=== PATIENT | female | born 1955 | race Caucasian/White ===

== ENCOUNTER 2022-08-20 02:42 | Emergency (ER) | payer MEDICARE, OTHER, SELFPAY ==
[2022-08-20] VITALS (7 sets, daily range): BP systolic 130–141; BP diastolic 48–110; PULSE 92–112; RESP 13–24; TEMP 37.1; O2SAT 95; BMI 34.0
--- NOTE | 2022-08-20 02:57 | ED.GENADUL1 ---
HPI - General Adult General Chief complaint: Headache Stated complaint: NAUSEA Time Seen by Provider: 08/20/22 02:48 Source: patient Mode of arrival: Wheelchair Limitations: no limitations History of Present Illness HPI narrative: presents complaining of a headache. Started around 4pm yesterday. has gradually worsened. Feels like an ax in her head and pain behind her eye. Denies fever but states she had chills. No neck stiffness but mild neck pain. Denies paresthesia or weakness or her extremities. No visual complaint. Feels nauseated. no chest pain. Did have epigastric abdominal pain yesterday AM but this resolved . States the pain lasted a couple of hours. no recurrence Related Data Home Medications Medication Instructions Recorded Confirmed atorvastatin 40 mg tablet 40 mg PO DAILY 08/20/22 08/20/22 hydrochlorothiazide 25 mg tablet 25 mg PO DAILY 08/20/22 08/20/22 levetiracetam 500 mg tablet 500 mg PO Q12H 08/20/22 08/20/22 omeprazole 40 mg capsule,delayed 40 mg PO DAILY 08/20/22 08/20/22 release Allergies Allergy/AdvReac Type Severity Reaction Status Date / Time morphine Allergy Unknown Verified 08/20/22 02:57 Penicillins Allergy Unknown Verified 08/20/22 02:57 Review of Systems ROS Status of ROS 10 or more systems reviewed and unremarkable except as noted in history and below PFSH PFS Social History Smoking status: Never smoker Exam Constitutional Vital Signs - 24 hr 08/20/22 02:46 08/20/22 03:06 08/20/22 03:10 Temperature 98.8 F Pulse Rate 100 H 98 H Pulse Rate [Monitor] 112 H Respiratory Rate 24 18 Blood Pressure Blood Pressure [Left Arm] 136/110 H Pulse Oximetry 95 08/20/22 03:20 08/20/22 03:23 08/20/22 04:03 Temperature Pulse Rate 94 H 92 H Pulse Rate [Monitor] Respiratory Rate 16 13 Blood Pressure 141/87 H Blood Pressure [Left Arm] Pulse Oximetry 08/20/22 06:06 Temperature Pulse Rate Pulse Rate [Monitor] Respiratory Rate Blood Pressure 130/48 H Blood Pressure [Left Arm] Pulse Oximetry Common normals: no apparent distress, oriented x3, healthy appearing, alert and well nourished [facility] Common normals: normocephalic Eye Common normals: PERRL, EOMs intact bilaterally and conjunctivae normal Respiratory Common normals: normal respiratory effort, no retractions, no use of accessory muscles and clear to auscultation bilaterally Cardio Common normals: no JVD, regular rate, regular rhythm, S1 normal heart sound and S2 normal heart sound GI Common normals: Normal to inspection, nondistended, normoactive bowel sounds present, soft to palpation and non-tender Extremity Common normals: normal to inspection and full ROM Neuro Common normals: oriented x3, moves all extremities, no focal motor deficits, no sensory deficits noted and gait normal Psych Appearance: grossly normal Course Vital Signs Vital signs: Vital Signs Temperature 98.8 F 08/20/22 02:46 Pulse Rate 112 H 08/20/22 02:46 Respiratory Rate 24 08/20/22 02:46 Blood Pressure 136/110 H 08/20/22 02:46 Pulse Oximetry 95 08/20/22 02:46 Temperature 98.8 F 08/20/22 02:46 Pulse Rate 92 H 08/20/22 03:23 Respiratory Rate 13 08/20/22 03:23 Blood Pressure 130/48 H 08/20/22 06:06 Pulse Oximetry 95 08/20/22 02:46 Medical Decision Making MDM Narrative Medical decision making narrative: patient presented complaining of a headache top of her head and behind her right eye associated with nausea. pain started yesterday around 4pm and gradually worsened. Also mentioned that she had abdominal pain that started 9AM yesterday and resolved after a couple of hours. Headache associated with nausea. CT brain without acute changes. EKG with low voltage. LAD. Headache improved significantly after cocktail in the department and she is feeling better. Her Troponin return elevated at 53. repeat Troponin returned normal at 48. Spoke to Hospitalist Dr Vasquez and he requested I consult with Cardiology. Discussed with Seismic Prospect[employer] Supervisor Dr Anton. He felt since the patient never had any chest pain and no recurrence of abdominal pain since yesterday that she could be discharged home to follow up with Cardiology later today in Clinic. Patient and her informed of the above and provided information on how to contact Cardiology clinic Lab Data Labs: Lab Results 08/20/22 08/20/22 Range/Units 03:00 05:55 WBC 10.6 (4.0-11.0) 10^3/uL RBC 4.99 (4.20-5.40) 10^6/uL Hgb 14.7 (12.0-16.0) g/dL Hct 44.4 (36.0-48.0) % MCV 89.0 (81.0-99.0) fL MCH 29.5 (26.7-34.0) pg MCHC 33.1 (29.9-35.2) g/dL RDW 13.4 (11.0-15.0) % Plt Count 361 (150-450) 10^3/uL MPV 9.0 L (9.5-13.5) fL Neut % (Auto) 79.3 H (43.0-75.0) % Lymph % (Auto) 12.2 L (20.5-60.0) % [place] % (Auto) 5.9 (1.7-12.0) % Eos % (Auto) 0.1 L (0.9-7.0) % Baso % (Auto) 0.4 (0.2-2.0) % Neut # (Auto) 8.4 H (1.4-6.5) 10^3/uL Lymph # (Auto) 1.3 (1.2-3.8) 10^3/uL [place] # (Auto) 0.6 (0.3-0.8) 10^3/uL Eos # (Auto) 0.0 (0.0-0.7) 10^3/uL Baso # (Auto) 0.0 (0.0-0.1) 10^3/uL Abs Immat Gran (auto) 0.22 H (0.00-0.03) 10^3/uL Imm/Tot Granulo (auto) 2.1 H (0.0-0.5) % Sodium 134 L (136-145) mmol/L Potassium 3.2 L (3.5-5.1) mmol/L Chloride 96 L (98-107) mmol/L Carbon Dioxide 29.3 (21.0-32.0) mmol/L Anion Gap 11.9 BUN 12.0 (7.0-18.0) mg/dL Creatinine 1.01 (0.55-1.02) mg/dL Est GFR ( Amer) >60 (>=60) Est GFR (Non-Af Amer) 55 L (>=60) BUN/Creatinine Ratio 11.9 Glucose 130 H (74-106) mg/dL Calcium 9.0 (8.5-10.1) mg/dL Troponin I High Sens 53.5 H* 48.8 (4.0-51.3) pg/mL Discharge Plan Discharge Chief Complaint: Headache Clinical Impression: Headache, Elevated troponin Patient Disposition: Home, Self-Care Prescriptions / Home Meds: No Action atorvastatin 40 mg tablet 40 mg PO DAILY levetiracetam 500 mg tablet 500 mg PO Q12H omeprazole 40 mg capsule,delayed release(DR/EC) 40 mg PO DAILY hydrochlorothiazide 25 mg tablet 25 mg PO DAILY Instructions: Acute Headache (ED) Additional Instructions: follow up in cardiology clinic here at [place] later today Stand Alone Forms: Portal Instructions Referrals: ROBBIN ORTIZ [Primary Care Provider] - 1 week
--- NOTE | 2022-08-20 03:00 | CT_ITS ---
The [address] [address] Patient Name: LACI VALADEZ MRN: [id number] date: 1955 Sex: F Assigned Patient Location: ER Current Patient Location: ER Accession/Order Number: [id number] Exam Date: 08/20/2022 03:30 Report Date: 08/20/2022 04:32 At the request of: ANTONY RAE Procedure: CT head/brain wo con EXAM: CT head/brain wo con CLINICAL INDICATION: headache COMPARISON: None TECHNIQUE: Axial CT images of the brain were obtained without contrast. Dose reduction techniques were achieved by using automated exposure control and/or adjustment of mA and/or kV according to patient size and/or use of iterative reconstruction technique. FINDINGS: Brain parenchyma: No mass effect or midline shift is seen. [place]-white differentiation is maintained. No findings suspicious for intracranial hemorrhage. No findings suggesting acute stroke. Periventricular hypoattenuation / patchy white matter hypodensities are statistically most often related to small vessel ischemic disease. Mild chronic infarct noted along the medial right occipital lobe with mild ex vacuo dilatation of the right occipital horn. Small chronic lacunar infarct noted along the right thalamus. Ventricles and extra-axial spaces: Ventricles are concordant with sulci. No findings suggesting hydrocephalus. Visualized paranasal sinuses: No findings suggesting acute sinusitis. Mastoid air cells: Clear. Included portions of the orbits:Included portions of the orbits with no evidence of fracture or other acute pathology. Bones: No fracture is seen. Impression: 1. No acute intracranial process visualized. 2. 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 Small chronic lacunar infarct along the right thalamus. Electronically authenticated by: CARITO WOOTEN Date: 08/20/2022 04:32
--- NOTE | 2022-08-20 03:00 | ECG_ITS ---
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
--- NOTE | 2022-08-20 03:02 | XR_ITS ---
The [address] [address] Patient Name: LACI VALADEZ MRN: [id number] date: 1955 Sex: F Assigned Patient Location: ER Current Patient Location: ED.MAIN Accession/Order Number: [id number] Exam Date: 08/20/2022 03:30 Report Date: 08/20/2022 05:34 At the request of: ANTONY ARE Procedure: XR chest 1V EXAM: XR chest 1V HISTORY: nausea. Headache for one day. COMPARISON: 02/22/2013, 05/07/2011, shoulder x-ray of 07/27/2014. TECHNIQUE: Chest X-ray, 1 view. FINDINGS: The patient is mildly rotated with best images obtained per technologist given difficulty in positioning. Support devices: None. Lungs/pleura: No consolidation, effusion, or pneumothorax. Low lung volumes. Heart and mediastinum: Given similar positioning on 07/27/2014, contours and not substantially changed. Bones: No acute abnormality identified. Overlying support devices are noted. IMPRESSION: No active disease. Low lung volumes. Electronically authenticated by: CAITLYN PONCE Date: 08/20/2022 05:34
[2022-08-20] MEDS: METHYLPREDNISOLONE SOD SUCC PF 125 MG/2 ML VIAL IVP (03:15)
[2022-08-20] MEDS: METOCLOPRAMIDE HCL 10 MG/2 ML VIAL IVP (03:15)
[2022-08-20] MEDS: 0.9 % SODIUM CHLORIDE 500 ML 250 ML IV (03:20)
[2022-08-20 03:46] LABS: Anion Gap 11.9; BUN Creatinine Ratio 11.9; Carbon Dioxide 29.3 mmol/L (21.0-32.0); Chloride 96 mmol/L (98-107); Estimated GFR (African America >60 (>=60); Estimated GFR (Non-African Ame 55 (>=60); Glucose 130 mg/dL (74-106); Potassium 3.2 mmol/L (3.5-5.1); Sodium 134 mmol/L (136-145)
[2022-08-20 03:56] LABS: Basophils Percent Auto 0.4 % (0.2-2.0); Eosinophils Percent Auto 0.1 % (0.9-7.0); Hematocrit 44.4 % (36.0-48.0); Hemoglobin 14.7 g/dL (12.0-16.0); Immature Granulocytes Abs Auto 0.22 10^3/uL (0.00-0.03); Immature Granulocytes Pct Auto 2.1 % (0.0-0.5); Lymphocytes Absolute Auto 1.3 10^3/uL (1.2-3.8); Lymphocytes Percent Auto 12.2 % (20.5-60.0); Mean Corpuscular HGB Conc 33.1 g/dL (29.9-35.2); Mean Corpuscular Hemoglobin 29.5 pg (26.7-34.0); Monocytes Absolute Auto 0.6 10^3/uL (0.3-0.8); Monocytes Percent Auto 5.9 % (1.7-12.0); Neutrophils Absolute Auto 8.4 10^3/uL (1.4-6.5); Neutrophils Percent Auto 79.3 % (43.0-75.0); Platelet Count 361 10^3/uL (150-450); Red Blood Count 4.99 10^6/uL (4.20-5.40); Red Cell Distribution Width 13.4 % (11.0-15.0); White Blood Count 10.6 10^3/uL (4.0-11.0)
[2022-08-20 04:00] LABS: Troponin I High Sensitivity 53.5 pg/mL (4.0-51.3)
[2022-08-20 06:17] LABS: Troponin I High Sensitivity 48.8 pg/mL (4.0-51.3)
== END 2022-08-20 06:58 | disposition home or self-care (01) ==
PROVIDERS: Emergency Provider Internal Medicine; PCP Internal Medicine
DX: R51.9 Headache, unspecified (principal); R77.8 Other specified abnormalities of plasma proteins; Z79.899 Other long term (current) drug therapy
CPT/HCPCS: 36415; 70450; 71045; 80048; 84484; 85025; 93005; 99283; J2930

== ENCOUNTER 2022-08-21 17:09 | Emergency (ER) | payer MEDICARE, OTHER, SELFPAY ==
[2022-08-21 17:15] VITALS: BP 137/52; PULSE 62; RESP 18; TEMP 36.9; O2SAT 97; BMI 29.5
[2022-08-21 17:19] VITALS: PULSE 53; RESP 7; O2SAT 98
--- NOTE | 2022-08-21 17:19 | ECG_ITS ---
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
[2022-08-21 17:20] VITALS: BP 145/56; PULSE 54; RESP 17; O2SAT 97
--- NOTE | 2022-08-21 17:20 | ED_ITS ---
HPI - General Adult General Chief complaint: Headache Stated complaint: HEADACHE Time Seen by Provider: 08/21/22 17:11 Source: patient Mode of arrival: walk-in Limitations: no limitations History of Present Illness HPI narrative: patient is a 67-year-old female who returns to the emergency department for return of headache. She was seen in this emergency department yesterday, very early in the morning for headache. She had a CT scan that was unremarkable and she was treated for the headache with medication with resolution of the headache. She was found to have a minimally elevated troponin, repeat troponin was within normal limits and the patient was discharged home after the Emergency Room physician discussed the case with the health unit clerk on-call. She was to follow-up yesterday in the health unit clerk office but the states that the patient did not follow-up because the cardiology office refused to schedule them. She had a return of the headache this morning. She denies visual changes, peripheral paresthesias, vomiting, fevers, upper respiratory symptoms. She has had no chest pain, shortness of breath, peripheral edema. She does not have a history of migraines. She was not prescribed any medications for headaches for home. She states it feels as though there is someone hitting her with an ax in the top of the head. Related Data Home Medications Medication Instructions Recorded Confirmed atorvastatin 40 mg tablet 40 mg PO DAILY 08/20/22 08/20/22 hydrochlorothiazide 25 mg tablet 25 mg PO DAILY 08/20/22 08/20/22 levetiracetam 500 mg tablet 500 mg PO Q12H 08/20/22 08/20/22 omeprazole 40 mg capsule,delayed 40 mg PO DAILY 08/20/22 08/20/22 release aspirin 325 mg tablet,delayed 325 mg PO DAILY 08/21/22 08/21/22 release Previous Rx's Medication Instructions Recorded diphenhydramine HCl 25 mg capsule 25 mg PO Q6H PRN headache #12 caps 08/21/22 (Benadryl) metoclopramide HCl 10 mg tablet 10 mg PO Q6H PRN nausea and 08/21/22 (Reglan) vomiting #12 tabs Allergies Allergy/AdvReac Type Severity Reaction Status Date / Time morphine Allergy Unknown Verified 08/20/22 02:57 Penicillins Allergy Unknown Verified 08/20/22 02:57 Review of Systems ROS Constitutional Denies: fever or chills Ears, nose, mouth, and throat Denies: throat pain or neck pain Cardiovascular Denies: chest pain Respiratory Denies: shortness of breath or cough Gastrointestinal Denies: nausea or vomiting Musculoskeletal Denies: back pain or neck pain Integumentary/Breast Denies: rash Neurological Reports: headache [facility] Social History Smoking status: Never smoker Exam Narrative Exam Narrative: Gen.: Awake, alert, in no distress, sitting comfortably on exam cart Head: Normocephalic, atraumatic ENT: Moist mucous membranes, no photophobia, C-spine nontender with no nuchal rigidity or meningismus Respiratory: No respiratory distress, lungs clear bilaterally Cardio: Regular rate and rhythm Gastrointestinal: Abdomen is soft, nondistended and nontender to palpation Extremities: Moves extremities equally, no pedal edema Psych: Normal mood and affect Neuro: No focal neuro deficit Skin: Warm, dry, intact Constitutional Vital Signs - 24 hr 08/21/22 17:15 08/21/22 17:19 08/21/22 17:20 Temperature 98.5 F Pulse Rate 53 L 54 L Pulse Rate [Monitor] 62 Respiratory Rate 18 7 L 17 Blood Pressure 145/56 H Blood Pressure [Left Arm] 137/52 H Pulse Oximetry 97 98 97 Oxygen Delivery Method Room Air Course Vital Signs Vital signs: Vital Signs Temperature 98.5 F 08/21/22 17:15 Pulse Rate 62 08/21/22 17:15 Respiratory Rate 18 08/21/22 17:15 Blood Pressure 137/52 H 08/21/22 17:15 Pulse Oximetry 97 08/21/22 17:15 Oxygen Delivery Method Room Air 08/21/22 17:15 Temperature 98.5 F 08/21/22 17:15 Pulse Rate 54 L 08/21/22 17:20 Respiratory Rate 17 08/21/22 17:20 Blood Pressure 145/56 H 08/21/22 17:20 Pulse Oximetry 97 08/21/22 17:20 Oxygen Delivery Method Room Air 08/21/22 17:15 Medical Decision Making MDM Narrative Medical decision making narrative: patient was treated for headache with IV fluids, Decadron, Reglan, Benadryl with almost complete resolution of the headache. She is resting comfortably on reevaluation. She was noted to have a potassium of 2.9. She has a normal troponin today with no complaints of chest pain or shortness of breath. She was strongly encouraged to follow-up with cardiology as needed and her PCP for further evaluation of a headache. Her requests a referral for the cardiology office as they were not able to be scheduled yesterday. We will fax her documentation to [facility] cardiology office and the patient can be scheduled as an outpatient. Return to the Emergency Room if symptoms change or worsen. Medical Records Medical records reviewed: Yes I reviewed the patient's medical records Lab Data Lab results reviewed: Yes I reviewed the patient's lab results Labs: Lab Results 08/21/22 Range/Units 17:26 WBC 9.7 (4.0-11.0) 10^3/uL RBC 4.79 (4.20-5.40) 10^6/uL Hgb 14.0 (12.0-16.0) g/dL Hct 41.2 (36.0-48.0) % MCV 86.0 (81.0-99.0) fL MCH 29.2 (26.7-34.0) pg MCHC 34.0 (29.9-35.2) g/dL RDW 13.2 (11.0-15.0) % Plt Count 325 (150-450) 10^3/uL MPV 8.5 L (9.5-13.5) fL Neut % (Auto) 72.6 (43.0-75.0) % Lymph % (Auto) 20.4 L (20.5-60.0) % [place] % (Auto) 6.4 (1.7-12.0) % Eos % (Auto) 0.1 L (0.9-7.0) % Baso % (Auto) 0.2 (0.2-2.0) % Neut # (Auto) 7.0 H (1.4-6.5) 10^3/uL Lymph # (Auto) 2.0 (1.2-3.8) 10^3/uL [place] # (Auto) 0.6 (0.3-0.8) 10^3/uL Eos # (Auto) 0.0 (0.0-0.7) 10^3/uL Baso # (Auto) 0.0 (0.0-0.1) 10^3/uL Abs Immat Gran (auto) 0.03 (0.00-0.03) 10^3/uL Imm/Tot Granulo (auto) 0.3 (0.0-0.5) % ESR 34 H (<=30) mm/hr Sodium 135 L (136-145) mmol/L Potassium 2.9 L* (3.5-5.1) mmol/L Chloride 98 (98-107) mmol/L Carbon Dioxide 30.8 (21.0-32.0) mmol/L Anion Gap 9.1 BUN 16.0 (7.0-18.0) mg/dL Creatinine 0.94 (0.55-1.02) mg/dL Est GFR ( Amer) >60 (>=60) Est GFR (Non-Af Amer) 59 L (>=60) BUN/Creatinine Ratio 17.0 Glucose 96 (74-106) mg/dL Calcium 8.8 (8.5-10.1) mg/dL Total Bilirubin 1.0 (0.2-1.0) mg/dL AST 25 (15-37) U/L ALT 30 (14-59) U/L Alkaline Phosphatase 85 (46-116) U/L Troponin I High Sens 21.8 (4.0-51.3) pg/mL C-Reactive Protein <0.2 (<=1.0) mg/dL Total Protein 7.1 (6.4-8.2) g/dL Albumin 3.6 (3.4-5.0) g/dL Globulin 3.5 g/dL Albumin/Globulin Ratio 1.0 ECG Data Attestation: I personally reviewed and interpreted this ECG as follows: (normal sinus rhythm at a rate of fifty-eight, T-wave inversion in leads three and lead aVF that is more prominent from previous. No acute ST elevation or ectopy. EKG reviewed by attending physician) Prior ECG tracings: available for review Discharge Plan Discharge Chief Complaint: Headache Clinical Impression: Headache, Acute hypokalemia Patient Disposition: Home, Self-Care Time of Disposition Decision: 18:25 Condition: Good Prescriptions / Home Meds: New metoclopramide HCl [Reglan] 10 mg tablet 10 mg PO Q6H PRN (Reason: nausea and vomiting) Qty: 12 0RF Rx Instructions: Can be taken PRN for headache with benadryl diphenhydramine HCl [Benadryl] 25 mg capsule 25 mg PO Q6H PRN (Reason: headache) Qty: 12 0RF Rx Instructions: to be taken with reglan PRN for headache No Action aspirin 325 mg tablet,delayed release (DR/EC) 325 mg PO DAILY atorvastatin 40 mg tablet 40 mg PO DAILY levetiracetam 500 mg tablet 500 mg PO Q12H omeprazole 40 mg capsule,delayed release(DR/EC) 40 mg PO DAILY hydrochlorothiazide 25 mg tablet 25 mg PO DAILY Instructions: Acute Headache (ED) Stand Alone Forms: Portal Instructions Referrals: ROBBIN ORTIZ [Primary Care Provider] - 1 week
[2022-08-21 17:32] LABS: Basophils Percent Auto 0.2 % (0.2-2.0); Eosinophils Percent Auto 0.1 % (0.9-7.0); Hematocrit 41.2 % (36.0-48.0); Immature Granulocytes Abs Auto 0.03 10^3/uL (0.00-0.03); Immature Granulocytes Pct Auto 0.3 % (0.0-0.5); Lymphocytes Percent Auto 20.4 % (20.5-60.0); Mean Corpuscular Hemoglobin 29.2 pg (26.7-34.0); Mean Platelet Volume 8.5 fL (9.5-13.5); Monocytes Absolute Auto 0.6 10^3/uL (0.3-0.8); Monocytes Percent Auto 6.4 % (1.7-12.0); Neutrophils Percent Auto 72.6 % (43.0-75.0); Platelet Count 325 10^3/uL (150-450); Red Blood Count 4.79 10^6/uL (4.20-5.40); Red Cell Distribution Width 13.2 % (11.0-15.0); White Blood Count 9.7 10^3/uL (4.0-11.0)
[2022-08-21 17:39] LABS: Erythrocyte Sedimentation Rate 34 mm/hr (<=30)
[2022-08-21 17:51] LABS: Alanine Aminotransferase 30 U/L (14-59); Albumin Level 3.6 g/dL (3.4-5.0); Alkaline Phosphatase 85 U/L (46-116); Anion Gap 9.1; Aspartate Amino Transferase 25 U/L (15-37); Calcium 8.8 mg/dL (8.5-10.1); Carbon Dioxide 30.8 mmol/L (21.0-32.0); Chloride 98 mmol/L (98-107); Estimated GFR (African America >60 (>=60); Estimated GFR (Non-African Ame 59 (>=60); Globulin 3.5 g/dL; Glucose 96 mg/dL (74-106); Sodium 135 mmol/L (136-145); Total Protein 7.1 g/dL (6.4-8.2); Troponin I High Sensitivity 21.8 pg/mL (4.0-51.3)
[2022-08-21 17:52] LABS: C Reactive Protein <0.2 mg/dL (<=1.0)
[2022-08-21 17:53] LABS: Potassium 2.9 mmol/L (3.5-5.1)
[2022-08-21] MEDS: 0.9 % SODIUM CHLORIDE 1,000 ML 999 ML IV (17:56)
[2022-08-21] MEDS: DEXAMETHASONE SODIUM PHOSPHATE 10 MG/ML VIAL IV (17:57)
[2022-08-21] MEDS: DIPHENHYDRAMINE HCL 50 MG/ML (1ML) VIAL 25 MG IV (17:58)
[2022-08-21] MEDS: METOCLOPRAMIDE HCL 10 MG/2 ML VIAL INJ (17:58)
[2022-08-21] MEDS: POTASSIUM CHLORIDE 10 MEQ ER TABLET 40 MEQ PO (19:31)
== END 2022-08-21 19:32 | disposition home or self-care (01) ==
PROVIDERS: Physician Assistant; Emergency Provider Emergency Medicine Emergency Medical Services; PCP Internal Medicine
DX: R51.9 Headache, unspecified (principal); E87.6 Hypokalemia; Z79.82 Long term (current) use of aspirin; Z79.899 Other long term (current) drug therapy
CPT/HCPCS: 36415; 80053; 84484; 85025; 85652; 86140; 93005; 96374; 96375; 99284; J1100

== ENCOUNTER 2022-09-03 06:54 | Outpatient (OUT) | payer MEDICARE, OTHER, SELFPAY ==
--- NOTE | 2022-09-03 15:10 | CA_ITS ---
Patient: LACI VALADEZ Exam Date: 09/03/2022 : 1955 Gender:F Ordering : NELSY POWELL Admission #: [id number] Family : ROBBIN ORTIZ Order #: [id number] CLICK HERE TO VIEW EXAM ECHOCARDIOGRAM REPORT PROCEDURE: CA ECHO DOPPLER COMPLETE INDICATIONS: Chest pain COMPARISON: None. DESCRIPTION: COMPLETE ECHOCARDIOGRAM Real-time transthoracic echocardiography with 2D, M-mode, spectral and color flow Doppler performed. QUALITY: Technically difficult due to patients condition. LEFT VENTRICLE: Normal chamber size. Normal left ventricular wall thickness. Normal systolic function. LV EF: Normal left ventricular ejection fraction, (>55%). DIASTOLIC: Normal diastolic function. ATRIAL SEPTUM: LEFT ATRIUM: Normal chamber size. RIGHT ATRIUM: Normal chamber size. RIGHT VENTRICLE: Normal chamber size. Normal right ventricular systolic function. TRICUSPID VALVE: Normal mobility and thickness. No stenosis with no regurgitation. MITRAL VALVE: Normal mobility and thickness. No evidence of mitral valve stenosis. Mild mitral annular calcification. No mitral regurgitation. AORTIC VALVE: Normal trileaflet appearance. Normal leaflet mobility. No evidence of aortic valve stenosis. Multifocal calcifications. No aortic regurgitation. AORTIC ROOT: Normal diameter and appearance. PULMONIC VALVE: Normal thickness and mobility. No stenosis. Trivial regurgitation. PERICARDIUM: No evidence of pericardial effusion. IVC: Not well visualized. PLEURA: CONCLUSION: 1. Normal ventricular function. 2. No significant valvular dysfunction. 3. No pericardial effusion. Adult Echocardiography Procedure Report Left Ventricle LVEDD (3.7 - 5.6 cm): 4.00 cm LVESD (2.2 - 4.0 cm): 2.37 cm LVIVS thickness (0.6 - 1.2 cm): 0.96 cm LVPW thickness (0.5 - 1.0 cm): 0.79 cm e': 0.09 m/s E - e': 9.14 LVOT Max Gradient: 2.40 mm[Hg] LVOT Area (cm2): 0.78 m/s Peak Velocity (LVOT): 0.78 m/s LVOT Diameter 1.98 cm Left Atrium LA Volume Index (2D A2C): 22.30 ml/m2 Left Atrium Systolic Dimension: 2.59 cm Mitral Valve MV E to A Ratio: 0.76 Mitral Valve A-Wave Peak Velocity: 1.10 m/s Mitral Valve E-Wave Peak Velocity: 0.84 m/s Right Ventricle Aorta AO Root Diam: 2.99 cm Ascending Ao Diam: 2.86 cm Aortic Valve AoV Area (Peak Jose Antonio): 1.85 cm2, 1.85 cm2 Peak Velocity(Antegrade Flow): 1.28 m/s Peak Gradient(Antegrade Flow): 6.58 mm[Hg] Tricuspid Valve Pulmonic Valve Peak Velocity: 0.96 m/s Peak Gradient: 3.75 mm[Hg], 3.68 mm[Hg] Right Atrium Right Atrium Systolic Pressure: 29.11 ml, 29.11 ml Dictated by: Mayur Price M.D. on 09/06/2022 at 18:16 Approved by: Mayur Price M.D. on 09/06/2022 at 18:19
== END 2022-09-03 06:55 | disposition home or self-care (01) ==
LOC: CARD 06:55
PROVIDERS: PCP Internal Medicine; Visit Provider Internal Medicine Cardiovascular Disease
DX: R07.9 Chest pain, unspecified (principal)
CPT/HCPCS: 93306

== ENCOUNTER 2023-01-28 15:02 | Outpatient (OUT) | payer MEDICARE, OTHER, SELFPAY ==
[2023-01-28 15:18] LABS: Basophils Percent Auto 0.6 % (0.2-2.0); Eosinophils Absolute Auto 0.2 10^3/uL (0.0-0.7); Eosinophils Percent Auto 2.7 % (0.9-7.0); Hematocrit 43.9 % (36.0-48.0); Hemoglobin 14.5 g/dL (12.0-16.0); Immature Granulocytes Abs Auto 0.03 10^3/uL (0.00-0.03); Immature Granulocytes Pct Auto 0.4 % (0.0-0.5); Lymphocytes Absolute Auto 1.7 10^3/uL (1.2-3.8); Lymphocytes Percent Auto 25.1 % (20.5-60.0); Mean Corpuscular Hemoglobin 29.5 pg (26.7-34.0); Mean Corpuscular Volume 89.4 fL (81.0-99.0); Mean Platelet Volume 8.5 fL (9.5-13.5); Monocytes Absolute Auto 0.5 10^3/uL (0.3-0.8); Neutrophils Absolute Auto 4.3 10^3/uL (1.4-6.5); Neutrophils Percent Auto 64.2 % (43.0-75.0); Platelet Count 347 10^3/uL (150-450); Red Blood Count 4.91 10^6/uL (4.20-5.40); White Blood Count 6.8 10^3/uL (4.0-11.0)
[2023-01-28 16:07] LABS: Alanine Aminotransferase 18 U/L (14-59); Albumin Level 3.6 g/dL (3.4-5.0); Alkaline Phosphatase 95 U/L (46-116); Anion Gap 9.1; Aspartate Amino Transferase 20 U/L (15-37); BUN Creatinine Ratio 15.1; Bilirubin Total 0.9 mg/dL (0.2-1.0); Calcium 9.4 mg/dL (8.5-10.1); Carbon Dioxide 32.4 mmol/L (21.0-32.0); Chloride 98 mmol/L (98-107); Chol HDL Ratio 2.8; Cholesterol 180 mg/dL (<=200); Estimated GFR (African America >60 (>=60); Estimated GFR (Non-African Ame >60 (>=60); Globulin 3.7 g/dL; Glucose 100 mg/dL (74-106); HDL Cholesterol 65 mg/dL (40-60); Potassium 3.5 mmol/L (3.5-5.1); Sodium 136 mmol/L (136-145); Total Protein 7.3 g/dL (6.4-8.2); Triglycerides 109 mg/dL (<=150); VLDL CHOLESTEROL 21.8 mg/dL
== END 2023-01-28 15:03 | disposition home or self-care (01) ==
LOC: LAB 15:03
PROVIDERS: PCP Internal Medicine; Visit Provider Nurse Practitioner Acute Care
DX: I25.10 Atherosclerotic heart disease of native coronary artery without angina pectoris (principal)
CPT/HCPCS: 36415; 80053; 80061; 85025

== ENCOUNTER 2023-05-07 18:15 | Observation (INO) | payer MEDICARE, OTHER, SELFPAY ==
[2023-05-07] VITALS (42 sets, daily range): BP systolic 79–165; BP diastolic 48–86; PULSE 61–103; RESP 12–23; TEMP 36.5–36.7; O2SAT 92–98; BMI 33.2; BMI 34.5
--- NOTE | 2023-05-07 | PCN_ITS ---
CARDIAC STRESS TEST Requesting Physician: Carlotta Salazar Procedure Date: 05/07/2023 PERFORMING PROVIDER: Martha Knight M.D. INDICATION: Chest pain. STRESS TEST PROTOCOL: Lexiscan myocardial perfusion imaging. Resting heart rate: 64 beats per minute. Max heart rate: 116 beats per minute. Resting blood pressure: 126/74 Maximum blood pressure: 134/68 CONCLUSION: 1. Baseline EKG is abnormal due to low voltage QRS, poor R-wave progression indicative of possible anterior infarct, age indeterminate. 2. EKG portion of stress test was non-diagnostic due to significant artifact throughout the procedure. 3. Please refer to the separately interpreted nuclear myocardial perfusion imaging. 4. Clinical correlation recommended. [facility]
--- NOTE | 2023-05-07 18:34 | XR_ITS ---
The [address] [address] Patient Name: LACI VALADEZ MRN: [id number] date: 1955 Sex: F Assigned Patient Location: ED.MAIN Current Patient Location: ED.MAIN Accession/Order Number: [id number] Exam Date: 05/07/2023 18:40 Report Date: 05/07/2023 19:17 At the request of: NEHEMIAS CALDERON Procedure: XR chest 1V EXAMINATION: XR chest 1V 05/07/2023 4:16 PM PDT HISTORY: Chest pain TECHNIQUE: Single frontal view of the chest acquired. COMPARISONS: Chest x-ray 08/20/2022. FINDINGS: Lines/tubes/other: None. Heart and mediastinum: Stable. Bones: No acute osseous abnormality. Lungs: Mild patchy opacification of the left lateral base. No pulmonary edema. Pleura: There is no significant pleural effusion or pneumothorax. Other: None. XR/XR chest 1V IMPRESSION: Mild left basilar opacification. Differential includes atelectasis, aspiration, and pneumonia. Electronically authenticated by: KALEB FREED Date: 05/07/2023 19:17
--- NOTE | 2023-05-07 18:34 | ECG_ITS ---
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
--- NOTE | 2023-05-07 18:35 | ED.CHESTPAI1 ---
HPI - Chest Pain General Chief Complaint: Chest Pain Stated Complaint: Chest Pain Time Seen by Provider: 05/07/23 18:27 Source: patient Mode of arrival: walk-in Limitations: no limitations History of Present Illness HPI narrative: 67-year-old female presents for 1 hour of chest pain. On the left side of her chest and started while she was sitting down. It is waxed and waned but has not gone away. She had chest pain about a year ago but was not admitted to the hospital and she had a stress test more than 8 years ago. She is scheduled to see a multi site leasing consultant soon. No fever cough or injury or unusual activity. It is moderate and waxes and wanes. Related Data Home Medications ?Medication ?Instructions ?Recorded ?Confirmed atorvastatin 40 mg tablet 40 mg PO DAILY 08/20/22 05/07/23 hydrochlorothiazide 25 mg tablet 25 mg PO DAILY 08/20/22 05/07/23 levetiracetam 500 mg tablet 500 mg PO Q12H 08/20/22 05/07/23 omeprazole 40 mg capsule,delayed 40 mg PO DAILY 08/20/22 05/07/23 release aspirin 325 mg tablet,delayed 325 mg PO DAILY 08/21/22 05/07/23 release albuterol sulfate 90 mcg/actuation inhalation 05/07/23 aerosol inhaler Previous Rx's ?Medication ?Instructions ?Recorded diphenhydramine HCl 25 mg capsule 25 mg PO Q6H PRN headache #12 caps 08/21/22 (Benadryl) metoclopramide HCl 10 mg tablet 10 mg PO Q6H PRN nausea and 08/21/22 (Reglan) vomiting #12 tabs Allergies Allergy/AdvReac Type Severity Reaction Status Date / Time morphine Allergy Unknown Verified 08/20/22 02:57 Penicillins Allergy Unknown Verified 08/20/22 02:57 Review of Systems ROS Narrative A ten point review of systems is negative except as noted above. PFSH PFSH Social History Smoking status: Never smoker Exam Narrative Exam Narrative: Nurses note and vital signs reviewed and patient is not hypoxic. General: The patient appears well and in no apparent distress. Patient is resting comfortably on cart. Skin: Warm, dry, no pallor noted. There is no rash noted. Head: Normocephalic, atraumatic Eye: Normal conjunctiva, no drainage Ears, Nose, Mouth, and Throat: oral mucosa is moist. Nares patent. Cardiovascular: Regular Rate and Rhythm Respiratory: Patient is in no distress, no accessory muscle use, lungs are clear to auscultation, no wheezing, rales or rhonchi Back: non-tender GI: Soft and nontender Musculoskeletal: The patient has no evidence of calf tenderness, no pitting edema, symmetrical pulses noted bilaterally Neurological: A&O, normal speech Psychiatric: Cooperative Constitutional Vital Signs, click to edit/add: Last Vital Signs Temp 98.1 F 05/07/23 18:23 Pulse 77 05/07/23 18:23 Resp 15 05/07/23 18:23 BP 126/84 05/07/23 18:23 Pulse Ox 95 05/07/23 18:30 O2 Del Method Room Air 05/07/23 18:30 Course Vital Signs Vital signs: Vital Signs Temperature 98.1 F 05/07/23 18:23 Pulse Rate 77 05/07/23 18:23 Respiratory Rate 15 05/07/23 18:23 Blood Pressure 126/84 05/07/23 18:23 Pulse Oximetry 96 05/07/23 18:23 Oxygen Delivery Method Room Air 05/07/23 18:23 Temperature 98.1 F 05/07/23 18:23 Pulse Rate 77 05/07/23 18:23 Respiratory Rate 15 05/07/23 18:23 Blood Pressure 126/84 05/07/23 18:23 Pulse Oximetry 95 05/07/23 18:30 Oxygen Delivery Method Room Air 05/07/23 18:30 MDM - Chest Pain MDM Narrative Medical decision making narrative: Tests are ordered and the patient is signed out to Dr. Hawk. Differential Diagnosis Differential diagnosis: Likely pneumothorax, unstable angina pectoris, atypical chest pain, st elevation myocardial infarction, costochondritis and chest pain ECG Data Attestation: I personally reviewed and interpreted this ECG as follows: (EKG on my interpretation shows normal sinus rhythm without acute change and rate of 70.) Heart Score History: Highly Suspicious ECG: Normal Age: >65 years Risk Factors: 1 or 2 Risk Factors Troponin: <Normal Limit (Troponin pending at the time of this dictation) Total Heart Score Recommendations & Risks:: 5 Discharge Plan Discharge Patient Disposition: Still a Patient
[2023-05-07 18:41] LABS: Basophils Absolute Auto 0.1 10^3/uL (0.0-0.1); Basophils Percent Auto 0.8 % (0.2-2.0); Eosinophils Absolute Auto 0.3 10^3/uL (0.0-0.7); Eosinophils Percent Auto 3.4 % (0.9-7.0); Hematocrit 43.8 % (36.0-48.0); Hemoglobin 14.2 g/dL (12.0-16.0); Immature Granulocytes Abs Auto 0.02 10^3/uL (0.00-0.03); Immature Granulocytes Pct Auto 0.3 % (0.0-0.5); Lymphocytes Absolute Auto 2.4 10^3/uL (1.2-3.8); Lymphocytes Percent Auto 30.8 % (20.5-60.0); Mean Corpuscular HGB Conc 32.4 g/dL (29.9-35.2); Mean Corpuscular Hemoglobin 29.5 pg (26.7-34.0); Mean Corpuscular Volume 90.9 fL (81.0-99.0); Mean Platelet Volume 9.1 fL (9.5-13.5); Monocytes Absolute Auto 0.7 10^3/uL (0.3-0.8); Monocytes Percent Auto 8.9 % (1.7-12.0); Neutrophils Absolute Auto 4.3 10^3/uL (1.4-6.5); Neutrophils Percent Auto 55.8 % (43.0-75.0); Platelet Count 356 10^3/uL (150-450); Red Blood Count 4.82 10^6/uL (4.20-5.40); White Blood Count 7.7 10^3/uL (4.0-11.0)
--- OUTSIDE RECORDS SUMMARY | 2023-05-07 18:41 | XMS_ITS | CCD ---
Author Organization [facility] Care Team Providers Care Erosion Control Specialist Name Role Phone Robbin Ortiz Cynthia Primary Care Provider [phone] ANGEL ROBBIN Marie Referring Unavailable ANGEL, ROBBIN Marie Primary Care Unavailable JULITO, RAFAEL Aceves Referring Unavailable ANGEL, ROBBIN Marie Primary Care Unavailable RAFAEL VILA Referring Unavailable ANGEL, ROBBIN Marie Primary Care Unavailable HILL, ROBBIN Marie Referring Unavailable ANGEL, ROBBIN Marie Primary Care Unavailable HILL, ROBBIN Marie Referring Unavailable ANGEL, ROBBIN Marie Primary Care Unavailable LEILA, OBY Referring Unavailable ANGEL, ROBBIN Marie Primary Care Unavailable LEILA, BOY Referring Unavailable ANGEL, ROBBIN Marie Primary Care Unavailable REQUEST, NONE LISTED Attending Unavaila ble REQUEST, NONE LISTED Consulting Unavaila ble REQUEST, NONE LISTED Admitting Unavaila ble ANGEL, DR SIEGEL Primary Care Unavailable BRE LOYD JR Attending Unavailable BRE LOYD JR Admitting Unavailable ANGEL, DR SIEGEL Primary Care Unavailable BRE LOYD JR Attending Unavailable BRE LOYD JR Admitting Unavailable REQUEST, NONE LISTED Attending Unavaila ble REQUEST, NONE LISTED Consulting Unavaila ble REQUEST, NONE LISTED Admitting Unavaila TRE Chatman Consulting Unavailable TRE AUGUSTIN Admitting Unavailable TRE AUGUSTIN Attending Unavailable MD Robbin Ortiz Primary Care Provider [phone] DO Gurpreet Omalley Emergency Provider [phone] NELSY POWELL Attending Unavailable SUSIE LANGE Attending Unavailable Gurpreet Omalley Attending Unavailable Gurpreet Omalley Admitting Unavailable Robbin Ortiz Primary Care Unavailable ROBBIN ORTIZ Referring Unavailable CJ MOSES Attending Unava ilable Allergies Allergy Classification Reported Allergen(s) Allergy Type Date of Onset Reaction(s) Facility (6 sources) Lisinopril Drug Allergy 6 Other (See Comments) [place] (8 sources) Morphine; Translations: [MORPHINE] Drug Allergy 2 Other (See Comments) [place] (8 sources) Penicillins; Translations: [PENICILLINS] Propensity to adverse reactions to drug 2 Nausea And Vomiting [place] (1 source) Morphine Drug Allergy 6 [facility] (1 source) Penicillins Drug allergy (disorder) 5 [facility] (1 source) Morphine Drug Allergy 3 [facility] (1 source) Penicillins Drug allergy (disorder) 3 [facility] Medications Current Medications Medication Drug Class(es) Dates Sig (Normalized) Sig (Original) 200 actuat albuterol 0.09 mg/actuat metered dose inhaler (6 sources) beta2-Adrenergic Agonist Start: 01-18-20 15 take 2 puff(s) by inhalation every six hours as needed albuterol (PROVENTIL HFA;VENTOLIN HFA) 108 (90 BASE) MCG/ACT inhaler Inhale 2 puffs into the lungs every 6 hours as needed 3 Inhaler 2 01/17/2015 Active aspirin 325 mg delayed release oral tablet (6 sources) Platelet Aggregation Inhibitor, Nonsteroidal Anti-inflammatory Drug Start: 04-14-19 16 take 1 tablet by mouth once daily aspirin (ECOTRIN) 325 MG EC tablet Take 1 tablet by mouth daily 90 tablet 1 04/14/2015 Active atorvastatin 40 mg oral tablet (6 sources) HMG-CoA Reductase Inhibitor Start: 04-14-19 16 take 1 tablet by mouth once daily atorvastatin (LIPITOR) 40 MG tablet Take 1 tablet by mouth nightly 90 tablet 1 04/14/2015 Active betamethasone 0.5 mg/ml / clotrimazole 10 mg/ml topical cream (6 sources) Azole Antifungal, Corticosteroid Start: 10-09-19 14 clotrimazole-betametha sone (LOTRISONE) cream Apply topically 2 times daily. 45 g 2 10/08/2013 Active Calcium Carbonate Antacid (TUMS PO) (6 sources) Calcium Carbonat e Antacid (TUMS PO) Take by mouth as needed 0 Active cholecalciferol 2000 unt oral capsule (6 sources) Vitamin D take 1 capsule by mouth once daily Cholecalciferol (VITAMIN D3) 2000 UNITS CAPS Take 1 capsule by mouth daily 0 Active clindamycin 150 mg oral capsule (1 source) Lincosamide Antibacterial take 4 tablets by mouth every hour clindamycin (CLEOCIN) 150 MG capsule Indications: 4 tabs one hour prior to dentist Take 150 mg by mouth 4 times daily Indications: 4 tabs one hour prior to dentist 0 Active docusate sodium 50 mg / sennosides, chcf 8.6 mg oral tablet (1 source) take 8.6-50 mg by mouth once senna-docusate (PERICOLACE) 8.6-50 MG per tablet Take 1 tablet by mouth daily 0 Active fexofenadine hydrochloride 180 mg oral tablet (6 sources) Histamine-1 Receptor Antagonist Start: 07-30-19 13 take 1 tablet by mouth once daily fexofenadine (TIEN) 180 MG tablet Indications: Allergic asthma Take 1 tablet by mouth daily. 90 tablet 3 07/29/2012 Active hydroCHLOROthiazide 25 mg oral tablet (6 sources) Thiazide Diuretic Start: 01-25-20 16 hydrochlorothiazide (HYDRODIURIL) 25 MG tablet 1 tablet daily 0 01/25/2016 Active levETIRAcetam 500 mg oral tablet (1 source) Start: 04-26-19 16 take 1 tablet by mouth twice daily levETIRAcetam (KEPPRA) 500 MG tablet Take 1 tablet by mouth 2 times daily 180 tablet 3 04/26/2015 Active omeprazole 20 mg oral tablet (6 sources) Proton Pump Inhibitor Omeprazole Magnesium (PRILOSEC OTC PO) Take 20 mg by mouth 0 Active Problems Active Problems Problem Classification Problem Date Documented Date Episodic/Chronic Acute cerebrovascular disease (6 sources) Cerebrovascular accident; Translations: [Stroke] 12-10-2011 Chronic Acute myocardial infarction (6 sources) Acute ST segment elevation myocardial infarction; Translations: [Myocardial infarction] 03-22-2015 Chronic Allergic reactions (6 sources) Urticaria; Translations: [Hives] 12-10-2011 Episodic Asthma (6 sources) Asthma; Translations: [Asthma] 07-29-2012 Chronic Congestive heart failure; nonhypertensive (2 sources) Chronic systolic (congestive) heart failure; Translations: [Chronic systolic (congestive) heart failure] Onset: 12-10-2022 Chronic Coronary atherosclerosis and other heart disease (2 sources) Atherosclerotic heart disease of zuni coronary artery without angina pectoris; Translations: [Atherosclerotic heart disease of zuni coronary artery without angina pectoris] Onset: 12-10-2022 Chronic Epilepsy; convulsions (6 sources) Seizure; Translations: [Convulsions] 03-23-2015 Episodic Essential hypertension (8 sources) Hypertensive disorder; Translations: [Essential (primary) hypertension] Onset: 12-10-2022 07-29-2012 Chronic Immunizations and screening for infectious disease (4 sources) Encounter for immunization; Translations: [ENCOUNTER FOR IMMUNIZATION] Onset: 12-20-2020 Episodic Nonspecific chest pain (2 sources) Other chest pain; Translations: [Other chest pain] Onset: 12-10-2022 Episodic Osteoarthritis (6 sources) Osteoarthritis; Translations: [Osteoarthritis] 12-10-2011 Chronic Other bone disease and musculoskeletal deformities (1 source) Osteopenia; Translations: [Osteopenia, unspecified location] Episodic Peripheral and visceral atherosclerosis (6 sources) Stenosis of left subclavian artery; Translations: [Stenosis of left subclavian artery] Onset: 05-10-2015 05-10-2015 Pneumonia (except that caused by tuberculosis or sexually transmitted disease) (6 sources) Pneumonia; Translations: [Pneumonia] 12-10-2011 Episodic Residual codes; unclassified (6 sources) Chronic back pain ; Translations: [Chronic back pain] 12-10-2011 Episodic Unclassified (1 source) Patient encounter status; Translations: [Breast cancer screening by mammogram] Past or Other Problems Problem Classification Problem Date Documented Da te Episodic/Chronic Malaise and fatigue (1 source) Asthenia; Translations: [Weakness] Onset: 08-20-2022 Episodic Results Test Name Value Interpretation Reference Range Facil ity Office Visiton 12-10-2022 Follow-up visit [id number] Bethany Cardoza 1955 F Date Provider Department Center 12/10/2022 [id number] KHOURY Family History Problem Relation Age of Onset Heart failure Mother Heart attack Father Family Status - Relation Status Age at Mother Father Level of Service:36021 MT OFFICE/OUTPATIENT ESTABLISHED MOD MDM 30-39 MIN Normal [facility] Office Visiton 08-24-2022 Follow-up visit [id number] Bethany Cardoza 1955 F Date Provider Department Center 08/24/2022 Nimisha8-NELSY POWELL CARD [facility] Family History Problem Relation Age of Onset Heart failure Mother Heart attack Father Family Status - Relation Status Age at Mother Father Level of Service:56101 MT OFFICE/OUTPATIENT NEW MODERATE MDM 45-59 MINUTES Normal [facility] XR Ribs Righton 01-09-2022 XR Ribs Right HISTORY: Rib pain since a fall. TECHNIQUE: Frontal view of the chest and frontal and oblique views of the ribs obtained COMPARISON: None available FINDINGS: Suboptimal inspiration. Atherosclerotic calcification of the thoracic aorta. The cardiomediastinal silhouette is within normal limits. Linear opacities of the left lung base. No pneumothorax or pleural effusion. No acute displaced rib fracture identified by radiography. IMPRESSION: No acute displaced rib fracture identified by radiography. Linear opacities of the left lung base likely represent atelectasis unless the patient has signs/symptoms of pneumonia. Report reported and signed by Robbin Irvin on 01/10/2022 0935 Normal [facility] PRISCA DIGITAL SCREEN W OR WO C AD BILATERALon 09-24-2019 [facility] DIGITAL SCREEN W OR WO CAD BILATERAL BILATERAL DIGITAL MAMMOGRAPHY, SCREENING COMPARISON: 02/16/2014 and 01/04/2014. HISTORY: Previous benign breast biopsies. TECHNIQUE: CC and MLO views were obtained bilaterally. CAD utilized. FINDINGS: The breasts are predominantly fat. Minimal fibroglandular tissue is symmetrically distributed. There is no evidence for suspicious dominant mass or suspicious-appearing clusters of calcification. Occasional benign-appearing calcifications are seen. Biopsy clips are noted incidentally bilaterally. IMPRESSION: 1. No mammographic evidence for malignancy. 2. Continued yearly screening is recommended. BI-RADS 2, benign. Benign, no evidence of malignancy. Normal interval followup is recommended in 12 months. OVERALL ASSESSMENT - BENIGN. A letter of notification will be sent to the patient regarding the results. Interpreted by: Bre Kunz MD Signed by: Bre Kunz MD 09/24/19 Final result Normal [facility] 1. No mammographic evidence for malignancy. 2. Continued yearly screening is recommended. BI-RADS 2, benign. Benign, no evidence of malignancy. Normal interval followup is recommended in 12 months. OVERALL ASSESSMENT - BENIGN. A letter of notification will be sent to the patient regarding the results. [facility], [place] BILATERAL DIGITAL MAMMOGRAPHY, SCREENING COMPARISON: 02/16/2014 and 01/04/2014. HISTORY: Previous benign breast biopsies. TECHNIQUE: CC and MLO views were obtained bilaterally. CAD utilized. FINDINGS: The breasts are predominantly fat. Minimal fibroglandular tissue is symmetrically distributed. There is no evidence for suspicious dominant mass or suspicious-appearing clusters of calcification. Occasional benign-appearing calcifications are seen. Biopsy clips are noted incidentally bilaterally. [place], [place] Andres, [facility] Incoming Radiant Results From [employer] - 09/24/2019 12:10 PM EDT BILATERAL DIGITAL MAMMOGRAPHY, SCREENING COMPARISON: 02/16/2014 and 01/04/2014. HISTORY: Previous benign breast biopsies. TECHNIQUE: CC and MLO views were obtained bilaterally. CAD utilized. FINDINGS: The breasts are predominantly fat. Minimal fibroglandular tissue is symmetrically distributed. There is no evidence for suspicious dominant mass or suspicious-appearing clusters of calcification. Occasional benign-appearing calcifications are seen. Biopsy clips are noted incidentally bilaterally. IMPRESSION: 1. No mammographic evidence for malignancy. 2. Continued yearly screening is recommended. BI-RADS 2, benign. Benign, no evidence of malignancy. Normal interval followup is recommended in 12 months. OVERALL ASSESSMENT - BENIGN. A letter of notification will be sent to the patient regarding the results. [facility] [place] DEXA BONE DENSITY 2 SITESon 09-23-2019 DEXA BONE DENSITY 2 SITES DEXA BONE DENSITY STUDY - 09/22/2019: COMPARISON: DEXA study 01/17/2015. ADDITIONAL HISTORY: 64-year-old postmenopausal white female with a personal history of osteopenia. FINDINGS: There is a mild scoliosis of the thoracolumbar spine with multilevel endplate spurring and degenerative sclerosis that falsely elevates the lumbar spine density measurements. The total lumbar spine density measurement equals 1.072 g/sq cm, corresponding to a T score of -0.9. Previously the lumbar spine density measurement equaled 1.075 g/sq cm. This indicates a -0.3% change since 2014. The mean total hip density measurement equals 0.808 g/sq cm, corresponding to a T score of -1.6. Previously the mean total hip density measurement equals 0.812 g/sq cm, corresponding to a T score of -1.5. This indicates a nonsignificant -0.5% change since 2014. The mean femoral neck density measurement equals 0.800 g/sq cm, corresponding to a T score of -1.7. Previously the mean femoral neck density measurement equaled 0.774 g/sq cm, corresponding to T score of -1.9. Comparison of femoral neck density measurements is not felt to be accurate from year to year. IMPRESSION: Osteopenia. Minimal change compared to the 2014 study. The 10-year fracture risk for a major osteoporotic fracture is 14.7% and the 10-year risk for a hip fracture is 1.8%. In order to compare results through the years, it is necessary that the patient be scanned on the same instrument each time, or on instruments that have been cross-correlated. If this is not done, difference may be due to differences in the machines rather than to changes in the patient's bone density. Interpreted by: Keith Ospina MD Signed by: Keith Ospina MD 09/23/19 Final result Normal [facility] Osteopenia. Minimal change compared to the 2014 study. The 10-year fracture risk for a major osteoporotic fracture is 14.7% and the 10-year risk for a hip fracture is 1.8%. In order to compare results through the years, it is necessary that the patient be scanned on the same instrument each time, or on instruments that have been cross-correlated. If this is not done, difference may be due to differences in the machines rather than to changes in the patient's bone density. [place], [place] DEXA BONE DENSITY STUDY - 09/22/2019: COMPARISON: DEXA study 01/17/2015. ADDITIONAL HISTORY: 64-year-old postmenopausal white female with a personal history of osteopenia. FINDINGS: There is a mild scoliosis of the thoracolumbar spine with multilevel endplate spurring and degenerative sclerosis that falsely elevates the lumbar spine density measurements. The total lumbar spine density measurement equals 1.072 g/sq cm, corresponding to a T score of -0.9. Previously the lumbar spine density measurement equaled 1.075 g/sq cm. This indicates a -0.3% change since 2014. The mean total hip density measurement equals 0.808 g/sq cm, corresponding to a T score of -1.6. Previously the mean total hip density measurement equals 0.812 g/sq cm, corresponding to a T score of -1.5. This indicates a nonsignificant -0.5% change since 2014. The mean femoral neck density measurement equals 0.800 g/sq cm, corresponding to a T score of -1.7. Previously the mean femoral neck density measurement equaled 0.774 g/sq cm, corresponding to T score of -1.9. Comparison of femoral neck density measurements is not felt to be accurate from year to year. [facility] [place], [place] [facility], [facility] Incoming Radiant Results From [employer] - 09/23/2019 10:29 AM EDT DEXA BONE DENSITY STUDY - 09/22/2019: COMPARISON: DEXA study 01/17/2015. ADDITIONAL HISTORY: 64-year-old postmenopausal white female with a personal history of osteopenia. FINDINGS: There is a mild scoliosis of the thoracolumbar spine with multilevel endplate spurring and degenerative sclerosis that falsely elevates the lumbar spine density measurements. The total lumbar spine density measurement equals 1.072 g/sq cm, corresponding to a T score of -0.9. Previously the lumbar spine density measurement equaled 1.075 g/sq cm. This indicates a -0.3% change since 2014. The mean total hip density measurement equals 0.808 g/sq cm, corresponding to a T score of -1.6. Previously the mean total hip density measurement equals 0.812 g/sq cm, corresponding to a T score of -1.5. This indicates a nonsignificant -0.5% change since 2014. The mean femoral neck density measurement equals 0.800 g/sq cm, corresponding to a T score of -1.7. Previously the mean femoral neck density measurement equaled 0.774 g/sq cm, corresponding to T score of -1.9. Comparison of femoral neck density measurements is not felt to be accurate from year to year. IMPRESSION: Osteopenia. Minimal change compared to the 2014 study. The 10-year fracture risk for a major osteoporotic fracture is 14.7% and the 10-year risk for a hip fracture is 1.8%. In order to compare results through the years, it is necessary that the patient be scanned on the same instrument each time, or on instruments that have been cross-correlated. If this is not done, difference may be due to differences in the machines rather than to changes in the patient's bone density. [facility] [place], [place] Lipid Profileon 09-22-2019 Cholesterol [Mass/Vol] 148 mg/dL Normal <200 [facility] Comment on above: Result Comment: Cholesterol Guidelines: <200 Desirable 200-240 Borderline >240 Undesirable Performed By: #### C BC, CP, LIPR, TSH, UA, UMICAO #### [facility] [address] [place] [address] Paint Formulator: Avinash Aldrich MD #### INDIGO, AHCV #### [facility] [address] [place], [place] [id number] Paint Formulator: Ciro Lux MD Cholesterol in HDL [Mass/Vol] 61 mg/dL Normal >40 [facility] Comment on above: Result Comment: HDL Guidelines: <40 Undesirable 40-59 Borderline >59 Desirable Performed By: #### C BC, CP, LIPR, TSH, UA, UMICAO #### [facility] [address] [place] [address] Paint Formulator: Avinash Aldrich MD #### INDIGO, AHCV #### [address] [id number] Paint Formulator: Ciro Lux MD Cholesterol in LDL [Mass/Vol] 71 mg/dL Normal 0-130 [facility] Comment on above: Result Comment: LDL Guidelines: <100 Desirable 100-129 Near to/above Desirable 130-159 Borderline >159 Undesirable Direct (measured) LDL and calculated LDL are not interchangeable tests. Performed By: #### C BC, CP, LIPR, TSH, UA, UMICAO #### [facility] [address] [place], [place] [id number] Paint Formulator: Avinash Aldrich MD #### INDIGO, AHCV #### [facility] [address] [place], [place] [id number] Paint Formulator: Ciro Lux MD Cholesterol.total/C holesterol in HDL [Mass ratio] 2.4 {ratio} Normal <5 [facility] Comment on above: Performed By: #### C BC, CP, LIPR, TSH, UA, UMICAO #### [facility] [address] [place], [place] [phone] Paint Formulator: Avinash Aldrich MD #### INDIGO, SOHEILACV #### [place] [place], [place] [id number] Paint Formulator: Ciro Lux MD Triglyceride [Mass/Vol] 78 mg/dL Normal <150 [facility] Comment on above: Result Comment: Triglyceride Guidelines: <150 Desirable 150-199 Borderline 200-499 High >499 Very high Based on AHA Guidelines for fasting triglyceride, November 2011. Performed By: #### C BC, CP, LIPR, TSH, UA, UMICAO #### [facility] [address] [place] [address] Paint Formulator: Avinash Aldrich MD #### INDIGO, SOHEILACV #### [address] [id number] Paint Formulator: Ciro Lux MD PTH, Intacton 09-22-2019 PTH, Intact 44.68 pg/mL Normal 15.0-65.0 [facility] Comment on above: Result Comment: SAMP LES FROM PATIENTS ROUTINELY RECEIVING HIGH DOSE BIOTIN THERAPY MAY SHOW FALSELY DEPRESSED RESULTS. ADDITIONAL INFORMATION MAY BE REQUIRED FOR DIAGNOSIS. Performed By: #### C BC, CP, LIPR, TSH, UA, UMICAO #### [facility] [address] [place], [place] [phone] Paint Formulator: Avinash Aldrich MD #### SOHEILA SOODCV #### [facility] [address] [place], [place] [id number] Paint Formulator: Ciro Lux MD CBC Auto Differentialon Basophils (Bld) [#/Vol] 0.00 10*3/uL [place], [place] Basophils/100 WBC (Bld) 0 % 0 - 2 % [place] Differential Type YES [place] Eosinophils (Bld) [#/Vol] 0.20 10*3/uL [place] Eosinophils/100 WBC (Bld) 3 % 0 - 5 % [place] Erythrocyte distribution width (RBC) [Ratio] 13.4 % 12.1 - 15.2 % [place] Hematocrit (Bld) [Volume fraction] 44.6 % 36 - 46 % [place] Hemoglobin (Bld) [Mass/Vol] 15.1 g/dL 12 - 16 g/dL [place] Lymphocytes (Bld) [#/Vol] 2.10 10*3/uL [place] Lymphocytes/100 WBC (Bld) 27 % 15 - 40 % [place] MCH (RBC) [Entitic mass] 29.7 pg 26 - 34 pg [place] MCHC (RBC) [Mass/Vol] 33.8 g/dL 31 - 37 g/dL [place] MCV (RBC) [Entitic vol] 88.0 fL 80 - 100 fL [place] Monocytes (Bld) [#/Vol] 0.50 10*3/uL [place] Monocytes/100 WBC (Bld) 6 % 4 - 8 % [place] Platelet mean volume (Bld) [Entitic vol] NOT REPORTED 6 - 12 fL [place] Platelets (Bld) [#/Vol] NOT REPORTED [place] Platelets (Bld) [#/Vol] 404 10*3/uL [place] RBC (Bld) [#/Vol] 5.07 10*6/uL 4 - 5.2 m/uL [place] RBC morphology finding Nom (Bld) NOT REPORTED [place] Segmented neutrophils/100 WBC (Bld) 64 % 47 - 75 % [place] Segs Absolute 5.00 [place] WBC (Bld) [#/Vol] NOT REPORTED per 100 WBC [place], [place] WBC (Bld) [#/Vol] 7.9 10*3/uL [place] WBC Morphology NOT REPORTED [place], [place] CBC with Diffon 09-21-2019 Abs. Basophil 0.00 k/uL Normal 0.0-0.2 [facility] Comment on above: Performed By: #### C BC, CP, LIPR, TSH, UA, UMICAO #### [facility] [address] [place], [place] [phone] Paint Formulator: Avinash Aldrich MD #### URKEITHAB, AHCV #### [address] [phone] Paint Formulator: Ciro Lux MD Abs.Neutrophil (Seg) 5.00 k/uL Normal 2.5-7.0 [facility] Comment on above: Performed By: #### C BC, CP, LIPR, TSH, UA, UMICAO #### [facility] [address] [place] [address] Paint Formulator: Avinash Aldrich MD #### INDIGO, AHCV #### [address] [phone] Paint Formulator: Ciro Lux MD Auto Diff Performed YES Normal [facility] Comment on above: Performed By: #### C BC, CP, LIPR, TSH, UA, UMICAO #### [facility] [address] [place] [address] Paint Formulator: Avinash Aldrich MD #### INDIGO, AHCV #### [address] [phone] Paint Formulator: Ciro Lux MD Basophils/100 WBC (Bld) 0 % Normal 0-2 [facility] Comment on above: Performed By: #### C BC, CP, LIPR, TSH, UA, UMICAO #### [facility] [address] [place] [address] Paint Formulator: Avinash Aldrich MD #### INDIGO, AHCV #### [address] [id number] Paint Formulator: Ciro Lux MD Eosinophils (Bld) [#/Vol] 0.20 10*3/uL Normal 0.0-0.4 [facility] Comment on above: Performed By: #### C BC, CP, LIPR, TSH, UA, UMICAO #### [facility] [address] [place] [address] Paint Formulator: Avinash Aldrich MD #### INDIGO, AHCV #### [place] [id number] Paint Formulator: Ciro Lux MD Eosinophils/100 WBC (Bld) 3 % Normal 0-5 [facility] Comment on above: Performed By: #### C BC, CP, LIPR, TSH, UA, UMICAO #### [facility] [address] [place] [address] Paint Formulator: Avinash Aldrich MD #### INDIGO, AHCV #### [address] [id number] Paint Formulator: Ciro Lux MD Erythrocyte distribution width (RBC) [Ratio] 13.4 % Normal 12.1-15.2 [facility] Comment on above: Performed By: #### C BC, CP, LIPR, TSH, UA, UMICAO #### [facility] [address] [place] [address] Paint Formulator: Avinash Aldrich MD #### INDIGO, AHCV #### [address] [id number] Paint Formulator: Ciro Lux MD Hematocrit (Bld) [Volume fraction] 44.6 % Normal 36-46 [facility] Comment on above: Performed By: #### C BC, CP, LIPR, TSH, UA, UMICAO #### [facility] [address] [place] [address] Paint Formulator: Avinash Aldrich MD #### URNMAB, AHCV #### [address] [id number] Paint Formulator: Ciro Lux MD Hemoglobin (Bld) [Mass/Vol] 15.1 g/dL Normal 12.0-16.0 [facility] Comment on above: Performed By: #### C BC, CP, LIPR, TSH, UA, UMICAO #### [facility] [address] [place] [address] Paint Formulator: Avinash Aldrich MD #### TANYAAB, AHCV #### [address] [id number] Paint Formulator: Ciro Lux MD Lymphocytes (Bld) [#/Vol] 2.10 10*3/uL Normal 1.0-4.8 [facility] Comment on above: Performed By: #### C BC, CP, LIPR, TSH, UA, UMICAO #### [facility] [address] [place] [address] Paint Formulator: Avinash Aldrich MD #### ESTEPHANIANM, AHCV #### [address] [id number] Paint Formulator: Ciro Lux MD Lymphocytes/100 WBC (Bld) 27 % Normal 15-40 [facility] Comment on above: Performed By: #### C BC, CP, LIPR, TSH, UA, UMICAO #### [facility] [address] [place] [address] Paint Formulator: Avinash Aldrich MD #### URNMAB, AHCV #### [address] [id number] Paint Formulator: Ciro Lux MD MCH (RBC) [Entitic mass] 29.7 pg Normal 26-34 [facility] Comment on above: Performed By: #### C BC, CP, LIPR, TSH, UA, UMICAO #### [facility] [address] [place], [place] [id number] Paint Formulator: Avinash Aldrich MD #### ESTEPHANIANM, AHCV #### [address] [id number] Paint Formulator: Ciro Lux MD MCHC (RBC) [Mass/Vol] 33.8 g/dL Normal 31-37 [facility] Comment on above: Performed By: #### C BC, CP, LIPR, TSH, UA, UMICAO #### [facility] [address] [place] [id number] Paint Formulator: Avinash Aldrich MD #### INDIGO, AHCV #### [place] [address] Paint Formulator: Ciro Lux MD MCV (RBC) [Entitic vol] 88.0 fL Normal 80-100 [facility] Comment on above: Performed By: #### C BC, CP, LIPR, TSH, UA, UMICAO #### [facility] [address] [place] [id number] Paint Formulator: Avinash Aldrich MD #### INDIGO, AHCV #### [place] [address] Paint Formulator: Ciro Lux MD Monocytes (Bld) [#/Vol] 0.50 10*3/uL Normal 0.0-1.0 [facility] Comment on above: Performed By: #### C BC, CP, LIPR, TSH, UA, UMICAO #### [facility] [address] [place] [address] Paint Formulator: Avinash Aldrich MD #### URNMAB, AHCV #### [facility] [address] [place] [address] Paint Formulator: Ciro Lux MD Monocytes/100 WBC (Bld) 6 % Normal 4-8 [facility] Comment on above: Performed By: #### C BC, CP, LIPR, TSH, UA, UMICAO #### [facility] [address] [place], [place] [phone] Paint Formulator: Avinash Aldrich MD #### URNMAB, AHCV #### [address] [address] Paint Formulator: Ciro Lux MD Neutrophil (Seg) 64 % Normal 47-75 [facility] Comment on above: Performed By: #### C BC, CP, LIPR, TSH, UA, UMICAO #### [facility] [address] [place], [place] [phone] Paint Formulator: Avinash Aldrich MD #### INDIGO, AHCV #### [address] [phone] Paint Formulator: Ciro Lux MD Platelets (Bld) [#/Vol] 404 10*3/uL Normal 140-450 [facility] Comment on above: Performed By: #### C BC, CP, LIPR, TSH, UA, UMICAO #### [facility] [address] [place], [place] [phone] Paint Formulator: Avinash Aldrich MD #### URNMAB, AHCV #### [address] [id number] Paint Formulator: Ciro uLx MD RBC (Bld) [#/Vol] 5.07 10*6/uL Normal 4.0-5.2 [facility] Comment on above: Performed By: #### C BC, CP, LIPR, TSH, UA, UMICAO #### [facility] [address] [place] [address] Paint Formulator: Avinash Aldrich MD #### URNMAB, AHCV #### [address] [id number] Paint Formulator: Ciro Lux MD WBC (Bld) [#/Vol] 7.9 10*3/uL Normal 3.5-11.0 [facility] Comment on above: Performed By: #### C BC, CP, LIPR, TSH, UA, UMICAO #### [facility] [address] [place], [place] [phone] Paint Formulator: Avinash Aldrich MD #### URNMAB, AHCV #### [address] [id number] Paint Formulator: Ciro Lux MD Abs.Imm.Granulocyte NOT REPORTED Normal 0.00-0.30 [facility] Comment on above: Performed By: #### C BC, CP, LIPR, TSH, UA, UMICAO #### [facility] [address] [place] [address] Paint Formulator: Avinash Aldrich MD #### INDIGO, AHCV #### [address] [address] Paint Formulator: Ciro Lux MD Immature granulocytes (Bld) [#/Vol] NOT REPORTED Normal 0 [facility] Comment on above: Performed By: #### C BC, CP, LIPR, TSH, UA, UMICAO #### [facility] [address] [place] [address] Paint Formulator: Avinash Aldrich MD #### URNMAB, AHCV #### [address] [phone] Paint Formulator: Ciro Lux MD NRBC Automated NOT REPORTED Normal [facility] Comment on above: Performed By: #### C BC, CP, LIPR, TSH, UA, UMICAO #### [facility] [address] [place], [place] [phone] Paint Formulator: Avinash Aldrich MD #### URNMAB, AHCV #### [address] [address] Paint Formulator: Ciro Lux MD Platelet mean volume (Bld) [Entitic vol] NOT REPORTED Normal 6.0-12.0 [facility] Comment on above: Performed By: #### C BC, CP, LIPR, TSH, UA, UMICAO #### [facility] [address] [place], [place] [phone] Paint Formulator: Avinash Aldrich MD #### URNMAB, AHCV #### [address] [address] Paint Formulator: Ciro Lux MD Platelets (Bld) [#/Vol] NOT REPORTED Normal [facility] Comment on above: Performed By: #### C BC, CP, LIPR, TSH, UA, UMICAO #### [facility] [address] [place], [place] [phone] Paint Formulator: Avinash Aldrich MD #### ESTEPHANIANM, AHCV #### [address] [address] Paint Formulator: Ciro Lux MD RBC morphology finding Nom (Bld) NOT REPORTED Normal [facility] Comment on above: Performed By: #### C BC, CP, LIPR, TSH, UA, UMICAO #### [facility] [address] [place], [place] [phone] Paint Formulator: Avinash Aldrich MD #### URNMAB, AHCV #### [address] [address] Paint Formulator: Ciro Lux MD WBC Morphology NOT REPORTED Normal [facility] Comment on above: Performed By: #### C BC, CP, LIPR, TSH, UA, UMICAO #### [facility] [address] [place] [address] Paint Formulator: Avinash Aldrich MD #### INDIGO, SOHEILACV #### [address] [place] [address] Paint Formulator: Ciro Lux MD Comp Metabolic Profon 2019 (cont.) Normal [facility] Comment on above: Result Comment: Aver age GFR for 60-69 years old: 85 mL/min/1.73sq m Chronic Kidney Disease: <60 mL/min/1.73sq m Kidney failure: <15 mL/min/1.73sq m eGFR calculated using average adult body mass. Additional eGFR calculator available at: http://www.[employer]/multiple_crcl_2012.htm Performed By: #### C BC, CP, LIPR, TSH, UA, UMICAO #### [facility] [address] [place] [address] Paint Formulator: Avinash Aldrich MD #### SOHEILA SOODCV #### [address] [place] [address] Paint Formulator: Ciro Lux MD Albumin [Mass/Vol] 4.3 g/dL Normal 3.5-5.2 [facility] Comment on above: Performed By: #### C BC, CP, LIPR, TSH, UA, UMICAO #### [facility] [address] [place] [address] Paint Formulator: Avinash Aldrich MD #### INDIGO, SOHEILACV #### [address] [place] [address] Paint Formulator: Ciro Lux MD Alkaline Phos 106 U/L High 35-104 [facility] Comment on above: Performed By: #### C BC, CP, LIPR, TSH, UA, UMICAO #### [facility] [address] [place], [place] [phone] Paint Formulator: Avinash Aldrich MD #### URNMAB, AHCV #### [address] [phone] Paint Formulator: Ciro Lux MD ALT [Catalytic activity/Vol] 19 U/L Normal 5-33 [facility] Comment on above: Performed By: #### C BC, CP, LIPR, TSH, UA, UMICAO #### [facility] [address] [place], [place] [phone] Paint Formulator: Avinash Aldrich MD #### INDIGO, AHCV #### [address] [phone] Paint Formulator: Ciro Lux MD Anion gap [Moles/Vol] 11 mmol/L Normal 9-17 [facility] Comment on above: Performed By: #### C BC, CP, LIPR, TSH, UA, UMICAO #### [facility] [address] [place], [place] 5345390 Paint Formulator: Avinash Aldrich MD #### INDIGO, AHCV #### [address] [id number] Paint Formulator: Ciro Lux MD AST [Catalytic activity/Vol] 18 U/L Normal <32 [facility] Comment on above: Performed By: #### C BC, CP, LIPR, TSH, UA, UMICAO #### [facility] [address] [place], [place] [phone] Paint Formulator: Avinash Aldrich MD #### TANYAAB, AHCV #### [address] [phone] Paint Formulator: Ciro Lux MD Bilirubin Ql (U) 0.60 mg/dL Normal 0.30-1.20 [facility] Comment on above: Performed By: #### C BC, CP, LIPR, TSH, UA, UMICAO #### [facility] [address] [place], [place] [phone] Paint Formulator: Avinash Aldrich MD #### INDIGO, AHCV #### [address] [id number] Paint Formulator: Ciro Lux MD BUN/CRE Ratio 17 Normal 9-20 [facility] Comment on above: Performed By: #### C BC, CP, LIPR, TSH, UA, UMICAO #### [facility] [address] [place], [place] 1316090 Paint Formulator: Avinash Aldrich MD #### INDIGO, AHCV #### [address] [phone] Paint Formulator: Ciro Lux MD Calcium [Mass/Vol] 10.3 mg/dL Normal 8.6-10.4 [facility] Comment on above: Performed By: #### C BC, CP, LIPR, TSH, UA, UMICAO #### [facility] [address] [place], [place] [phone] Paint Formulator: Avinash Aldrich MD #### INDIGO, AHCV #### [address] [phone] Paint Formulator: Ciro Lux MD Chloride [Moles/Vol] 95 mmol/L Low 98-107 [facility] Comment on above: Performed By: #### C BC, CP, LIPR, TSH, UA, UMICAO #### [facility] [address] [place], [place] [phone] Paint Formulator: Avinash Aldrich MD #### INDIGO, AHCV #### [address] [phone] Paint Formulator: Ciro Lux MD CO2 [Moles/Vol] 31 mmol/L Normal 20-31 [facility] Comment on above: Performed By: #### C BC, CP, LIPR, TSH, UA, UMICAO #### [facility] [address] [place] [address] Paint Formulator: Avinash Aldrich MD #### URNMAB, AHCV #### [address] [address] Paint Formulator: Ciro Lux MD Creatinine [Mass/Vol] 0.72 mg/dL Normal 0.50-0.90 [facility] Comment on above: Performed By: #### C BC, CP, LIPR, TSH, UA, UMICAO #### [facility] [address] [place], [place] [phone] Paint Formulator: Avinash Aldrich MD #### INDIGO, AHCV #### [address] [address] Paint Formulator: Ciro Lux MD GFR, Amer >60 Normal >60 [facility] Comment on above: Performed By: #### C BC, CP, LIPR, TSH, UA, UMICAO #### [facility] [address] [place], [place] [phone] Paint Formulator: Avinash Aldrich MD #### TANYAAB, AHCV #### [address] [address] Paint Formulator: Ciro Lux MD GFR,non Amer >60 Normal >60 [facility] Comment on above: Performed By: #### C BC, CP, LIPR, TSH, UA, UMICAO #### [facility] [address] [place], [place] [phone] Paint Formulator: Avinash Aldrich MD #### URNMAB, AHCV #### [address] [phone] Paint Formulator: Ciro Lux MD Glucose [Mass/Vol] 103 mg/dL High 70-99 [facility] Comment on above: Performed By: #### C BC, CP, LIPR, TSH, UA, UMICAO #### [facility] [address] [place], [place] [phone] Paint Formulator: Avinash Aldrich MD #### INDIGO, AHCV #### [address] [phone] Paint Formulator: Ciro Lux MD Potassium [Moles/Vol] 4.0 mmol/L Normal 3.7-5.3 [facility] Comment on above: Performed By: #### C BC, CP, LIPR, TSH, UA, UMICAO #### [facility] [address] [place], [place] [phone] Paint Formulator: Avinash Aldrich MD #### INDIGO, AHCV #### [address] [phone] Paint Formulator: Ciro Lux MD Protein [Mass/Vol] 8.4 g/dL High 6.4-8.3 [facility] Comment on above: Performed By: #### C BC, CP, LIPR, TSH, UA, UMICAO #### [facility] [address] [place], [place] [phone] Paint Formulator: Avinash Aldrich MD #### INDIGO, AHCV #### [address] [id number] Paint Formulator: Ciro Lux MD Sodium [Moles/Vol] 137 mmol/L Normal 135-144 [facility] Comment on above: Performed By: #### C BC, CP, LIPR, TSH, UA, UMICAO #### [facility] [address] [place], [place] [phone] Paint Formulator: Avinash Aldrich MD #### URNMAB, AHCV #### [facility] [address] [place], [place] [phone] Paint Formulator: Ciro Lux MD Urea nitrogen [Mass/Vol] 12 mg/dL Normal 8-23 [facility] Comment on above: Performed By: #### C BC, CP, LIPR, TSH, UA, UMICAO #### [facility] [address] [place], [place] [phone] Paint Formulator: Avinash Aldrich MD #### URNMAB, AHCV #### [address] [place], [place] [phone] Paint Formulator: Ciro Lux MD Albumin/Globulin [Mass ratio] NOT REPORTED Normal 1.0-2.5 [facility] Comment on above: Performed By: #### C BC, CP, LIPR, TSH, UA, UMICAO #### [facility] [address] [place], [place] [phone] Paint Formulator: Avinash Aldrich MD #### INDIGO, AHCV #### [address] [phone] Paint Formulator: Ciro Lux MD Staging: NOT REPORTED Normal [facility] Comment on above: Performed By: #### C BC, CP, LIPR, TSH, UA, UMICAO #### [facility] [address] [place], [place] [phone] Paint Formulator: Avinash Aldrich MD #### URNMAB, AHCV #### [facility] [address] [place], [place] [phone] Paint Formulator: Ciro Lux MD Comprehensive Metabolic Pane luzma 09-21-2019 Albumin [Mass/Vol] 4.3 g/dL 3.5 - 5.2 g/dL [place], [place] Albumin/Globulin [Mass ratio] NOT REPORTED [place] ALP [Catalytic activity/Vol] 106 U/L High 35 - 104 U/L [place] ALT [Catalytic activity/Vol] 19 U/L 5 - 33 U/L [place] Anion gap [Moles/Vol] 11 mmol/L 9 - 17 mmol/L [place] AST [Catalytic activity/Vol] 18 U/L <32 [place] Bilirubin Ql (U) 0.60 mg/dL 0.3 - 1.2 mg/dL [place] Bun/Cre Ratio 17 [place] Calcium [Mass/Vol] 10.3 mg/dL 8.6 - 10.4 mg/dL [place] Chloride [Moles/Vol] 95 mmol/L Low 98 - 107 mmol/L [place] CO2 [Moles/Vol] 31 mmol/L 20 - 31 mmol/L [place] Creatinine [Mass/Vol] 0.72 mg/dL 0.5 - 0.9 mg/dL [place] GFR >60 >60 mL/min [place] GFR Non- >60 >60 mL/min [place] GFR/1.73 sq M predicted among non-blacks MDRD (S/P/Bld) [Vol rate/Area] NOT REPORTED [place] GFR/1.73 sq M predicted among non-blacks MDRD (S/P/Bld) [Vol rate/Area] [place] Comment on above: Average GFR for 60-6 9 years old: 85 mL/min/1.73sq m Chronic Kidney Disease: <60 mL/min/1.73sq m Kidney failure: <15 mL/min/1.73sq m eGFR calculated using average adult body mass. Additional eGFR calculator available at: http://www.[employer]/multiple_crcl_2012.htm Glucose [Mass/Vol] 103 mg/dL High 70 - 99 mg/dL [place] Interpretation and review of laboratory results Abnormal [place] Potassium [Moles/Vol] 4.0 mmol/L 3.7 - 5.3 mmol/L [place] Protein [Mass/Vol] 8.4 g/dL High 6.4 - 8.3 g/dL [place] Sodium [Moles/Vol] 137 mmol/L 135 - 144 mmol/L [place] Urea nitrogen [Mass/Vol] 12 mg/dL 8 - 23 mg/dL [place] Lipid Panelon 09-21-2019 Cholesterol [Mass/Vol] 148 mg/dL <200 [place] Comment on above: Cholesterol Guidelines: <200 Desirable 200-240 Borderline >240 Undesirable Cholesterol in HDL [Mass/Vol] 61 mg/dL >40 [place] Comment on above: HDL Guidelines: <40 Undesirable 40-59 Borderline >59 Desirable Cholesterol in LDL [Mass/Vol] 71 mg/dL 0 - 130 mg/dL [place] Comment on above: LDL Guidelines: <100 Desirable 100-129 Near to/above Desirable 130-159 Borderline >159 Undesirable Direct (measured) LDL and calculated LDL are not interchangeable tests. Cholesterol in VLDL [Mass/Vol] NOT REPORTED 1 - 30 mg/dL [place] Cholesterol.total/C holesterol in HDL [Mass ratio] 2.4 {ratio} <5 [place] Triglyceride [Mass/Vol] 78 mg/dL <150 [place] Comment on above: Triglyceride Guidelines: <150 Desirable 150-199 Borderline 200-499 High >499 Very high Based on AHA Guidelines for fasting triglyceride, November 2011. Lipid Profileon 09-21-2019 Cholesterol in VLDL [Mass/Vol] NOT REPORTED Normal 1-30 [facility] Comment on above: Performed By: #### C BC, CP, LIPR, TSH, UA, UMICAO #### [facility] [address] [place] [address] Paint Formulator: Avinash Aldrich MD #### URNMAB, AHCV #### [facility] [employer] [address] [place] [address] Paint Formulator: Ciro Lux MD Otheron 09-21-2019 Immature granulocytes (Bld) [#/Vol] NOT REPORTED [place] PTH, Intacton 09-21-2019 Pth Intact 44.68 pg/mL 15 - 65 pg/mL [place], [place] Comment on above: SAMPLES FROM PATIENT S ROUTINELY RECEIVING HIGH DOSE BIOTIN THERAPY MAY SHOW FALSELY DEPRESSED RESULTS. ADDITIONAL INFORMATION MAY BE REQUIRED FOR DIAGNOSIS. Basic Metabolic Panelon 10 Anion gap [Moles/Vol] 10 mmol/L 9 - 17 mmol/L [place] Bun/Cre Ratio 25 [place] Calcium [Mass/Vol] 9.9 mg/dL 8.6 - 10.4 mg/dL [place] Chloride [Moles/Vol] 99 mmol/L 98 - 107 mmol/L [place] CO2 [Moles/Vol] 30 mmol/L 20 - 31 mmol/L [place] Creatinine [Mass/Vol] 0.79 mg/dL 0.5 - 0.9 mg/dL [place] GFR >60 >60 mL/min [place] GFR Non- >60 >60 mL/min [place] GFR/1.73 sq M predicted among non-blacks MDRD (S/P/Bld) [Vol rate/Area] NOT REPORTED [place] GFR/1.73 sq M predicted among non-blacks MDRD (S/P/Bld) [Vol rate/Area] [place] Comment on above: Average GFR for 60-6 9 years old: 85 mL/min/1.73sq m Chronic Kidney Disease: <60 mL/min/1.73sq m Kidney failure: <15 mL/min/1.73sq m eGFR calculated using average adult body mass. Additional eGFR calculator available at: http://www.[employer]/multiple_crcl_2012.htm Glucose [Mass/Vol] 105 mg/dL High 70 - 99 mg/dL [place] Interpretation and review of laboratory results Abnormal [place] Potassium [Moles/Vol] 3.3 mmol/L Low 3.7 - 5.3 mmol/L [place] Sodium [Moles/Vol] 139 mmol/L 135 - 144 mmol/L [facility] [place] Urea nitrogen [Mass/Vol] 20 mg/dL 8 - 23 mg/dL [place] Basic Metabolic Profon 11-27 (cont.) Normal [facility] Comment on above: Result Comment: Aver age GFR for 60-69 years old: 85 mL/min/1.73sq m Chronic Kidney Disease: <60 mL/min/1.73sq m Kidney failure: <15 mL/min/1.73sq m eGFR calculated using average adult body mass. Additional eGFR calculator available at: http://www.[employer]/multiple_crcl_2012.htm Performed By: #### B MP #### [facility] [address] [place] [address] Paint Formulator: Avinash Aldrich MD Anion gap [Moles/Vol] 10 mmol/L Normal 9-17 [facility] Comment on above: Performed By: #### B MP #### [facility] [address] [place] [address] Paint Formulator: Avinash Aldrich MD BUN/CRE Ratio 25 High 9-20 [facility] Comment on above: Performed By: #### B MP #### [facility] [address] [place] [address] Paint Formulator: Avinash Aldrich MD Calcium [Mass/Vol] 9.9 mg/dL Normal 8.6-10.4 [facility] Comment on above: Performed By: #### B MP #### [facility] [address] [place] [address] Paint Formulator: Avinash Aldrich MD Chloride [Moles/Vol] 99 mmol/L Normal 98-107 [facility] Comment on above: Performed By: #### B MP #### [facility] [address] [place] [address] Paint Formulator: Avinash Aldrich MD CO2 [Moles/Vol] 30 mmol/L Normal 20-31 [facility] Comment on above: Performed By: #### B MP #### [facility] [address] [place], [place] 1038190 Paint Formulator: Avinash Aldrich MD Creatinine [Mass/Vol] 0.79 mg/dL Normal 0.50-0.90 [facility] Comment on above: Performed By: #### B MP #### [facility] [address] [place] [address] Paint Formulator: Avinash Aldrich MD GFR, Amer >60 Normal >60 [facility] Comment on above: Performed By: #### B MP #### [facility] [address] [place] [address] Paint Formulator: Avinash Aldrich MD GFR,non Amer >60 Normal >60 [facility] Comment on above: Performed By: #### B MP #### [facility] [address] [place] [address] Paint Formulator: Avinash Aldrich MD Glucose [Mass/Vol] 105 mg/dL High 70-99 [facility] Comment on above: Performed By: #### B MP #### [facility] [address] [place], [place] [phone] Paint Formulator: Avinash Aldrich MD Potassium [Moles/Vol] 3.3 mmol/L Low 3.7-5.3 [facility] Comment on above: Performed By: #### B MP #### [facility] [address] [place], [place] [phone] Paint Formulator: Avinash Aldrich MD Sodium [Moles/Vol] 139 mmol/L Normal 135-144 [facility] Comment on above: Performed By: #### B MP #### [facility] [address] [place], [place] [phone] Paint Formulator: Avinash Aldrich MD Urea nitrogen [Mass/Vol] 20 mg/dL Normal 8-23 [facility] Comment on above: Performed By: #### B MP #### [facility] [address] [place] [address] Paint Formulator: Avinash Aldrich MD Staging: NOT REPORTED Normal [facility] Comment on above: Performed By: #### B MP #### [facility] [address] [place] [address] Paint Formulator: Avinash Aldrich MD XR FOOT LEFT (MIN 3 VIEWS)on 11-18-2018 XR FOOT LEFT (MIN 3 VIEWS) EXAM: XR FOOT LEFT (MIN 3 VIEWS) HISTORY: Fell 2 days ago, continued pain later foot and mid upper sole of foot. COMPARISON: None. TECHNIQUE: AP, oblique, and lateral views of the left foot. FINDINGS: There is osteopenia, without acute osseous, articular or soft tissue abnormality. Pes planus is noted. There is a fairly large plantar calcaneal spur. No erosive arthropathy or focal bony lesion is seen. IMPRESSION: No acute left foot findings following recent fall 2 days ago. Chronic changes are described above. Interpreted by: Shyam Edmond MD Signed by: Shyam Edmond MD 11/18/18 Final result Normal [facility] Hep C Abon 10-29-2018 Hep C Ab NONREACTIVE Normal NR [facility] Comment on above: Result Comment: The hepatitis C procedure used in our laboratory is a Chemiluminescent test specific for three recombinant HCV antigens. A negative anti-HCV result indicates that the antibodies to hepatitis C virus are not present at this time. Individuals with reactive anti-HCV should be considered infected and infectious until proven otherwise. Confirmation of all equivocal or reactive results is recommended by ordering HCV RNA by PCR. Performed By: #### C BC, CP, LIPR, TSH, UA, UMICAO #### [facility] [address] [place] [address] Paint Formulator: Avinash Aldrich MD #### URNMAB, AHCV #### [address] [address] Paint Formulator: Ciro Lux MD Microalb.,Random Uron 2018 Creatinine [Mass/Vol] 105.7 mg/dL Normal 28.0-217.0 [facility] Comment on above: Performed By: #### C BC, CP, LIPR, TSH, UA, UMICAO #### [facility] [address] [place], [place] [phone] Paint Formulator: Avinash Aldrich MD #### URNMAB, AHCV #### [address] [id number] Paint Formulator: Ciro Lux MD Microalb/Creat Ratio CANNOT BE CALCULATED Normal <25 [facility] Comment on above: Performed By: #### C BC, CP, LIPR, TSH, UA, UMICAO #### [facility] [address] [place], [place] [phone] Paint Formulator: Avinash Aldrich MD #### INDIGO, AHCV #### [address] [phone] Paint Formulator: Ciro Lux MD Microalbumin conc. <12 Normal <21 [facility] Comment on above: Performed By: #### C BC, CP, LIPR, TSH, UA, UMICAO #### [facility] [address] [place], [place] [phone] Paint Formulator: Avinash Aldrich MD #### INDIGO, AHCV #### [address] [id number] Paint Formulator: Ciro Lux MD CBCon 10-28-2018 Erythrocyte distribution width (RBC) [Ratio] 13.6 % Normal 12.1-15.2 [facility] Comment on above: Performed By: #### C BC, CP, LIPR, TSH, UA, UMICAO #### [facility] [address] [place], [place] [phone] Paint Formulator: Avinash Aldrich MD #### INDIGO, AHCV #### [address] [id number] Paint Formulator: Ciro Lux MD Hematocrit (Bld) [Volume fraction] 44.6 % Normal 36-46 [facility] Comment on above: Performed By: #### C BC, CP, LIPR, TSH, UA, UMICAO #### [facility] [address] [place], [place] [phone] Paint Formulator: Avinash Aldrich MD #### INDIGO, AHCV #### [address] [id number] Paint Formulator: Ciro Lux MD Hemoglobin (Bld) [Mass/Vol] 14.9 g/dL Normal 12.0-16.0 [facility] Comment on above: Performed By: #### C BC, CP, LIPR, TSH, UA, UMICAO #### [facility] [address] [place], [place] [phone] Paint Formulator: Avinash Aldrich MD #### INDIGO, AHCV #### [address] [phone] Paint Formulator: Ciro Lux MD MCH (RBC) [Entitic mass] 29.7 pg Normal 26-34 [facility] Comment on above: Performed By: #### C BC, CP, LIPR, TSH, UA, UMICAO #### [facility] [address] [place], [place] [phone] Paint Formulator: Avinash Aldrich MD #### INDIGO, AHCV #### [address] [phone] Paint Formulator: Ciro Lux MD MCHC (RBC) [Mass/Vol] 33.5 g/dL Normal 31-37 [facility] Comment on above: Performed By: #### C BC, CP, LIPR, TSH, UA, UMICAO #### [facility] [address] [place] [address] Paint Formulator: Avinash Aldrich MD #### URNMAB, AHCV #### [address] [place], [place] [phone] Paint Formulator: Ciro Lux MD MCV (RBC) [Entitic vol] 88.6 fL Normal 80-100 [facility] Comment on above: Performed By: #### C BC, CP, LIPR, TSH, UA, UMICAO #### [facility] [address] [place] [address] Paint Formulator: Avinash Aldrich MD #### URNMAB, AHCV #### [address] [phone] Paint Formulator: Ciro Lux MD Platelets (Bld) [#/Vol] 339 10*3/uL Normal 140-450 [facility] Comment on above: Performed By: #### C BC, CP, LIPR, TSH, UA, UMICAO #### [facility] [address] [place] [address] Paint Formulator: Avinash Aldrich MD #### URKIERA, AHCV #### [address] [id number] Paint Formulator: Ciro Lux MD RBC (Bld) [#/Vol] 5.03 10*6/uL Normal 4.0-5.2 [facility] Comment on above: Performed By: #### C BC, CP, LIPR, TSH, UA, UMICAO #### [facility] [address] [place] [address] Paint Formulator: Avinash Aldrich MD #### URNMAB, AHCV #### [address] [phone] Paint Formulator: Ciro Lux MD WBC (Bld) [#/Vol] 7.7 10*3/uL Normal 3.5-11.0 [facility] Comment on above: Performed By: #### C BC, CP, LIPR, TSH, UA, UMICAO #### [facility] [address] [place] [address] Paint Formulator: Avinash Aldrich MD #### URNMAB, AHCV #### [address] [place], [place] [phone] Paint Formulator: Ciro uLx MD NRBC Automated NOT REPORTED Normal [facility] Comment on above: Performed By: #### C BC, CP, LIPR, TSH, UA, UMICAO #### [facility] [address] [place] [address] Paint Formulator: Avinash Aldrich MD #### TANYAAB, AHCV #### [address] [id number] Paint Formulator: Ciro Lux MD Platelet mean volume (Bld) [Entitic vol] NOT REPORTED Normal 6.0-12.0 [facility] Comment on above: Performed By: #### C BC, CP, LIPR, TSH, UA, UMICAO #### [facility] [address] [place] [address] Paint Formulator: Avinash Aldrich MD #### URNMAB, AHCV #### [address] [id number] Paint Formulator: Ciro Lux MD Erythrocyte distribution width (RBC) [Ratio] 13.6 % 12.1 - 15.2 % [place] Hematocrit (Bld) [Volume fraction] 44.6 % 36 - 46 % [place] Hemoglobin (Bld) [Mass/Vol] 14.9 g/dL 12 - 16 g/dL [place] MCH (RBC) [Entitic mass] 29.7 pg 26 - 34 pg [place] MCHC (RBC) [Mass/Vol] 33.5 g/dL 31 - 37 g/dL [place] MCV (RBC) [Entitic vol] 88.6 fL 80 - 100 fL [place] Platelet mean volume (Bld) [Entitic vol] NOT REPORTED 6 - 12 fL [place] Platelets (Bld) [#/Vol] 339 10*3/uL [place] RBC (Bld) [#/Vol] 5.03 10*6/uL 4 - 5.2 m/uL [place] WBC (Bld) [#/Vol] 7.7 10*3/uL [place] WBC (Bld) [#/Vol] NOT REPORTED per 100 WBC [place], [place] Comp Metabolic Profon 2018 (cont.) Normal [facility] Comment on above: Result Comment: Aver age GFR for 60-69 years old: 85 mL/min/1.73sq m Chronic Kidney Disease: <60 mL/min/1.73sq m Kidney failure: <15 mL/min/1.73sq m eGFR calculated using average adult body mass. Additional eGFR calculator available at: http://www.CardKill.2threads/multiple_crcl_2012.htm Performed By: #### C BC, CP, LIPR, TSH, UA, UMICAO #### [facility] [address] [place] [address] Paint Formulator: Avinash Aldrich MD #### INDIGO, AHCV #### [facility] [employer] [address] [place] [id number] Paint Formulator: Ciro Lux MD Albumin [Mass/Vol] 4.2 g/dL Normal 3.5-5.2 [facility] Comment on above: Performed By: #### C BC, CP, LIPR, TSH, UA, UMICAO #### [facility] [address] [place] [address] Paint Formulator: Avinash Aldrich MD #### URNMAB, AHCV #### [address] [place], [place] [phone] Paint Formulator: Ciro Lux MD Alkaline Phos 102 U/L Normal 35-104 [facility] Comment on above: Performed By: #### C BC, CP, LIPR, TSH, UA, UMICAO #### [facility] [address] [place] [address] Paint Formulator: vAinash Aldrich MD #### ESTEPHANIANM, AHCV #### [address] [phone] Paint Formulator: Ciro Lux MD ALT [Catalytic activity/Vol] 16 U/L Normal 5-33 [facility] Comment on above: Performed By: #### C BC, CP, LIPR, TSH, UA, UMICAO #### [facility] [address] [place], [place] [phone] Paint Formulator: Avinash Aldrich MD #### INDIGO, AHCV #### [address] [id number] Paint Formulator: Ciro Lux MD Anion gap [Moles/Vol] 13 mmol/L Normal 9-17 [facility] Comment on above: Performed By: #### C BC, CP, LIPR, TSH, UA, UMICAO #### [facility] [address] [place], [place] [phone] Paint Formulator: Avinash Aldrihc MD #### INDIGO, AHCV #### [address] [phone] Paint Formulator: Ciro Lux MD AST [Catalytic activity/Vol] 15 U/L Normal <32 [facility] Comment on above: Performed By: #### C BC, CP, LIPR, TSH, UA, UMICAO #### [facility] [address] [place], [place] [phone] Paint Formulator: Avinash Aldrich MD #### INDIGO, AHCV #### [address] [phone] Paint Formulator: Ciro Lux MD Bilirubin Ql (U) 0.64 mg/dL Normal 0.30-1.20 [facility] Comment on above: Performed By: #### C BC, CP, LIPR, TSH, UA, UMICAO #### [facility] [address] [place], [place] [phone] Paint Formulator: Avinash Aldrich MD #### INDIGO, AHCV #### [address] [phone] Paint Formulator: Ciro Lux MD BUN/CRE Ratio 21 High 9-20 [facility] Comment on above: Performed By: #### C BC, CP, LIPR, TSH, UA, UMICAO #### [facility] [address] [place], [place] [phone] Paint Formulator: Avinash Aldrich MD #### INDIGO, AHCV #### [address] [id number] Paint Formulator: Ciro Lux MD Calcium [Mass/Vol] 10.6 mg/dL High 8.6-10.4 [facility] Comment on above: Performed By: #### C BC, CP, LIPR, TSH, UA, UMICAO #### [facility] [address] [place] [address] Paint Formulator: Avinash Aldrich MD #### INDIGO, AHCV #### [address] [phone] Paint Formulator: Ciro Lux MD Chloride [Moles/Vol] 96 mmol/L Low 98-107 [facility] Comment on above: Performed By: #### C BC, CP, LIPR, TSH, UA, UMICAO #### [facility] [address] [place] [address] Paint Formulator: Avinash Aldrich MD #### URNMAB, AHCV #### [address] [phone] Paint Formulator: Ciro Lux MD CO2 [Moles/Vol] 31 mmol/L Normal 20-31 [facility] Comment on above: Performed By: #### C BC, CP, LIPR, TSH, UA, UMICAO #### [facility] [address] [place] [address] Paint Formulator: Avinash Aldrich MD #### URNMAB, AHCV #### [address] [phone] Paint Formulator: Ciro Lux MD Creatinine [Mass/Vol] 0.72 mg/dL Normal 0.50-0.90 [facility] Comment on above: Performed By: #### C BC, CP, LIPR, TSH, UA, UMICAO #### [facility] [address] [place] [phone] Paint Formulator: Avinash Aldrich MD #### URNMAB, AHCV #### [address] [phone] Paint Formulator: Ciro Lux MD GFR, Amer >60 Normal >60 [facility] Comment on above: Performed By: #### C BC, CP, LIPR, TSH, UA, UMICAO #### [facility] [address] [place] [phone] Paint Formulator: Avinash Aldrich MD #### URNMAB, AHCV #### [address] [phone] Paint Formulator: Ciro Lux MD GFR,non Amer >60 Normal >60 [facility] Comment on above: Performed By: #### C BC, CP, LIPR, TSH, UA, UMICAO #### [facility] [address] [place] [address] Paint Formulator: Avinash Aldrich MD #### URNMAB, AHCV #### [address] [id number] Paint Formulator: Ciro Lux MD Glucose [Mass/Vol] 90 mg/dL Normal 70-99 [facility] Comment on above: Performed By: #### C BC, CP, LIPR, TSH, UA, UMICAO #### [facility] [address] [place], [place] [phone] Paint Formulator: Avinash Aldrich MD #### URNMAB, AHCV #### [address] [id number] Paint Formulator: Ciro Lux MD Potassium [Moles/Vol] 3.6 mmol/L Low 3.7-5.3 [facility] Comment on above: Performed By: #### C BC, CP, LIPR, TSH, UA, UMICAO #### [facility] [address] [place], [place] [phone] Paint Formulator: Avinash Aldrich MD #### URKEITHAB, AHCV #### [address] [phone] Paint Formulator: Ciro Lux MD Protein [Mass/Vol] 8.2 g/dL Normal 6.4-8.3 [facility] Comment on above: Performed By: #### C BC, CP, LIPR, TSH, UA, UMICAO #### [facility] [address] [place] [address] Paint Formulator: Avinash Aldrich MD #### URNMAB, AHCV #### [address] [phone] Paint Formulator: Ciro Lux MD Sodium [Moles/Vol] 140 mmol/L Normal 135-144 [facility] Comment on above: Performed By: #### C BC, CP, LIPR, TSH, UA, UMICAO #### [facility] [address] [place], [place] [phone] Paint Formulator: Avinash Aldrich MD #### URNMAB, AHCV #### [facility] [address] [place] [address] [phone] Paint Formulator: Ciro Lux MD Urea nitrogen [Mass/Vol] 15 mg/dL Normal 8-23 [facility] Comment on above: Performed By: #### C BC, CP, LIPR, TSH, UA, UMICAO #### [facility] [address] [place], [place] [phone] Paint Formulator: Avinash Aldrich MD #### URNMAB, AHCV #### [address] [phone] Paint Formulator: Ciro Lux MD Albumin/Globulin [Mass ratio] NOT REPORTED Normal 1.0-2.5 [facility] Comment on above: Performed By: #### C BC, CP, LIPR, TSH, UA, UMICAO #### [facility] [address] [place], [place] [phone] Paint Formulator: Avinash Aldrich MD #### URNMAB, AHCV #### [address] [phone] Paint Formulator: Ciro Lux MD Staging: NOT REPORTED Normal [facility] Comment on above: Performed By: #### C BC, CP, LIPR, TSH, UA, UMICAO #### [facility] [address] [place], [place] [phone] Paint Formulator: Avinash Aldrich MD #### URNMAB, AHCV #### [address] [id number] Paint Formulator: Ciro Lux MD Comprehensive Metabolic Pane [facility] 10-28-2018 Albumin [Mass/Vol] 4.2 g/dL 3.5 - 5.2 g/dL [place] Albumin/Globulin [Mass ratio] NOT REPORTED [place] ALP [Catalytic activity/Vol] 102 U/L 35 - 104 U/L [place] ALT [Catalytic activity/Vol] 16 U/L 5 - 33 U/L [place] Anion gap [Moles/Vol] 13 mmol/L 9 - 17 mmol/L [place] AST [Catalytic activity/Vol] 15 U/L <32 [place] Bilirubin Ql (U) 0.64 mg/dL 0.3 - 1.2 mg/dL [place] Bun/Cre Ratio 21 High [place] Calcium [Mass/Vol] 10.6 mg/dL High 8.6 - 10.4 mg/dL [place] Chloride [Moles/Vol] 96 mmol/L Low 98 - 107 mmol/L [place] CO2 [Moles/Vol] 31 mmol/L 20 - 31 mmol/L [place] Creatinine [Mass/Vol] 0.72 mg/dL 0.5 - 0.9 mg/dL [place] GFR >60 >60 mL/min [place] GFR Non- >60 >60 mL/min [place] GFR/1.73 sq M predicted among non-blacks MDRD (S/P/Bld) [Vol rate/Area] NOT REPORTED [place] GFR/1.73 sq M predicted among non-blacks MDRD (S/P/Bld) [Vol rate/Area] [place] Comment on above: Average GFR for 60-6 9 years old: 85 mL/min/1.73sq m Chronic Kidney Disease: <60 mL/min/1.73sq m Kidney failure: <15 mL/min/1.73sq m eGFR calculated using average adult body mass. Additional eGFR calculator available at: http://www.CardKill.2threads/multiple_crcl_2012.htm Glucose [Mass/Vol] 90 mg/dL 70 - 99 mg/dL [place] Interpretation and review of laboratory results Abnormal [place] Potassium [Moles/Vol] 3.6 mmol/L Low 3.7 - 5.3 mmol/L [place] Protein [Mass/Vol] 8.2 g/dL 6.4 - 8.3 g/dL [place] Sodium [Moles/Vol] 140 mmol/L 135 - 144 mmol/L [place] Urea nitrogen [Mass/Vol] 15 mg/dL 8 - 23 mg/dL [place] Hepatitis C Antibodyon 10-28 Hepatitis C Ab NONREACTIVE NONREACTIVE [place] Comment on above: The hepatitis C procedure used in our laboratory is a Chemiluminescent test specific for three recombinant HCV antigens. A negative anti-HCV result indicates that the antibodies to hepatitis C virus are not present at this time. Individuals with reactive anti-HCV should be considered infected and infectious until proven otherwise. Confirmation of all equivocal or reactive results is recommended by ordering HCV RNA by PCR. Lipid Panelon 10-28-2018 Cholesterol [Mass/Vol] 172 mg/dL <200 [place] Comment on above: Cholesterol Guidelines: <200 Desirable 200-240 Borderline >240 Undesirable Cholesterol in HDL [Mass/Vol] 78 mg/dL >40 [place] Comment on above: HDL Guidelines: <40 Undesirable 40-59 Borderline >59 Desirable Cholesterol in LDL [Mass/Vol] 77 mg/dL 0 - 130 mg/dL [place] Comment on above: LDL Guidelines: <100 Desirable 100-129 Near to/above Desirable 130-159 Borderline >159 Undesirable Direct (measured) LDL and calculated LDL are not interchangeable tests. Cholesterol in VLDL [Mass/Vol] NOT REPORTED 1 - 30 mg/dL [place] Cholesterol.total/C holesterol in HDL [Mass ratio] 2.2 {ratio} <5 [place] Triglyceride [Mass/Vol] 84 mg/dL <150 [place] Comment on above: Triglyceride Guidelines: <150 Desirable 150-199 Borderline 200-499 High >499 Very high Based on AHA Guidelines for fasting triglyceride, November 2011. Lipid Profileon 10-28-2018 Cholesterol [Mass/Vol] 172 mg/dL Normal <200 [facility] Comment on above: Result Comment: Cholesterol Guidelines: <200 Desirable 200-240 Borderline >240 Undesirable Performed By: #### C BC, CP, LIPR, TSH, UA, UMICAO #### [facility] [address] [place] [phone] Paint Formulator: Avinash Aldrich MD #### URNM, AHCV #### [address] [phone] Paint Formulator: Ciro Lux MD Cholesterol in HDL [Mass/Vol] 78 mg/dL Normal >40 [facility] Comment on above: Result Comment: HDL Guidelines: <40 Undesirable 40-59 Borderline >59 Desirable Performed By: #### C BC, CP, LIPR, TSH, UA, UMICAO #### [facility] [address] [place] [phone] Paint Formulator: Avinash Aldrich MD #### INDIGO, AHCV #### [address] [phone] Paint Formulator: Ciro Lux MD Cholesterol in LDL [Mass/Vol] 77 mg/dL Normal 0-130 [facility] Comment on above: Result Comment: LDL Guidelines: <100 Desirable 100-129 Near to/above Desirable 130-159 Borderline >159 Undesirable Direct (measured) LDL and calculated LDL are not interchangeable tests. Performed By: #### C BC, CP, LIPR, TSH, UA, UMICAO #### [facility] [address] [place] [phone] Paint Formulator: Avinash Aldrich MD #### URNM, AHCV #### [address] [phone] Paint Formulator: Ciro Lux MD Cholesterol.total/C holesterol in HDL [Mass ratio] 2.2 {ratio} Normal <5 [facility] Comment on above: Performed By: #### C BC, CP, LIPR, TSH, UA, UMICAO #### [facility] [address] [place] [address] Paint Formulator: Avinash Aldrich MD #### INDIGO, AHCV #### [address] [place] [address] Paint Formulator: Ciro Lux MD Triglyceride [Mass/Vol] 84 mg/dL Normal <150 [facility] Comment on above: Result Comment: Triglyceride Guidelines: <150 Desirable 150-199 Borderline 200-499 High >499 Very high Based on AHA Guidelines for fasting triglyceride, November 2011. Performed By: #### C BC, CP, LIPR, TSH, UA, UMICAO #### [facility] [address] [place] [address] Paint Formulator: Avinash Aldrich MD #### INDIGO, AHCV #### [address] [place] [address] Paint Formulator: Ciro Lux MD Cholesterol in VLDL [Mass/Vol] NOT REPORTED Normal 03-19 [facility] Comment on above: Performed By: #### C BC, CP, LIPR, TSH, UA, UMICAO #### [facility] [address] [place] [address] Paint Formulator: Avinash Aldrich MD #### INDIGO, AHCV #### [address] [place], [place] [phone] Paint Formulator: Ciro Lux MD Microalbumin, Uron 9 Albumin/Creatinine DL <= 20 mg/L (24H U) [Mass ratio] <12 <21 mg/L [place] Albumin/Creatinine DL <= 20 mg/L (U) [Ratio] CANNOT BE CALCULATED <25 mcg/mg creat [place], [place] Creatinine [Mass/Vol] 105.7 mg/dL 28 - 217 mg/dL [place] Microscopic Urinalysison Amorphous, UA NOT REPORTED None [place] Bacteria, UA RARE Abnormal None [place] Casts UA NOT REPORTED /LPF [place] Crystals UA NOT REPORTED None /HPF [place] Epithelial Cells UA 2 TO 5 /HPF [place] Interpretation and review of laboratory results Abnormal [place] Mucus, UA NOT REPORTED None [place] Other Observations UA NOT REPORTED NOT REQ. [place] RBC (U) [#/Vol] NOT REPORTED [place] Renal Epithelial, Urine NOT REPORTED 0 /HPF [place] Trichomonas, UA NOT REPORTED None [place] WBC, UA 0 TO 2 0 /HPF [place] Yeast, UA NOT REPORTED None [place] - [place] TSH without Reflexon 019 TSH Qn 4.72 m[IU]/L [place] Thyroid Stim. Horm.on 2018 TSH Qn 4.72 m[IU]/L Normal 0.30-5.00 [facility] Comment on above: Performed By: #### C BC, CP, LIPR, TSH, UA, UMICAO #### [facility] [address] [place] [address] Paint Formulator: Avinash Aldrich MD #### URNMAB, AHCV #### [facility] [address] [place] [address] Paint Formulator: Ciro Lux MD Urinalysison 10-28-2018 Bilirubin Urine Negative NEGATIVE [place] Color, UA YELLOW YELLOW [place] Glucose, Ur Negative NEGATIVE [place] Interpretation and review of laboratory results Abnormal [place] Ketones Ql (U) Negative NEGATIVE [place] Leukocyte esterase Test strip Ql (U) 1+ Abnormal NEGATIVE [place] Nitrite, Urine Negative NEGATIVE [place] pH, UA 7.0 [place] Protein (U) [Mass/Vol] Negative NEGATIVE [place] Specific [place], UA 1.010 [facility], [place] Turbidity UA CLEAR CLEAR [facility], [place] Urinalysis Comments [facility], [place] Urine Hgb Negative NEGATIVE [facility], [place] Urobilinogen, Urine Normal Normal [place] Urinalysis, Routineon 2018 Acetoacetic Acid,Ur Negative Normal NEG [facility] Comment on above: Performed By: #### C BC, CP, LIPR, TSH, UA, UMICAO #### [facility] [address] [place] [address] Paint Formulator: Avinash Aldrich MD #### URNMAB, AHCV #### [address] [id number] Paint Formulator: Ciro Lux MD Bilirubin, SemiQt,Ur Negative Normal NEG [facility] Comment on above: Performed By: #### C BC, CP, LIPR, TSH, UA, UMICAO #### [facility] [address] [place] [address] Paint Formulator: Avinash Aldrich MD #### URNMAB, AHCV #### [address] [id number] Paint Formulator: Ciro Lux MD Color (U) YELLOW Normal YEL [facility] Comment on above: Performed By: #### C BC, CP, LIPR, TSH, UA, UMICAO #### [facility] [address] [place] [address] Paint Formulator: Avinash Aldrich MD #### URNMAB, AHCV #### [address] [phone] Paint Formulator: Ciro Lux MD Comment Normal [facility] Comment on above: Performed By: #### C BC, CP, LIPR, TSH, UA, UMICAO #### [facility] [address] [place] [address] Paint Formulator: Avinash Aldrich MD #### URNMAB, AHCV #### [address] [phone] Paint Formulator: Ciro Lux MD Glucose Ql (U) Negative Normal NEG [facility] Comment on above: Performed By: #### C BC, CP, LIPR, TSH, UA, UMICAO #### [facility] [address] [place] [address] Paint Formulator: Avinash Aldrich MD #### URNMAB, AHCV #### [address] [id number] Paint Formulator: Ciro Lux MD Hemoglobin, Ur Negative Normal NEG [facility] Comment on above: Performed By: #### C BC, CP, LIPR, TSH, UA, UMICAO #### [facility] [address] [place] [address] Paint Formulator: Avinash Aldrich MD #### URNMAB, AHCV #### [address] [id number] Paint Formulator: Ciro Lux MD Leukocyte esterase Test strip Ql (U) 1+ Abnormal NEG [facility] Comment on above: Performed By: #### C BC, CP, LIPR, TSH, UA, UMICAO #### [facility] [address] [place] [address] Paint Formulator: Avinash Aldrich MD #### URNMAB, AHCV #### [address] [phone] Paint Formulator: Ciro Lux MD Nitrite,Ur Negative Normal NEG [facility] Comment on above: Performed By: #### C BC, CP, LIPR, TSH, UA, UMICAO #### [facility] [address] [place] [address] Paint Formulator: Avinash Aldrich MD #### INDIGO, AHCV #### [address] [id number] Paint Formulator: Ciro Lux MD pH (U) 7.0 [pH] Normal 5.0-8.0 [facility] Comment on above: Performed By: #### C BC, CP, LIPR, TSH, UA, UMICAO #### [facility] [address] [place] [address] Paint Formulator: Avinash Aldrich MD #### INDIGO, AHCV #### [address] [id number] Paint Formulator: Ciro Lux MD Protein Ql (U) Negative Normal NEG [facility] Comment on above: Performed By: #### C BC, CP, LIPR, TSH, UA, UMICAO #### [facility] [address] [place] [address] Paint Formulator: Avinash Aldrich MD #### INDIGO, AHCV #### [address] [id number] Paint Formulator: Ciro Lux MD Specific gravity (U) [Rel density] 1.010 Normal 1.005-1.030 [facility] Comment on above: Performed By: #### C BC, CP, LIPR, TSH, UA, UMICAO #### [facility] [address] [place] [address] Paint Formulator: Avinash Aldrich MD #### INDIGO, AHCV #### [address] [id number] Paint Formulator: Ciro Lux MD Turbidity CLEAR Normal CLEAR [facility] Comment on above: Performed By: #### C BC, CP, LIPR, TSH, UA, UMICAO #### [facility] [address] [place] [address] Paint Formulator: Avinash Aldrich MD #### URNMAB, AHCV #### [address] [phone] Paint Formulator: Ciro Lux MD Urobilinogen,Ur Normal Normal NORM [facility] Comment on above: Performed By: #### C BC, CP, LIPR, TSH, UA, UMICAO #### [facility] [address] [place] [address] Paint Formulator: Avinash Aldrich MD #### URNMAB, AHCV #### [address] [phone] Paint Formulator: Ciro Lux MD Urinalysis,Microon 9 ----- Normal [facility] Comment on above: Performed By: #### C BC, CP, LIPR, TSH, UA, UMICAO #### [facility] [address] [place] [address] Paint Formulator: Avinash Aldrich MD #### URNMAB, AHCV #### [address] [id number] Paint Formulator: Ciro Lux MD Bacteria LM.HPF (Urine sed) [#/Area] RARE Abnormal NONE [facility] Comment on above: Performed By: #### C BC, CP, LIPR, TSH, UA, UMICAO #### [facility] [address] [place] [address] Paint Formulator: Avinash Aldrich MD #### URNMAB, AHCV #### [address] [id number] Paint Formulator: Ciro Lux MD Epithelial cells LM.HPF (Urine sed) [#/Area] 2 TO 5 Normal [facility] Comment on above: Performed By: #### C BC, CP, LIPR, TSH, UA, UMICAO #### [facility] [address] [place], [place] [id number] Paint Formulator: Avinash Aldrich MD #### URNMAB, AHCV #### [address] [id number] Paint Formulator: Ciro Lux MD WBC (U) [#/Vol] 0 TO 2 Normal 0 [facility] Comment on above: Performed By: #### C BC, CP, LIPR, TSH, UA, UMICAO #### [facility] [address] [place] [address] Paint Formulator: Avinash Aldrich MD #### URNMAB, AHCV #### [address] [id number] Paint Formulator: Ciro Lux MD Amorphous sediment LM Ql (Urine sed) NOT REPORTED Normal [facility] Comment on above: Performed By: #### C BC, CP, LIPR, TSH, UA, UMICAO #### [facility] [address] [place] [address] Paint Formulator: Avinash Aldrich MD #### URNMAB, AHCV #### [address] [phone] Paint Formulator: Ciro Lux MD Casts LM.LPF (Urine sed) [#/Area] NOT REPORTED Normal [facility] Comment on above: Performed By: #### C BC, CP, LIPR, TSH, UA, UMICAO #### [facility] [address] [place] [address] Paint Formulator: Avinash Aldrich MD #### URNMAB, AHCV #### [address] [phone] Paint Formulator: Ciro Lux MD Crystals LM Nom (Urine sed) NOT REPORTED Normal [facility] Comment on above: Performed By: #### C BC, CP, LIPR, TSH, UA, UMICAO #### [facility] [address] [place], [place] [phone] Paint Formulator: Avinash Aldrich MD #### URNMAB, AHCV #### [facility] [address] [place] [address] Paint Formulator: Ciro Lux MD Epithelial, Renal NOT REPORTED Normal 0 [facility] Comment on above: Performed By: #### C BC, CP, LIPR, TSH, UA, UMICAO #### [facility] [address] [place], [place] [phone] Paint Formulator: Avinash Aldrich MD #### URNMAB, AHCV #### [address] [address] Paint Formulator: Ciro Lux MD Mucus Strands NOT REPORTED Normal NONE [facility] Comment on above: Performed By: #### C BC, CP, LIPR, TSH, UA, UMICAO #### [facility] [address] [place], [place] [phone] Paint Formulator: Avinash Aldrich MD #### URNMAB, AHCV #### [address] [id number] Paint Formulator: Ciro Lux MD Other Observations NOT REPORTED Normal NREQ [facility] Comment on above: Performed By: #### C BC, CP, LIPR, TSH, UA, UMICAO #### [facility] [address] [place], [place] [phone] Paint Formulator: Avinash Aldrich MD #### URNMAB, AHCV #### [address] [id number] Paint Formulator: Ciro Lux MD RBC (U) [#/Vol] NOT REPORTED Normal 0-2 [facility] Comment on above: Performed By: #### C BC, CP, LIPR, TSH, UA, UMICAO #### [facility] [address] [place], [place] [phone] Paint Formulator: Avinash Aldrich MD #### URNMAB, AHCV #### [facility] [address] [place], [place] [phone] Paint Formulator: Ciro Lux MD Trichomonas NOT REPORTED Normal NONE [facility] Comment on above: Performed By: #### C BC, CP, LIPR, TSH, UA, UMICAO #### [facility] [address] [place], [place] [phone] Paint Formulator: Avinash Aldrich MD #### URNMAB, AHCV #### [address] [phone] Paint Formulator: Ciro Lux MD Yeast LM Ql (Urine sed) NOT REPORTED Normal NONE [facility] Comment on above: Performed By: #### C BC, CP, LIPR, TSH, UA, UMICAO #### [facility] [address] [place] [address] Paint Formulator: Avinash Aldrich MD #### URNMAB, AHCV #### [address] [phone] Paint Formulator: Ciro Lux MD Vital Signs Date Time Vital Sign Value Performing Clinician Faci lity 08-20-2022 15:40-0400 Body height 152.4 cm MD Robbin Ortiz Work Phone: [facility] 08-20-2022 15:40-0400 Body weight 77.11 kg MD Robbin Ortiz Work Phone: [facility] 08-20-2022 15:39-0400 Body temperature 98.1 [degF] MD Robbin Ortiz Work Phone: [facility] 08-20-2022 15:39-0400 Diastolic blood pressure 54 mm[Hg] MD Robbin Ortiz Work Phone: [facility] 08-20-2022 15:39-0400 Heart rate 62 /min MD Robbin Ortiz Work Phone: [facility] 08-20-2022 15:39-0400 Respiratory rate 18 /min MD Robbin Ortiz Work Phone: [facility] 08-20-2022 15:39-0400 SaO2% (BldA) [Mass fraction] 98 % MD Robbin Ortiz Work Phone: [facility] 08-20-2022 15:39-0400 Systolic blood pressure 116 mm[Hg] MD Robbin Ortiz Work Phone: [facility] Encounters Encounter Date Encounter Type Care Provider Facility Start: 03-07-2023 End: 03-07-2023 ambulatory ROBBIN ORTIZ Not Available Start: 12-10-2022 ambulatory [facility] Start: 08-24-2022 End: 08-24-2022 ambulatory [facility] Start: 08-20-2022 End: 08-20-2022 Emergency department patient visit Gurpreet Omalley Facility:[facility] Start: 08-20-2022 End: 08-20-2022 Emergency department patient visit MD Robbin Ortiz Work Phone: [facility] Work Phone: Start: 12-20-2020 End: 12-21-2020 ambulatory TRE AUGUSTIN Facility:[facility] Start: 10-19-[address] ROBBIN ORTIZ Facility :[facility] Start: 10-15-[address] ROBBIN ORTIZ Facility :[facility] Start: 05-10-2020 End: 05-11-2020 ambulatory NONE LISTED REQUEST Facility:[facility] Start: 04-18-2020 End: 04-19-2020 ambulatory NONE LISTED REQUEST Facility:[facility] Start: 09-22-2019 End: 09-25-2019 Patient encounter procedure [facility] Start: 09-22-2019 End: 09-24-2019 Subsequent hospital visit by physician Treesita [facility] Dexa Scan Comment on above: Osteopenia, unspecif ied location Breast cancer screen ing by mammogram Start: 09-21-2019 End: 09-22-2019 Patient encounter procedure ROBBIN ORTIZ [facility] Start: 09-21-2019 End: 09-21-2019 Subsequent hospital visit by physician Robbin [facility] Start: 11-27-2018 End: 11-28-2018 Patient encounter procedure ROBBIN Cynthia [facility] Start: 11-27-2018 End: 11-27-2018 Subsequent hospital visit by physician Robbin [facility] Start: 11-17-2018 End: 11-20-2018 Patient encounter procedure RAFAEL R [facility] Start: 11-17-2018 End: 11-20-2018 Patient encounter procedure RAFAEL R [facility] Start: 11-17-2018 End: 11-19-2018 Subsequent hospital visit by physician Robbin Ortiz [facility] Start: 10-28-2018 End: 10-29-2018 Patient encounter procedure ROBBIN Cynthia [facility] Start: 10-28-2018 End: 10-28-2018 Subsequent hospital visit by physician Robbin [facility] Procedures Date Procedure Procedure Detail Performing Clinician Start: 09-22-2019 Dxa bone density megha dy 1/> sites axial libia ORTIZ Start: 09-22-2019 Screening mammograph y bi 2-view breast inc cad ROBBIN [employer] Start: 09-22-2019 Dxa bone density megha dy 1/> sites axial mundofarzana Boy Torres Work Phone: Start: 09-22-2019 Screening mammograph y bi 2-view breast inc cad Boy Leila Work Phone: Start: 09-21-2019 Assay of parathormone Ketan ORTIZ Start: 09-21-2019 Blood count complete auto&auto difrntl wbc ROBBIN ORTIZ Start: 09-21-2019 Comprehensive metabo lic panel ROBBIN ORTIZ Start: 09-21-2019 Lipid panel ROBBIN Marie Start: 09-21-2019 Assay of parathormone Ketan Ortiz Work Phone: Start: 09-21-2019 Blood count complete auto&auto difrntl wbc Robbin Cynthia [place] Work Phone: Start: 09-21-2019 Comprehensive metabo lic panel Robbin Ortiz Work Phone: Start: 09-21-2019 Lipid panel Robbin L H ill Work Phone: Start: 11-27-2018 Basic metabolic pane l calcium total ROBBIN ORTIZ Start: 11-27-2018 Basic metabolic pane l calcium total Robbin Ortiz Work Phone: Start: 11-17-2018 Radex foot complete minimum 3 views ROBBIN ORTIZ Start: 10-28-2018 Assay of thyroid stimulating hormone tsh ROBBIN ORTIZ Start: 10-28-2018 Blood count complete automated ROBBIN ORTIZ Start: 10-28-2018 Comprehensive metabo lic panel ROBBIN ORTIZ Start: 10-28-2018 Hepatitis c antibody RO CHRISTIANO ORTIZ Start: 10-28-2018 Lipid panel ROBBIN Marie Start: 10-28-2018 Urinalysis microscopic only ROBBIN ORTIZ Start: 10-28-2018 Urine albumin quantitative ROBBIN ORTIZ Start: 10-28-2018 Urnls dip stick/tabl et rgnt auto w/o microscopy ROBBNI ORTIZ Start: 10-28-2018 Assay of thyroid stimulating hormone tsh Robbin Ortiz Work Phone: Start: 10-28-2018 Blood count complete automated Robbin Ortiz Work Phone: Start: 10-28-2018 Comprehensive metabo lic panel Robbin Ortiz Work Phone: Start: 10-28-2018 Hepatitis c antibody Ana Ortiz Work Phone: Start: 10-28-2018 Lipid panel Robbin Marie H ill Work Phone: Start: 10-28-2018 Urinalysis microscopic only Robbin Ortiz Work Phone: Start: 10-28-2018 Urine albumin quantitative Robbin Ortiz Work Phone: Start: 10-28-2018 Urnls dip stick/tabl et rgnt auto w/o microscopy Robbin Ortiz Work Phone: Plan of Treatment Date Care Activity Detail Author Start: 08-20-2022 Plain chest X-ray XR chest 1V [facility] Start: 08-20-2022 [facility] Start: 08-04-2022 Screening for malignant neoplasm of breast Breast cancer screen [place], [place] Start: 09-20-2020 Creatinine measurement Creatinine monitoring [place], [place] Start: 09-20-2020 Lipid panel Lipid [place] Start: 09-20-2020 Potassium monitoring Pot[place] Start: 03-23-2020 Lipid screen Lipid [place] Start: 11-28-2019 Creatinine measurement Creatinine monitoring [facility], [place] Start: 11-28-2019 Creatinine monitoring Creatinine monitoring [place], [place] Start: 11-28-2019 Potassium monitoring Potassium [place] Start: 10-29-2019 Creatinine monitoring Creatinine monitoring [place] Start: 10-29-2019 Lipid panel Lipid [place] Start: 10-29-2019 Lipid screen Lip[place] Start: 10-29-2019 Potassium monitoring Pot[place] Start: 10-20-2019 Influenza vaccination Flu vaccine (#1) [place] Start: 09-22-2019 End: 09-22-2019 Appointment 09/22/2019 Appointment Radiology [facility] Start: 09-21-2019 Annual Wellness Visit (AWV) Annual Wellness Visit (AWV) [place] Start: 05-19-2019 Pneumococcal 65+ years Vaccine (1 of 1 - PPSV23) Pneumococcal 65+ years Vaccine (1 of 1 - PPSV23) [place] Start: 01-06-2019 End: 01-06-2019 Office Visit 01/06/2019 Office Visit Cardiology Michael Gomez MD [address] [place] [address] [phone] [facility] 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 Start: 10-19-2018 Influenza vaccination Flu vaccine (#1) [place] Start: 04-27-2018 Colon cancer screen colonoscopy Colon cancer screen colonoscopy [place] Start: 04-27-2018 Screening for malignant neoplasm of colon Colon cancer screen colon[place] Start: 04-26-2018 Breast cancer screen Breast cancer [place] Start: 04-26-2018 Screening for malignant neoplasm of breast Breast cancer [place] Start: 12-16-2016 Cervical cancer screen Cervical cancer [place] Start: 12-16-2016 Screening for malignant neoplasm of cervix Cervical cancer [place] Start: 03-23-2016 Creatinine monitoring Creatinine monitoring [place], [place] Start: 03-23-2016 Potassium monitoring Pot[place] Start: 03-14-2015 Shingles Vaccine (2 of 3) Shingles Vaccine (2 of 3) [place] Start: 1973 DTaP/Tdap/Td vaccine (1 - Tdap) DTaP/Tdap/Td vaccine (1 - Tdap) [place] Start: 1969 HIV screen HIV screen [place] Start: 1969 HIV screening HIV screen [place] Start: 1954 Hepatitis C screen Hepatitis C screen [place], [place] Patient referral [facility] Work Phone: Immunizations Immunization Date Immunization Notes Care Provider Fa bill 11-19-2015 influenza, injectabl e, madin erica canine kidney, preservative free [place], [place] 01-17-2015 zoster vaccine, live [place], [place] 12-19-2014 zoster vaccine, live [place] 08-07-2002 pneumococcal polysac charide vaccine, 23 valent [place], [place] Payers Date Payer Category Payer Self-pay 2019 Medicare MEDICARE MEDICAR E PART A AND B [id number] 2019-Present [phone] [address] [address] [place] [address] [id number] 2019 Unknown MEDICAL M[employer]UAL M EDICAL MUTUAL CHRIS - EXCHANGE [id number] 2019-Present [phone] [address] [place] [address] [id number] 2014 Unknown [employer]ICAL [employer] M [employer] M[employer]UAL [address] xxxxxxxxxxxx 2014-Present [phone] [address] [place] [address] xxxxxxxxxxxx [id number] 1959 Medicare [id number] 1959 Self-pay [id number] 1959 Unknown [id number] 1954 Unknown [id number] 1954 Unknown [id number] 1954 Unknown [id number] 1954 Unknown [id number] 1954 Unknown [id number] [id number] 1954 Unknown [id number] [id number] 1954 Unknown [id number] [id number] 1954 Unknown [id number] [id number] 1954 Unknown [id number] [id number] 1954 Unknown [id number] [id number] 9 Unknown [id number] Unknown [id number] [id number] Unknown [id number] Unknown [place] BC/PJ [id number] Unknown [id number] Social History Date Type Detail Facility Start: 04-24-2016 End: 08-20-2022 Tobacco smoking status NHIS Never smoker [facility] Start: 04-24-2016 End: 11-17-2018 Alcohol intake Yes [employer] Start: 04-26-2015 Alcohol Comment occasionally [employer] [facility] [place] Sex Assigned At Not on file [facility] Start: 11-17-2018 Tobacco use and exposure Never used [employer] Start: 11-17-2018 Alcohol intake Current drinke r of alcohol (finding) [employer] Start: 1955 Sex Assigned At Female F [facility] Progress note 12-10-2022 Note Date & Type Note Facility 12-10-2022 Note Patient here for 3 m o follow up atypical chest pain, CHF, and hx of Takotsubo cardiomyopathy. She had echo back in August 2022. Says chest pain has resolved. Denies SOB, lightheadedness, and palpitations. Review of Systems Cardiovascular: Positive for leg swelling (LLE). Musculoskeletal: Positive for arthritis, back pain, joint pain, muscle weakness and myalgias. Neurological: Positive for headaches and seizures (history of). All other systems reviewed and are negative. [facility] Progress note 12-10-2022 Note Date & Type Note Facility 12-10-2022 Note Cardiology Clinic No te Subjective Bethany Cardoza is a 67 y.o. year old female patient with past medical history of hypertension, hyperlipidemia, HFimpEF, and Takasubo Cardiomyopathy seen in follow-up. Patient Active Problem List Diagnosis Abnormal laboratory test result Age related osteoporosis Allergic rhinitis Asthma Chronic back pain Closed fracture of proximal end of left humerus with routine healing Disorder of breast Gastroesophageal reflux disease History of stroke without residual deficits History of CVA (cerebrovascular accident) Menopause Hypertension Hyperlipidemia Hypercholesterolemia Hypercalcemia Hives Osteoarthritis Neuropathic heredofamilial amyloidosis (CMS/HCC) Morbid obesity (CMS/HCC) Moderate major depression (CMS/HCC) Pneumonia Post menopausal syndrome Seasonal allergies Convulsions (CMS/HCC) Seizure disorder (CMS/HCC) ST elevation myocardial infarction (STEMI) (CMS/HCC) Stenosis of left subclavian artery (CMS/HCC) Stroke (CMS/HCC) Takotsubo syndrome Osteopenia of multiple sites Family History Problem Relation Name Age of Onset Heart failure Mother Heart attack Father Social History Tobacco Use Smoking status: Never Smokeless tobacco: Never Substance Use Topics Alcohol use: Yes Comment: occasional HPI 08/24/2022 Patient was referred to Cardiology clinic for evaluation of an episode of chest pain she had several months ago. Patient does not recall much in regards to her chest pain, but states that it was across her chest. She reports that it occurred at rest. She has not had any recurrence of symptoms.She denies any associated symptoms. Since that time, patient denies any chest pain or shortness of breath. She has chronic lower extremity swelling, but denies any worsening. No orthopnea or paroxysmal nocturnal dyspnea Per chart review, patient was admitted to the hospital in 2016 with concerns for STEMI. She was noted to have mild nonobstructive disease in her left main, LAD, LCx, and RCA. Her ejection fraction was severely reduced at 20% with apical ballooning, consistent with stress cardiomyopathy. She was equipped with a LifeVest, and since that time, her EF has reportedly recovered. Update Has been doing well since last office visit No recurrence of chest pain Dealing with arthritis pain in her hands Has chronic LLE edema which is stable Denies palpitations or dyspneic symptoms Review of Systems Cardiovascular: Positive for leg swelling. Negative for chest pain, dyspnea on exertion, irregular heartbeat, near-syncope, orthopnea, palpitations, paroxysmal nocturnal dyspnea and syncope. Objective Visit Vitals BP 107/67 (BP Location: Left wrist, Patient Position: Sitting) Pulse 71 Ht 1.524 m (5') Wt 78.9 kg (174 lb) SpO2 98% BMI 33.98 kg/m??? Smoking Status Never BSA 1.83 m??? Physical Exam General: Awake, alert, NAD Pulm: Breath sounds clear to ascultation bilaterally with no wheeze, crackles or rhonchi Cards: Regular rate and rhythm, S1, S2. No S3 or S4 gallop. Murmur: none Extr: Lower extremity edema: Left non-pitting mild. Skin: warm, dry, well perfused Neuro: A&Ox3, No gross deficits Allergies Allergies Allergen Reactions Morphine Other Patient states that she becomes paranoid Other Reaction(s): confusion Penicillins Nausea And Vomiting and Other Other Reaction(s): Nausea/Vomiting Medications Current Outpatient Medications: aspirin (Ecotrin) 325 mg EC tablet, Take 1 tablet by mouth in the morning., Disp: , Rfl: atorvastatin (Lipitor) 40 mg tablet, Take 1 tablet by mouth at bedtime., Disp: , Rfl: cholecalciferol, vitamin D3, 50 mcg (2,000 unit) capsule, Take 1 capsule by mouth in the morning., Disp: , Rfl: hydroCHLOROthiazide (HYDRODiuril) 25 mg tablet, 1 tablet in the morning., Disp: , Rfl: levETIRAcetam (Keppra) 500 mg tablet, Take 1 tablet by mouth in the morning and at bedtime., Disp: , Rfl: metoclopramide (Reglan) 10 mg tablet, , Disp: , Rfl: omeprazole (PriLOSEC) [address] capsule, Take 40 mg by mouth in the morning., Disp: , Rfl: Recent Labs No results found for: NA, K, CL, CO2, BUN, CREATININE, GLUCOSE, CALCIUM No results found for: WBC, HGB, HCT, MCV, PLT No results found for: CHOL, TRIG, HDL, LDLDIRECT Imaging and other tests Echo: 09/03/2022 Normal left ventricular ejection fraction greater than 55% Normal diastolic function No significant valvular dysfunction No pericardial effusion Assessment Diagnoses and all orders for this visit: Heart failure with improved ejection fraction (HFimpEF) ([facility]) Coronary artery disease involving zuni coronary artery of zuni heart without angina pectoris - CBC; Future - Comprehensive metabolic panel; Future - Lipid panel; Future - Lexiscan Stress Myocardial Perfusion Imaging; Future Essential hypertension Other chest pain - Lexiscan Stress Myocardial Perfusion Imaging; Futu (more content not included)... [facility] Progress note 08-24-2022 Note Date & Type Note Facility 08-24-2022 Note New patient here to establish care for recent ED visit for chest pain. She used to see cardiology 10+ years ago. said she wore a LifeVest at one time, he thinks back in [phone]. Chest pain started about 1 week ago. It woke her up in the middle of the night. Denies SOB and BHAVESH. Has hx of TIA. Review of Systems Cardiovascular: Positive for chest pain. Musculoskeletal: Positive for arthritis, back pain, joint pain, muscle weakness and myalgias. Neurological: Positive for headaches and seizures (history of). All other systems reviewed and are negative. [facility] Progress note 08-24-2022 Note Date & Type Note Facility 08-24-2022 Note Cardiology Clinic No te Chief Complaint: chest pain HPI: Bethany Cardoza is a 67 y.o. female with a past medical history including hypertension, hyperlipidemia, HFrecEF, and Takasubo Cardiomyopathy. Patient was referred to Cardiology clinic for evaluation of an episode of chest pain she had several months ago. Patient does not recall much in regards to her chest pain, but states that it was across her chest. She reports that it occurred at rest. She has not had any recurrence of symptoms.She denies any associated symptoms. Since that time, patient denies any chest pain or shortness of breath. She has chronic lower extremity swelling, but denies any worsening. No orthopnea or paroxysmal nocturnal dyspnea Per chart review, patient was admitted to the hospital in 2016 with concerns for STEMI. She was noted to have mild nonobstructive disease in her left main, LAD, LCx, and RCA. Her ejection fraction was severely reduced at 20% with apical ballooning, consistent with stress cardiomyopathy. She was equipped with a LifeVest, and since that time, her EF has reportedly recovered. Cardiology ROS: GENERAL: Denies fever, chills, night sweats, weight loss. HEENT: Denies changes in vision, photophobia, changes in hearing, epistaxis, oral bleeding. CARDIOVASCULAR: As per HPI RESPIRATORY: Denies SOB, coughing, wheezing GI: Denies abdominal pain, nausea/vomiting, heartburn, melena/hematochezia. RENAL: Denies dysuria, hematuria, flank pain. MSK: Denies muscle weakness/pain, arthralgias/joint pain. NEUROLOGIC: Denies LOC, weakness, numbness, headaches. SKIN: Denies abnormal rashes or bleeding. PSYCH: Denies significant anxiety, depression, sleep disturbances. Past Medical History She has a past medical history of Heart murmur, Hyperlipidemia, Hypertension, Seizure (CMS/HCC), Stroke (CMS/HCC), and Takotsubo cardiomyopathy. Surgical History She has a past surgical history that includes Total knee arthroplasty and Cardiac catheterization. Social History She reports that she has never smoked. She has never used smokeless tobacco. She reports current alcohol use. No history on file for drug use. Family History Family History Problem Relation Name Age of Onset Heart failure Mother Heart attack Father Medications Current Outpatient Medications on File Prior to Visit Medication Sig Dispense Refill aspirin (Ecotrin) 325 mg EC tablet Take 1 tablet by mouth in the morning. atorvastatin (Lipitor) 40 mg tablet Take 1 tablet by mouth at bedtime. cholecalciferol, vitamin D3, 50 mcg (2,000 unit) capsule Take 1 capsule by mouth in the morning. hydroCHLOROthiazide (HYDRODiuril) 25 mg tablet 1 tablet in the morning. levETIRAcetam (Keppra) 500 mg tablet Take 1 tablet by mouth in the morning and at bedtime. metoclopramide (Reglan) 10 mg tablet omeprazole (PriLOSEC) [address] capsule Take 40 mg by mouth in the morning. No current facility-administered medications on file prior to visit. Allergies Morphine and Penicillins Physical Exam VITAL SIGNS: BP 124/73 (BP Location: Right arm, Patient Position: Sitting) Pulse 78 Ht 1.53 m (5' 0.25 ) Wt 79.4 kg (175 lb) SpO2 97% BMI 33.89 kg/m??? Constitutional: Chornically ill appearing, No acute distress, Non-toxic appearance. HENT: Normocephalic, Atraumatic, Bilateral external ears have normal appearance, Nose appears normal, nares are patent. Eyes: PERRLA, EOMI, Conjunctiva normal, No discharge. Neck: Normal range of motion, No tenderness, Supple, No stridor. No cervical lymphadenopathy noted. Cardiovascular: Normal heart rate, Normal rhythm, No murmurs, No rubs, No gallops. Thorax & Lungs: Normal breath sounds, No respiratory distress, No wheezing, No chest tenderness to palpation. Abdomen: Bowel sounds normal, Soft, Nontender, No masses, No pulsatile masses. Skin: Warm, Dry, No erythema, No rash. Back: No tenderness, No CVA tenderness. Extremities: Bilateral lower extremity edema, No tenderness, No cyanosis, No clubbing. Musculoskeletal: Grossly normal strength in extremities Neurologic: Alert & oriented x 3, no gross focal neurological deficits Psychiatric: Affect normal, Judgment normal, Mood normal. Impression: -Atypical chest pain -Heart failure with recovered EF -History of Takotsubo cardiomyopathy -Mild, nonobstructive coronary artery disease -Hypertension: Well-controlled Plan: -Given risk factors and known mild CAD in 2016, prudent to rule out ischemia. Would recommend proceeding with Lexiscan myocardial perfusion imaging -Additionally, given history of heart failure, will obtain echocardiogram to assess LVEF, regional wall motion, and valvular function -Continue aspirin, high intensity statin for nonobstructive CAD -Continue current antihypertensive regimen -Continue statin for hyperlipidemia -Patient is not optimized from a GDMT standpoint. However, she is hesitant to make any medication changes pe (more content not included)... [facility] Evaluation note Note Date & Type Note Facility Evaluation note No assessment information availa [facility] Work Phone: Advance Directives No Advanced Directives Records FoundDocuments on File Type Date Recorded Patient Requirements Analyst Expl anation Advance Directives and Living Will Power of Commissioner Of Officials Latest Code Status on File Code Status Date Activated Date Inactivated Comments Full Code 03/20/2015 10:18 PM 03/23/2015 7:41 PM Documents on File Type Date Recorded Patient Requirements Analyst Expl anation Advance Directives and Living Will Power of Commissioner Of Officials Latest Code Status on File Code Status Date Activated Date Inactivated Comments Full Code 03/20/2015 10:18 PM 03/23/2015 7:41 PM Advance Directive Response Recorded Date/ Time Advance Directives No August 20 5:27pm Summary Purpose Family History No Family History Records FoundNo Family History Records FoundNo Family History Records FoundNo Family History Records FoundNo Family History Records FoundNo Family History Records Found Reason for Referral Status Reason Specialty Diagnoses / Procedures Referre d By Contact Referred To Contact Open Radiology Diagnoses Osteopenia, unspecified location Procedures DEXA BONE DENSITY 2 SITES Boy Torres APRN - GENERAL SURGEON [address] [place] [address] Status Reason Specialty Diagnoses / Procedures Referred By Contact Referred To Contact Pending Review Radiology Diagnoses Breast cancer screening by mammogram Procedures PRISCA DIGITAL SCREEN W OR WO CAD BILATERAL LeilaSandraSAVANNA rizvi - GENERAL SURGEON [address] [place] [id number] Assessments Diagnosis Osteopenia, unspecified location Diagnosis Breast cancer screening by mammogram Chief Complaint and Reason for Visit Chief Complaint weakness Additional Source Comments INFORMATION SOURCE (unrecogn ized section and content) DATE CREATED AUTHOR 09/24/2019 [facility] DATE CREATED AUTHOR AUTHOR'S ORGANIZ ATION 01/02/2021 [facility] DATE CREATED AUTHOR AUTHOR'S ORGANIZ ATION 01/10/2022 [facility] DATE CREATED AUTHOR AUTHOR'S ORGANIZ ATION 12/16/2022 [facility] DATE CREATED AUTHOR AUTHOR'S ORGANIZ ATION 12/19/2022 [facility] DATE CREATED AUTHOR AUTHOR'S ORGANIZ ATION 03/08/2023 [facility] dical Specialists EPIC Reason for Visit (unrecogniz ed section and content) Status Reason Specialty Diagnoses / Procedures Referre d By Contact Referred To Contact Open Radiology Diagnoses Osteopenia, unspecified location Procedures DEXA BONE DENSITY 2 SITES Boy Torres APRN - GENERAL SURGEON [address] [place] [id number] Status Reason Specialty Diagnoses / Procedures Referre d By Contact Referred To Contact Closed Radiology Diagnoses Age-related osteoporosis without current pathological fracture Encounter for screening for osteoporosis Asymptomatic menopausal state Procedures HC DEXA AXIAL SKELETON Robbin Ortiz [address] [place] [address] [facility] [address] [address] Care Teams (unrecognized sec tion and content) Team Status: Active Member Role Status Dates Robbin Ortiz MD Primary Care Provider Active Team Status: Inactive Member Role Status Dates Robbin Ortiz MD Primary Care Provider Active Gurpreet Omalley DO Emergency Provider Active Goals (unrecognized section and content) Goals may be documented in a n alternate section FOR RECORDS PERTAINING TO PATIENTS WHO ARE OR HAVE BEEN ENROLLED IN A CHEMICAL DEPENDENCY/SUBSTANCEABUSE PROGRAM, SOME INFORMATION MAY BE OMITTED. This clinical summary was aggregated from multiple sources. Caution should be exercised in using it in the provision of clinical care. This summary normalizes information from multiple sources, and as a consequence, information in this document may materially change the coding, format and clinical context of patient data. In addition, data may be omitted in some cases. CLINICAL DECISIONS SHOULD BE BASED ON THE PRIMARY CLINICAL RECORDS. [facility]. provides no warranty or guarantee of the accuracy or completeness of information in this document.
[2023-05-07] MEDS: ASPIRIN 81 MG TAB.CHEW 324 MG PO (18:46)
[2023-05-07] MEDS: NITROGLYCERIN 0.4 MG BOTTLE 0.400000000000000022 MG SL (18:47)
[2023-05-07] MEDS: 0.9 % SODIUM CHLORIDE 500 ML IV (18:55)
[2023-05-07 18:59] LABS: Anion Gap 10.8; BUN Creatinine Ratio 16.7; Calcium 9.1 mg/dL (8.5-10.1); Carbon Dioxide 30.5 mmol/L (21.0-32.0); Chloride 96 mmol/L (98-107); Estimated GFR (African America >60 (>=60); Estimated GFR (Non-African Ame >60 (>=60); Glucose 89 mg/dL (74-106); Potassium 3.3 mmol/L (3.5-5.1); Sodium 134 mmol/L (136-145); Troponin I High Sensitivity 4.4 pg/mL (4.0-51.3)
[2023-05-07 21:00] LABS: Troponin I High Sensitivity <4.0 pg/mL (4.0-51.3)
--- OUTSIDE RECORDS SUMMARY | 2023-05-07 22:48 | XMS_ITS | CCD ---
Author Organization [facility] Care Team Providers Care Marketing And Promotions Manager Name Role Phone Robbin Ortiz Cynthia Primary Care Provider [phone] ANGEL ROBBIN Marie Referring Unavailable ANGEL, ROBBIN Marie Primary Care Unavailable JULITO, RAFAEL Aceves Referring Unavailable ANGEL, ROBBIN Marie Primary Care Unavailable RAFAEL VILA Referring Unavailable ANGEL, ROBBNI Marie Primary Care Unavailable HILL, ROBBIN Marie [...] Unavailable MD Robbin Ortiz Primary Care Provider DO Gurpreet Omalley Emergency Provider [phone] NELSY POWELL Attending Unavailable SUSIE LANGE Attending Unavailable Gurpreet Omalley Attending Unavailable Gurpreet Omalley Admitting Unavailable Robbin Ortiz Primary Care Unavailable ROBBIN ORTZI Referring Unavailable CJ MOSES Attending Unava ilable Allergies Allergy Classification Reported Allergen(s) Allergy Type Date of Onset Reaction(s) Facility (6 sources) Lisinopril Drug Allergy 6 Other (See Comments) [place] (8 sources) Morphine; Translations: [MORPHINE] Drug Allergy 2 Other (See Comments) [place] (8 sources) Penicillins; Translations: [PENICILLINS] Propensity to adverse reactions to drug 2 Nausea And Vomiting [place] (1 source) Morphine Drug Allergy 6 [facility] Repository (1 source) Penicillins Drug allergy (disorder) 5 [facility] Repository (1 source) Morphine Drug Allergy 3 [facility] Repository (1 source) Penicillins Drug allergy (disorder) 3 [facility] Repository Medications Current Medications Medication [...] Active docusate sodium 50 mg / sennosides, fdc 8.6 mg oral tablet (1 source) take [...] disease (2 sources) Atherosclerotic heart disease of [place] coronary artery without angina pectoris; Translations: [Atherosclerotic heart disease of [place] coronary artery without angina pectoris] Onset: 12-10-2022 [...] Facil ity Office Visiton 12-10-2022 Follow-up visit [id number] Bethany Cardoza 1955 F Date Provider Department Center 12/10/2022 [id number] KHOURY Family History Problem Relation Age of Onset Heart failure Mother Heart attack Father Family Status - Relation Status Age at Mother Father Level of Service:43424 [place] OFFICE/OUTPATIENT ESTABLISHED MOD MDM 30-39 MIN Normal [facility] Office Visiton 08-24-2022 Follow-up visit [id number] Bethany Cardoza 1955 F Date Provider Department Center 08/24/2022 Nimisha8-NELSY POWELL CARD [facility] Family History Problem Relation Age of Onset Heart failure Mother Heart attack Father Family Status - Relation Status Age at Mother Father Level of Service:04839 [place] OFFICE/OUTPATIENT NEW MODERATE MDM 45-59 MINUTES Normal [facility] XR Ribs Righton 01-09-2022 XR Ribs [...] by Robbin Irvin on 01/10/2022 0935 Normal [facility] PRISCA DIGITAL SCREEN W OR WO C AD BILATERALon 09-24-2019 [facility] DIGITAL SCREEN W OR WO CAD BILATERAL [...] Bre Kunz MD 09/24/19 Final result Normal [facility] 1. No mammographic evidence for malignancy. 2. Continued yearly screening is recommended. BI-RADS 2, benign. Benign, no evidence of malignancy. Normal interval followup is recommended in 12 months. OVERALL ASSESSMENT - BENIGN. A letter of notification will be sent to the patient regarding the results. [facility], [place] BILATERAL DIGITAL MAMMOGRAPHY, SCREENING COMPARISON: 02/16/2014 and 01/04/2014. HISTORY: Previous benign breast biopsies. TECHNIQUE: CC and MLO views were obtained bilaterally. CAD utilized. FINDINGS: The breasts are predominantly fat. Minimal fibroglandular tissue is symmetrically distributed. There is no evidence for suspicious dominant mass or suspicious-appearing clusters of calcification. Occasional benign-appearing calcifications are seen. Biopsy clips are noted incidentally bilaterally. [place], [place] Andres, [facility] Incoming Radiant Results From [facility] - 09/24/2019 12:10 PM EDT BILATERAL DIGITAL [...] sent to the patient regarding the results. [facility] [place] DEXA BONE DENSITY 2 SITESon 09-23-2019 DEXA [...] Keith Ospina MD 09/23/19 Final result Normal [facility] Osteopenia. Minimal change compared to [...] to changes in the patient's bone density. [place] DEXA BONE DENSITY STUDY - 09/22/2019: [...] to be accurate from year to year. [facility]- [place], [place], [facility] Incoming Radiant Results From [employer] - 09/23/2019 10:29 AM EDT DEXA BONE [...] to changes in the patient's bone density. [facility]- [place] Lipid Profileon 09-22-2019 Cholesterol [Mass/Vol] 148 mg/dL Normal <200 [facility] Comment on above: Result Comment: Cholesterol Guidelines: <200 Desirable 200-240 Borderline >240 Undesirable Performed By: #### C BC, CP, LIPR, TSH, UA, UMICAO #### [facility] [address] [place] [address] Shovel Engineer: Avinash Aldrich MD #### INDIGO, AHCV #### [facility] [address] [place], [place] [id number] Shovel Engineer: Ciro Lux MD Cholesterol in HDL [Mass/Vol] 61 mg/dL Normal >40 [facility] Comment on above: Result Comment: HDL Guidelines: <40 Undesirable 40-59 Borderline >59 Desirable Performed By: #### C BC, CP, LIPR, TSH, UA, UMICAO #### [facility] [address] [place] [address] Shovel Engineer: Avinash Aldrich MD #### INDIGO, AHCV #### [address] [id number] Shovel Engineer: Ciro Lux MD Cholesterol in LDL [Mass/Vol] 71 mg/dL Normal 0-130 [facility] Comment on above: Result Comment: LDL Guidelines: <100 Desirable 100-129 Near to/above Desirable 130-159 Borderline >159 Undesirable Direct (measured) LDL and calculated LDL are not interchangeable tests. Performed By: #### C BC, CP, LIPR, TSH, UA, UMICAO #### [facility] [address] [place], [place] [id number] Shovel Engineer: Avinash Aldrich MD #### INDIGO, AHCV #### [facility] [address] [place], [place] [phone] Shovel Engineer: Ciro Lux MD Cholesterol.total/C holesterol in HDL [Mass ratio] 2.4 {ratio} Normal <5 [facility] Comment on above: Performed By: #### C BC, CP, LIPR, TSH, UA, UMICAO #### [facility] [address] [place], [place] [id number] Shovel Engineer: Avinash Aldrich MD #### INDIGO, SOHEILACV #### [address] [place], [place] [id number] Shovel Engineer: Ciro Lux MD Triglyceride [Mass/Vol] 78 mg/dL Normal <150 [facility] Comment on above: Result Comment: Triglyceride Guidelines: <150 Desirable 150-199 Borderline 200-499 High >499 Very high Based on AHA Guidelines for fasting triglyceride, November 2011. Performed By: #### C BC, CP, LIPR, TSH, UA, UMICAO #### [facility] [address] [place] [address] Shovel Engineer: Avinash Aldrich MD #### INDIGO, SOHEILACV #### [address] [id number] Shovel Engineer: Ciro Lux MD PTH, Intacton 09-22-2019 PTH, Intact 44.68 pg/mL Normal 15.0-65.0 [facility] Comment on above: Result Comment: SAMP LES FROM PATIENTS ROUTINELY RECEIVING HIGH DOSE BIOTIN THERAPY MAY SHOW FALSELY DEPRESSED RESULTS. ADDITIONAL INFORMATION MAY BE REQUIRED FOR DIAGNOSIS. Performed By: #### C BC, CP, LIPR, TSH, UA, UMICAO #### [facility] [address] [place], [place] [id number] Shovel Engineer: Avinash Aldrich MD #### SOHEILA SOODCV #### [facility] [address] [place], [place] [id number] Shovel Engineer: Ciro Lux MD CBC Auto Differentialon Basophils (Bld) [#/Vol] 0.00 10*3/uL [place] Basophils/100 WBC (Bld) 0 % 0 - 2 % [place] Differential Type YES [place] Eosinophils (Bld) [#/Vol] 0.20 10*3/uL [place] Eosinophils/100 WBC (Bld) 3 % 0 - 5 % [place] Erythrocyte distribution width (RBC) [Ratio] 13.4 % 12.1 - 15.2 % [place] Hematocrit (Bld) [Volume fraction] 44.6 % 36 - 46 % [place] Hemoglobin (Bld) [Mass/Vol] 15.1 g/dL 12 - 16 g/dL [place] Lymphocytes (Bld) [#/Vol] 2.10 10*3/uL [place] Lymphocytes/100 WBC (Bld) 27 % 15 - 40 % [place] MCH (RBC) [Entitic mass] 29.7 pg 26 - 34 pg [place] MCHC (RBC) [Mass/Vol] 33.8 g/dL 31 - 37 g/dL [place] MCV (RBC) [Entitic vol] 88.0 fL 80 - 100 fL [place] Monocytes (Bld) [#/Vol] 0.50 10*3/uL [place] Monocytes/100 WBC (Bld) 6 % 4 - 8 % [place] Platelet mean volume (Bld) [Entitic vol] NOT REPORTED 6 - 12 fL [place] Platelets (Bld) [#/Vol] NOT REPORTED [place] Platelets (Bld) [#/Vol] 404 10*3/uL [place] RBC (Bld) [#/Vol] 5.07 10*6/uL 4 - 5.2 m/uL [place] RBC morphology finding Nom (Bld) NOT REPORTED [place] Segmented neutrophils/100 WBC (Bld) 64 % 47 - 75 % [place] Segs Absolute 5.00 [place] WBC (Bld) [#/Vol] NOT REPORTED per 100 WBC [place] WBC (Bld) [#/Vol] 7.9 10*3/uL [place] WBC Morphology NOT REPORTED [place], [place] CBC with Diffon 09-21-2019 Abs. Basophil 0.00 k/uL Normal 0.0-0.2 [facility] Comment on above: Performed By: #### C BC, CP, LIPR, TSH, UA, UMICAO #### [facility] [address] [place], [place] [id number] Shovel Engineer: Avinash Aldrich MD #### URKEITHAB, AHCV #### [address] [id number] Shovel Engineer: Ciro Lux MD Abs.Neutrophil (Seg) 5.00 k/uL Normal 2.5-7.0 [facility] Comment on above: Performed By: #### C BC, CP, LIPR, TSH, UA, UMICAO #### [facility] [address] [place] [address] Shovel Engineer: Avinash Aldrich MD #### INDIGO, AHCV #### [address] [id number] Shovel Engineer: Ciro Lux MD Auto Diff Performed YES Normal [facility] Comment on above: Performed By: #### C BC, CP, LIPR, TSH, UA, UMICAO #### [facility] [address] [place] [address] Shovel Engineer: Avinash Aldrich MD #### INDIGO, AHCV #### [address] [id number] Shovel Engineer: Ciro Lux MD Basophils/100 WBC (Bld) 0 % Normal 0-2 [facility] Comment on above: Performed By: #### C BC, CP, LIPR, TSH, UA, UMICAO #### [facility] [address] [place] [address] Shovel Engineer: Avinash Aldrich MD #### INDIGO, AHCV #### [address] [address] Shovel Engineer: Ciro Lux MD Eosinophils (Bld) [#/Vol] 0.20 10*3/uL Normal 0.0-0.4 [facility] Comment on above: Performed By: #### C BC, CP, LIPR, TSH, UA, UMICAO #### [facility] [address] [place] [address] Shovel Engineer: Avinash Aldrich MD #### INDIGO, AHCV #### [place] [id number] Shovel Engineer: Ciro Lux MD Eosinophils/100 WBC (Bld) 3 % Normal 0-5 [facility] Comment on above: Performed By: #### C BC, CP, LIPR, TSH, UA, UMICAO #### [facility] [address] [place] [address] Shovel Engineer: Avinash Aldrich MD #### INDIGO, AHCV #### [address] [address] Shovel Engineer: Ciro Lux MD Erythrocyte distribution width (RBC) [Ratio] 13.4 % Normal 12.1-15.2 [facility] Comment on above: Performed By: #### C BC, CP, LIPR, TSH, UA, UMICAO #### [facility] [address] [place] [address] Shovel Engineer: Avinash Aldrich MD #### INDIGO, AHCV #### [address] [address] Shovel Engineer: Ciro Lux MD Hematocrit (Bld) [Volume fraction] 44.6 % Normal 36-46 [facility] Comment on above: Performed By: #### C BC, CP, LIPR, TSH, UA, UMICAO #### [facility] [address] [place] [address] Shovel Engineer: Avinash Aldrich MD #### URNMAB, AHCV #### [address] [id number] Shovel Engineer: Ciro Lux MD Hemoglobin (Bld) [Mass/Vol] 15.1 g/dL Normal 12.0-16.0 [facility] Comment on above: Performed By: #### C BC, CP, LIPR, TSH, UA, UMICAO #### [facility] [address] [place] [address] Shovel Engineer: Avinash Aldrich MD #### TANYAAB, AHCV #### [address] [id number] Shovel Engineer: Ciro Lux MD Lymphocytes (Bld) [#/Vol] 2.10 10*3/uL Normal 1.0-4.8 [facility] Comment on above: Performed By: #### C BC, CP, LIPR, TSH, UA, UMICAO #### [facility] [address] [place] [address] Shovel Engineer: Avinash Aldrich MD #### ESTEPHANIANM, AHCV #### [address] [id number] Shovel Engineer: Ciro Lux MD Lymphocytes/100 WBC (Bld) 27 % Normal 15-40 [facility] Comment on above: Performed By: #### C BC, CP, LIPR, TSH, UA, UMICAO #### [facility] [address] [place] [address] Shovel Engineer: Avinash Aldrich MD #### URNMAB, AHCV #### [address] [id number] Shovel Engineer: Ciro Lux MD MCH (RBC) [Entitic mass] 29.7 pg Normal 26-34 [facility] Comment on above: Performed By: #### C BC, CP, LIPR, TSH, UA, UMICAO #### [facility] [address] [place], [place] 1774390 Shovel Engineer: Avinash Aldrich MD #### ESTEPHANIANM, AHCV #### [address] [id number] Shovel Engineer: Ciro Lux MD MCHC (RBC) [Mass/Vol] 33.8 g/dL Normal 31-37 [facility] Comment on above: Performed By: #### C BC, CP, LIPR, TSH, UA, UMICAO #### [facility] [address] [place] [id number] Shovel Engineer: Avinash Aldrich MD #### INDIGO, AHCV #### [place] [address] Shovel Engineer: Ciro Lux MD MCV (RBC) [Entitic vol] 88.0 fL Normal 80-100 [facility] Comment on above: Performed By: #### C BC, CP, LIPR, TSH, UA, UMICAO #### [facility] [address] [place] [id number] Shovel Engineer: Avinash Aldrich MD #### INDIGO, AHCV #### [place] [address] Shovel Engineer: Ciro Lux MD Monocytes (Bld) [#/Vol] 0.50 10*3/uL Normal 0.0-1.0 [facility] Comment on above: Performed By: #### C BC, CP, LIPR, TSH, UA, UMICAO #### [facility] [address] [place] [address] Shovel Engineer: Avinash Aldrich MD #### URNMAB, AHCV #### [facility] [address] [place] [address] Shovel Engineer: Ciro Lux MD Monocytes/100 WBC (Bld) 6 % Normal 4-8 [facility] Comment on above: Performed By: #### C BC, CP, LIPR, TSH, UA, UMICAO #### [facility] [address] [place], [place] [phone] Shovel Engineer: Avinash Aldrich MD #### URNMAB, AHCV #### [address] [address] Shovel Engineer: Ciro Lux MD Neutrophil (Seg) 64 % Normal 47-75 [facility] Comment on above: Performed By: #### C BC, CP, LIPR, TSH, UA, UMICAO #### [facility] [address] [place], [place] [phone] Shovel Engineer: Avinash Aldrich MD #### INDIGO, AHCV #### [address] [id number] Shovel Engineer: Ciro Lux MD Platelets (Bld) [#/Vol] 404 10*3/uL Normal 140-450 [facility] Comment on above: Performed By: #### C BC, CP, LIPR, TSH, UA, UMICAO #### [facility] [address] [place], [place] [id number] Shovel Engineer: Avinash Aldrich MD #### URNMAB, AHCV #### [address] [id number] Shovel Engineer: Ciro Lux MD RBC (Bld) [#/Vol] 5.07 10*6/uL Normal 4.0-5.2 [facility] Comment on above: Performed By: #### C BC, CP, LIPR, TSH, UA, UMICAO #### [facility] [address] [place] [address] Shovel Engineer: Avinash Aldrich MD #### URNMAB, AHCV #### [address] [id number] Shovel Engineer: Ciro Lux MD WBC (Bld) [#/Vol] 7.9 10*3/uL Normal 3.5-11.0 [facility] Comment on above: Performed By: #### C BC, CP, LIPR, TSH, UA, UMICAO #### [facility] [address] [place], [place] [phone] Shovel Engineer: Avinash Aldrich MD #### URNMAB, AHCV #### [address] [phone] Shovel Engineer: Ciro Lux MD Abs.Imm.Granulocyte NOT REPORTED Normal 0.00-0.30 [facility] Comment on above: Performed By: #### C BC, CP, LIPR, TSH, UA, UMICAO #### [facility] [address] [place] [address] Shovel Engineer: Avinash Aldrich MD #### INDIGO, AHCV #### [address] [address] Shovel Engineer: Ciro Lux MD Immature granulocytes (Bld) [#/Vol] NOT REPORTED Normal 0 [facility] Comment on above: Performed By: #### C BC, CP, LIPR, TSH, UA, UMICAO #### [facility] [address] [place] [address] Shovel Engineer: Avinash Aldrich MD #### URNMAB, AHCV #### [address] [id number] Shovel Engineer: Ciro Lux MD NRBC Automated NOT REPORTED Normal [facility] Comment on above: Performed By: #### C BC, CP, LIPR, TSH, UA, UMICAO #### [facility] [address] [place], [place] [id number] Shovel Engineer: Avinash Aldrich MD #### URNMAB, AHCV #### [address] [address] Shovel Engineer: Ciro Lux MD Platelet mean volume (Bld) [Entitic vol] NOT REPORTED Normal 6.0-12.0 [facility] Comment on above: Performed By: #### C BC, CP, LIPR, TSH, UA, UMICAO #### [facility] [address] [place], [place] [id number] Shovel Engineer: Avinash Aldrich MD #### URNMAB, AHCV #### [address] [address] Shovel Engineer: Ciro Lux MD Platelets (Bld) [#/Vol] NOT REPORTED Normal [facility] Comment on above: Performed By: #### C BC, CP, LIPR, TSH, UA, UMICAO #### [facility] [address] [place], [place] [phone] Shovel Engineer: Avinash Aldrich MD #### ESTEPHANIANM, AHCV #### [address] [address] Shovel Engineer: Ciro Lux MD RBC morphology finding Nom (Bld) NOT REPORTED Normal [facility] Comment on above: Performed By: #### C BC, CP, LIPR, TSH, UA, UMICAO #### [facility] [address] [place], [place] [phone] Shovel Engineer: Avinash Aldrich MD #### URNMAB, AHCV #### [address] [address] Shovel Engineer: Ciro Lux MD WBC Morphology NOT REPORTED Normal [facility] Comment on above: Performed By: #### C BC, CP, LIPR, TSH, UA, UMICAO #### [facility] [address] [place] [address] Shovel Engineer: Avinash Aldrich MD #### INDIGO, SOHEILACV #### [address] [place] [address] Shovel Engineer: Cior Lux MD Comp Metabolic Profon 2019 (cont.) Normal [facility] Comment on above: Result Comment: Aver age GFR for 60-69 years old: 85 mL/min/1.73sq m Chronic Kidney Disease: <60 mL/min/1.73sq m Kidney failure: <15 mL/min/1.73sq m eGFR calculated using average adult body mass. Additional eGFR calculator available at: http://www.[employer]/multiple_crcl_2012.htm Performed By: #### C BC, CP, LIPR, TSH, UA, UMICAO #### [facility] [address] [place] [address] Shovel Engineer: Avinash Aldrich MD #### SOHEILA SOODCV #### [address] [place] [address] Shovel Engineer: Ciro Lux MD Albumin [Mass/Vol] 4.3 g/dL Normal 3.5-5.2 [facility] Comment on above: Performed By: #### C BC, CP, LIPR, TSH, UA, UMICAO #### [facility] [address] [place] [address] Shovel Engineer: Avinash Aldrich MD #### INDIGO, SOHEILACV #### [address] [place] [address] Shovel Engineer: Ciro Lux MD Alkaline Phos 106 U/L High 35-104 [facility] Comment on above: Performed By: #### C BC, CP, LIPR, TSH, UA, UMICAO #### [facility] [address] [place], [place] [phone] Shovel Engineer: Avinash Aldrich MD #### URNMAB, AHCV #### [address] [id number] Shovel Engineer: Ciro Lux MD ALT [Catalytic activity/Vol] 19 U/L Normal 5-33 [facility] Comment on above: Performed By: #### C BC, CP, LIPR, TSH, UA, UMICAO #### [facility] [address] [place], [place] [phone] Shovel Engineer: Avinash Aldrich MD #### INDIGO, AHCV #### [address] [id number] Shovel Engineer: Ciro Lux MD Anion gap [Moles/Vol] 11 mmol/L Normal 9-17 [facility] Comment on above: Performed By: #### C BC, CP, LIPR, TSH, UA, UMICAO #### [facility] [address] [place], [place] [id number] Shovel Engineer: Avinash Aldrich MD #### INDIGO, AHCV #### [address] [id number] Shovel Engineer: Ciro Lux MD AST [Catalytic activity/Vol] 18 U/L Normal <32 [facility] Comment on above: Performed By: #### C BC, CP, LIPR, TSH, UA, UMICAO #### [facility] [address] [place], [place] 91234[address] Shovel Engineer: Avinash Aldrich MD #### TANYAAB, AHCV #### [address] [id number] Shovel Engineer: Ciro Lux MD Bilirubin Ql (U) 0.60 mg/dL Normal 0.30-1.20 [facility] Comment on above: Performed By: #### C BC, CP, LIPR, TSH, UA, UMICAO #### [facility] [address] [place], [place] 9843490 Shovel Engineer: Avinash Aldrich MD #### INDIGO, AHCV #### [address] [id number] Shovel Engineer: Ciro Lxu MD BUN/CRE Ratio 17 Normal 9-20 [facility] Comment on above: Performed By: #### C BC, CP, LIPR, TSH, UA, UMICAO #### [facility] [address] [place], [place] 7878590 Shovel Engineer: Avinash Aldrich MD #### INDIGO, AHCV #### [address] [id number] Shovel Engineer: Ciro Lux MD Calcium [Mass/Vol] 10.3 mg/dL Normal 8.6-10.4 [facility] Comment on above: Performed By: #### C BC, CP, LIPR, TSH, UA, UMICAO #### [facility] [address] [place], [place] 1321190 Shovel Engineer: Avinash Aldrich MD #### INDIGO, AHCV #### [address] [id number] Shovel Engineer: Ciro Lux MD Chloride [Moles/Vol] 95 mmol/L Low 98-107 [facility] Comment on above: Performed By: #### C BC, CP, LIPR, TSH, UA, UMICAO #### [facility] [address] [place], [place] [id number] Shovel Engineer: Avinash Aldrich MD #### INDIGO, AHCV #### [address] [id number] Shovel Engineer: Ciro Lux MD CO2 [Moles/Vol] 31 mmol/L Normal 20-31 [facility] Comment on above: Performed By: #### C BC, CP, LIPR, TSH, UA, UMICAO #### [facility] [address] [place] [address] Shovel Engineer: Avinash Aldrich MD #### URNMAB, AHCV #### [address] [address] Shovel Engineer: Ciro Lux MD Creatinine [Mass/Vol] 0.72 mg/dL Normal 0.50-0.90 [facility] Comment on above: Performed By: #### C BC, CP, LIPR, TSH, UA, UMICAO #### [facility] [address] [place], [place] [id number] Shovel Engineer: Avinash Aldrich MD #### INDIGO, AHCV #### [address] [address] Shovel Engineer: Ciro Lux MD GFR, Amer >60 Normal >60 [facility] Comment on above: Performed By: #### C BC, CP, LIPR, TSH, UA, UMICAO #### [facility] [address] [place], [place] [phone] Shovel Engineer: Avinash Aldrich MD #### TANYAAB, AHCV #### [address] [address] Shovel Engineer: Ciro Lux MD GFR,non Amer >60 Normal >60 [facility] Comment on above: Performed By: #### C BC, CP, LIPR, TSH, UA, UMICAO #### [facility] [address] [place], [place] 9543590 Shovel Engineer: Avinash Aldrich MD #### URNMAB, AHCV #### [address] [id number] Shovel Engineer: Ciro Lux MD Glucose [Mass/Vol] 103 mg/dL High 70-99 [facility] Comment on above: Performed By: #### C BC, CP, LIPR, TSH, UA, UMICAO #### [facility] [address] [place], [place] [phone] Shovel Engineer: Avinash Aldrich MD #### INDIGO, AHCV #### [address] [id number] Shovel Engineer: Ciro Lux MD Potassium [Moles/Vol] 4.0 mmol/L Normal 3.7-5.3 [facility] Comment on above: Performed By: #### C BC, CP, LIPR, TSH, UA, UMICAO #### [facility] [address] [place], [place] 1910290 Shovel Engineer: Avinash Aldrich MD #### INDIGO, AHCV #### [address] [id number] Shovel Engineer: Ciro Lux MD Protein [Mass/Vol] 8.4 g/dL High 6.4-8.3 [facility] Comment on above: Performed By: #### C BC, CP, LIPR, TSH, UA, UMICAO #### [facility] [address] [place], [place] 2490390 Shovel Engineer: Avinash Aldrich MD #### INDIGO, AHCV #### [address] [id number] Shovel Engineer: Ciro Lux MD Sodium [Moles/Vol] 137 mmol/L Normal 135-144 [facility] Comment on above: Performed By: #### C BC, CP, LIPR, TSH, UA, UMICAO #### [facility] [address] [place], [place] [id number] Shovel Engineer: Avinash Aldrich MD #### URNMAB, AHCV #### [facility] [address] [place], [place] [id number] Shovel Engineer: Ciro Lux MD Urea nitrogen [Mass/Vol] 12 mg/dL Normal 8-23 [facility] Comment on above: Performed By: #### C BC, CP, LIPR, TSH, UA, UMICAO #### [facility] [address] [place], [place] [id number] Shovel Engineer: Avinash Aldrich MD #### URNMAB, AHCV #### [address] [place], [place] [id number] Shovel Engineer: Ciro Lux MD Albumin/Globulin [Mass ratio] NOT REPORTED Normal 1.0-2.5 [facility] Comment on above: Performed By: #### C BC, CP, LIPR, TSH, UA, UMICAO #### [facility] [address] [place], [place] [phone] Shovel Engineer: Avinash Aldrich MD #### INDIGO, AHCV #### [address] [id number] Shovel Engineer: Ciro Lux MD Staging: NOT REPORTED Normal [facility] Comment on above: Performed By: #### C BC, CP, LIPR, TSH, UA, UMICAO #### [facility] [address] [place], [place] [id number] Shovel Engineer: Avinash Aldrich MD #### URNMAB, AHCV #### [facility] [address] [place], [place] [phone] Shovel Engineer: Ciro Lux MD Comprehensive Metabolic Pane luzma 09-21-2019 Albumin [Mass/Vol] 4.3 g/dL 3.5 - 5.2 g/dL [place], [place] Albumin/Globulin [Mass ratio] NOT REPORTED [place] ALP [Catalytic activity/Vol] 106 U/L High 35 - 104 U/L [place] ALT [Catalytic activity/Vol] 19 U/L 5 - 33 U/L [place] Anion gap [Moles/Vol] 11 mmol/L 9 - 17 mmol/L [place] AST [Catalytic activity/Vol] 18 U/L <32 [place] Bilirubin Ql (U) 0.60 mg/dL 0.3 - 1.2 mg/dL [place] Bun/Cre Ratio 17 [place] Calcium [Mass/Vol] 10.3 mg/dL 8.6 - 10.4 mg/dL [place] Chloride [Moles/Vol] 95 mmol/L Low 98 - 107 mmol/L [place] CO2 [Moles/Vol] 31 mmol/L 20 - 31 mmol/L [place] Creatinine [Mass/Vol] 0.72 mg/dL 0.5 - 0.9 mg/dL [place] GFR >60 >60 mL/min [place] GFR Non- >60 >60 mL/min [place] GFR/1.73 sq M predicted among non-blacks MDRD (S/P/Bld) [Vol rate/Area] NOT REPORTED [place] GFR/1.73 sq M predicted among non-blacks MDRD (S/P/Bld) [Vol rate/Area] [place] Comment on above: Average GFR for 60-6 9 years old: 85 mL/min/1.73sq m Chronic Kidney Disease: <60 mL/min/1.73sq m Kidney failure: <15 mL/min/1.73sq m eGFR calculated using average adult body mass. Additional eGFR calculator available at: http://www.ShopSuey.Vubiquity/multiple_crcl_2012.htm Glucose [Mass/Vol] 103 mg/dL High 70 - 99 mg/dL [place] Interpretation and review of laboratory results Abnormal [place] Potassium [Moles/Vol] 4.0 mmol/L 3.7 - 5.3 mmol/L [place] Protein [Mass/Vol] 8.4 g/dL High 6.4 - 8.3 g/dL [place] Sodium [Moles/Vol] 137 mmol/L 135 - 144 mmol/L [place] Urea nitrogen [Mass/Vol] 12 mg/dL 8 - 23 mg/dL [place] Lipid Panelon 09-21-2019 Cholesterol [Mass/Vol] 148 mg/dL <200 [place] Comment on above: Cholesterol Guidelines: <200 Desirable 200-240 Borderline >240 Undesirable Cholesterol in HDL [Mass/Vol] 61 mg/dL >40 [place] Comment on above: HDL Guidelines: <40 Undesirable 40-59 Borderline >59 Desirable Cholesterol in LDL [Mass/Vol] 71 mg/dL 0 - 130 mg/dL [place] Comment on above: LDL Guidelines: <100 Desirable 100-129 Near to/above Desirable 130-159 Borderline >159 Undesirable Direct (measured) LDL and calculated LDL are not interchangeable tests. Cholesterol in VLDL [Mass/Vol] NOT REPORTED 1 - 30 mg/dL [place] Cholesterol.total/C holesterol in HDL [Mass ratio] 2.4 {ratio} <5 [place] Triglyceride [Mass/Vol] 78 mg/dL <150 [place] Comment on above: Triglyceride Guidelines: <150 Desirable 150-199 Borderline 200-499 High >499 Very high Based on AHA Guidelines for fasting triglyceride, November 2011. Lipid Profileon 09-21-2019 Cholesterol in VLDL [Mass/Vol] NOT REPORTED Normal 1-30 [facility] Comment on above: Performed By: #### C BC, CP, LIPR, TSH, UA, UMICAO #### [facility] [address] [place] [address] Shovel Engineer: Avinash Aldrich MD #### URNMAB, AHCV #### [facility] [address] [place] [address] Shovel Engineer: Ciro Lux MD Otheron 09-21-2019 Immature granulocytes (Bld) [#/Vol] NOT REPORTED [place] PTH, Intacton 09-21-2019 Pth Intact 44.68 pg/mL 15 - 65 pg/mL [place], [place] Comment on above: SAMPLES FROM PATIENT S ROUTINELY RECEIVING HIGH DOSE BIOTIN THERAPY MAY SHOW FALSELY DEPRESSED RESULTS. ADDITIONAL INFORMATION MAY BE REQUIRED FOR DIAGNOSIS. Basic Metabolic Panelon 10 Anion gap [Moles/Vol] 10 mmol/L 9 - 17 mmol/L [place] Bun/Cre Ratio 25 High [place] Calcium [Mass/Vol] 9.9 mg/dL 8.6 - 10.4 mg/dL [place] Chloride [Moles/Vol] 99 mmol/L 98 - 107 mmol/L [place] CO2 [Moles/Vol] 30 mmol/L 20 - 31 mmol/L [place] Creatinine [Mass/Vol] 0.79 mg/dL 0.5 - 0.9 mg/dL [place] GFR >60 >60 mL/min [place] GFR Non- >60 >60 mL/min [place] GFR/1.73 sq M predicted among non-blacks MDRD (S/P/Bld) [Vol rate/Area] NOT REPORTED [place] GFR/1.73 sq M predicted among non-blacks MDRD (S/P/Bld) [Vol rate/Area] [place] Comment on above: Average GFR for 60-6 9 years old: 85 mL/min/1.73sq m Chronic Kidney Disease: <60 mL/min/1.73sq m Kidney failure: <15 mL/min/1.73sq m eGFR calculated using average adult body mass. Additional eGFR calculator available at: http://www.ShopSuey.Vubiquity/multiple_crcl_2012.htm Glucose [Mass/Vol] 105 mg/dL High 70 - 99 mg/dL [place] Interpretation and review of laboratory results Abnormal [place] Potassium [Moles/Vol] 3.3 mmol/L Low 3.7 - 5.3 mmol/L [place] Sodium [Moles/Vol] 139 mmol/L 135 - 144 mmol/L [facility] [place] Urea nitrogen [Mass/Vol] 20 mg/dL 8 - 23 mg/dL [place] Basic Metabolic Profon 11-27 (cont.) Normal [facility] Comment on above: Result Comment: Aver age GFR for 60-69 years old: 85 mL/min/1.73sq m Chronic Kidney Disease: <60 mL/min/1.73sq m Kidney failure: <15 mL/min/1.73sq m eGFR calculated using average adult body mass. Additional eGFR calculator available at: http://www.Oculus360/multiple_crcl_2012.htm Performed By: #### B MP #### [facility] [address] [place] [address] Shovel Engineer: Avinash Aldrich MD Anion gap [Moles/Vol] 10 mmol/L Normal 9-17 [facility] Comment on above: Performed By: #### B MP #### [facility] [address] [place] [address] Shovel Engineer: Avinash Aldrich MD BUN/CRE Ratio 25 High 9-20 [facility] Comment on above: Performed By: #### B MP #### [facility] [address] [place] [address] Shovel Engineer: Avinash Aldrich MD Calcium [Mass/Vol] 9.9 mg/dL Normal 8.6-10.4 [facility] Comment on above: Performed By: #### B MP #### [facility] [address] [place] [address] Shovel Engineer: Avinash Aldrich MD Chloride [Moles/Vol] 99 mmol/L Normal 98-107 [facility] Comment on above: Performed By: #### B MP #### [facility] [address] [place] [address] Shovel Engineer: Avinash Aldrich MD CO2 [Moles/Vol] 30 mmol/L Normal 20-31 [facility] Comment on above: Performed By: #### B MP #### [facility] [address] [place], [place] [id number] Shovel Engineer: Avinash Aldrich MD Creatinine [Mass/Vol] 0.79 mg/dL Normal 0.50-0.90 [facility] Comment on above: Performed By: #### B MP #### [facility] [address] [place] [address] Shovel Engineer: Avinash Aldrich MD GFR, Amer >60 Normal >60 [facility] Comment on above: Performed By: #### B MP #### [facility] [address] [place] [address] Shovel Engineer: Avinash Aldrich MD GFR,non Amer >60 Normal >60 [facility] Comment on above: Performed By: #### B MP #### [facility] [address] [place] [address] Shovel Engineer: Avinash Aldrich MD Glucose [Mass/Vol] 105 mg/dL High 70-99 [facility] Comment on above: Performed By: #### B MP #### [facility] [address] [place], [place] [phone] Shovel Engineer: Avinash Aldrich MD Potassium [Moles/Vol] 3.3 mmol/L Low 3.7-5.3 [facility] Comment on above: Performed By: #### B MP #### [facility] [address] [place], [place] [id number] Shovel Engineer: Avinash Aldrich MD Sodium [Moles/Vol] 139 mmol/L Normal 135-144 [facility] Comment on above: Performed By: #### B MP #### [facility] [address] [place], [place] [phone] Shovel Engineer: Avinash Aldrich MD Urea nitrogen [Mass/Vol] 20 mg/dL Normal 8-23 [facility] Comment on above: Performed By: #### B MP #### [facility] [address] [place] [address] Shovel Engineer: Avinash Aldrich MD Staging: NOT REPORTED Normal [facility] Comment on above: Performed By: #### B MP #### [facility] [address] [place] [address] Shovel Engineer: Avinash Aldrich MD XR FOOT LEFT (MIN [...] Shyam Edmond MD 11/18/18 Final result Normal [facility] Hep C Abon 10-29-2018 Hep C Ab NONREACTIVE Normal NR [facility] Comment on above: Result Comment: [...] BC, CP, LIPR, TSH, UA, UMICAO #### [facility] [address] [place] [address] Shovel Engineer: Avinash Aldrich MD #### URNMAB, AHCV #### [address] [address] Shovel Engineer: Ciro Lux MD Microalb.,Random Uron 2018 Creatinine [Mass/Vol] 105.7 mg/dL Normal 28.0-217.0 [facility] Comment on above: Performed By: #### C BC, CP, LIPR, TSH, UA, UMICAO #### [facility] [address] [place], [place] [id number] Shovel Engineer: Avinash Aldrich MD #### URNMAB, AHCV #### [address] [id number] Shovel Engineer: Ciro Lux MD Microalb/Creat Ratio CANNOT BE CALCULATED Normal <25 [facility] Comment on above: Performed By: #### C BC, CP, LIPR, TSH, UA, UMICAO #### [facility] [address] [place], [place] [phone] Shovel Engineer: Avinash Aldrich MD #### INDIGO, AHCV #### [address] [id number] Shovel Engineer: Ciro Lux MD Microalbumin conc. <12 Normal <21 [facility] Comment on above: Performed By: #### C BC, CP, LIPR, TSH, UA, UMICAO #### [facility] [address] [place], [place] [phone] Shovel Engineer: Avinash Aldrich MD #### INDIGO, AHCV #### [address] [id number] Shovel Engineer: Ciro Lux MD CBCon 10-28-2018 Erythrocyte distribution width (RBC) [Ratio] 13.6 % Normal 12.1-15.2 [facility] Comment on above: Performed By: #### C BC, CP, LIPR, TSH, UA, UMICAO #### [facility] [address] [place], [place] [phone] Shovel Engineer: Avinash Aldrich MD #### INDIGO, AHCV #### [address] [id number] Shovel Engineer: Ciro Lux MD Hematocrit (Bld) [Volume fraction] 44.6 % Normal 36-46 [facility] Comment on above: Performed By: #### C BC, CP, LIPR, TSH, UA, UMICAO #### [facility] [address] [place], [place] [phone] Shovel Engineer: Avinash Aldrich MD #### INDIGO, AHCV #### [address] [id number] Shovel Engineer: Ciro Lux MD Hemoglobin (Bld) [Mass/Vol] 14.9 g/dL Normal 12.0-16.0 [facility] Comment on above: Performed By: #### C BC, CP, LIPR, TSH, UA, UMICAO #### [facility] [address] [place], [place] [phone] Shovel Engineer: Avinash Aldrich MD #### INDIGO, AHCV #### [address] [id number] Shovel Engineer: Ciro Lux MD MCH (RBC) [Entitic mass] 29.7 pg Normal 26-34 [facility] Comment on above: Performed By: #### C BC, CP, LIPR, TSH, UA, UMICAO #### [facility] [address] [place], [place] [phone] Shovel Engineer: Avinash Aldrich MD #### INDIGO, AHCV #### [address] [id number] Shovel Engineer: Ciro Lux MD MCHC (RBC) [Mass/Vol] 33.5 g/dL Normal 31-37 [facility] Comment on above: Performed By: #### C BC, CP, LIPR, TSH, UA, UMICAO #### [facility] [address] [place] [address] Shovel Engineer: Avinash Aldrich MD #### URNMAB, AHCV #### [address] [place], [place] [phone] Shovel Engineer: Ciro Lux MD MCV (RBC) [Entitic vol] 88.6 fL Normal 80-100 [facility] Comment on above: Performed By: #### C BC, CP, LIPR, TSH, UA, UMICAO #### [facility] [address] [place] [address] Shovel Engineer: Avinash Aldrich MD #### URNMAB, AHCV #### [address] [id number] Shovel Engineer: Ciro Lux MD Platelets (Bld) [#/Vol] 339 10*3/uL Normal 140-450 [facility] Comment on above: Performed By: #### C BC, CP, LIPR, TSH, UA, UMICAO #### [facility] [address] [place] [address] Shovel Engineer: Avinash Aldrich MD #### URKIERA, AHCV #### [address] [phone] Shovel Engineer: Ciro Lux MD RBC (Bld) [#/Vol] 5.03 10*6/uL Normal 4.0-5.2 [facility] Comment on above: Performed By: #### C BC, CP, LIPR, TSH, UA, UMICAO #### [facility] [address] [place] [address] Shovel Engineer: Avinash Aldrich MD #### URNMAB, AHCV #### [address] [id number] Shovel Engineer: Ciro Lux MD WBC (Bld) [#/Vol] 7.7 10*3/uL Normal 3.5-11.0 [facility] Comment on above: Performed By: #### C BC, CP, LIPR, TSH, UA, UMICAO #### [facility] [address] [place] [address] Shovel Engineer: Avinash Aldrich MD #### URNMAB, AHCV #### [address] [place], [place] [phone] Shovel Engineer: Ciro Lux MD NRBC Automated NOT REPORTED Normal [facility] Comment on above: Performed By: #### C BC, CP, LIPR, TSH, UA, UMICAO #### [facility] [address] [place] [address] Shovel Engineer: Avinash Aldrich MD #### TANYAAB, AHCV #### [address] [id number] Shovel Engineer: Ciro Lux MD Platelet mean volume (Bld) [Entitic vol] NOT REPORTED Normal 6.0-12.0 [facility] Comment on above: Performed By: #### C BC, CP, LIPR, TSH, UA, UMICAO #### [facility] [address] [place] [address] Shovel Engineer: Avinash Aldrich MD #### URNMAB, AHCV #### [address] [id number] Shovel Engineer: Ciro Lux MD Erythrocyte distribution width (RBC) [Ratio] 13.6 % 12.1 - 15.2 % [place] Hematocrit (Bld) [Volume fraction] 44.6 % 36 - 46 % [place] Hemoglobin (Bld) [Mass/Vol] 14.9 g/dL 12 - 16 g/dL [place] MCH (RBC) [Entitic mass] 29.7 pg 26 - 34 pg [place] MCHC (RBC) [Mass/Vol] 33.5 g/dL 31 - 37 g/dL [place] MCV (RBC) [Entitic vol] 88.6 fL 80 - 100 fL [place] Platelet mean volume (Bld) [Entitic vol] NOT REPORTED 6 - 12 fL [place] Platelets (Bld) [#/Vol] 339 10*3/uL [place] RBC (Bld) [#/Vol] 5.03 10*6/uL 4 - 5.2 m/uL [place] WBC (Bld) [#/Vol] 7.7 10*3/uL [place] WBC (Bld) [#/Vol] NOT REPORTED per 100 WBC [place], [place] Comp Metabolic Profon 2018 (cont.) Normal [facility] Comment on above: Result Comment: Aver age GFR for 60-69 years old: 85 mL/min/1.73sq m Chronic Kidney Disease: <60 mL/min/1.73sq m Kidney failure: <15 mL/min/1.73sq m eGFR calculated using average adult body mass. Additional eGFR calculator available at: http://www.ShopSuey.Vubiquity/multiple_crcl_2012.htm Performed By: #### C BC, CP, LIPR, TSH, UA, UMICAO #### [facility] [address] [place] [address] Shovel Engineer: Avinash Aldrich MD #### INDIGO, AHCV #### [facility] [address] [place] [address] Shovel Engineer: Ciro Lux MD Albumin [Mass/Vol] 4.2 g/dL Normal 3.5-5.2 [facility] Comment on above: Performed By: #### C BC, CP, LIPR, TSH, UA, UMICAO #### [facility] [address] [place] [address] Shovel Engineer: Avinash Aldrich MD #### URNMAB, AHCV #### [address] [place], [place] [phone] Shovel Engineer: Ciro Lux MD Alkaline Phos 102 U/L Normal 35-104 [facility] Comment on above: Performed By: #### C BC, CP, LIPR, TSH, UA, UMICAO #### [facility] [address] [place] [address] Shovel Engineer: Avinash Aldrich MD #### ESTEPHANIANM, AHCV #### [address] [phone] Shovel Engineer: Ciro Lux MD ALT [Catalytic activity/Vol] 16 U/L Normal 5-33 [facility] Comment on above: Performed By: #### C BC, CP, LIPR, TSH, UA, UMICAO #### [facility] [address] [place], [place] [phone] Shovel Engineer: Avinash Aldrich MD #### INDIGO, AHCV #### [address] [address] Shovel Engineer: Ciro Lux MD Anion gap [Moles/Vol] 13 mmol/L Normal 9-17 [facility] Comment on above: Performed By: #### C BC, CP, LIPR, TSH, UA, UMICAO #### [facility] [address] [place], [place] 1236190 Shovel Engineer: Avinash Aldrich MD #### INDIGO, AHCV #### [address] [address] Shovel Engineer: Ciro Lux MD AST [Catalytic activity/Vol] 15 U/L Normal <32 [facility] Comment on above: Performed By: #### C BC, CP, LIPR, TSH, UA, UMICAO #### [facility] [address] [place], [place] [phone] Shovel Engineer: Avinash Aldrich MD #### INDIGO, AHCV #### [address] [phone] Shovel Engineer: Ciro Lux MD Bilirubin Ql (U) 0.64 mg/dL Normal 0.30-1.20 [facility] Comment on above: Performed By: #### C BC, CP, LIPR, TSH, UA, UMICAO #### [facility] [address] [place], [place] [id number] Shovel Engineer: Avinash Aldrich MD #### INDIGO, AHCV #### [address] [id number] Shovel Engineer: Ciro Lux MD BUN/CRE Ratio 21 High 9-20 [facility] Comment on above: Performed By: #### C BC, CP, LIPR, TSH, UA, UMICAO #### [facility] [address] [place], [place] [phone] Shovel Engineer: Avinash Aldrich MD #### INDIGO, AHCV #### [address] [id number] Shovel Engineer: Ciro Lux MD Calcium [Mass/Vol] 10.6 mg/dL High 8.6-10.4 [facility] Comment on above: Performed By: #### C BC, CP, LIPR, TSH, UA, UMICAO #### [facility] [address] [place] [address] Shovel Engineer: Avinash Aldrich MD #### INDIGO, AHCV #### [address] [id number] Shovel Engineer: Ciro Lux MD Chloride [Moles/Vol] 96 mmol/L Low 98-107 [facility] Comment on above: Performed By: #### C BC, CP, LIPR, TSH, UA, UMICAO #### [facility] [address] [place] [address] Shovel Engineer: Avinash Aldrich MD #### URNMAB, AHCV #### [address] [id number] Shovel Engineer: Ciro Lux MD CO2 [Moles/Vol] 31 mmol/L Normal 20-31 [facility] Comment on above: Performed By: #### C BC, CP, LIPR, TSH, UA, UMICAO #### [facility] [address] [place] [address] Shovel Engineer: Avinash Aldrich MD #### URNMAB, AHCV #### [address] [id number] Shovel Engineer: Ciro Lux MD Creatinine [Mass/Vol] 0.72 mg/dL Normal 0.50-0.90 [facility] Comment on above: Performed By: #### C BC, CP, LIPR, TSH, UA, UMICAO #### [facility] [address] [place] [phone] Shovel Engineer: Avinash Aldrich MD #### URNMAB, AHCV #### [address] [id number] Shovel Engineer: Ciro Lux MD GFR, Amer >60 Normal >60 [facility] Comment on above: Performed By: #### C BC, CP, LIPR, TSH, UA, UMICAO #### [facility] [address] [place] [phone] Shovel Engineer: Avinash Aldrich MD #### URNMAB, AHCV #### [address] [id number] Shovel Engineer: Ciro Lux MD GFR,non Amer >60 Normal >60 [facility] Comment on above: Performed By: #### C BC, CP, LIPR, TSH, UA, UMICAO #### [facility] [address] [place] [address] Shovel Engineer: Avinash Aldrich MD #### URNMAB, AHCV #### [address] [id number] Shovel Engineer: Ciro Lux MD Glucose [Mass/Vol] 90 mg/dL Normal 70-99 [facility] Comment on above: Performed By: #### C BC, CP, LIPR, TSH, UA, UMICAO #### [facility] [address] [place], [place] [phone] Shovel Engineer: Avinash Aldrich MD #### URNMAB, AHCV #### [address] [id number] Shovel Engineer: Ciro Lux MD Potassium [Moles/Vol] 3.6 mmol/L Low 3.7-5.3 [facility] Comment on above: Performed By: #### C BC, CP, LIPR, TSH, UA, UMICAO #### [facility] [address] [place], [place] [phone] Shovel Engineer: Avinash Aldrich MD #### URKEITHAB, AHCV #### [address] [id number] Shovel Engineer: Ciro Lux MD Protein [Mass/Vol] 8.2 g/dL Normal 6.4-8.3 [facility] Comment on above: Performed By: #### C BC, CP, LIPR, TSH, UA, UMICAO #### [facility] [address] [place] [address] Shovel Engineer: Avinash Aldrich MD #### URNMAB, AHCV #### [address] [id number] Shovel Engineer: Ciro Lux MD Sodium [Moles/Vol] 140 mmol/L Normal 135-144 [facility] Comment on above: Performed By: #### C BC, CP, LIPR, TSH, UA, UMICAO #### [facility] [address] [place], [place] [phone] Shovel Engineer: Avinash Aldrich MD #### URNMAB, AHCV #### [facility] [address] [place] [address] [id number] Shovel Engineer: Ciro Lux MD Urea nitrogen [Mass/Vol] 15 mg/dL Normal 8-23 [facility] Comment on above: Performed By: #### C BC, CP, LIPR, TSH, UA, UMICAO #### [facility] [address] [place], [place] [phone] Shovel Engineer: Avinash Aldrich MD #### URNMAB, AHCV #### [address] [id number] Shovel Engineer: Ciro Lux MD Albumin/Globulin [Mass ratio] NOT REPORTED Normal 1.0-2.5 [facility] Comment on above: Performed By: #### C BC, CP, LIPR, TSH, UA, UMICAO #### [facility] [address] [place], [place] [phone] Shovel Engineer: Avinash Aldrich MD #### URNMAB, AHCV #### [address] [id number] Shovel Engineer: Ciro Lux MD Staging: NOT REPORTED Normal [facility] Comment on above: Performed By: #### C BC, CP, LIPR, TSH, UA, UMICAO #### [facility] [address] [place], [place] [phone] Shovel Engineer: Avinash Aldrich MD #### URNMAB, AHCV #### [address] [phone] Shovel Engineer: Ciro Lux MD Comprehensive Metabolic Pane [facility] 10-28-2018 Albumin [Mass/Vol] 4.2 g/dL 3.5 - 5.2 g/dL [place] Albumin/Globulin [Mass ratio] NOT REPORTED [place] ALP [Catalytic activity/Vol] 102 U/L 35 - 104 U/L [place] ALT [Catalytic activity/Vol] 16 U/L 5 - 33 U/L [place] Anion gap [Moles/Vol] 13 mmol/L 9 - 17 mmol/L [place] AST [Catalytic activity/Vol] 15 U/L <32 [place] Bilirubin Ql (U) 0.64 mg/dL 0.3 - 1.2 mg/dL [place] Bun/Cre Ratio 21 High [place] Calcium [Mass/Vol] 10.6 mg/dL High 8.6 - 10.4 mg/dL [place] Chloride [Moles/Vol] 96 mmol/L Low 98 - 107 mmol/L [place] CO2 [Moles/Vol] 31 mmol/L 20 - 31 mmol/L [place] Creatinine [Mass/Vol] 0.72 mg/dL 0.5 - 0.9 mg/dL [place] GFR >60 >60 mL/min [place] GFR Non- >60 >60 mL/min [place] GFR/1.73 sq M predicted among non-blacks MDRD (S/P/Bld) [Vol rate/Area] NOT REPORTED [place] GFR/1.73 sq M predicted among non-blacks MDRD (S/P/Bld) [Vol rate/Area] [place] Comment on above: Average GFR for 60-6 9 years old: 85 mL/min/1.73sq m Chronic Kidney Disease: <60 mL/min/1.73sq m Kidney failure: <15 mL/min/1.73sq m eGFR calculated using average adult body mass. Additional eGFR calculator available at: http://www.ShopSuey.Vubiquity/multiple_crcl_2012.htm Glucose [Mass/Vol] 90 mg/dL 70 - 99 mg/dL [place] Interpretation and review of laboratory results Abnormal [place] Potassium [Moles/Vol] 3.6 mmol/L Low 3.7 - 5.3 mmol/L [place] Protein [Mass/Vol] 8.2 g/dL 6.4 - 8.3 g/dL [place] Sodium [Moles/Vol] 140 mmol/L 135 - 144 mmol/L [place] Urea nitrogen [Mass/Vol] 15 mg/dL 8 - 23 mg/dL [place] Hepatitis C Antibodyon 10-28 Hepatitis C Ab NONREACTIVE NONREACTIVE [place] Comment on above: The hepatitis C [...] Panelon 10-28-2018 Cholesterol [Mass/Vol] 172 mg/dL <200 [place] Comment on above: Cholesterol Guidelines: <200 Desirable 200-240 Borderline >240 Undesirable Cholesterol in HDL [Mass/Vol] 78 mg/dL >40 [place] Comment on above: HDL Guidelines: <40 Undesirable 40-59 Borderline >59 Desirable Cholesterol in LDL [Mass/Vol] 77 mg/dL 0 - 130 mg/dL [place] Comment on above: LDL Guidelines: <100 Desirable 100-129 Near to/above Desirable 130-159 Borderline >159 Undesirable Direct (measured) LDL and calculated LDL are not interchangeable tests. Cholesterol in VLDL [Mass/Vol] NOT REPORTED 1 - 30 mg/dL [place] Cholesterol.total/C holesterol in HDL [Mass ratio] 2.2 {ratio} <5 [place] Triglyceride [Mass/Vol] 84 mg/dL <150 [place] Comment on above: Triglyceride Guidelines: <150 Desirable 150-199 Borderline 200-499 High >499 Very high Based on AHA Guidelines for fasting triglyceride, November 2011. Lipid Profileon 10-28-2018 Cholesterol [Mass/Vol] 172 mg/dL Normal <200 [facility] Comment on above: Result Comment: Cholesterol Guidelines: <200 Desirable 200-240 Borderline >240 Undesirable Performed By: #### C BC, CP, LIPR, TSH, UA, UMICAO #### [facility] [address] [id number] Shovel Engineer: Avinash Aldrich MD #### URNM, AHCV #### [address] [id number] Shovel Engineer: Ciro Lux MD Cholesterol in HDL [Mass/Vol] 78 mg/dL Normal >40 [facility] Comment on above: Result Comment: HDL Guidelines: <40 Undesirable 40-59 Borderline >59 Desirable Performed By: #### C BC, CP, LIPR, TSH, UA, UMICAO #### [facility] [address] [id number] Shovel Engineer: Avinash Aldrich MD #### INDIGO, AHCV #### [address] [id number] Shovel Engineer: Ciro Lux MD Cholesterol in LDL [Mass/Vol] 77 mg/dL Normal 0-130 [facility] Comment on above: Result Comment: LDL Guidelines: <100 Desirable 100-129 Near to/above Desirable 130-159 Borderline >159 Undesirable Direct (measured) LDL and calculated LDL are not interchangeable tests. Performed By: #### C BC, CP, LIPR, TSH, UA, UMICAO #### [facility] [address] [id number] Shovel Engineer: Avinash Aldrich MD #### URNM, AHCV #### [address] [id number] Shovel Engineer: Ciro Lux MD Cholesterol.total/C holesterol in HDL [Mass ratio] 2.2 {ratio} Normal <5 [facility] Comment on above: Performed By: #### C BC, CP, LIPR, TSH, UA, UMICAO #### [facility] [address] [place] [address] Shovel Engineer: Avinash Aldrich MD #### INDIGO, AHCV #### [address] [place] [address] Shovel Engineer: Ciro Lux MD Triglyceride [Mass/Vol] 84 mg/dL Normal <150 [facility] Comment on above: Result Comment: Triglyceride Guidelines: <150 Desirable 150-199 Borderline 200-499 High >499 Very high Based on AHA Guidelines for fasting triglyceride, November 2011. Performed By: #### C BC, CP, LIPR, TSH, UA, UMICAO #### [facility] [address] [place] [address] Shovel Engineer: Avinash Aldrich MD #### INDIGO, AHCV #### [address] [place] [address] Shovel Engineer: Ciro Lux MD Cholesterol in VLDL [Mass/Vol] NOT REPORTED Normal 03-19 [facility] Comment on above: Performed By: #### C BC, CP, LIPR, TSH, UA, UMICAO #### [facility] [address] [place] [address] Shovel Engineer: Avinash Aldrich MD #### INDIGO, AHCV #### [address] [place], [place] [phone] Shovel Engineer: Ciro Lux MD Microalbumin, Uron 9 Albumin/Creatinine DL <= 20 mg/L (24H U) [Mass ratio] <12 <21 mg/L [place] Albumin/Creatinine DL <= 20 mg/L (U) [Ratio] CANNOT BE CALCULATED <25 mcg/mg creat [place] Creatinine [Mass/Vol] 105.7 mg/dL 28 - 217 mg/dL [place] Microscopic Urinalysison Amorphous, UA NOT REPORTED None [place] Bacteria, UA RARE Abnormal None [place] Casts UA NOT REPORTED /LPF [place] Crystals UA NOT REPORTED None /HPF [place] Epithelial Cells UA 2 TO 5 /HPF [place] Interpretation and review of laboratory results Abnormal [place] Mucus, UA NOT REPORTED None [place] Other Observations UA NOT REPORTED NOT REQ. [place] RBC (U) [#/Vol] NOT REPORTED [place], [place] Renal Epithelial, Urine NOT REPORTED 0 /HPF [place] Trichomonas, UA NOT REPORTED None [place] WBC, UA 0 TO 2 0 /HPF [place] Yeast, UA NOT REPORTED None [place] TSH without Reflexon 019 TSH Qn 4.72 m[IU]/L [place] Thyroid Stim. Horm.on 2018 TSH Qn 4.72 m[IU]/L Normal 0.30-5.00 [facility] Comment on above: Performed By: #### C BC, CP, LIPR, TSH, UA, UMICAO #### [facility] [address] [place] [address] Shovel Engineer: Avinash Aldrich MD #### URNMAB, AHCV #### [facility] [address] [place] [address] Shovel Engineer: Ciro Lux MD Urinalysison 10-28-2018 Bilirubin Urine Negative NEGATIVE [place] Color, UA YELLOW YELLOW [place], [place] Glucose, Ur Negative NEGATIVE [place] Interpretation and review of laboratory results Abnormal [place] Ketones Ql (U) Negative NEGATIVE [place] Leukocyte esterase Test strip Ql (U) 1+ Abnormal NEGATIVE [place] Nitrite, Urine Negative NEGATIVE [place] pH, UA 7.0 [place] Protein (U) [Mass/Vol] Negative NEGATIVE [place] Specific [place], UA 1.010 [facility], [place] Turbidity UA CLEAR CLEAR [facility], [place] Urinalysis Comments [facility], [place] Urine Hgb Negative NEGATIVE [facility], [place] Urobilinogen, Urine Normal Normal [place] Urinalysis, Routineon 2018 Acetoacetic Acid,Ur Negative Normal NEG [facility] Comment on above: Performed By: #### C BC, CP, LIPR, TSH, UA, UMICAO #### [facility] [address] [place] [address] Shovel Engineer: Avinash Adlrich MD #### URNMAB, AHCV #### [address] [phone] Shovel Engineer: Ciro Lux MD Bilirubin, SemiQt,Ur Negative Normal NEG [facility] Comment on above: Performed By: #### C BC, CP, LIPR, TSH, UA, UMICAO #### [facility] [address] [place] [address] Shovel Engineer: Avinash Aldrich MD #### URNMAB, AHCV #### [address] [address] Shovel Engineer: Ciro Lux MD Color (U) YELLOW Normal YEL [facility] Comment on above: Performed By: #### C BC, CP, LIPR, TSH, UA, UMICAO #### [facility] [address] [place] [address] Shovel Engineer: Avinash Aldrich MD #### URNMAB, AHCV #### [address] [id number] Shovel Engineer: Ciro Lux MD Comment Normal [facility] Comment on above: Performed By: #### C BC, CP, LIPR, TSH, UA, UMICAO #### [facility] [address] [place] [address] Shovel Engineer: Avinash Aldrich MD #### URNMAB, AHCV #### [address] [id number] Shovel Engineer: Ciro Lux MD Glucose Ql (U) Negative Normal NEG [facility] Comment on above: Performed By: #### C BC, CP, LIPR, TSH, UA, UMICAO #### [facility] [address] [place] [address] Shovel Engineer: Avinash Aldrich MD #### URNMAB, AHCV #### [address] [id number] Shovel Engineer: Crio Lux MD Hemoglobin, Ur Negative Normal NEG [facility] Comment on above: Performed By: #### C BC, CP, LIPR, TSH, UA, UMICAO #### [facility] [address] [place] [address] Shovel Engineer: Avinash Aldrich MD #### URNMAB, AHCV #### [address] [id number] Shovel Engineer: Ciro Lux MD Leukocyte esterase Test strip Ql (U) 1+ Abnormal NEG [facility] Comment on above: Performed By: #### C BC, CP, LIPR, TSH, UA, UMICAO #### [facility] [address] [place] [address] Shovel Engineer: Avinash Aldrich MD #### URNMAB, AHCV #### [address] [id number] Shovel Engineer: Ciro Lux MD Nitrite,Ur Negative Normal NEG [facility] Comment on above: Performed By: #### C BC, CP, LIPR, TSH, UA, UMICAO #### [facility] [address] [place] [address] Shovel Engineer: Avinash Aldrich MD #### INDIGO, AHCV #### [address] [id number] Shovel Engineer: Ciro Lux MD pH (U) 7.0 [pH] Normal 5.0-8.0 [facility] Comment on above: Performed By: #### C BC, CP, LIPR, TSH, UA, UMICAO #### [facility] [address] [place] [address] Shovel Engineer: Avinash Aldrich MD #### INDIGO, AHCV #### [address] [id number] Shovel Engineer: Ciro Lux MD Protein Ql (U) Negative Normal NEG [facility] Comment on above: Performed By: #### C BC, CP, LIPR, TSH, UA, UMICAO #### [facility] [address] [place] [address] Shovel Engineer: Avinash Aldrich MD #### INDIGO, AHCV #### [address] [id number] Shovel Engineer: Ciro Lux MD Specific gravity (U) [Rel density] 1.010 Normal 1.005-1.030 [facility] Comment on above: Performed By: #### C BC, CP, LIPR, TSH, UA, UMICAO #### [facility] [address] [place] [address] Shovel Engineer: Avinash Aldrich MD #### INDIGO, AHCV #### [address] [id number] Shovel Engineer: Ciro Lux MD Turbidity CLEAR Normal CLEAR [facility] Comment on above: Performed By: #### C BC, CP, LIPR, TSH, UA, UMICAO #### [facility] [address] [place] [address] Shovel Engineer: Avinash Aldrich MD #### URNMAB, AHCV #### [address] [id number] Shovel Engineer: Ciro Lux MD Urobilinogen,Ur Normal Normal NORM [facility] Comment on above: Performed By: #### C BC, CP, LIPR, TSH, UA, UMICAO #### [facility] [address] [place] [address] Shovel Engineer: Avinash Aldrich MD #### URNMAB, AHCV #### [address] [id number] Shovel Engineer: Ciro Lux MD Urinalysis,Microon 9 ----- Normal [facility] Comment on above: Performed By: #### C BC, CP, LIPR, TSH, UA, UMICAO #### [facility] [address] [place] [address] Shovel Engineer: Avinash Aldrich MD #### URNMAB, AHCV #### [address] [id number] Shovel Engineer: Ciro Lux MD Bacteria LM.HPF (Urine sed) [#/Area] RARE Abnormal NONE [facility] Comment on above: Performed By: #### C BC, CP, LIPR, TSH, UA, UMICAO #### [facility] [address] [place] [address] Shovel Engineer: Avinash Aldrich MD #### URNMAB, AHCV #### [address] [id number] Shovel Engineer: Ciro Lux MD Epithelial cells LM.HPF (Urine sed) [#/Area] 2 TO 5 Normal [facility] Comment on above: Performed By: #### C BC, CP, LIPR, TSH, UA, UMICAO #### [facility] [address] [place], [place] [phone] Shovel Engineer: Avinash Aldrich MD #### URNMAB, AHCV #### [address] [id number] Shovel Engineer: Ciro Lux MD WBC (U) [#/Vol] 0 TO 2 Normal 0 [facility] Comment on above: Performed By: #### C BC, CP, LIPR, TSH, UA, UMICAO #### [facility] [address] [place] [address] Shovel Engineer: Avinash Aldrich MD #### URNMAB, AHCV #### [address] [id number] Shovel Engineer: Ciro Lux MD Amorphous sediment LM Ql (Urine sed) NOT REPORTED Normal [facility] Comment on above: Performed By: #### C BC, CP, LIPR, TSH, UA, UMICAO #### [facility] [address] [place] [address] Shovel Engineer: Avinash Aldrich MD #### URNMAB, AHCV #### [address] [id number] Shovel Engineer: Ciro Lux MD Casts LM.LPF (Urine sed) [#/Area] NOT REPORTED Normal [facility] Comment on above: Performed By: #### C BC, CP, LIPR, TSH, UA, UMICAO #### [facility] [address] [place] [address] Shovel Engineer: Avinash Aldrich MD #### URNMAB, AHCV #### [address] [phone] Shovel Engineer: Ciro Lux MD Crystals LM Nom (Urine sed) NOT REPORTED Normal [facility] Comment on above: Performed By: #### C BC, CP, LIPR, TSH, UA, UMICAO #### [facility] [address] [place], [place] [phone] Shovel Engineer: Avinash Aldrich MD #### URNMAB, AHCV #### [facility] [address] [place] [address] Shovel Engineer: Ciro Lux MD Epithelial, Renal NOT REPORTED Normal 0 [facility] Comment on above: Performed By: #### C BC, CP, LIPR, TSH, UA, UMICAO #### [facility] [address] [place], [place] [phone] Shovel Engineer: Avinash Aldrich MD #### URNMAB, AHCV #### [address] [address] Shovel Engineer: Ciro Lux MD Mucus Strands NOT REPORTED Normal NONE [facility] Comment on above: Performed By: #### C BC, CP, LIPR, TSH, UA, UMICAO #### [facility] [address] [place], [place] [id number] Shovel Engineer: Avinash Aldrich MD #### URNMAB, AHCV #### [address] [address] Shovel Engineer: Ciro Lux MD Other Observations NOT REPORTED Normal NREQ [facility] Comment on above: Performed By: #### C BC, CP, LIPR, TSH, UA, UMICAO #### [facility] [address] [place], [place] [id number] Shovel Engineer: Avinash Aldrich MD #### URNMAB, AHCV #### [address] [address] Shovel Engineer: Ciro Lux MD RBC (U) [#/Vol] NOT REPORTED Normal 0-2 [facility] Comment on above: Performed By: #### C BC, CP, LIPR, TSH, UA, UMICAO #### [facility] [address] [place], [place] [phone] Shovel Engineer: Avinash Aldrich MD #### URNMAB, AHCV #### [facility] [address] [place], [place] [phone] Shovel Engineer: Ciro Lux MD Trichomonas NOT REPORTED Normal NONE [facility] Comment on above: Performed By: #### C BC, CP, LIPR, TSH, UA, UMICAO #### [facility] [address] [place], [place] [phone] Shovel Engineer: Avinash Aldrich MD #### URNMAB, AHCV #### [address] [id number] Shovel Engineer: Ciro Lux MD Yeast LM Ql (Urine sed) NOT REPORTED Normal NONE [facility] Comment on above: Performed By: #### C BC, CP, LIPR, TSH, UA, UMICAO #### [facility] [address] [place] [address] Shovel Engineer: Avinash Aldrich MD #### URNMAB, AHCV #### [address] [id number] Shovel Engineer: Ciro Lux MD Vital Signs Date Time Vital Sign Value Performing Clinician Faci lity 08-20-2022 15:40-0400 Body height 152.4 cm MD Robbin Ortiz Work Phone: [facility] 08-20-2022 15:40-0400 Body weight 77.11 kg MD Robbin Ortiz Work Phone: [facility] 08-20-2022 15:39-0400 Body temperature 98.1 [degF] MD Robbin Ortiz Work Phone: [facility] 08-20-2022 15:39-0400 Diastolic blood pressure 54 mm[Hg] MD Robbin Ortiz Work Phone: [facility] 08-20-2022 15:39-0400 Heart rate 62 /min MD Robbin Ortiz Work Phone: [facility] 08-20-2022 15:39-0400 Respiratory rate 18 /min MD Robbin Ortiz Work Phone: [facility] 08-20-2022 15:39-0400 SaO2% (BldA) [Mass fraction] 98 % MD Robbin Ortiz Work Phone: [facility] 08-20-2022 15:39-0400 Systolic blood pressure 116 mm[Hg] MD Robbin Ortiz Work Phone: [facility] Encounters Encounter Date Encounter Type Care Provider Facility Start: 03-07-2023 End: 03-07-2023 ambulatory ROBBIN ORTIZ Not Available Start: 12-10-2022 ambulatory [facility] Start: 08-24-2022 End: 08-24-2022 ambulatory [facility] Start: 08-20-2022 End: 08-20-2022 Emergency department patient visit Gurpreet Omalley Facility:[facility] Start: 08-20-2022 End: 08-20-2022 Emergency department patient visit MD Robbin Ortiz Work Phone: [facility] Work Phone: Start: 12-20-2020 End: 12-21-2020 ambulatory TRE AUGUSTIN Facility:[facility] Start: 10-19-[address] ROBBIN ORTIZ Facility :[facility] Start: 10-15-[address] ROBBIN ORTIZ Facility :[facility] Start: 05-10-2020 End: 05-11-2020 ambulatory NONE LISTED REQUEST Facility:[facility] Start: 04-18-2020 End: 04-19-2020 ambulatory NONE LISTED REQUEST Facility:[facility] Start: 09-22-2019 End: 09-25-2019 Patient encounter procedure [facility] Start: 09-22-2019 End: 09-24-2019 Subsequent hospital visit by physician Teresita Dexa [facility] Dexa Scan Comment on above: Osteopenia, unspecif ied location Breast cancer screen ing by mammogram Start: 09-21-2019 End: 09-22-2019 Patient encounter procedure ROBBIN ORTIZ [facility] Start: 09-21-2019 End: 09-21-2019 Subsequent hospital visit by physician Robbin [facility] Start: 11-27-2018 End: 11-28-2018 Patient encounter procedure ROBBIN Cynthia [facility] Start: 11-27-2018 End: 11-27-2018 Subsequent hospital visit by physician Robbin [facility] Start: 11-17-2018 End: 11-20-2018 Patient encounter procedure RAFAEL R [facility] Start: 11-17-2018 End: 11-20-2018 Patient encounter procedure RAFAEL R [facility] Start: 11-17-2018 End: 11-19-2018 Subsequent hospital visit by physician Robbin Ortiz [facility] Start: 10-28-2018 End: 10-29-2018 Patient encounter procedure ROBBIN Cynthia [facility] Start: 10-28-2018 End: 10-28-2018 Subsequent hospital visit by physician Robbin [facility] Procedures Date Procedure Procedure Detail Performing Clinician Start: 09-22-2019 Dxa bone density megha dy 1/> sites axial libia ORTIZ Start: 09-22-2019 Screening mammograph y bi 2-view breast inc cad ROBBIN WOLFFORTH Start: 09-22-2019 Dxa bone density megha dy [...] count complete auto&auto difrntl wbc Robbin Cynthia [place] Work Phone: Start: 09-21-2019 Comprehensive metabo lic [...] dip stick/tabl et rgnt auto w/o microscopy ROBBIN ORTIZ Start: 10-28-2018 Assay of thyroid [...] 08-20-2022 Plain chest X-ray XR chest 1V [facility] Start: 08-20-2022 [facility] Start: 08-04-2022 Screening for malignant neoplasm of breast Breast cancer screen [place] Start: 09-20-2020 Creatinine measurement Creatinine monitoring [place] Start: 09-20-2020 Lipid panel Lipid screen [place] Start: 09-20-2020 Potassium monitoring Potassium monitoring [place] Start: 03-23-2020 Lipid screen Lipid screen [place] Start: 11-28-2019 Creatinine measurement Creatinine monitoring [facility] [place] [place] Start: 11-28-2019 Creatinine monitoring Creatinine monitoring [place] Start: 11-28-2019 Potassium monitoring Potassium monitoring [place] Start: 10-29-2019 Creatinine monitoring Creatinine monitoring [place] Start: 10-29-2019 Lipid panel Lipid screen [place] Start: 10-29-2019 Lipid screen Lipid screen [place] Start: 10-29-2019 Potassium monitoring Potassium monitoring [place] Start: 10-20-2019 Influenza vaccination Flu vaccine (#1) [place] Start: 09-22-2019 End: 09-22-2019 Appointment 09/22/2019 Appointment Radiology [facility] Start: 09-21-2019 Annual Wellness Visit (AWV) Annual Wellness Visit (AWV) [place] Start: 05-19-2019 Pneumococcal 65+ years Vaccine (1 of 1 - PPSV23) Pneumococcal 65+ years Vaccine (1 of 1 - PPSV23) [place] Start: 01-06-2019 End: 01-06-2019 Office Visit 01/06/2019 Office Visit Cardiology Michael Gomez MD [address] [place] [address] [phone] [facility] Start: 10-19-2018 Influenza vaccination Flu vaccine (#1) [place] Start: 04-27-2018 Colon cancer screen colonoscopy Colon cancer screen colonoscopy [place] Start: 04-27-2018 Screening for malignant neoplasm of colon Colon cancer screen colonoscopy [place] Start: 04-26-2018 Breast cancer screen Breast cancer screen [place] Start: 04-26-2018 Screening for malignant neoplasm of breast Breast cancer screen [place] Start: 12-16-2016 Cervical cancer screen Cervical cancer screen [place] Start: 12-16-2016 Screening for malignant neoplasm of cervix Cervical cancer screen [place] Start: 03-23-2016 Creatinine monitoring Creatinine monitoring [place] Start: 03-23-2016 Potassium monitoring Potassium monitoring [place] Start: 03-14-2015 Shingles Vaccine (2 of 3) Shingles Vaccine (2 of 3) [place] Start: 1973 DTaP/Tdap/Td vaccine (1 - Tdap) DTaP/Tdap/Td vaccine (1 - Tdap) [place] Start: 1969 HIV screen HIV screen [place], [place] Start: 1969 HIV screening HIV screen [place], [place] Start: 1954 Hepatitis C screen Hepatitis C screen [place] Patient referral [facility] Work Phone: Immunizations Immunization Date Immunization Notes Care Provider Fa bill 11-19-2015 influenza, injectabl e, madin erica canine kidney, preservative free [place], [place] 01-17-2015 zoster vaccine, [place] 12-19-2014 zoster vaccine, [place] 08-07-2002 pneumococcal polysac charide vaccine, 23 valent [place], [place] Payers Date Payer Category Payer Self-pay 2019 Medicare MEDICARE MEDICAR E PART A AND B [id number] 2019-Present [phone] [address] [address] [place] [address] [id number] 2019 Unknown [employer] M [employer] CHRIS - EXCHANGE [id number] 2019-Present [phone] [address] [place] [address] [id number] 2014 Unknown [employer] M [employer] [address] xxxxxxxxxxxx 2014-Present [phone] [address] [place] [address] xxxxxxxxxxxx [id number] 1959 Medicare [id number] 1959 Self-pay [id number] 1959 Unknown [id number] 1954 Unknown [id number] 1954 Unknown [id number] [id number] 1954 Unknown [id number] [id number] 1954 Unknown [id number] [id number] 1954 Unknown [id number] [id number] 1954 Unknown [id number] [id number] 1954 Unknown [id number] [id number] 1954 Unknown [id number] [id number] 1954 Unknown [id number] [id number] 1954 Unknown [id number] [id number] 9 Unknown [id number] [id number] Unknown [id number] [id number] Unknown [id number] [id number] Unknown [place] BC/PJ [id number] Unknown [id number] Social History Date Type Detail Facility Start: 04-24-2016 End: 08-20-2022 Tobacco smoking status NHIS Never smoker [facility] Start: 04-24-2016 End: 11-17-2018 Alcohol intake Yes [facility] Start: 04-26-2015 Alcohol Comment occasionally [facility] [place] [facility] Assigned At Not on file [facility] Start: 11-17-2018 Tobacco use and exposure Never used [facility] Start: 11-17-2018 Alcohol intake Current drinke r of alcohol (finding) [facility] Start: 1955 Sex Assigned At Female F [facility] Progress note 12-10-2022 Note Date & Type [...] All other systems reviewed and are negative. [facility] Progress note 12-10-2022 Note Date & [...] Heart failure with improved ejection fraction (HFimpEF) ([facility]) Coronary artery disease involving [place] coronary artery of [place] heart without angina pectoris - CBC; Future - Comprehensive metabolic panel; Future - Lipid panel; Future - Lexiscan Stress Myocardial Perfusion Imaging; Future Essential hypertension Other chest pain - Lexiscan Stress Myocardial Perfusion Imaging; Futu (more content not included)... [facility] Progress note 08-24-2022 Note Date & Type Note Facility 08-24-2022 Note New patient here to establish care for recent ED visit for chest pain. She used to see cardiology 10+ years ago. said she wore a LifeVest at one time, he thinks back in [phone]. Chest pain started about 1 week ago. It woke her up in the middle of the night. Denies SOB and BHAVESH. Has hx of TIA. Review of Systems Cardiovascular: Positive for chest pain. Musculoskeletal: Positive for arthritis, back pain, joint pain, muscle weakness and myalgias. Neurological: Positive for headaches and seizures (history of). All other systems reviewed and are negative. [facility] Progress note 08-24-2022 Note Date & [...] medication changes pe (more content not included)... [facility] Evaluation note Note Date & Type Note Facility Evaluation note No assessment information availa [facility] Work Phone: Advance Directives No Advanced Directives Records FoundDocuments on File Type Date Recorded Patient Learning Services Coordinator Expl anation Advance Directives and Living Will Power of Target Trimmer Latest Code Status on File Code Status Date Activated Date Inactivated Comments Full Code 03/20/2015 10:18 PM 03/23/2015 7:41 PM Documents on File Type Date Recorded Patient Learning Services Coordinator Expl anation Advance Directives and Living Will Power of Target Trimmer Latest Code Status on File Code Status [...] DENSITY 2 SITES Boy Torres APRN - ASSEMBLER METAL FURNITURE [address] [place] [address] Status Reason Specialty Diagnoses / Procedures Referred By Contact Referred To Contact Pending Review Radiology Diagnoses Breast cancer screening by mammogram Procedures PRISCA DIGITAL SCREEN W OR WO CAD BILATERAL LeilaSandraSAVANNA rizvi - ASSEMBLER METAL FURNITURE [address] [place] [phone] Assessments Diagnosis Osteopenia, unspecified location Diagnosis Breast cancer screening by mammogram Chief Complaint and Reason for Visit Chief Complaint weakness Additional Source Comments INFORMATION SOURCE (unrecogn ized section and content) DATE CREATED AUTHOR 09/24/2019 [facility] DATE CREATED AUTHOR AUTHOR'S ORGANIZ ATION 01/02/2021 [facility] DATE CREATED AUTHOR AUTHOR'S ORGANIZ ATION 01/10/2022 [facility] Me dical Specialist DATE CREATED AUTHOR AUTHOR'S ORGANIZ ATION 12/16/2022 [facility] DATE CREATED AUTHOR AUTHOR'S ORGANIZ ATION 12/19/2022 [facility] DATE CREATED AUTHOR AUTHOR'S ORGANIZ ATION 03/08/2023 [facility] dical Specialists EPIC Reason for Visit (unrecogniz ed section and content) Status Reason Specialty Diagnoses / Procedures Referre d By Contact Referred To Contact Open Radiology Diagnoses Osteopenia, unspecified location Procedures DEXA BONE DENSITY 2 SITES Boy Torres APRN - ASSEMBLER METAL FURNITURE [address] [place] [phone] Status Reason Specialty Diagnoses / Procedures Referre d By Contact Referred To Contact Closed Radiology Diagnoses Age-related osteoporosis without current pathological fracture Encounter for screening for osteoporosis Asymptomatic menopausal state Procedures HC DEXA AXIAL SKELETON Robbin Ortiz [address] [place] [address] [facility] [address] [address] Care Teams (unrecognized sec tion and content) [...] BE BASED ON THE PRIMARY CLINICAL RECORDS. [facility] provides no warranty or guarantee of the accuracy or completeness of information in this document.
[2023-05-08] VITALS (22 sets, daily range): BP systolic 92–135; BP diastolic 41–72; PULSE 53–134; RESP 12–22; TEMP 36.4–36.5; O2SAT 94–100
[2023-05-08] MEDS: HYDROCHLOROTHIAZIDE 25 MG TABLET PO (01:03)
[2023-05-08] MEDS: OMEPRAZOLE 40 MG CAPSULE.DR PO (01:03)
[2023-05-08] MEDS: LEVETIRACETAM 500 MG TABLET PO (01:04)
[2023-05-08] MEDS: DIPHENHYDRAMINE HCL 25 MG CAPSULE PO (01:04)
[2023-05-08] MEDS: ATORVASTATIN CALCIUM 40 MG TABLET PO (01:04)
[2023-05-08 05:08] LABS: Hematocrit 38.6 % (36.0-48.0); Hemoglobin 12.6 g/dL (12.0-16.0); Mean Corpuscular HGB Conc 32.6 g/dL (29.9-35.2); Mean Corpuscular Hemoglobin 29.6 pg (26.7-34.0); Mean Corpuscular Volume 90.8 fL (81.0-99.0); Mean Platelet Volume 9.2 fL (9.5-13.5); Platelet Count 318 10^3/uL (150-450); Red Blood Count 4.25 10^6/uL (4.20-5.40); White Blood Count 7.7 10^3/uL (4.0-11.0)
[2023-05-08 05:19] LABS: Anion Gap 7.9; BUN Creatinine Ratio 16.9; Calcium 8.7 mg/dL (8.5-10.1); Carbon Dioxide 30.3 mmol/L (21.0-32.0); Chloride 99 mmol/L (98-107); Estimated GFR (African America >60 (>=60); Estimated GFR (Non-African Ame >60 (>=60); Glucose 92 mg/dL (74-106); Potassium 3.2 mmol/L (3.5-5.1); Sodium 134 mmol/L (136-145)
[2023-05-08 05:32] LABS: Troponin I High Sensitivity 4.3 pg/mL (4.0-51.3)
--- NOTE | 2023-05-08 07:41 | NM_ITS ---
Patient Name: LACI VALADEZ MR#: [id number] : 1955 Exam Date: 05/08/2023 Ordering Doctor: Lizeth Salazar RADIOLOGY REPORT PROCEDURE: NM WILLIAM PERF SPECT REST STR COMPARISON: None. INDICATIONS: chest pain TECHNIQUE: Exam Description: Stress/Rest one day protocol gated SPECT Rest Imagin.9 mCi Tc-99m Cardiolite IV on 05/08/2023 Stress Imaging 29.9 mCi Tc-99m Cardiolite IV on 05/08/2023 Exercise Protocol: 0.4 mg Lexiscan given IV Heart Rate (bpm): Rest: 64 Max: 116 PMHR: 76 Blood Pressure: Rest: 124/74 Max: 134/68 Symptoms: Rest and peak stress ECG findings were pending and the exercise portion of the study was pending per attending physician Dr. OJEDA . For more details please see separate cardiac stress test report. FINDINGS: QUALITY OF STUDY: PERFUSION DEFECT: LOCATION: Apical inferior. SIZE: Small (1-2 segments). SEVERITY: Mild. TYPE: Persistent. WALL MOTION: Normal. LV SIZE: Normal. 48 mL. TID / TCD: None; 0.8 LVEF: Normal. Calculated EF 79%. SUMMARY: Myocardial perfusion imaging study has ABNORMAL findings. CONCLUSION: 1. Small fixed defect apical inferior segment without evidence of redistribution 2. No reversible ischemia 3. Pending exercise test Dictated by: Talha Nascimento MD on 05/08/2023 at 14:55 Approved by: Talha Nascimento MD on 05/08/2023 at 15:04
--- NOTE | 2023-05-08 10:30 | P.HP_ITS ---
<Statement entered by Anders Vasquez MD - 05/08/23 17:13> Patient seen and examined, agree with assessment and plan below. Presented with chest pain and history of nonobstructive CAD. CE negative. Stress test nuclear negative for ischemia and stress pending. Painfree and discharged home. Follow up with cardiology. Diagnosis: 1. Chest pain 2. CAD 3. Takotsubo Cardiomyopathy 4. Chronic HFimpEF 5. HTN 6. Cerebrovascular disease 7. Dyslipidemia HPI H&P: HPI History of Present Illness Chief complaint: Chest Pain Narrative: 05/08/23 0840 This is a 67-year-old female patient with a past medical history as outlined below including Takotsubo cardiomyopathy (2016, resolved on most recent echo August 2022), HTN, nonobstructive CAD, and dyslipidemia; who presented to the ED yesterday evening complaining of acute onset of precordial chest pressure. She reports acute onset of chest pressure while resting in a chair approximately 1 hour prior to arrival in the ED. She rated her chest pressure as moderate (4?5/10) and reported radiation toward her left shoulder. She denies shortness of breath, diaphoresis, nausea or vomiting associated with this chest discomfort. Her chest discomfort was not reproducible or pleuritic. She presented to the ED for further evaluation. Workup in the ED revealed mild hypokalemia, with otherwise unremarkable labs. Serial troponins were negative for acute ischemia. An EKG revealed sinus rhythm. A chest x-ray showed mild left base opacity of unclear etiology, atelectasis versus aspiration versus infiltrate. The patient was admitted in observation to the hospitalist service last night for cardiac monitoring and further cardiac workup this morning. At the time of my exam the patient is resting comfortably in bed. She reports complete resolution of her chest discomfort after she received nitroglycerin in the ED, and her chest pain has not resumed. She continues to deny any shortness of breath, N/V, or diaphoresis. Her chest pain is not reproducible on exam. Serial cardiac enzymes x 3 remain negative. We have ordered a Lexiscan stress test today and consulted cardiology. The patient has followed with [facility] cardiology in the past but recently requested a transfer to a different cardiology office which has already been arranged as an outpatient for next week. Discharge: NM Lexiscan stress test revealed a small fixed apical defect, but no reversible ischemia. As the pt's CP remains completely resolved and she is requesting discharge, she is being discharged home in stable condition. She should follow up with her PCP and cardiology as already scheduled within the next 1-2 weeks. She has been prescribed PRN nitroglycerin SL and low dose KCL supplementation. If she experiences further CP, she should return to the ED. Opioid HPI Opioid Management Most Recent Opioid Data: Last Pain Assessment 05/08/23 15:00 Last ORT Total Score 1 05/07/23 22:54 Last ORT Risk Category Low Risk 05/07/23 22:54 Review of Systems ROS Status of ROS 10 or more systems reviewed and unremark able except as noted in history and below [facility] Medical History (Updated 05/08/23 @ 10:38 by Lizeth Salazar NP) Dyslipidemia ?E78.5 - Hyperlipidemia, unspecified (ICD-10) Cerebrovascular disease ?I67.9 - Cerebrovascular disease, unspecified (ICD-10) Benign essential hypertension ?I10 - Essential (primary) hypertension (ICD-10) Heart failure with improved ejection fraction (HFimpEF) ?I50.32 - Chronic diastolic (congestive) heart failure (ICD-10) Takotsubo cardiomyopathy ?I51.81 - Takotsubo syndrome (ICD-10) Nonobstructive atherosclerosis of coronary artery ?I25.10 - Atherosclerotic heart disease of poarch coronary artery without angina pectoris (ICD-10) Headache ?R51.9 - Headache, unspecified (ICD-10) Elevated troponin ?R77.8 - Other specified abnormalities of plasma proteins (ICD-10) Asthma ?J45.909 - Unspecified asthma, uncomplicated (ICD-10) Seizure ?R56.9 - Unspecified convulsions (ICD-10) Stroke ?I63.9 - Cerebral infarction, unspecified (ICD-10) Surgical History (Updated 05/08/23 @ 00:19 by Sarah Peterson RN) H/O wrist surgery ?Z98.890 - Other specified postprocedural states (ICD-10) History of bilateral knee replacement ?Z96.653 - Presence of artificial knee joint, bilateral (ICD-10) Family History (Updated 05/08/23 @ 00:24 by Sarah Peterson RN) Mother Family history of CHF (congestive heart failure) Family history of myocardial infarction Father Family history of myocardial infarction Social History Smoking status: Never smoker Highest level of school completed/degree received: high school graduate Meds Home Medications and Allergies Home Medications ?Medication ?Instructions ?Recorded ?Confirmed ?Type atorvastatin 40 mg tablet 40 mg PO DAILY 08/20/22 05/07/23 History hydrochlorothiazide 25 mg tablet 25 mg PO DAILY 08/20/22 05/07/23 History levetiracetam 500 mg tablet 500 mg PO Q12H 08/20/22 05/07/23 History omeprazole 40 mg capsule,delayed 40 mg PO DAILY 08/20/22 05/07/23 History release aspirin 325 mg tablet,delayed 325 mg PO DAILY 08/21/22 05/07/23 History release diphenhydramine HCl 25 mg capsule 25 mg PO Q6H PRN headache #12 caps 08/21/22 05/07/23 Rx (Benadryl) metoclopramide HCl 10 mg tablet 10 mg PO Q6H PRN nausea and 08/21/22 05/07/23 Rx (Reglan) vomiting #12 tabs albuterol sulfate 90 mcg/actuation 2 puff inhalation Q6H PRN 05/07/23 05/08/23 History aerosol inhaler shortness of breath or wheezing nitroglycerin 0.4 mg sublingual 0.4 mg sublingual Q5M PRN chest 05/08/23 Rx tablet pain #30 tabs potassium chloride 10 mEq 10 meq PO DAILY #30 caps 05/08/23 Rx capsule,extended release Allergies Allergy/AdvReac Type Severity Reaction Status Date / Time morphine Allergy Unknown Verified 08/20/22 02:57 Penicillins Allergy Unknown Verified 08/20/22 02:57 Exam Constitutional Vital Signs, click to edit/add: Last Vital Signs Temp 97.6 F 05/08/23 04:00 Pulse 55 L 05/08/23 09:00 Resp 22 05/08/23 08:13 BP 101/41 L 05/08/23 08:13 Pulse Ox 94 L 05/08/23 06:46 O2 Del Method Room Air 05/08/23 10:00 Common normals: no apparent distress, oriented x3, alert and well nourished General appearance: cooperative Orientation/consciousness: Yes awake HENMT Common normals: normocephalic, head/scalp atraumatic, hearing grossly normal bilaterally, external nose normal and moist oral mucous membranes Eye Common normals: PERRL, EOMs intact bilaterally, conjunctivae normal and no scleral icterus Alignment: alignment normal Eyelid: eyelids normal Neck & C-Spine Common normals: full ROM, supple and no JVD Chest Common normals: inspection of chest normal Chest: symmetrical chest wall rise Respiratory Common normals: normal respiratory effort, no retractions, no use of accessory muscles and clear to auscultation bilaterally Effort & inspection: able to speak in complete sentences Cardio Common normals: no JVD, regular rate, regular rhythm, S1 normal heart sound, S2 normal heart sound, no gallops, no clicks, no murmurs, no rub and peripheral pulses 2+ throughout GI Common normals: Normal to inspection, nondistended, normoactive bowel sounds present, soft to palpation, non-tender, no hepatosplenomegaly, no masses and no bruits Bladder/kidney exam: bladder normal to palpation Back & Pelvis Common normals: thoracic and lumbar spine normal to inspection Extremity Common normals: normal capillary refill and no pedal edema General: normal exam except as noted; no clubbing and no cyanosis Neuro Giovanna Coma Scale: GCS not evaluated Common normals: CN's II-XII intact bilaterally, moves all extremities, no focal motor deficits and no sensory deficits noted Speech: speech normal Psych Common normals: mental status grossly normal, thought process normal, affect normal and activity/motor behavior normal Results Labs Labs: Short CBC 05/07/23 05/08/23 Range/Units 18:25 04:01 WBC 7.7 7.7 (4.0-11.0) 10^3/uL Hgb 14.2 12.6 (12.0-16.0) g/dL Hct 43.8 38.6 (36.0-48.0) % Plt Count 356 318 (150-450) 10^3/uL BMP 05/07/23 05/08/23 18:25 04:01 Sodium 134 L 134 L Potassium 3.3 L 3.2 L Chloride 96 L 99 Carbon Dioxide 30.5 30.3 BUN 14.0 13.0 Creatinine 0.84 0.77 Glucose 89 92 Calcium 9.1 8.7 Pulse Oximetry Attestation: I have reviewed the pertinent pulse oximetry results. ECG Attestation: ?I have reviewed the pertinent ECG results. Interpretation: Sinus rhythm Low QRS voltage in chest leads Atypical ECG Compared to ECG from 08/21/2022 Sinus bradycardia is no longer present Imaging Chest x-ray: Attestation: I have reviewed the pertinent imaging results. Radiologist's impression: IMPRESSION: Mild left basilar opacification. Differential includes atelectasis, aspiration, and pneumonia. Assessment and Plan Assessment and Plan (1) Chest pain: Assessment and Plan: Acute * Adm observation * Precordial CP radiating to L shoulder * Resolved after NTG in ED and has not recurred * No associated SOB, N/V, diaphoresis, dizziness * NM Lexiscan stress test today * Recent 2D Echo last August w/ LVEF >55%, no noted WM or valvular abn. Repeat study not indicated at this time. * C/S cardiology - consider cancelling if Lexiscan is unremarkable as pt already has an outpatient cardiology appt scheduled next week. * Serial Trop x 3 neg for acute ischemia * EKG - unremarkable (2) Acute hypokalemia: Assessment and Plan: Acute * Mild - K+ 3.3, 3.2 * Likely d/t home HCTZ dosing * add low dose daily KCL supplementation * KCL 40 mEq PO x 1 now (3) Nonobstructive atherosclerosis of coronary artery: Assessment and Plan: Chronic * Hx of of non-obstructive CAD in 2015 w/ associated Takotsubo (see below) * Has been following w/ cardiology outpatient * Already on statin and daily aspirin. * Defer to cardiology if BB or ACEi should be added (4) Takotsubo cardiomyopathy: Assessment and Plan: Chronic * Noted on 2015 echo (LVEF 20%) * Resolved on August 2022 Echo (LVEF >55%) * No clinical concern decompensation at this time * No indication for repeat 2D Echo imaging * Defer further work up if indicated to cardiology (5) Benign essential hypertension: Assessment and Plan: Chronic * Continue home HCTZ (6) Dyslipidemia: Assessment and Plan: Chronic * Continue home statin (7) Seizure: Assessment and Plan: Chronic * Continue home Keppra (8) Asthma: Assessment and Plan: Chronic * Hold home albuterol for now * Pt is asymptomatic * Albuterol may stimulate HR - contraindicated with recent CP
--- NOTE | 2023-05-08 11:39 | CM.NOTE ---
Rounded with Dr. Vasquez. Currently with no chest pain. To have stress test today. Dependent on the outcome of the stress test, pt may discharge home today with no needs or transfer to [facility] for further care.
--- NOTE | 2023-05-08 11:44 | CM.NOTE ---
Medicare Outpatient Observation Notice reviewed and discussed with patient. Pt. verbalized understanding and signed the form. Original given to patient and copy placed in patient?s chart.
[2023-05-08] MEDS: REGADENOSON 0.4 MG/5 ML SYRINGE 0.400000000000000022 MG IV (12:40)
[2023-05-08] MEDS: POTASSIUM CHLORIDE 10 MEQ ER TABLET 40 MEQ PO (12:57)
--- NOTE | 2023-05-08 16:20 | PC.NURSE ---
taken to exit via wheelchair, discharged to private vehicle.
--- NOTE | 2023-05-09 14:35 | CM.DCFOLLOWU ---
1st attempt discharge follow up call, no answer 05/09/23
--- NOTE | 2023-05-10 10:23 | CM.DCFOLLOWU ---
Person spoke with: patient How are you feeling? better How is your pain? no chest pain or any other pain Did you understand your discharge instructions? yes Do you have any questions about your discharge instructions? no Were you given any prescriptions at discharge? yes Were you able to get your prescriptions filled? no, advised to get them filled today, pt voiced understanding and will get them today Do you understand how to take your medications as ordered? yes Do you have any questions about your follow up appointment and do you plan to keep your follow up appointment? needs to call and schedule follow up with PCP. Reviewed her follow up with [facility] cardiology for 05/20/23 at 1:20pm Is there anything else that you would like to discuss? no Questions/Comments/Concerns/Other: N/A
== END 2023-05-08 16:20 | disposition home or self-care (01) ==
LOC: ER 19:04 → ICU 22:45
PROVIDERS: Emergency Medicine; Registered Nurse; Admitting Provider Family Medicine; Emergency Provider Emergency Medicine; PCP Internal Medicine; Visit Provider Nurse Practitioner
DX: R07.9 Chest pain, unspecified (principal); E87.6 Hypokalemia; I25.10 Atherosclerotic heart disease of native coronary artery without angina pectoris; I11.0 Hypertensive heart disease with heart failure; I50.32 Chronic diastolic (congestive) heart failure; I67.9 Cerebrovascular disease, unspecified; E78.5 Hyperlipidemia, unspecified; R56.9 Unspecified convulsions; J45.909 Unspecified asthma, uncomplicated; Z86.73 Personal history of transient ischemic attack (TIA), and cerebral infarction without residual deficits; Z98.890 Other specified postprocedural states; Z96.653 Presence of artificial knee joint, bilateral; Z79.899 Other long term (current) drug therapy; Z79.82 Long term (current) use of aspirin
CPT/HCPCS: 36415; 71045; 78452; 80048; 84484; 85025; 85027; 93005; 93017; 99285; A9500; G0378; J2785

== ENCOUNTER 2023-08-15 14:55 | Outpatient (OUT) | payer MEDICARE, OTHER, SELFPAY ==
--- NOTE | 2023-08-15 15:05 | CA_ITS ---
Patient Name: LACI VALADEZ MR#: [id number] : 1955 Exam Date: 08/15/2023 Ordering Doctor: NELSY POWELL M.D. ECHOCARDIOGRAM REPORT PROCEDURE: CA ECHO DOPPLER COMPLETE INDICATIONS: Chest pain COMPARISON: None. DESCRIPTION: COMPLETE ECHOCARDIOGRAM Real-time transthoracic echocardiography with 2D, M-mode, spectral and color flow Doppler performed. QUALITY: Technical quality was good. LEFT VENTRICLE: Normal chamber size. Normal left ventricular wall thickness. Global left ventricular systolic function is normal. LV EF: Visual estimation of left ventricular ejection fraction is 65% DIASTOLIC: Normal diastolic function. ATRIAL SEPTUM: LEFT ATRIUM: Normal chamber size. RIGHT ATRIUM: Normal chamber size. RIGHT VENTRICLE: Normal chamber size. Normal right ventricular systolic function. TRICUSPID VALVE: Normal mobility and thickness. No stenosis with trivial regurgitation. No evidence of pulmonary hypertension. RVSP 18 mmHg MITRAL VALVE: Normal mobility and thickness. No evidence of mitral valve stenosis. AORTIC VALVE: Normal trileaflet appearance. No visible sclerosis. Normal leaflet mobility. No evidence of aortic valve stenosis. Trivial aortic regurgitation. AORTIC ROOT: Normal diameter and appearance. PULMONIC VALVE: Normal thickness and mobility. No stenosis. No regurgitation. PERICARDIUM: No evidence of pericardial effusion. IVC: Collapses with inspirations. Normal size. PLEURA: CONCLUSION: 1. Normal ventricular size and systolic function. LVEF is estimated at 65%. 2. No significant valvular dysfunction. 3. Normal diastolic function. 4. Normal right-sided pressures. 5. No pericardial effusion. Adult Echocardiography Procedure Report Left Ventricle LVEDD (3.7 - 5.6 cm): 4.03 cm LVESD (2.2 - 4.0 cm): 2.50 cm LVIVS thickness (0.6 - 1.2 cm): 0.78 cm LVPW thickness (0.5 - 1.0 cm): 0.76 cm e': 0.08 m/s E - e': 11.98 LVOT Diameter 1.73 cm Left Ventricular Ejection Fraction: 65 % Left Atrium LA Volume Index (2D A2C): 31.18 ml/m2 Left Atrium Systolic Dimension: 2.98 cm Mitral Valve MV E to A Ratio: 1.12 Mitral Valve A-Wave Peak Velocity: 0.89 m/s Mitral Valve E-Wave Peak Velocity: 1.00 m/s Right Ventricle RV Internal Diastolic Dimension: 3.14 cm Aorta AO Root Diam: 2.30 cm Ascending Ao Diam: 3.03 cm Aortic Valve Peak Velocity(Antegrade Flow): 0.99 m/s, 1.22 m/s Peak Gradient(Antegrade Flow): 3.96 mm[Hg], 5.92 mm[Hg] Mean Velocity(Antegrade Flow): 0.72 m/s, 0.80 m/s Mean Gradient(Antegrade Flow): 2.33 mm[Hg], 2.96 mm[Hg] Velocity Time Integral: 29.27 cm, 33.45 cm Tricuspid Valve Peak Velocity (Regurgitant Flow): 1.82 m/s, 1.91 m/s Pulmonic Valve Mean Gradient: 2.18 mm[Hg], 2.19 mm[Hg] Mean Velocity: 0.71 m/s, 0.70 m/s Peak Velocity: 0.91 m/s Peak Gradient: 3.20 mm[Hg], 3.46 mm[Hg] Right Atrium Right Atrium Systolic Pressure: 46.30 ml, 46.30 ml Dictated by: Mayur Price M.D. on 08/15/2023 at 17:59 Approved by: Mayur Price M.D. on 08/15/2023 at 18:02
== END 2023-08-15 14:56 | disposition home or self-care (01) ==
LOC: CARD 14:58
PROVIDERS: PCP Internal Medicine; Visit Provider Internal Medicine Cardiovascular Disease
DX: E78.5 Hyperlipidemia, unspecified (principal); R07.9 Chest pain, unspecified
CPT/HCPCS: 93306

== ENCOUNTER 2024-12-09 12:51 | Emergency (ER) | payer MEDICARE, OTHER, SELFPAY ==
[2024-12-09] VITALS (30 sets, daily range): BP systolic 65–173; BP diastolic 40–118; PULSE 103–120; O2SAT 92–100; BMI 27.0
--- NOTE | 2024-12-09 12:58 | ECG_ITS ---
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 Measurements Intervals [place] Rate: 117 P: 59 [place]: 153 QRS: 31 QRSD: 85 T: 33 QT: 333 QTc: 466 Interpretive Statements SINUS TACHYCARDIA LOW QRS VOLTAGE [QRS DEFLECTION < 0.5/1.0 mV IN LIMB/CHEST LEADS] POSSIBLE ANTERIOR MYOCARDIAL INFARCTION [30 ms Q WAVE IN V3/V4, OR R < 0.2 mV IN V4], OF INDETERMINATE AGE Abnormal ECG Compared to ECG 05/07/2023 18:22:03 Myocardial infarct finding now present Electronically Signed On 12-09-2024 23:46:28 EDT by JE HYLTON M.D.
--- OUTSIDE RECORDS SUMMARY | 2024-12-09 12:59 | XMS_ITS | CCD ---
Author Organization [facility] Care Team Providers Care Programmer Engineering And Scientific Name Role Phone Robbin Ortiz Primary Care Provider ROBBIN ORTIZ Referring Unavailable ANGEL, ROBBIN Marie Primary Care Unavailable RAFAEL VILA Referring Unavailable ANGEL, ROBBIN Marie Primary Care Unavailable RAFAEL VILA Referring Unavailable ANGEL, ROBBIN Marie Primary Care Unavailable ANGEL, ROBBIN Marie Referring Unavailable ANGEL, ROBBIN Marie Primary Care Unavailable ANGEL, ROBBIN Marie Referring Unavailable ANGEL, ROBBIN Marie [...] Care Provider DO Gurpreet Omalley Emergency Provider MD Robbin Ortiz Primary Care Provider DO Karel Rosa Attending Provider ROBBIN ORTIZ Referring Unavailable CJ MOSES Attending Unava ilable ADRIANA SOARES Attending Unavailable ROBBIN ORTIZ Referring Unavailable ADRIANA SOARES Referring Unavailable KAREL ROSA Unavailable Karel Rosa Attending Unavailab le Karel Rosa Admitting Unavailab le Robbin Ortiz Primary Care Unavailable DO Karel Rosa Attending Provider [phone] Mazin Sy Admitting Unavailable Mazin Sy Attending Unavailable Rafiq Mahin Consulting Unavailable MD Mahin Conroy Consulting Unavailable Oldwick, Mahin Consulting Unavailable Oldwick, Mahin Consulting Unavailable Oldwick, Mahin Consulting Unavailable [place], Mahin Consulting Unavailable [place], Mahin Consulting Unavailable [place], Mahin Consulting Unavailable [place], Mahin Consulting Unavailable [facility] XXXX Consulting Unavailable [place], Mahin Consulting Unavailable BRE TONY Primary Care Physician Callie Leija Unavailable Unavailable Stephanie Kang Unavailable Unavailable Mazin Sy Admitting Unavailable Shyam Marina Attending Unavailable Oldwick, Mahin Consulting Unavailable Old[place], Mahin Consulting Unavailable Old[place], Mahin Consulting Unavailable Old[place], Mahin Consulting Unavailable Old[place], Mahin Consulting Unavailable Oldwick, Mahin Consulting Unavailable [place], Mahin Consulting Unavailable [place], Mahin Consulting Unavailable [place], Mahin Consulting Unavailable Prashanth ELIAS Attending Unavailable Prashanth ELIAS Attending Unavailable Prashanth ELIAS Attending Unavailable Fazal Ellsworth Attending Unavailable Allergies Allergy ClassificationReported Allergen(s)Allergy TypeDate of OnsetReaction(s) Facility (6 sources)LisinoprilDrug Fhcbbbj59-73-5263Wukvq (See Comments)[place] (9 sources)MorphineDrug Pqguwpi40-34-3797Omely (See Comments)[place], [place] (9 sources)PenicillinsPropensity to adverse reactions to uzft71-19-1915Semvhh And VomitingVill[place], [place] (1 source)MorphineDrug Cffvnwl09-86-2808Opa [facility] Repository (1 source)PenicillinsDrug allergy (disorder)69-58-6612Ogg [facility] Repository (1 source)MorphineDrug Xviepvo50-35-8498VkyssatasOhiohealth [facility] Rep[facility] (1 source)PenicillinsDrug allergy (disorder)79-65-6945FdigrjpnpOhiohealth [facility]in [facility] Repository (10 sources)Penicillin; Translations: [penicillin]Drug AllergyUnknown (qualifier value)[facility] Repository Medications Current Medications MedicationDrug Class(es)DatesSig (Normalized)Sig (Original)acetaminophen 325 mg oral tablet (1 source)Start: 00-61-5659rdix 2 tablets by mouth every four hours as needed for painacetaminophen 325 mg Tab 650 mg = 2 tab(s), Oral, q4hr, PRN Pain/Fever, Refills(s) 0 Start Date: 11/05/24 Status: Ordered Repeat number: 1200 actuat albuterol 0.09 mg/actuat metered dose inhaler (6 sources)beta2-Adrenergic AgonistStart: 17-04-8520fsoh 2 puff(s) by inhalation every six hours as neededalbuterol (PROVENTIL HFA;VENTOLIN HFA) 108 (90 BASE) MCG/ACT inhaler Inhale 2 puffs into the lungs every 6 hours as needed 3 Inhaler 2 01/17/2015 ActiveArtificial Tears (2 sources)Start: 28-28-0285Brakcmxapi Tears 2 drop(s), OPTH, QID irritation, Refill(s) 0 Start Date: 09/17/24 Status: Ordered Repeat number: 1aspirin 325 mg oral tablet (7 sources)Platelet Aggregation Inhibitor, Nonsteroidal Anti-inflammatory Drug Start: 80-75-0497mozo 325 mg by mouth once dailyAspirin Active 325 MG PO Daily September 02, 2023 12:00amStart: 32-89-6248ixrb 1 tablet by mouth once dailyaspirin (ECOTRIN) 325 MG EC tablet Take 1 tablet by mouth daily 90 tablet 1 04/14/2015 Activeatorvastatin 40 mg oral tablet (9 sources)HMG-CoA Reductase InhibitorStart: 79-47-0242hces 1 tablet by mouth once dailyatorvastatin 40 mg Tab 40 mg = 1 tab(s), Oral, Daily, Refills(s) 0 Start Date: 09/12/24 Status: Ordered Repeat number: 1Start: 09-02-2023 Atorvastatin Active MG PO September 02, 2023 12:00amStart: 36-48-4075aayw 1 tablet by mouth once dailyatorvastatin (LIPITOR) 40 MG tablet Take 1 tablet by mouth nightly 90 tablet 1 04/14/2015 Activebetamethasone 0.5 mg/ml / clotrimazole 10 mg/ml topical cream (6 sources)Azole Antifungal, CorticosteroidStart: 07-45-5348xmxovdafiecm- betamethasone (LOTRISONE) cream Apply topically 2 times daily. 45 g 2 10/08/2013 ActiveCalcium Carbonate Antacid (TUMS PO) (6 sources)Calcium Carbonate Antacid (TUMS PO) Take by mouth as needed 0 Active cholecalciferol 0.05 mg oral capsule (7 sources)Vitamin DStart: 62-69-2059pyqz 50 ug by mouth once daily Cholecalciferol (Vitamin D3) Active 50 MCG PO Daily September 02, 2023 12:00amtake 1 capsule by mouth once dailyCholecalciferol (VITAMIN D3) 2000 UNITS CAPS Take 1 capsule by mouth daily 0 Activecitalopram 10 mg oral tablet (1 source)Serotonin Reuptake InhibitorStart: 62-99-3907duit 1 tablet by mouth once daily at bedtimecitalopram 10 mg Tab 10 mg = 1 tab(s), Oral, Once a day (at bedtime), Refills(s) 0 Start Date: 09/18/24 Status: Ordered Repeat number: 1 clindamycin 150 mg oral capsule (1 source)Lincosamide Antibacterialtake 4 tablets by mouth every hourclindamycin (CLEOCIN) 150 MG capsule Indications: 4 tabs one hour prior to dentist Take 150 mg by mouth 4 times daily Indications: 4 tabs one hour prior to dentist 0 Activedocusate sodium 50 mg / sennosides, long-term 8.6 mg oral tablet (1 source)take 8.6-50 mg by mouth oncesenna-docusate (PERICOLACE) 8.6-50 MG per tablet Take 1 tablet by mouth daily 0 Activedorzolamide 20 mg/ml / timolol 5 mg/ml ophthalmic solution (3 sources)Carbonic Anhydrase Inhibitor, beta-Adrenergic BlockerStart: 78-05-6823lbcjybvglaw-timolol Opth 2%-0.5% Christi 1 drop(s), Eye-Left, BID, Refill(s) 0 Start Date: 09/13/24 Status: Ordered Repeat number: 1Start: 49-79-0712Esrfgsqphbv-Timolol (Pf) Active DROPS OPHTHALMIC September 02, 2023 12:00amEnsure (2 sources)Start: 39-73-9057jrzg 237 mL by mouth once dailyEnsure 237 mL, Oral, Daily, Refill(s) 0 Start Date: 09/17/24 Status: Ordered Repeat number: 1 fexofenadine hydrochloride 180 mg oral tablet (6 sources)Histamine-1 Receptor AntagonistStart: 65-58-3341xpmg 1 tablet by mouth once dailyfexofenadine (TIEN) 180 MG tablet Indications: Allergic asthma Take 1 tablet by mouth daily. 90 tablet 3 07/29/2012 Active hydroCHLOROthiazide 25 mg oral tablet (7 sources)Thiazide DiureticStart: 42-27-5914Bjwyqupbbidqcrokuvn Active MG PO September 02, 2023 12:00amStart: 40-32-0671whxrmmptjfgcjchntpg (HYDRODIURIL) 25 MG tablet 1 tablet daily 0 01/25/2016 Activelatanoprost 0.05 mg/ml ophthalmic solution (1 source)Prostaglandin AnalogStart: 24-52-8139Xlozvugkhuc Active DROPS OPHTHALMIC September 02, 2023 12:00amlatanoprost 0.05 mg/ml / netarsudil 0.2 mg/ml ophthalmic solution (2 sources)Prostaglandin Analog, Rho Kinase InhibitorStart: 05-76-5344udpp 1 drop(s) into the eye(s) once daily in the eveningRocklatan 0.02%-0.005% ophthalmic solution 1 drop(s), Eye-Left, qPM, Refill(s) 0 Start Date: 09/13/24 Status: Ordered Repeat number: 1levETIRAcetam 1000 mg oral tablet (4 sources)Start: 39-57-1653assj 1 tablet by mouth twice dailylevetiracetam 1000 mg oral tablet 1,000 mg = 1 tab(s), Oral, BID, Refills(s) 0 Start Date: 09/18/24 Status: Ordered Repeat number: 1Start: 31-68-7403Eantlqjwafwcz Active MG PO September 02, 2023 12:00amStart: 37-32-5289jmpt 1 tablet by mouth twice daily levETIRAcetam (KEPPRA) 500 MG tablet Take 1 tablet by mouth 2 times daily 180 tablet 3 04/26/2015 Activemagnesium hydroxide 80 mg/ml oral suspension (1 source)Start: 29-92-4163duxcnmjcb hydroxide 8% Oral Susp 30 mL 2.4 gm, 30 mL, Oral, q12hr as needed for constipation, Refill(s) 0, Up to 6 doses Start Date: 11/05/24 Status: Ordered Repeat number: 1olopatadine 2 mg/ml ophthalmic solution (1 source)Histamine-1 Receptor InhibitorStart: 89-88-4816sbmt 1 drop(s) into the eye(s) once daily, then take 1 drop(s) into the eye(s) once dailyPataday 0.2% ophthalmic solution 1 drop(s), Daily, Refill(s) 0, 1 drop each eye daily until seen byophthalmologist Start Date: 11/05/24 Status: Ordered Repeat number: 1 omeprazole 40 mg delayed release oral capsule (9 sources)Proton Pump InhibitorStart: 00-59-5357vkeu 1 capsule by mouth once dailyomeprazole 40 mg Cap-DR 40 mg = 1 cap(s), Oral, Daily, Refills(s) 0 Start Date: 09/18/24 Status: Ordered Repeat number: 1Start: 64-90-3865Tvnouixmxb Active MG PO September 02, 2023 12:00amOmeprazole Magnesium (PRILOSEC OTC PO) Take 20 mg by mouth 0 Activeondansetron 4 mg oral tablet (1 source)Serotonin-3 Receptor AntagonistStart: 72-50-5266rlzg 1 tablet by mouth every four hours as needed for nauseaZofran 4 mg Tab 4 mg = 1 tab(s), Oral, q4hr, PRN Nausea/Vomiting, Refills(s) 0 Start Date: 11/05/24 Status: Ordered Repeat number: 1sertraline 25 mg oral tablet (1 source)Serotonin Reuptake InhibitorStart: 46-47-3690ngot 1 tablet by mouth once dailysertraline 25 mg Tab 25 mg = 1 tab(s), Oral, Daily, Refills(s) 0 Start Date: 11/05/24 Status: Ordered Repeat number: 1 Problems Problem ClassificationProblemDateDocumented DateEpisodic/ChronicAcute cerebrovascular disease (9 sources)Cerebrovascular accident; Translations: [Cerebral infarction, unspecified]Onset: 206030-45-9636ZbgfexvKmlod myocardial infarction (6 sources)Acute ST segment elevation myocardial infarction; Translations: [Myocardial infarction]66-61-8770QiwhczhQpqmhsfn reactions (6 sources)Urticaria; Translations: [Hives]98-87-3603ZtfwvenrNsloaw (6 sources)Asthma; Translations: [Asthma]23-95-6077BsxvsbiUfmbbudi; convulsions (2 sources)Epilepsy; Translations: [Epilepsy, unspecified, not intractable, without status epilepticus]Onset: 65-45-2419IubmutvTkaswzuc; convulsions (8 sources)Seizure; Translations: [Seizure disorder]94-85-0201PeqbjqctXzviugibtm disorders (4 sources)Gastroesophageal reflux disease without esophagitis; Translations: [Gastro-esophageal reflux disease without esophagitis]Onset: 52-17-5920Eooykxv Essential hypertension (10 sources)Hypertensive disorder; Translations: [Essential hypertension]Onset: 192644-96-8296XgqurshFzpqffbn (4 sources)Glaucoma; Translations: [Unspecified glaucoma]Onset: 09-18-2024 ChronicImmunizations and screening for infectious disease (4 sources)Encounter for immunization; Translations: [ENCOUNTER FOR IMMUNIZATION]Onset: 11-38-7496FqelyqmbGdhe disorders (4 sources)Severe major depression, single episode, without psychotic features; Translations: [Major depressive disorder, single episode, severe without psychotic features]Onset: 42-55-0878OeboarvNnfvggsvbtjnkr (6 sources)Osteoarthritis; Translations: [Osteoarthritis]75-59-8990XlueunjBzsoa and ill-defined heart disease (4 sources)Takotsubo cardiomyopathy; Translations: [Takotsubo syndrome]Onset: 96-89-4582KahurjnNykjq bone disease and musculoskeletal deformities (1 source)Osteopenia; Translations: [Osteopenia, unspecified location]Episodic Other circulatory disease (3 sources)Stenosis of left subclavian artery; Translations: [Stricture of artery]28-41-8642LfcxtstOjhme circulatory disease (1 source)Stricture of artery; Translations: [Stricture of artery]09-02-2023 ChronicOther circulatory disease (2 sources)Stricture of artery; Translations: [Stricture of artery]Onset: 00-25-5140KvqspbbBsfhk circulatory disease (2 sources)History of transient ischemic attack; Translations: [Personal history of transient ischemic attack (TIA), and cerebral infarction without residual deficits]Onset: 48-78-8664WdgejblsYjoeo circulatory disease (2 sources)History of cerebrovascular dfhugvho82-29-9567WtbtxlzpCeteq connective tissue disease (1 source)Facial weakness; Translations: [Facial weakness]Onset: 06-13-2023 EpisodicOther nervous system disorders (4 sources)Disorder of brain; Translations: [Encephalopathy, unspecified]Onset: 87-17-2041PeksolzUmdgvrkeiv and visceral atherosclerosis (6 sources)Stenosis of left subclavian artery; Translations: [Stenosis of left subclavian artery]Onset: 831540-58-6618Thirxcvcn (except that caused by tuberculosis or sexually transmitted disease) (6 sources)Pneumonia; Translations: [Pneumonia]04-10-0254OcignfboEswcdknw codes; unclassified (6 sources)Chronic back pain ; Translations: [Chronic back pain]12-10-2011 EpisodicUnclassified (1 source)Patient encounter status; Translations: [Breast cancer screening by mammogram] Results Test NameValueInterpretationReference RangeFacilityFamily Medicine Office/Clinic Noteon 49-13-9068Mgzbyi Medicine Office/Clinic NoteFamily Medicine Office/Clinic Note History of Present Illness TCU DISCHARGE after TCU [facility] [place]. Patient presented by EMS with strokelike symptoms nonverbal, right-sided weakness overnight. CT brain showed no acute findings, encephalomalacia right occipital. She was she was given loading dose of IV Keppra given seizure history and admitted. Neurology saw her and commented on chronic right occipital ischemic stroke on CT. related patient is essentially almost blind but may be for ocular reasons. Stated sclera typically appear irritated. Last seizure about10 years ago. It was ultimately decided that presentation was postictal state, inadvertent noncompliance with home Keppra. Keppra was increased to 1000 mg twice daily. Finding of remote right occipital ischemic CVA could serve as seizure nidus. She continued with delirium which neurology felt time was needed for improvement. Had elev troponin, niece related history of broken heart syndrome and cardiology consulted. Echocardiogram with apical wall motion abnormalities. On 09/14, Dr. Campbell took her for [facility], found nonobstructive CAD and had findings for stress-induced cardiomyopathy. Considered initiation of losartan/beta-he/SGLT for this once BP improves. There were concerns for left subclavian steal and CTA head neck found proximal left subclavian artery stenosis 50-60%, mildly flow-limiting. Cardiology recommended OP vascular follow-up. Admitted to TCU for rehab stay. During her stay she had some episodes of waxing and waning mentation. Time seems to have resolved these issues. Patient [facility] [place]hab [facility]. Plan to discharge on 11/06/2024 to [facility] for skilled rehab and then she will transition to LTC. PMHx- HTN, remote CVA (prior to 1999 per SO), seizure disorder (around 2013), GERD, anxiety/depression, glaucoma, BL TKA PCP Dr. Robbin Ortiz Ophthalmology MD Anna Hurley Chi [phone] Niece Kelsey Grimaldo [phone] is POA-HC - she was looking for paperwork to provide to staff. Per family, male visitor, Seven, is S.O. not even though he will say they are . Medical information to POA and she will share with family. Has 2 nieces locally, nephews. 3 sisters. Lot of amyloid disease in family. Physical Exam GENERAL - 69yo female sitting in recliner, Patient alternatively confused, distracted by papers on table. Trouble listing family members. Cooperative with exam HEENT- mild ectropion lower lids BL, 2-3+ scleral blush, light sensitive Lungs - clear throughout, no wheezes no rhonchi Heart - RRR, no murmur Abdomen - obese, soft, nondistended no distal edema No facial droop, using both arms. Assessment/Plan 1. Encephalopathy, unspecified type (G93.40: Encephalopathy, unspecified) Reportedly better over course of admission but still with significant short-term memory impairment,impulsivity. She was out of bed on first night in TCU and had a fall without injury Time has shown some improvement. 2. Seizure disorder (G40.909: Epilepsy, unspecified, not intractable, without status epilepticus) Review of notes estimates that around the time of her residential in 2013, she had a seizure, taken to [facility], and was diagnosed with stress induced cardiomyopathy then went home with a LifeVest. She had been on Keppra 500 mg twice a day but External Rx History suggest variable compliance. Neurology increased Keppra 1000 mg twice daily. Continue same dose. She has a follow-up with neurology on 12/24 3. History of stroke in adulthood (Z86.73: Personal history of transient ischemic attack (TIA), andcerebral infarction without residual deficits) Best guess from talking to family and SO was that stroke occurred well before 1999. MRI showed areas of encephalomalacia within the right occipital region, scattered patchy areas in the white matter likely representing mild chronic microvascular ischemia Continue atorvastatin 40 mg daily 4. Major depressive disorder, severe (F32.2: Major depressive disorder, single episode, severe without psychotic features) SO believes depression is due to progressing loss of eyesight issues. Patient denies sleep issues, SO notes irritability, worry, sadness and can sleep until noon. She was started sertraline 25 mg daily, continue 5. Takotsubo syndrome (I51.81: Takotsubo syndrome) History of condition found around 2013, findings on echo/LHC. Echo w/contrast 09/12/2024 suboptimal study, EF seems around 50-55%, apical hypokinesis, grade 1 diastolic dysfunction, no evidence for thrombus. Consider initiation of ARB/BB/SGLT etc. as BP allows. OP f/u cardiology 6. Primary hypertension (I10: Essential (primary) hypertension) She has a history of being on HCTZ 25 mg daily with erratic fill history She is not currently hypertensive and no medication. 7. Glaucoma, unspecified glaucoma type, unspecified laterality (H40.9: Unspecified glaucoma) SO relates chronic irritated eyes She was quintero (more content not included)...NormalAcmc Healthcare System Comment on above:Result Comment: Electronically Signed By: Jodee DUARTE, Fazal Negrete\.br\Date and Time Signed: 11/05/24 14:17 EDTBMPon 84-38-7751Exjet gap [Moles/Vol]10 mmol/LNormal-16[facility] SystemComment on above: Performed By: #### [id number] #### [facility] [address] [place], [place] [address]XEB/Creat Ratio30 No XxirqAnyd27-12KvflxcAcmc Healthcare System Comment on above:Performed By: #### [id number] #### [facility] [address] [place], [place] [address]Frwdace [Mass/Vol]8.5 mg/dLLow8.9-11.1FOhioHealth Southeastern Medical CenterComment on above:Performed By: #### [id number] #### [facility] [address], [place] [address]Pcsebnxu [Moles/Vol]103 mmol/DZrgwto868-933PzrlmfAcmc Healthcare SystemComment on above:Performed By: #### [id number] #### [facility] [address], [place] [address]YW3 [Moles/Vol]29 mmol/KHoklvy91-05VmxythAcmc Healthcare System Comment on above:Performed By: #### [id number] #### [facility] [address], [place] [address]Werzwijaaw [Mass/Vol]0.5 mg/dLNormal0.5-1.3FOhioHealth Southeastern Medical CenterComment on above:Performed By: #### [id number] #### [facility] [address] [place], [place] [address]Mwumxst [Mass/Vol]105 mg/hOYpoizf32-328NycnqaAcmc Healthcare SystemComment on above:Performed By: #### [id number] #### [facility] [address] [place], [place] [address]Gppxpfbnf [Moles/Vol]3.6 mmol/LNormal3.5-5.3FOhioHealth Southeastern Medical CenterComment on above:Performed By: #### [id number] #### [facility] [address] [place], [place] [address]Yorjfp [Moles/Vol]138 mmol/PYmesdf400-600IqyjvvAcmc Healthcare SystemComment on above:Performed By: #### [id number] #### [facility] [address], [place] [address]Vhuu nitrogen [Mass/Vol]15 mg/dLNormal5-21[facility] Healthcare SystemComment on above:Performed By: #### [id number] #### [facility] [address], [place] [address]IVB w/ Auto Diffon 12-24-3136Xersnynh Absolute0.1 E9/LNormal 0.0-0.2FOhioHealth Southeastern Medical CenterComment on above:Performed By: #### [id number] #### [facility] [address], [place] [address]Ftkrmttws/100 WBC (Bld)0.9 %Normal0.0-2.0[facility] Healthcare SystemComment on above:Performed By: #### [id number] #### [facility] [address] [place] [address]Xzl Absolute0.3 E9/LNormal0.0-0.5FOhioHealth Southeastern Medical Center Comment on above:Performed By: #### [id number] #### [facility] [address] [place] [address]Sinzosczfmr/100 WBC (Bld)3.0 %Normal0.0-8.0[facility] SystemComment on above:Performed By: #### [id number] #### [facility] [address] [place] [address]Uxoicnoiqdu distribution width (RBC) [Ratio]14.4 %High10.9-14.2 [facility] SystemComment on above:Performed By: #### [id number] #### [facility] [address] [place] [address]Wuzybqmwws (Bld) [Volume fraction]36.5 %Pdsbjw68.0-46.0[facility] SystemComment on above:Performed By: #### [id number] #### [facility] [address] [place] [address]Gmkjkxnzrc (Bld) [Mass/Vol]12.5 g/qWOeovyo77.0-16.0[facility] SystemComment on above:Performed By: #### [id number] #### [facility] [address] [place] [address]Kxymk Absolute1.6 E9/LNormal1.0-4.0[facility] Comment on above:Performed By: #### [id number] #### [facility] [address] [place] [address]Vmydaspdqix/100 WBC (Bld)18.9 %Attqib14.0-50.0[facility] SystemComment on above:Performed By: #### [id number] #### [facility] [address] [place] [address] 130[address]IHJ (RBC) [Entitic mass]31.1 osEuxnyg64.0-34.0[facility] SystemComment on above:Performed By: #### [id number] #### [facility] [address] [place] [address]NBQD (RBC) [Mass/Vol]34.2 g/rROooham17.4-36.0[facility] SystemComment on above:Performed By: #### [id number] #### [facility] [address] [place] [address]AON (RBC) [Entitic vol]90.8 yBGoijly28.0-100.0[facility] SystemComment on above:Performed By: #### [id number] #### [facility] [address] [place] [address]Qlel Absolute0.7 E9/LNormal0.2-1.0[facility] Comment on above:Performed By: #### [id number] #### [facility] [address] [place] [address]Cmwvthnar/100 WBC (Bld)7.7 %Normal4.0-14.0[facility] SystemComment on above:Performed By: #### [id number] #### [facility] [address] [place] [address]Unfkup Absolute5.9 E9/LNormal2.0-7.5FOhioHealth Southeastern Medical Center Comment on above:Performed By: #### [id number] #### [facility] [address] [place] [address]Wkzcmj Auto69.5 %Myntjf22.0-75.0[facility] Comment on above:Performed By: #### [id number] #### [facility] [address] [place] [address]Jtxldusi664.0 E9/SCmzcfj425.0-500.0[facility] Comment on above:Performed By: #### [id number] #### [facility] [address] [place], [place] [address]Wujdlhww mean volume (Bld) [Entitic vol]6.6 fLNormal6.4-10.8 [facility] SystemComment on above:Performed By: #### [id number] #### [facility] [address] [place] [address]JPI2.0 E12/LLow4.3-5.9[facility] Healthcare SystemComment on above:Performed By: #### [id number] #### [facility] [address] [place] [address] 18672UGU2.5 E9/LNormal4.0-11.0[facility] SystemComment on above:Performed By: #### [id number] #### [facility] [address] [place] [address]tNCOyh 06-67-2177hSFB866 mL/min/1.73 e5Ustdvw>=59A[facility] Healthcare SystemComment on above:Performed By: #### [id number] #### [facility] [address] [place] [address] [id number] Note - Speech Languageon 09-24-2024 Interdisciplinary Note - Speech LanguageInterdisciplinary Note - Speech Language ST completed SLE this date Pt is a 69 year old female, with a prior medical history of CVA and seizures. On 09/12/24 testing completed found encephalomalacia in the right occipital lobe. CTA head/neck were normal. Pt oriented to name, date, and person in the room with her. Pt agreeable to completing picture identification, following directions, automatic recitation, recognition, and short-term memory tasks. Picture identification task - 1/6 items completed independently, pt with severe difficulty and longer processing time. When given phonological cues and semantic cues, she was able to identify 3/6 of the items. The pt was able to automatically recite 7/7 days of the week. She was able to recognize 5/5 letters, but pt with suspected left neglect from previous CVA due to missing 2 letters on left side of page, she was able to the letters when page was moved to the right. Pt given 3 items to recall, pt was unable to immediately recall items. When given verbal cues she was unable to recall for the2nd trial. Pt with moderate difficulty attending to task with ST during evaluation. Observing moderate-severe difficulty with word finding, attention, and longer processing time during evaluation. ST educated pt/family re: providing cues during conversation and the different types of cues they can give. ST pt without questions re: speech/language/cognition ST recommending treatment to address cognition/memory deficits up to 5x/week. Nursing aware of recommendations.[facility] HospitalCoding Queryon [id number] QueryCoding Query From: Denise Stinson RN To: Valerie RUBIO; Sent: 09/17/2024 14:27:44 EDT ! Subject: Coding Query Due Date/Time: 09/18/2024 14:26:00 EDT Caller Name: LACI CARDOZA; Caller Number: H Documentation in the medical record indicates this patient has been admitted with or diagnosed as having: stroke -like episode The following is also documented in the medical record: Discharge Note: Initial eval was suspicious for CVA (left MCA distribution, leftward gaze deviation, right hemiparesis, severe aphasia) however determined to be seizures as pt was NOT taking anti-seizure medication as it was inadvertently misplaced - > niece to help w/med set up at home -09/15: Repeat MRI brain: no enhancement of concern though there are 3 very meniscal foci suggestive of acute ischemia questionable representation of emboli related to cardiac cath. Per neurology they are of no consequence. Based on your medical judgment, can you please clarify if the diagnosis is: [___]stroke Ruled in [___]stroke Ruled out [___]Other: In responding to this request, please exercise your independent professional judgement. The fact that a question is asked does not imply that any particular answer is desired or expected. Thank you!denise [phone] From: Valerie RUBIO To: Milad RN, Denise Rai; Sent: 09/18/2024 07:06:17 EDT Subject: RE: Coding Query Caller Name: LACI CARDOZA; Caller Number: H [facility] Medicine Office/Clinic Noteon [id number] Medicine Office/Clinic NoteF[facility]/Clinic Note History of Present Illness [facility] [facility] [place] Presented by EMS with strokelike symptoms nonverbal, right-sided weakness overnight. CT brain no acute findings, encephalomalacia right occipital. She was loaded with IVKeppra given seizure history and admitted. Neurology saw and commented on chronic right occipital is chemic stroke on CT. related patient is essentially almost blind but may be for ocular reasons. Stated sclera typically appear irritated. Last seizure about 10 years ago. Was ultimately decided that presentation was postictal state, inadvertent noncompliance with home Keppra. Keppra was increased 1000 mg twice daily. Finding of remote right occipital ischemic CVA could serve as seizure nidus. She continue with delirium which neurology felt time was needed for improvement. Had elev troponin, niece related hx broken heart syndrome and cardiology consulted. Echocardiogram with apical wall motion abnormalities. 09/14 Dr. Campbell took for [facility], found nonobstructive CAD and had findings for stress- induced cardiomyopathy. Consider initiation of losartan/beta-he/SGLT for this once BP improves. There were concerns for left subclavian steal and CTA head neck found proximal left subclavian artery stenosis 50-60%, mildly flow- limiting. Cardiology recommended OP vascular follow-up. Here now for ST rehab stay Hb 13.2 Cr 0.5 K+ varied 3.1???3.9, 3.2 on discharge ALB 3.4 A1c 5.2 BNP 481 Echo w/contrast 09/12/2024 suboptimal study, EF seems around 50-55%, apical hypokinesis, grade 1 diastolic dysfunction, no evidence for thrombus. PMHx- HTN, remote CVA (prior to 1999 per SO), seizure disorder (around 2013), GERD, anxiety/depression, glaucoma, BL TKA PCP Dr. Robbin Ortiz Ophthalmology MD Anna Hurley Chi [phone] Niece Kelsey Grimaldo [phone] is POA-HC - she is looking for paperwork to provide to staff, perfamily male visitor Seven is S.O. not even though he will say they are . Medical information to POA and she will share with family. [1] Has 2 nieces locally, nephews. 3 sisters. Lot of amyloid disease in family. Physical Exam Overweight WF resting in bed, awake. SO present. Pt alternatively confused, distracted by papers on table. Trouble listing family members. Cooperative with exam other than eyes, is light sensitive HEENT- mild ectropion lower lids BL, 2-3+ scleral blush, light sensitive Lungs CTA Ht RRR wo murmur Abd obese, soft, nondistended no distal edema No facial droop, using both arms. Assessment/Plan 1. Encephalopathy (G93.40: Encephalopathy, unspecified) Reportedly better over course of admission but still with significant short-term memory impairment,impulsivity. Was out of bed on first night and had fall. Time, hope for continued improvement. 2. Seizure disorder (G40.909: Epilepsy, unspecified, not intractable, without status epilepticus) Sounds like around the time of her residential in 2013 she had a seizure, [facility] and[facility] with stress induced cardiomyopathy, went home with a LifeVest. She has been on Keppra 500 mg twice a day but External Rx History suggest variable compliance. Neurology increased Keppra 1000 mg twice daily 3. History of stroke in adulthood (Z86.73: Personal history of transient ischemic attack (TIA), andcerebral infarction without residual deficits) This had occurred before SO knew her and believes was well before 1999 MRI with areas of encephalomalacia within the right occipital region, scattered patchy areas in thewhite matter likely representing mild chronic microvascular ischemia Atorvastatin 40 at home Not on aspirin? 4. Major depressive disorder, severe (F32.2: Major depressive disorder, single episode, severe without psychotic features) SO believes to do over progressing loss of eyesight issues. Pt denies sleep issues, he notes irritability, worry, sadness and can sleep until noon. start sertraline 25 mg q AM 5. Takotsubo syndrome (I51.81: Takotsubo syndrome) hx of around 2013, findings on echo/LHC. Echo w/contrast 09/12/2024 suboptimal study, EF seems around 50-55%, apical hypokinesis, grade 1 diastolic dysfunction, no evidence for thrombus. Consider initiation of ARB/BB/SGLT etc. as BP allows. OP f/u cardiology 6. HTN (hypertension) (I10: Essential (primary) hypertension) Has been on HCTZ 25 mg daily, erratic fill history Not hypertensive currently 7. Glaucoma (H40.9: Unspecified glaucoma) SO relates chronic irritated eyes was to have glaucoma surgery this month, will be delayed 8. GERD (gastroesophageal reflux disease) (K21.9: Gastro-esophageal reflux disease without esophagitis) is on omeprazole 40 at home 9. Stenosis of left subclavian artery (I77.1: Stricture of artery) 50-60%, mildly flow-limiting. Cardiology recommended OP vascular follow-up. Full Code Niece is looking for POA paperwork. Sounds like pt has living sisters. Time spent on chart prep t (more content not included)...[facility] HospitalComment on above:Result Comment: Electronically Signed By: TEJINDER RODRIGEZ, Prashanth\.br\Date and Time Signed: 09/18/24 10:52 EDTCTA Neckon 09-17-2024 CTA NeckExam Date/Time: 09/12/2024 07:34 EDT Reason for Exam: NEURO DEFICIT, ACUTE, STROKE SUSPECTED;Other (please specify) Addendum A moderate focal approximately 50-60% stenosis of the proximal left subclavian artery is best visualized on the coronal reconstruction (Series 7, Image 63), with underestimation on the axial reconstructions secondary to partial volume averaging (Series 9, Image 96). RACHEL Viera was notified 09/17/2024 at approximately 9:54 AM. Ordering Provider: Vasile Nunes FINAL REPORT Dictated: 09/17/2024 9:54 am Kimo Storey MD Signed (Electronic Signature): 09/17/2024 9:54 am Signed by: Kimo Storey MD Transcribed by: LARS Technologist: OXANA Report IMPRESSION: Patent extracranial and intracranial circulation without evidence for occlusion, significant stenosis, or aneurysm. HISTORY: Rapid response stroke. Right-sided weakness. TECHNIQUE: Spiral high resolution axial images were obtained through the head, neck and superior mediastinum following bolus administration of intravenous contrast for CT angiography. The data was subsequently post-processed utilizing 3D multi-planar reconstructions, 3D maximum intensity projections. COMPARISON: CT head 09/12/2024. All CT scans at this facility use dose modulation, iterative reconstruction, and/or weight based dosing when appropriate to reduce radiation dose to as low as reasonably achievable. RESULT: BRAIN: No significant interval change from the recent CT brain dictation. NECK: Soft tissues: The soft tissue planes are maintained without acute finding. No suspicious mass or lesion. No significant lymphadenopathy. Spine: Degenerative changes. No acute findings. Report Lung apices: The visualized lung apices are clear. CT ARTERIOGRAM: Extracranial Circulation: Aortic Arch: Common origin of the brachiocephalic and left common carotid arteries, a normal anatomic variant. There is no significant stenosis in the proximal brachiocephalic vessels. Right Carotid findings, with stenosis % estimated by NASCET criteria: Mild to moderate plaque formation. No significant stenosis involving the right common carotid artery. No significant stenosis of the right ICA. No evidence for dissection or other acute process. Left Carotid findings, with stenosis % estimated by NASCET criteria: Mild to moderate plaque formation. No significant stenosis involving the left common carotid artery. No significant stenosis of the left ICA. No evidence for dissection or other acute process. Cervical Vertebral Arteries: Patent bilaterally and codominant. No evidence for dissection or other acute process. Intracranial Circulation: Anterior Circulation: Distal ICAs, proximal ACAs, and proximal MCAs appear patent. No evidence for significant stenosis or aneurysm. Vertebrobasilar Circulation: Distal vertebral arteries, basilar artery, proximal open pit quarry supervisor, and visualized cerebellar vessels appear patent. No evidence for significant stenosis or aneurysm. Dural venous sinuses: Visualized dural venous sinuses are patent. Tech Comments: GFR (mL/min/1/73m2) na Contrast: Isovue 370 Contrast amount in ml's: 100.00 Ordering Provider: Vasile Nunes FINAL REPORT Dictated: 09/12/2024 10:42 am Keith Mark MD Signed (Electronic Signature): 09/12/2024 10:42 am Signed by: Keith Mark MD Transcribed by: LARS Technologist: OXANA Report last revised on 09/17/2024 09:54 EDT by Kimo Storey MDOhioHealth Riverside Methodist HospitalInpatient Clinical Summaryon [id number] Clinical SummaryInpatient Clinical Summary [address] [address] Clinical Summary Person Information: Name: LACI CARDOZA Age: 69 Years : 1955 Sex: Female PCP: BRE TONY DO Marital Status: Race: White Ethnicity: Non- or Language: Lebanese Visit Id: Visit Reason: Weakness or fatigue; Potential stroke; POSSIBLE STROKE SYMPTOMS Speciality: Acuity: Enc Type: Inpatient Med Service: Medical Arrival: 09/12/2024 07:10:13 Discharge: Dispo Type: Admitted as IP to this Hosp Address: [address] [place] [address] [phone] Provider Notes: Diagnosis: 1:Seizure; 2:Stroke-like episode; 3:Delirium, acute; 4:Takotsubo cardiomyopathy; 5:Elevated troponin; 6:Hypokalemia; 7:HTN (hypertension); 8:HLD (hyperlipidemia); 9:Glaucoma; 10:GERD (gastroesophageal reflux disease); 11:Anxiety and depression; 12:On deep vein thrombosis (DVT) prophylaxis Problems No Problems Documented Smoking Status: Unknown if Ever Smoked Functional Status: Sensory Deficits: History of Falls: Mobility Assistance Prior to Admission: ADLs: Complete assist Current Level of Assistance for Self-Care/Mobility: Cognitive Status: Disoriented x 3 Allergies penicillin (Unknown) Measurements: Height: 152 cm Weight: 73.8 kg Blood Pressure: 112 mmHg / 68 mmHg BMI: 29.17 kg/m2 Procedures Cardiac catheterization, left heart (09/14/2024) Immunizations No Immunizations Documented This Visit Final Med List: atorvastatin (atorvastatin 40 mg Tab) 1 Tablets By Mouth at bedtime. dorzolamide-timolol ophthalmic (dorzolamide-timolol Opth 2%-0.5% Christi) 1 Drops Left eye 2 times a day. Ensure 237 Milliliter By Mouth every day. fluoxetine (Prozac 10 mg Cap) 1 Capsules By Mouth every day. latanoprost-netarsudil ophthalmic (Rocklatan 0.02%-0.005% ophthalmic solution) 1 Drops Left eye every day. levetiracetam (levetiracetam 500 mg Tab) 2 Tablets By Mouth 2 times a day. ocular lubricant (Artificial Tears) 2 Drops Ophthalmic 4 times a day. pantoprazole (Pantoprazole [address] Tab) 1 Tablets By Mouth every day. Care Team Members: Attending Physician: Mazin Sy III, DO Consulting Physician: Mahin Conroy MD Referring Physician: Follow up: With: Address: When: [address] [address] Business (1) Within 1 to 2 weeks Comments: Call for followup appointment for L subclavian stenosis 50-55% With: Address: When: [place] [address] Business (7) Within 1 to 2 days Comments: Call for followup appointment when d/c from TCU With: Address: When: Neurology [phone] Within 2 to 4 weeks Comments: Call for followup appointment Patient Education Information: CV - Cardiovascular Discharge Instructions (Custom); Seizure, Adult; Core Measures: Stroke (Cerebrovascular Accident) [facility], (Custom) pantoprazoleNormalAcmc Healthcare SystemInpatient Patient Summaryon [id number] Patient SummaryInpatient Patient Summary [address] [address] Patient Discharge Instructions PERSON INFORMATION Name: LACI CARDOZA Date of : 1955 Current Date: 09/17/2024 12:06:41 PHYSICIANS Admitting Physician: Mazin Sy III, DO Primary Care Physician: BRE TONY DO PCP Comment: Discharge Diagnosis: 1:Seizure; 2:Stroke-like episode; 3:Delirium, acute; 4:Takotsubo cardiomyopathy; 5:Elevated troponin; 6:Hypokalemia; 7:HTN (hypertension); 8:HLD (hyperlipidemia); 9:Glaucoma; 10:GERD (gastroesophageal reflux disease); 11:Anxiety and depression; 12:On deep vein thrombosis (DVT) p rophylaxis Condition at Discharge: Stable LACI CARDOZA has been given the following list of follow-up instructions, prescriptions, and patient education materials: PATIENT FOLLOW-UP INFORMATION Diet: Regular, Fat Modified- Low cholesterol, Low Sodium- 2000 mg Discharge Activity: Ambulate as tolerated, Activity as tolerated Discharge Restrictions: No driving Wound Care Instructions: Remove Your Dressing In Days Call Your Doctor For: IF UNABLE TO CONTACT YOUR PHYSICIAN AND YOU FEEL IT IS AN EMERGENCY, GO TO THE NEAREST EMERGENCY ROOM OR CALL 911 Home Treatment: Devices/Equipment: None Special Services: Additional Instructions: Cont. delirum care, promote sleep/wake cycle Event monitor as OP - when d/c from TCU Seizure precautions Return to the hospital for worsening symptoms High fall risk precautions Primary Care Physician to provide the following pending test results: None Follow up: With: Address: When: Maureen Smith [address] [place] [address] Business (1) Within 1 to 2 weeks Comments: Call for followup appointment for L subclavian stenosis 50-55% With: Address: When: [place] [place] [address] Business (1) Within 1 to 2 days Comments: Call for followup appointment when d/c from TCU With: Address: When: Neurology [phone] Within 2 to 4 weeks Comments: Call for followup appointment In the event that this physician does not participate in your insurance network, please consult with your insurance company to find a nearby participating provider. Comment: ALLYSON Nair BONNIE L, have received the attached patient education materials/instructions and have verbalized understanding: Patient Signature Date Clinican/Nurse Signature Date HERE ARE THE MEDICATION CHANGES THAT OCCURRED DURING YOUR HOSPITAL STAY New Medications Other Medications Ensure 237 Milliliter By Mouth every day. Last Dose: Next Dose: pantoprazole (Pantoprazole [address] Tab) 1 Tablets By Mouth every day. Last Dose: Next Dose: Medications to Continue Taking That Have Changed Other Medications START: atorvastatin (atorvastatin 40 mg Tab) 1 Tablets By Mouth at bedtime. Last Dose: Next Dose: STOP: atorvastatin (atorvastatin 40 mg Tab) START: fluoxetine (Prozac 10 mg Cap) 1 Capsules By Mouth every day. Last Dose: Next Dose: STOP: fluoxetine (Prozac) By Mouth every day. START: levetiracetam (levetiracetam 500 mg Tab) 2 Tablets By Mouth 2 times a day. Last Dose: Next Dose: STOP: levetiracetam (levetiracetam 500 mg Tab) 1 Tablets By Mouth 2 times a day. START: ocular lubricant (Artificial Tears) 2 Drops Ophthalmic 4 times a day. Last Dose: Next Dose: STOP: ocular lubricant (Refresh Relieva PF) 1 Drops Both eyes every day. Medications to Continue with No Changes Other Medications dorzolamide-timolol ophthalmic (dorzolamide-timolol Opth 2%-0.5% Christi) 1 Drops Left eye 2 times a day. Last Dose: Next Dose: latanoprost-netarsudil ophthalmic (Rocklatan 0.02%-0.005% ophthalmic solution) 1 Drops Left eye every day. Last Dose: Next Dose: No Longer Take the Following Medications hydrochlorothiazide (hydrochlorothiazide 25 mg oral tablet) By Mouth every day. ibuprofen (Advil 200 mg oral tablet) By Mouth every 6 hours. omeprazole (Prilosec) By Mouth every day. Comment: MEDICATION LIST PROVIDED FOR YOU IS A LIST OF YOUR CURRENT MEDICATIONS. PLEASE CARRY THIS WITH YOU AT ALL TIMES. atorvastatin (atorvastatin 40 mg Tab) 1 Tablets By Mouth at bedtime. dorzolamide-timolol ophthalmic (dorzolamide-timolol Opth 2%-0.5% Christi) 1 Drops Left eye 2 times a day. Ensure 237 Milliliter By Mouth every day. fluoxetine (Prozac 10 mg Cap) 1 Capsules By Mouth every day. latanoprost-netarsudil ophthalmic (Rockla (more content not included)...Normal [facility] SystemIn[facility] Patient SummaryInpatient Patient Summary LACI CARDOZA :1955 Visit Date:09/12/2024 Inpatient Discharge Instructions Your Care Team Admitting Physician - Mazin Sy III, DO Consulting Physician - Mahin Conroy MD Reason for Your Visit Strokelike s/s Your Diagnosis Seizure Stroke-like episode Delirium, acute Takotsubo cardiomyopathy Elevated troponin Hypokalemia HTN (hypertension) HLD (hyperlipidemia) Glaucoma GERD (gastroesophageal reflux disease) Anxiety and depression On deep vein thrombosis (DVT) prophylaxis Potential stroke Weakness or fatigue Tests Performed Brain MRI w/o Contrast CT Head or Brain w/o Contrast CTA Head CTA Neck Echo Transthoracic w/ Contrast MRI Brain w/ + w/o Contrast Upper Extremity Arterial Duplex US Unilateral XR Chest Single View This Is Your Medications List Ensure atorvastatin (atorvastatin 40 mg Tab) dorzolamide-timolol ophthalmic (dorzolamide-timolol Opth 2%-0.5% Christi) fluoxetine (Prozac 10 mg Cap) latanoprost-netarsudil ophthalmic (Rocklatan 0.02%-0.005% ophthalmic solution) levetiracetam (levetiracetam 500 mg Tab) ocular lubricant (Artificial Tears) pantoprazole (Pantoprazole [address] Tab) [Image Removed: STOP]Stop taking these medications hydrochlorothiazide (hydrochlorothiazide 25 mg oral tablet) ibuprofen (Advil 200 mg oral tablet) omeprazole (Prilosec) Procedure History Cardiac catheterization, left heart (09/14/2024), bilateral stereo biopsy (02/2014), right wrist surgery (1990), bilateral total knee. Discharge Vitals Temperature (Axillary) 36.5 ???C Heart Rate (Peripheral) 65 Respiratory Rate 17 Blood Pressure 112/68 Weight 73.8 kg What to do next Instructions From Your Doctor Event Name Event Result Discharge Activity Ambulate as tolerated, Activity as tolerated Discharge Restrictions No driving Discharge Diet(s) Regular, Fat Modified- Low cholesterol, Low Sodium- 2000 mg Pending Diagnostic Test Results None Discharge Instructions Cont. delirum care, promote sleep/wake cycleEvent monitor as OP - when d/c from TCUSeizure precautionsReturn to the hospital for worsening symptomsHigh fall risk precautions New Follow Up Appointments after Discharge Follow Up with Maureen Smith When: Within 1 to 2 weeks Comments: Call for followup appointment for L subclavian stenosis 50-55% Where: [address] [place] [address]- Business (1) Follow Up with BRE TONY When: Within 1 to 2 days Comments: Call for followup appointment when d/c from TCU Where: [address] [place] [address]- Business (1) Follow Up with Neurology When: Within 2 to 4 weeks Comments: Call for followup appointment Where: [phone] Medications What How Much When Instructions Next Dose New Ensure 237 Milliliter By Mouth Every day 09/18 New pantoprazole (Pantoprazole [address] Tab) 1 Tablets By Mouth Every day 09/18 Changed atorvastatin (atorvastatin 40 mg Tab) 1 Tablets By Mouth At bedtime 09/17pm Changed fluoxetine (Prozac 10 mg Cap) 1 Capsules By Mouth Every day 09/18 Changed levetiracetam (levetiracetam 500 mg Tab) 2 Tablets By Mouth 2 times a day 09/17pm Changed ocular lubricant (Artificial Tears) 2 Drops Ophthalmic 4 times a day 09/17 pm Unchanged dorzolamide-timolol ophthalmic (dorzolamide-timolol Opth 2%-0.5% Christi) 1 Drops Left eye 2 times a day 09/17pm Unchanged latanoprost-netarsudil ophthalmic (Rocklatan 0.02%-0.005% ophthalmic solution) 1 Drops Left eye Every day 09/18 What When Comments Stop Taking hydrochlorothiazide (hydrochlorothiazide 25 mg oral tablet) Every day Stop Taking ibuprofen (Advil 200 mg oral tablet) Every 6 hours Stop Taking omeprazole (Prilosec) Every day Test Results CBC BMP WBC: 10 E9/L (09/16/24 06:16:00) Glucose Lvl: 95 mg/dL (09/16/24 06:16:00) RBC: 4.4 E12/L (09/16/24 06:16:00) BUN: 9 mg/dL (09/16/24 06:16:00) HGB: 13.2 gm/dL (09/16/24 06:16:00) Creatinine: 0.5 mg/dL (09/16/24 06:16:00) Hct: 39 % (09/16/24 06:16:00) BUN/Creat Ratio: 18 (09/16/24 06:16:00) MCV: 88.9 fL (09/16/24 06:16:00) Sodium Lvl: 136 mmol/L (09/17/24 06:33:00) MCH: 30.2 pg (09/16/24 06:16:00) Potassium Lvl: 3.2 mmol/L Low (09/17/24 06:33:00) MCHC: 33.9 gm/dL (09/16/24 06:16:00) Chloride: 104 mmol/L (09/17/24 06:33:00) RDW: 14.2 % (09/16/24 06:16:00) CO2: 23 mmol/L (09/17/24 06:33:00) Platelet: 277 E9/L (09/17/24 06:33:00) AGAP: 12 mEq/L (09/17/24 06:33:00) MPV: 6.7 fL (09/16/24 06:16:00) Calcium Lvl: 8.3 mg/dL Low (09/16/24 06:16:00) Allergies penicillin (Unknown) Education Materials [place], [place] CARDIOVASCULAR DISCHARGE INSTRUCTIONS Diet: ??? Resume pre-procedure diet. ??? Increase water intake the next 2 days to flush dye out of the body. Activity: If radial access: ??? L (more content not included)...[facility] Interdisciplinary Note - Case Manageron [id number] Note - Case ManagerInterdisciplinary Note - Perinatal Specialist Patient is awake and alert in bed, previously rounded with Valerie, Family at bedside. updated accetance to TCU and they remain family preference at this time. Family is aware of plan to DC to TCU oncemedically cleared. Neurology in to see patient this AM, family is upset today due to decreased memory of pain from prior to hospitalization. Medicare rights reviewed. CRM following. . PCP verified and insurance information reviewed and DME discussed. Contact information provided and white board updated.[facility] Comment on above:Result Comment: Electronically Signed By: Glenys GAMBINO, Evie\.que\Date and Time Signed: 09/17/24 09:32 EDTLyteson 09-98-3464Zljdm gap [Moles/Vol]12 mmol/LNormal6-16A[facility] Healthcare SystemComment on above: Performed By: #### [id number] ####[facility] [address] [place], [place] [address]Idgdukrs [Moles/Vol]104 mmol/BBhmgdx048-964SvdoojAcmc Healthcare SystemComment on above:Performed By: #### [id number] ####[facility] [address] [place], [place] [address]FL6 [Moles/Vol]23 mmol/BVkyahh41-41YqdwoyAcmc Healthcare SystemComment on above:Performed By: #### [id number] ####[facility] [address] [place], [place] [address]Vrzkuyckk [Moles/Vol]3.2 mmol/LLow3.5-5.3Fisher [facility]noch Pratt HospitalComment on above:Performed By: #### [id number] ####[facility] [address] [place], [place] [address]Swtrvh [Moles/Vol]136 mmol/LNormal 135-145A[facility] Healthcare SystemComment on above:Performed By: #### [id number] ####[facility] [address] [place], [place] [address]DPqn 12-86-7258AGX Coag (PPP) [Relative time]1.22 {INR}Invalid Interpretation Code [facility] SystemComment on above:Result Comment: INR results are specifically intended to assess patients stabilized on long-term Anticoagulation therapy suggested INR???s ???Less Intensive Anticoagulation??? 2.0 ??? 3.0 Conventional Range 3.0 ??? 4.5Performed By: #### [id number] #### [facility] [address], [place] [address]MN99.7 second(s)High9.4-12.5FOhioHealth Southeastern Medical CenterComment on above:Result Comment: 15 days - 4 weeks 1 - 5 months 6 -11 months 1 ??? 5 years 6 ??? 10 years 11 -17 years Mean: 11.2 (9.5 ??? 12.6) Mean: 11.0 (9.7 ??? 12.8) Mean: 11.0 (9.8 ??? 13.0) Mean: 11.3 (9.9 ??? 13.4) Mean: 11.7 (10.0 ??? 14.6) Mean: 11.8 (10.0 - 14.1) Pediatric Reference ranges were obtained from a study by Jon Khan et al. prepared from 1437 samples obtained at 7 different centers using the same coagulation reagent and instrumentation as [facility]. Currently there are no coagulation studies available worldwide for children to 14 days, andno normal ranges.Performed By: #### [id number] #### [facility] [address] [place], [place] [address]Latnslcw Counton 41-99-1015Rnymfzwe226.0 E9/PKnesyo616.0-500.0 [facility] SystemComment on above:Performed By: #### [id number] #### [facility] [address], [place] [address]LI Upper Extremity Arterial Duplex Unilateraon 85-39-8132DT Upper Extremity Arterial Duplex UnilateraExam Date/Time: 09/17/2024 09:23 EDT Reason for Exam: Other (please specify) Report IMPRESSION: PATENT LEFT UPPER EXTREMITY ARTERIAL SYSTEM, WITHOUT SIGNIFICANT ATHEROSCLEROTIC DISEASE. MILD PARVUS TARDUS WAVEFORMS SECONDARY TO A MILDLY FLOW LIMITING PROXIMAL LEFT SUBCLAVIAN ARTERY STENOSIS, NOTED. EXAM: US Upper Extremity Arterial Duplex Unilateral DATE: 09/17/2024 7:47 AM CLINICAL HISTORY: Asymmetric upper extremity blood pressures. COMPARISON: Head and neck CTAs 09/12/2024 FINDINGS: Essentially monophasic mildly parvus tardus waveforms are noted throughout the left upper extremity, secondary to a focal flow limiting stenosis proximal left subclavian artery noted on the CTA. The left upper extremity arterial system is patent without significant atherosclerotic plaquing or elevated velocities to suggest other flow-limiting stenosis. Maximum systolic velocities are: LEFT UPPER EXTREMITY (in cm/s): Left proximal subclavian artery 111. Left mid subclavian artery 120. Left distal subclavian artery 108. Left axillary artery 76. Left proximal brachial artery 75. Left mid brachial artery is 76. Left distal brachial artery 60. Left proximal radial artery 50. Left mid radial artery 50. Left distal radial artery 38. Left proximal ulnar artery 42. Left mid ulnar artery 35. Left distal ulnar artery 27. Report Ordering Provider: Valerie MARTINEZ FINAL REPORT Dictated: 09/17/2024 10:40 am Kimo Storey MD Signed (Electronic Signature): 09/17/2024 10:40 am Signed by: Kimo Storey MD Transcribed by: LARS Technologist: [facility] Cross HospitalBMPon 86-62-3190Rjyzs gap [Moles/Vol]11 mmol/LNormal6-16[facility] Comment on above:Performed By: #### [id number] #### [facility] [address] [place], [place] [address]IZP/Creat Ratio18 No LdpmlBvdjcg19-07AwxgxqAcmc Healthcare SystemComment on above:Performed By: #### [id number] #### [facility] [address] [place], [place] [address]Uabrkbf [Mass/Vol]8.3 mg/dLLow8.9-11.1FOhioHealth Southeastern Medical CenterComment on above:Performed By: #### [id number] #### [facility] [address] [place], [place] [address]Iefkikbk [Moles/Vol]104 mmol/WVkhtzc091-338ZyyuejAcmc Healthcare SystemComment on above:Performed By: #### [id number] #### [facility] [address] [place], [place] [address]HT1 [Moles/Vol]25 mmol/VHfjpld65-26ClykbvAcmc Healthcare System Comment on above:Performed By: #### [id number] #### [facility] [address] [place], [place] [address]Hacqygrusc [Mass/Vol]0.5 mg/dLNormal0.5-1.3FOhioHealth Southeastern Medical CenterComment on above:Performed By: #### [id number] #### [facility] [address] [place], [place] [address]Qplznbz [Mass/Vol]95 mg/gVKigpxd19-009QvlnufAcmc Healthcare SystemComment on above:Performed By: #### [id number] #### [facility] [address] [place], [place] [address]Arqlnaizd [Moles/Vol]3.6 mmol/LNormal3.5-5.3FOhioHealth Southeastern Medical CenterComment on above:Performed By: #### [id number] #### [facility] [address] [place] [address]Pxpijk [Moles/Vol]136 mmol/ZFfzaul022-266GjntzmAcmc Healthcare SystemComment on above:Performed By: #### [id number] #### [facility] [address] [place] [address]Rhhx nitrogen [Mass/Vol]9 mg/dLNormal5-21[facility] Healthcare SystemComment on above:Performed By: #### [id number] #### [facility] [address] [place] [address]ABOws 36-23-6798Wrk Ctr BNPPassNormalAcmc Healthcare SystemComment on above:Performed By: #### [id number] #### [facility] [address] [place] [address]Qndvnffbybn peptide B (Bld) [Mass/Vol]481 pg/mLHigh5-80[facility] Healthcare SystemComment on above:Performed By: #### [id number] #### [facility] [address] [place] [address]XXG w/ Auto Diffon 08-54-5421Psemerzi Absolute0.0 E9/LNormal 0.0-0.2FOhioHealth Southeastern Medical CenterComment on above:Performed By: #### [id number] #### [facility] [address] [place] [address]Igjdlxihe/100 WBC (Bld)0.4 %Normal0.0-2.0[facility] Healthcare SystemComment on above:Performed By: #### [id number] #### [facility] [address] [place] [address]Cpv Absolute0.0 E9/LNormal0.0-0.5FOhioHealth Southeastern Medical Center Comment on above:Performed By: #### [id number] #### [facility] [address] [place] [address]Mjovgqcluai/100 WBC (Bld)0.2 %Normal0.0-8.0[facility] SystemComment on above:Performed By: #### [id number] #### [facility] [address] [place], [place] [address]Ckxxjgbbiuh distribution width (RBC) [Ratio]14.2 %Normal 10.9-14.2FOhioHealth Southeastern Medical CenterComment on above:Performed By: #### [id number] #### [facility] [address] [place] [address]Jlvyahuyav (Bld) [Volume fraction]39.0 %Icxgqv86.0-46.0[facility] Healthcare SystemComment on above:Performed By: #### [id number] #### [facility] [address] [place] [address]Oxrplpnbiw (Bld) [Mass/Vol]13.2 g/eDKascsn51.0-16.0[facility] Healthcare SystemComment on above:Performed By: #### [id number] #### [facility] [address] [place] [address]Xpzyb Absolute1.3 E9/LNormal1.0-4.0[facility] Comment on above:Performed By: #### [id number] #### [facility] [address] [place] [address]Ojougurfjlj/100 WBC (Bld)13.4 %Low14.0-50.0[facility] Healthcare SystemComment on above:Performed By: #### [id number] #### [facility] [address] [place] [address]SIH (RBC) [Entitic mass]30.2 agMdwytt20.0-34.0[facility] SystemComment on above:Performed By: #### [id number] #### [facility] [address] [place] [address]XDIT (RBC) [Mass/Vol]33.9 g/nFRmcrea60.4-36.0[facility] SystemComment on above:Performed By: #### [id number] #### [facility] [address] [place], [place] [address]YCM (RBC) [Entitic vol]88.9 pXBmtnin46.0-100.0[facility] SystemComment on above:Performed By: #### [id number] #### [facility] [address] [place], [place] [address]Gxip Absolute0.8 E9/LNormal0.2-1.0[facility] Comment on above:Performed By: #### [id number] #### [facility] [address] [place], [place] [address]Lkierrbmu/100 WBC (Bld)7.9 %Normal4.0-14.0[facility] SystemComment on above:Performed By: #### [id number] #### [facility] [address] [place], [place] [address]Sipzld Absolute7.8 E9/LHigh2.0-7.5FOhioHealth Southeastern Medical Center Comment on above:Performed By: #### [id number] #### [facility] [address] [place], [place] [address]Dufxov Auto78.1 %High36.0-75.0[facility] Comment on above:Performed By: #### [id number] #### [facility] [address] [place], [place] [address]Yuzmrmgh890.0 E9/GQhbnln456.0-500.0[facility] Comment on above:Performed By: #### [id number] #### [facility] [address] [place], [place] [address]Jefrkcst mean volume (Bld) [Entitic vol]6.7 fLNormal6.4-10.8 [facility] SystemComment on above:Performed By: #### [id number] #### [facility] [address] [place], [place] [address]YPP1.4 E12/LNormal4.3-5.9[facility] Healthcare SystemComment on above:Performed By: #### [id number] #### [facility] [address] [place], [place] [address]GUX12.0 E9/LNormal4.0-11.0[facility] Healthcare SystemComment on above:Performed By: #### [id number] #### [facility] [address] [place], [place] [address]SOOch 00-25-0266AVCABH CLINICAL HISTORY: History of seizure disorder. Persistent altered mentation after cardiac catheterization. Few days prior to that she had number of focal deficits that were concerning for acute stroke that ended up being most likely related to postictal paralysis and other phenomena. She is on levetiracetam at the time of the study. TECHNICAL INFORMATION: This routine EEG was performed using the standard international 10-20 system of lead placement. Alldata was obtained digitally and available for reformatting and remontaging. Simultaneous electrocardiogram monitoring was performed during the recording. DESCRIPTION OF EEG RECORDING: Posterior dominant rhythm was apparent, was of high amplitude, was 5-6 hz, and appropriately attenuated with eye-opening. I think the amplitude over the left cerebral hemisphere looks a little lower than the right cerebral hemisphere. Photic stimulation was used as an activating procedure and resulted in no abnormal findings. No electrographic sleep was observed. There was 1 possible epileptiformdischarge, with phase reversal at C3 and a slow-wave that followed, but no significant electrical background disruption making it questionable. There appeared to be several generalized triphasic waves. No significant or interpretation-limiting artifact was seen. IMPRESSION: Abnormal EEG. Moderate slowing of the background electrical activity. Slight attenuation of the left cerebral hemisphere amplitudes. Several generalized triphasic waves could suggest underlying metabolic disturbance. 1 questionable left cerebral hemispheric epileptiform discharge.NormalAcmc Healthcare SystemComment on above:Result Comment: Electronically Signed By: Charlie Harrington DO\Date and Time Signed: 09/16/24 10:19 EDTInterdisciplinary Note - Case Manageron 80-05-3163Mtjpvjoijrhulpsxm Note - Case ManagerInterdisciplinary Note - Perinatal Specialist CRM to room 204 Patient is awake, alert but not fully oriented. Patient verified on Saturday she is from home with her BF. ( he is present in room today). He will be her ride at [place]. Patient verified her PCP, DME and insurance. Patient PLOF is walker use, independent in self care except gets help into Shower. Patientis an inpatient, IMM completed Saturday, verbally reviewed today. Patient came in with AMS, CVA vs Seizure. Patient was negative for CVA, positive for seizure. Patient is assigned to [facility], see notes. She has Neuro and Cardiology Patient had Heart Cath 09/14. Patient was recommended for SNF then SNF Vs HH. She is pending a re-eval from PT. She was accepted by [facility] care but now making referral to [facility] for SNF stay. Patient was provided CRM contact, white board updated. CRM following DC date TBD, CRM will get updates at 10 AM Huddle. CRM back to room and family is now not sure on FOC, Choice are WAW and TCU WAW and TCU are reviewing Per [facility] Patient nilinda Case is HPOA, and will help with decision making There is no POA on file but this CRM did speak with the niece in the room today. She is trying to find the patients POA to bring in 204- WAW-She is good to go both clinically and financially. With no secondary she is only covered at 100% for 20 days. Look forward to hearing back!! Still waiting on TCU review, will discuss with POA after we have there information backMercy Memorial HospitalComment on above:Result Comment: Electronically Signed By: Alexandria Rees\.br\Date and Time Signed: 09/16/24 13:28 EDTInterdisciplinary Note - OTon 85-21-6032Xxgfkryunxehquhsw Note - OTInterdisciplinary Note - OT Patient presents w/ Rt side inattention, decreased safety awareness, decreased cognition, and increased weakness resulting in significant need for assist with all adls and transfers with constant verbal cues for safety. Inpatient OT services to resume daily to progress as tolerates in order to achieve PLOF which was modified ind in home environment prior to this illness. Recommend SNF at [place] for continued OT services.[facility] HospitalMRI Brain w/ + w/o Contraston 27-48-7767LZR Brain w/ + w/o ContrastExam Date/Time: 09/15/2024 16:36 EDT Reason for Exam: Altered mental status Report IMPRESSION: TWO SMALL ACUTE/SUBACUTE RIGHT CEREBELLAR ISCHEMIC INFARCTS. NO ABNORMAL ENHANCEMENT OR OTHER SIGNIFICANT CHANGES FROM 09/12/2024. EXAM: MRI Brain w/ + w/o Contrast DATE: 09/15/2024 4:35 PM CLINICAL HISTORY: Altered mental status. COMPARISON: 09/12/2024. TECHNIQUE: Multiplanar MR imaging of the head was performed before and after uneventful intravenous administration of contrast. FINDINGS: Motion artifact mildly limits some sequences. Since 09/12/2024, two small areas of restricted diffusion have developed within the posterolateral aspect of the left cerebellar hemisphere, most consistent with acute/subacute ischemic infarcts (Series 7, Image 8). There is no other infarct, intracranial hemorrhage, abnormal enhancement, or other significant changes identified elsewhere. Previously described, chronic, atrophic and involutional changes are again noted. Contrast: Vueway Contrast amount in ml's: 7.50 Ordering Provider: Charlie Harrington FINAL REPORT Dictated: 09/16/2024 8:36 am Kimo Storey MD Signed (Electronic Signature): 09/16/2024 8:36 am Signed by: Kimo Storey MD Transcribed by: LARS Technologist: [facility] 80-14-8351QWS Coag (PPP) [Relative time]1.18 {INR}Invalid Interpretation Code [facility] SystemComment on above:Result Comment: INR results are specifically intended to assess patients stabilized on long-term Anticoagulation therapy suggested INR???s ???Less Intensive Anticoagulation??? 2.0 ??? 3.0 Conventional Range 3.0 ??? 4.5Performed By: #### [id number] #### [facility] [address] [place], [place] [address]NU07.2 second(s)High9.4-12.5FOhioHealth Southeastern Medical CenterComment on above:Result Comment: 15 days - 4 weeks 1 - 5 months 6 -11 months 1-5 years 6-10 years 11 -17 years Mean: 11.2 (9.5-12.6) Mean: 11.0 (9.7-12.8) Mean: 11.0 (9.8-13.0) Mean: 11.3 (9.9-13.4) Mean: 11.7 (10.0-14.6) Mean: 11.8 (10.0 - 14.1) Pediatric Reference ranges were obtained from a study by Jon Khan et al. prepared from 1437 samples obtained at 7 different centers using the same coagulation reagent and instrumentation as [facility]. Currently there are no coagulation studies available worldwide for children to 14 days, andno normal ranges.Performed By: #### [id number] #### [facility] [address] [place], [place] [address]bTJYpr 75-63-3449xCDT358 mL/min/1.73 r0Lhfkns>=59A[facility] Healthcare SystemComment on above:Performed By: #### [id number] #### [facility] [address] [place], [place] [address]Ehxfalkmpbgklmcet Note - Case Manageron 09-15-2024 Interdisciplinary Note - Case ManagerInterdisciplinary Note - Perinatal Specialist Patient is resting did not respond to SW questions. Patient verified she is from home with her BF with previous CRM and will transport. Patient had verified her PCP, DME and insurance. Patient PLOF is walker use, independent in self care except gets help into Shower. Patient is an inpatient, IMM completed today. Patient came in with AMS, CVA vs Seizure. Patient was negative for CVA, positive for seizure. Patient is assigned to [facility], see notes. Patient received Heart Cath yesterday. Patient was recommended for SNF over weekend now board says SNF vs care. Patient declines SNF stay. She was accepted to [facility] for RN, PT, OT and ASSOCIATE [employer]. Patient was provided SW contact, white board updated.[facility] HospitalComment on above:Result Comment: Electronically Signed By: Madie Quezada\.br\Date and Time Signed: 09/16/2507:52 EDT Interdisciplinary Note - OTon 43-07-6694Dotxutbvleubtbrwb Note - OT Interdisciplinary Note - OT 09/15/24: 1330 Attempted OT re-eval this date as pt had heart cath yesterday. Staff report pt has been unresponsive and unable to follow commands after returning from procedure. Upon attempting to complete eval, patient was restless and unable to open eyes, respond to questions or commands. Will check back 09/16/24 to see if pt is more appropriate to participate in OT services.Normal [facility]c Healthcare SystemLyteson 45-68-5427Vajvq gap [Moles/Vol]12 mmol/L Normal6-16[facility] SystemComment on above:Performed By: #### [id number] #### [facility] [address] [place], [place] [address]Ebpdttyf [Moles/Vol]101 mmol/WPnxumg795-245FfqiiiAcmc Healthcare SystemComment on above:Performed By: #### [id number] #### [facility] [address], [place] [address]LU3 [Moles/Vol]24 mmol/RKrdptp82-67StarioAcmc Healthcare System Comment on above:Performed By: #### [id number] #### [facility] [address] [place], [place] [address]Allfconan [Moles/Vol]3.4 mmol/LLow3.5-5.3FOhioHealth Southeastern Medical CenterComment on above:Performed By: #### [id number] #### [facility] [address], [place] [address]Stmely [Moles/Vol]134 mmol/AIyb578-781TpwubtAcmc Healthcare SystemComment on above:Performed By: #### [id number] #### [facility] [address] [place], [place] [address]ITlz 26-29-2047BMN Coag (PPP) [Relative time]1.22 {INR}Invalid Interpretation CodeAcmc Healthcare SystemComment on above:Result Comment: INR results are specifically intended to assess patients stabilized on long-term Anticoagulation therapy suggested INR???s ???Less Intensive Anticoagulation??? 2.0 ??? 3.0 Conventional Range 3.0 ??? 4.5Performed By: #### [id number] #### [facility] [address] [place], [place] [address]IL11.7 second(s)High9.4-12.5FOhioHealth Southeastern Medical CenterComment on above:Result Comment: 15 days - 4 weeks 1 - 5 months 6 -11 months 1 ??? 5 years 6 ??? 10 years 11 -17 years Mean: 11.2 (9.5 ??? 12.6) Mean: 11.0 (9.7 ??? 12.8) Mean: 11.0 (9.8 ??? 13.0) Mean: 11.3 (9.9 ??? 13.4) Mean: 11.7 (10.0 ??? 14.6) Mean: 11.8 (10.0 - 14.1) Pediatric Reference ranges were obtained from a study by Jon Khan et al. prepared from 1437 samples obtained at 7 different centers using the same coagulation reagent and instrumentation as [facility]. Currently there are no coagulation studies available worldwide for children to 14 days, andno normal ranges.Performed By: #### [id number] #### [facility] [address] [place], [place] [address]Xhtmwvli Counton 19-72-0281Qsreunpv752.0 E9/JGwqtzd160.0-500.0 [facility] SystemComment on above:Performed By: #### [id number] #### [facility] [address] [place], [place] [address]QVChg 64-80-6292Jlrjg gap [Moles/Vol]8 mmol/LNormal6-16[facility] Healthcare SystemComment on above:Performed By: #### [id number] #### [facility] [address] [place], [place] [address]VNW/Creat Ratio14 No HnoitWdhavs81-75AxgzgfAcmc Healthcare SystemComment on above:Performed By: #### [id number] #### [facility] [address] [place], [place] [address]Pfagrdn [Mass/Vol]8.6 mg/dLLow8.9-11.1FOhioHealth Southeastern Medical CenterComment on above:Performed By: #### [id number] #### [facility] [address] [place], [place] [address]Iddnisys [Moles/Vol]100 mmol/RXlo897-482ZaatncAcmc Healthcare SystemComment on above:Performed By: #### [id number] #### [facility] [address] [place], [place] [address]BH6 [Moles/Vol]30 mmol/GFvmpja20-23BcvaxyAcmc Healthcare System Comment on above:Performed By: #### [id number] #### [facility] [address], [place] [address]Eeimghjxsy [Mass/Vol]0.5 mg/dLNormal0.5-1.3FOhioHealth Southeastern Medical CenterComment on above:Performed By: #### [id number] #### [facility] [address], [place] [address]Ixexvhh [Mass/Vol]83 mg/wHClcpft94-114JxmrxeAcmc Healthcare SystemComment on above:Performed By: #### [id number] #### [facility] [address] [place], [place] [address]Aaiuuskjo [Moles/Vol]3.2 mmol/LLow3.5-5.3FOhioHealth Southeastern Medical CenterComment on above:Performed By: #### [id number] #### [facility] [address], [place] [address]Dhozzp [Moles/Vol]135 mmol/GOdwehr240-872GynxygAcmc Healthcare SystemComment on above:Performed By: #### [id number] #### [facility] [address] [place], [place] [address]Qtgd nitrogen [Mass/Vol]7 mg/dLNormal5-21[facility] SystemComment on above:Performed By: #### [id number] #### [facility] [address], [place] [address]GVT w/Indiceson 45-04-1409Tscwakgayov distribution width (RBC) [Ratio]14.0 %Sdpqrv28.9-14.2FOhioHealth Southeastern Medical CenterComment on above: Performed By: #### [id number] #### [facility] [address] [place], [place] [address]Hafxypytov (Bld) [Volume fraction]36.9 %Zkfabe27.0-46.0[facility] Healthcare SystemComment on above:Performed By: #### [id number] #### [facility] [address] [place] [address]Eeokvyvitw (Bld) [Mass/Vol]12.5 g/uKQtoeol51.0-16.0[facility] SystemComment on above:Performed By: #### [id number] #### [facility] [address] [place] [address]DQD (RBC) [Entitic mass]30.0 hcAcknhc69.0-34.0[facility] SystemComment on above:Performed By: #### [id number] #### [facility] [address] [place] [address]KZTO (RBC) [Mass/Vol]33.9 g/gWSigela76.4-36.0[facility] SystemComment on above:Performed By: #### [id number] #### [facility] [address] [place] [address]CGD (RBC) [Entitic vol]88.3 zXFtgyiu37.0-100.0[facility] SystemComment on above:Performed By: #### [id number] #### [facility] [address] [place] [address]Rjymudin076.0 E9/OPzgses602.0-500.0[facility] Comment on above:Performed By: #### [id number] #### [facility] Laboratory [address] [place] [address] 40354Hkxhdhzn mean volume (Bld) [Entitic vol]7.1 fLNormal6.4-10.8 [facility] SystemComment on above:Performed By: #### [id number] #### [facility] [address] [place] [address] 15983ZQK2.2 E12/LLow4.3-5.9[facility] SystemComment on above:Performed By: #### [id number] #### [facility] [address] [place] [address] 76713JRQ morphology finding Nom (Bld)NORMALInvalid Interpretation CodeAcmc Healthcare SystemComment on above:Performed By: #### [id number] #### [facility] [address] [place] [address] 33006PCY7.1 E9/LNormal4.0-11.0[facility] SystemComment on above:Performed By: #### [id number] #### [facility] [address] [place] [address] 58854Kktprsdgo Glucose POCon 84-06-4591Oajbbny [Mass/Vol]95 mg/dL Qbobgd21-82UozofcAcmc Healthcare SystemComment on above:Result Comment: Notified RN/MDPerformed By: #### [id number] #### [facility] [address] [place] [address] 77561FkuF9qlh 66-08-3493SkA9g (Bld) [Mass fraction]5.2 %Normal<=5.9 [facility] SystemComment on above:Performed By: #### [id number] #### [facility] [address] [place] [address] 83103Ltfdtzaik Clinical Summaryon [id number] Clinical SummaryInpatient Clinical Summary [address] [address] Clinical Summary Person Information: Name: LACI CARDOZA Age: 69 Years : 1955 Sex: Female PCP: BRE TONY DO Marital Status: Race: White Ethnicity: Non- or Language: Lebanese Visit Id: Visit Reason: Weakness or fatigue; Potential stroke; POSSIBLE STROKE SYMPTOMS Speciality: Acuity: Enc Type: Inpatient Med Service: Medical Arrival: 09/12/2024 07:10:13 Discharge: Dispo Type: Admitted as IP to this Hosp Address: [address] [place] [id number] Provider Notes: Diagnosis: 1:Seizure; 2:Elevated troponin; 3:Depression, unspecified; 4:Stroke-like episode; 5:HTN (hypertension); 6:GERD (gastroesophageal reflux disease); 7:Anxiety and depression; 8:Takotsubo cardiomyopathy;9:Hypokalemia Problems No Problems Documented Smoking Status: Unknown if Ever Smoked Functional Status: Sensory Deficits: History of Falls: Mobility Assistance Prior to Admission: ADLs: Moderate assistance Current Level of Assistance for Self-Care/Mobility: Cognitive Status: Disoriented x 3 Allergies penicillin (Unknown) Measurements: Height: 152 cm Weight: 73.9 kg Blood Pressure: 110 mmHg / 71 mmHg BMI: 29.17 kg/m2 Procedures Cardiac catheterization, left heart (09/14/2024) Immunizations No Immunizations Documented This Visit Final Med List: atorvastatin (atorvastatin 40 mg Tab) dorzolamide-timolol ophthalmic (dorzolamide-timolol Opth 2%-0.5% Christi) 1 Drops Left eye 2 times a day. fluoxetine (Prozac) By Mouth every day. hydrochlorothiazide (hydrochlorothiazide 25 mg oral tablet) By Mouth every day. ibuprofen (Advil 200 mg oral tablet) By Mouth every 6 hours. latanoprost-netarsudil ophthalmic (Rocklatan 0.02%-0.005% ophthalmic solution) 1 Drops Left eye every day. levetiracetam (levetiracetam 500 mg Tab) 1 Tablets By Mouth 2 times a day. ocular lubricant (Refresh Relieva PF) 1 Drops Both eyes every day. omeprazole (Prilosec) By Mouth every day. Care Team Members: Attending Physician: Mazin Sy III, DO Consulting Physician: Mahin Conroy MD; [facility] [place] Referring Physician: Follow up: With: Address: When: Neurology [phone] Within 2 to 4 weeks Comments: Call for followup appointment Patient Education Information: CV - Cardiovascular Discharge Instructions (Custom); Seizure, Adult; Core Measures: Stroke (Cerebrovascular Accident) [facility], (Custom)[facility] Patient Summaryon [id number] Patient Summary Inpatient Patient Summary [address] [address] Patient Discharge Instructions PERSON INFORMATION Name: LACI CARDOZA Cynthia Date of : 1955 Current Date: 09/14/2024 12:10:55 PHYSICIANS Admitting Physician: Mazin Sy III, DO Primary Care Physician: BRE TONY DO PCP Comment: Discharge Diagnosis: 1:Seizure; 2:Elevated troponin; 3:Depression, unspecified; 4:Stroke-like episode; 5:HTN (hypertension); 6:GERD (gastroesophageal reflux disease); 7:Anxiety and depression; 8:Takotsubo cardiomyopathy; 9:Hypokalemia Condition at Discharge: LACI CARDOZA has been given the following list of follow-up instructions, prescriptions, and patient education materials: PATIENT FOLLOW-UP INFORMATION Diet: Discharge Activity: Discharge Restrictions: Wound Care Instructions: Remove Your Dressing In Days Call Your Doctor For: IF UNABLE TO CONTACT YOUR PHYSICIAN AND YOU FEEL IT IS AN EMERGENCY, GO TO THE NEAREST EMERGENCY ROOM OR CALL 911 Home Treatment: Devices/Equipment: None Special Services: Additional Instructions: Primary Care Physician to provide the following pending test results: Follow up: With: Address: When: Neurology [phone] Within 2 to 4 weeks Comments: Call for followup appointment In the event that this physician does not participate in your insurance network, please consult with your insurance company to find a nearby participating provider. Comment: IALLYSON BONNIE L, have received the attached patient education materials/instructions and have verbalized understanding: Patient Signature Date Clinican/Nurse Signature Date HERE ARE THE MEDICATION CHANGES THAT OCCURRED DURING YOUR HOSPITAL STAY Medications to Continue with No Changes Other Medications atorvastatin (atorvastatin 40 mg Tab) Last Dose: Next Dose: dorzolamide-timolol ophthalmic (dorzolamide-timolol Opth 2%-0.5% Christi) 1 Drops Left eye 2 times a day. Last Dose: Next Dose: fluoxetine (Prozac) By Mouth every day. Last Dose: Next Dose: hydrochlorothiazide (hydrochlorothiazide 25 mg oral tablet) By Mouth every day. Last Dose: Next Dose: ibuprofen (Advil 200 mg oral tablet) By Mouth every 6 hours. Last Dose: Next Dose: latanoprost-netarsudil ophthalmic (Rocklatan 0.02%-0.005% ophthalmic solution) 1 Drops Left eye every day. Last Dose: Next Dose: levetiracetam (levetiracetam 500 mg Tab) 1 Tablets By Mouth 2 times a day. Last Dose: Next Dose: ocular lubricant (Refresh Relieva PF) 1 Drops Both eyes every day. Last Dose: Next Dose: omeprazole (Prilosec) By Mouth every day. Last Dose: Next Dose: Comment: MEDICATION LIST PROVIDED FOR YOU IS A LIST OF YOUR CURRENT MEDICATIONS. PLEASE CARRY THIS WITH YOU AT ALL TIMES. atorvastatin (atorvastatin 40 mg Tab) dorzolamide-timolol ophthalmic (dorzolamide-timolol Opth 2%-0.5% Christi) 1 Drops Left eye 2 times a day. fluoxetine (Prozac) By Mouth every day. hydrochlorothiazide (hydrochlorothiazide 25 mg oral tablet) By Mouth every day. ibuprofen (Advil 200 mg oral tablet) By Mouth every 6 hours. latanoprost-netarsudil ophthalmic (Rocklatan 0.02%-0.005% ophthalmic solution) 1 Drops Left eye every day. levetiracetam (levetiracetam 500 mg Tab) 1 Tablets By Mouth 2 times a day. ocular lubricant (Refresh Relieva PF) 1 Drops Both eyes every day. omeprazole (Prilosec) By Mouth every day. Pharmacy Information: Comment: PATIENT EDUCATION INFORMATION Instructions: [place], [place] CARDIOVASCULAR DISCHARGE INSTRUCTIONS Diet: ??? Resume pre-procedure diet. ??? Increase water intake the next 2 days to flush dye out of the body. Activity: If radial access: ??? Limit your activity today. Do not operate a vehicle, machinery or power tools. ??? NO LIFTING OVER 3 POUNDS for 3 days. ??? Do not bend your wrist for 24 hours. ??? May resume driving in 24 hours. ??? No sexual activity for 1 week. ??? Let pain/discomfort guide your activity. If you are having pain, stop. ??? Return to the Emergency Room if you have trouble breathing, walking or nausea and vomiting. Medications: ??? Resume pre-procedure medication, unless otherwise directed. ??? Hold the following medications for 48 hours post procedure: Actoplus Met Glucophage Glucophage XR Glucovance Avandamet Fortamet Apo-metformin Glycon Singh-metformin Glumetza J (more content not included)...[facility] Interdisciplinary Note - Case Manageron [id number] Note - Case ManagerInterdisciplinary Note - Perinatal Specialist CRM to room 204 Patient is awake, alert and oriented to CRM questions. Patient verified she is from home with her BF. He will be her ride at [place]. Patient verified her PCP, DME and insurance. Patient PLOF is walker use, independent in self care except gets help into Shower. Patient is an inpatient, IMM completed today. Patient came in with AMS, CVA vs Seizure. Patient was negative for CVA, positive for seizure. Patient is assigned to [facility], see notes. Patient to get Heart Cath today 09/14. Patient was recommended for SNF over weekend now board says SNF vs HH care. Patient declines SNF stay. She is open to HHcare and has no preference in agency. [facility] care forRN, PT, OT and ASSOCIATE PROFESSOR OF LIBRARY MEDIA. Patient was provided CRM contact, white board updated. CRM following DC date TBD, CRM will get updates at 10 AM Huddle. [facility] acceptedNormalAcmc Healthcare SystemComment on above:Result Comment: Electronically Signed By: Alexandria Rees\.br\Date and Time Signed: 09/14/24 13:12 EDTPTon [id number] Coag (PPP) [Relative time]1.11 {INR}Invalid Interpretation [facility] HospitalComment on above:Result Comment: INR results are specifically intended to assess patients stabilized on long-term Anticoagulation therapy suggested INR???s ???Less Intensive Anticoagulation??? 2.0 ??? 3.0 Conventional Range 3.0 ??? 4.5Performed By: #### [id number] #### [facility] Laboratory [address], [place] [address]KY92.5 second(s)Normal9.4-12.5[facility] Comment on above:Result Comment: 15 days - 4 weeks 1 - 5 months 6 -11 months 1-5 years 6-10 years 11 -17 years Mean: 11.2 (9.5-12.6) Mean: 11.0 (9.7-12.8) Mean: 11.0 (9.8-13.0) Mean: 11.3 (9.9-13.4) Mean: 11.7 (10.0-14.6) Mean: 11.8 (10.0 - 14.1) Pediatric Reference ranges were obtained from a study by mukesh Dwyer al. prepared from 1437 samples obtained at 7 different centers using the same coagulation reagent and instrumentation as [facility]. Currently there are no coagulation studies available worldwide for children to 14 days, andno normal ranges.Performed By: #### [id number] #### [facility] Laboratory [address], [place] [address]ZEDsd 27-36-8481EQO43.0 second(s)High25.1-36.5FOhioHealth Southeastern Medical CenterComment on above:Result Comment: Parameter 15 days - 4 weeks 1 - 5 months 6 - 11 months 1 - 5 years 6 - 10 years 11 - 17 years PTT Mean: 35.4 (27.6-45.6) Mean: 33.5 (24.8-40.7) Mean: 32.4 (25.1-40.7) Mean: 31.6 (24.0-39.2) Mean: 31.6 (26.9-38.7) Mean: 31.0 (24.6-38.4) Pediatric Reference ranges were obtained from a study by Jon Khan et al. prepared from 1437 samples obtained at 7 different centers using the same coagulation reagent and instrumentation as [facility]. Currently there are no coagulation studies available worldwide for children to 14 days, andno normal ranges. Heparin therapeutic range (represented by Anti-Factor Xa activity of 0.2 - 0.4 U/mL) corresponds to PTT of 56.6 - 109.0 sec.Performed By: #### [id number] #### [facility] Laboratory [address], [place] [address]dIPQyf 36-38-7868tMBQ321 mL/min/1.73 x3Ybntlh>=59A[facility] Healthcare SystemComment on above:Performed By: #### [id number] #### [facility] [address], [place] [address]SFRpl 64-92-6469Iqzjz gap [Moles/Vol]10 mmol/LNormal6-16[facility] Healthcare SystemComment on above:Performed By: #### [id number] #### [facility] [address], [place] [address]VXC/Creat Ratio18 No JihcsExclvp10-41AngbzrAcmc Healthcare SystemComment on above:Performed By: #### [id number] #### [facility] [address], [place] [address]Xinybbh [Mass/Vol]8.5 mg/dLLow8.9-11.1FOhioHealth Southeastern Medical CenterComment on above:Performed By: #### [id number] #### [facility] [address], [place] [address]Lvapycmv [Moles/Vol]100 mmol/YOnh007-871YcvdkjAcmc Healthcare SystemComment on above:Performed By: #### [id number] #### [facility] [address], [place] [address]TH7 [Moles/Vol]28 mmol/VJofijn66-94UwzkizAcmc Healthcare System Comment on above:Performed By: #### [id number] #### [facility] [address], [place] [address]Svenyhdmvl [Mass/Vol]0.5 mg/dLNormal0.5-1.3FOhioHealth Southeastern Medical CenterComment on above:Performed By: #### [id number] #### [facility] [address], [place] [address]Tjtbuva [Mass/Vol]86 mg/yKNhbnvn99-852XcbxndAcmc Healthcare SystemComment on above:Performed By: #### [id number] #### [facility] [address], [place] [address]Jsmuskvzh [Moles/Vol]3.1 mmol/LLow3.5-5.3FOhioHealth Southeastern Medical CenterComment on above:Performed By: #### [id number] #### [facility] [address], [place] [address]Ccvkmi [Moles/Vol]135 mmol/JNeukcr968-553HanpwaAcmc Healthcare SystemComment on above:Performed By: #### [id number] #### [facility] [address], [place] [address]Jths nitrogen [Mass/Vol]9 mg/dLNormal5-21[facility] Healthcare SystemComment on above:Performed By: #### [id number] #### [facility] [address], [place] [address]FTE w/ Auto Diffon 88-55-8917Uvviqpgl Absolute0.1 E9/LNormal 0.0-0.2FOhioHealth Southeastern Medical CenterComment on above:Performed By: #### [id number] #### [facility] [address], [place] [address]Lxpsldtmn/100 WBC (Bld)1.1 %Normal0.0-2.0[facility] Healthcare SystemComment on above:Performed By: #### [id number] #### [facility] [address], [place] [address]Plk Absolute0.1 E9/LNormal0.0-0.5FOhioHealth Southeastern Medical Center Comment on above:Performed By: #### [id number] #### [facility] [address], [place] [address]Ejoluhigmsu/100 WBC (Bld)1.0 %Normal0.0-8.0[facility] Healthcare SystemComment on above:Performed By: #### [id number] #### [facility] [address], [place] [address]Cufubevcksp distribution width (RBC) [Ratio]14.4 %High10.9-14.2 [facility] Healthcare SystemComment on above:Performed By: #### [id number] #### [facility] [address], [place] [address]Xvmgbjqunw (Bld) [Volume fraction]39.4 %Lexlmj40.0-46.0[facility] Healthcare SystemComment on above:Performed By: #### [id number] #### [facility] [address], [place] [address]Jppxjqtafc (Bld) [Mass/Vol]13.8 g/mIAljqpw08.0-16.0[facility] Healthcare SystemComment on above:Performed By: #### [id number] #### [facility] [address] [place] [address]Teauz Absolute1.8 E9/LNormal1.0-4.0[facility] Comment on above:Performed By: #### [id number] #### [facility] [address] [place] [address]Dpeylymrktx/100 WBC (Bld)26.6 %Rzyabe49.0-50.0[facility] Healthcare SystemComment on above:Performed By: #### [id number] #### [facility] [address] [place] [address]VOJ (RBC) [Entitic mass]31.3 qsLsfebt57.0-34.0[facility] Healthcare SystemComment on above:Performed By: #### [id number] #### [facility] [address] [place] [address]KVMW (RBC) [Mass/Vol]34.9 g/xSUdtnex61.4-36.0[facility] Healthcare SystemComment on above:Performed By: #### [id number] #### [facility] [address] [place] [address]KPT (RBC) [Entitic vol]89.8 nJYqkiwo55.0-100.0[facility] Healthcare SystemComment on above:Performed By: #### [id number] #### [facility] [address] [place] [address]Ordw Absolute0.6 E9/LNormal0.2-1.0[facility] Comment on above:Performed By: #### [id number] #### [facility] [address] [place] [address]Ohsnkpjpz/100 WBC (Bld)8.6 %Normal4.0-14.0[facility] Healthcare SystemComment on above:Performed By: #### [id number] #### [facility] [address], [place] [address]Ovncvt Absolute4.3 E9/LNormal2.0-7.5FOhioHealth Southeastern Medical Center Comment on above:Performed By: #### [id number] #### [facility] [address], [place] [address]Lkclfx Auto62.7 %Izgtne67.0-75.0[facility] Comment on above:Performed By: #### [id number] #### [facility] [address], [place] [address]Cmekmnqf778.0 E9/HGtsfpv275.0-500.0[facility] Comment on above:Performed By: #### [id number] #### [facility] [address], [place] [address]Zkjdvnqb mean volume (Bld) [Entitic vol]6.6 fLNormal6.4-10.8 [facility] SystemComment on above:Performed By: #### [id number] #### [facility] [address], [place] [address]VGW9.4 E12/LNormal4.3-5.9[facility] Healthcare SystemComment on above:Performed By: #### [id number] #### [facility] [address] [place] [address]CZM4.8 E9/LNormal4.0-11.0[facility] SystemComment on above:Performed By: #### [id number] #### [facility] [address], [place] [address]Yjf Func Panelon 95-14-4966Wafdzya [Mass/Vol]3.4 g/dLNormal 3.3-5.0[facility] SystemComment on above:Performed By: #### [id number] #### [facility] [address], [place] [address]Qdabixh/Globulin [Mass ratio]1.6 {ratio}Normal1.1-2.2FOhioHealth Southeastern Medical CenterComment on above:Performed By: #### [id number] #### [facility] Laboratory [address], [place] [address]Mfg Phos48 Int._Unit/VZjhvfy02-35PcpkjzAcmc Healthcare System Comment on above:Performed By: #### [id number] #### [facility] [address], [place] [address]CMO26 Int._Unit/LNormal6-46[facility] Healthcare SystemComment on above:Performed By: #### [id number] #### [facility] [address], [place] [address]YPW50 Int._Unit/LNormal5-43[facility] Healthcare SystemComment on above:Performed By: #### [id number] #### [facility] [address], [place] [address]Tjrh Direct0.2 mg/dLNormal0.0-0.4FOhioHealth Southeastern Medical Center Comment on above:Performed By: #### [id number] #### [facility] [address], [place] [address]Eydx Indirect0.8 mg/dLNormal0.1-0.9[facility] Comment on above:Performed By: #### [id number] #### [facility] [address], [place] [address]Johz Total1.0 mg/dLNormal0.0-1.1FOhioHealth Southeastern Medical Center Comment on above:Performed By: #### [id number] #### [facility] [address], [place] [address]Cgxyzash (S) [Mass/Vol]2.1 g/dLNormal1.4-4.0[facility] Healthcare SystemComment on above:Performed By: #### [id number] #### [facility] [address], [place] [address]Qflqntp [Mass/Vol]5.5 g/dLLow6.0-7.8[facility] Comment on above:Performed By: #### [id number] #### [facility] [address], [place] [address]Hviqlwuycwuphzfdy Note - OTon 04-52-1595Qstwvviygpjpkneyo Note - OTInterdisciplinary Note - OT OT [facility] six clicks score 17/24 = SNF. Patient requires CGA/MIN A with transfers and mod vc for environmental and safety cues as pt has low vision. Pt requires MIn - mod A w/ standing adls. Pt has limited safety awareness and is unable to recall yesterday and or home set up/prior level of function.Inpatient OT services to follow M-F to progress to PLOF as pt was home w/ relative Ind with self help skills prior to this illness.[facility] Interdisciplinary Note - PTon 37-27-1166Naudbkcfexgryospn Note - PT Interdisciplinary Note - PT PT eval completed and pt with mod AKIACHAK and very poor vision and performs bed mobility with CGA with frequent verbal cues for safety and ambulates with FWW 20 feet with close CGA with poor clearance ofright LE. Pt's PT AMPAC= 16 and pt would benefit from SNF in order to ensure safety in home environment.Normal [facility] Healthcare SystemInterdisciplinary Note - Speech Languageon 09-13-2024 Interdisciplinary Note - Speech LanguageInterdisciplinary Note - Speech Language 09/13--Pt seen for BSE this am d/t concerns for CVA like symptoms. Pt's and niece both reporting pt is mostly back to baseline cognitively. Pt answering questions appropriately and following simple directions. Pt stating she eats most foods at home and has had no previous swallowing difficulty. Pt observed consuming 3 oz of thin liquids via straw with no s/s of suspected penetration or aspiration. Pt also consuming 2 oz each of pureed, soft textured and regular textured solids with no s/s of suspected penetration or aspiration. Recommend IDDSI level 7 (regular) with thin liquids. No further ST is indicated at this time.[facility] HospitalLipid Panelon 39-20-1949Zovslglzzja [Mass/Vol]145 mg/aQScpvxu513-427ZlazxxAcmc Healthcare SystemComment on above: Performed By: #### [id number] #### [facility] [address], [place] [address]Orcnxczjtpr in HDL [Mass/Vol]42 mg/dLInvalid Interpretation [facility] HospitalComment on above:Result Comment: '>= 60 LOW RISK' '<= 40 HIGH RISK'Performed By: #### [id number] #### [facility] [address], [place] [address]Jzbbfksszxu in LDL [Mass/Vol]87 mg/dLNormal<=129A[facility] Healthcare SystemComment on above:Performed By: #### [id number] #### [facility] [address], [place] [address]Wshngewumap in VLDL [Mass/Vol]17 mg/dLNormal7-40[facility] Healthcare SystemComment on above:Performed By: #### [id number] #### [facility] [address], [place] [address]Slotyrehgmnw [Mass/Vol]87 mg/dLNormal<=149[facility] Healthcare SystemComment on above:Performed By: #### [id number] #### [facility] [address], [place] [address]ABlq 65-74-2430AZI Coag (PPP) [Relative time]1.16 {INR}Invalid Interpretation [facility] HospitalComment on above:Result Comment: INR results are specifically intended to assess patients stabilized on long-term Anticoagulation therapy suggested INR???s ???Less Intensive Anticoagulation??? 2.0 ??? 3.0 Conventional Range 3.0 ??? 4.5Performed By: #### [id number] #### [facility] [address], [place] [address]VT01.0 second(s)High9.4-12.5Fisher [facility] HospitalComment on above:Result Comment: 15 days - 4 weeks 1 - 5 months 6 -11 months 1 ??? 5 years 6 ??? 10 years 11 -17 years Mean: 11.2 (9.5 ??? 12.6) Mean: 11.0 (9.7 ??? 12.8) Mean: 11.0 (9.8 ??? 13.0) Mean: 11.3 (9.9 ??? 13.4) Mean: 11.7 (10.0 ??? 14.6) Mean: 11.8 (10.0 - 14.1) Pediatric Reference ranges were obtained from a study by thelma Dwyer prepared from 1437 samples obtained at 7 different centers using the same coagulation reagent and instrumentation as [facility]. Currently there are no coagulation studies available worldwide for children to 14 days, andno normal ranges.Performed By: #### [id number] #### [facility] [address], [place] [address]AB & PTTon 38-26-2200UFC Coag (PPP) [Relative time]1.15 {INR} Invalid Interpretation CodeAcmc Healthcare SystemComment on above:Result Comment: INR results are specifically intended to assess patients stabilized on long-term Anticoagulation therapy suggested INR???s ???Less Intensive Anticoagulation??? 2.0 ??? 3.0 Conventional Range 3.0 ??? 4.5Performed By: #### [id number] #### [facility] [address], [place] [address]AO54.9 second(s)High9.4-12.5[facility] HospitalComment on above:Result Comment: 15 days - 4 weeks 1 - 5 months 6 -11 months 1 ??? 5 years 6 ??? 10 years 11 -17 years Mean: 11.2 (9.5 ??? 12.6) Mean: 11.0 (9.7 ??? 12.8) Mean: 11.0 (9.8 ??? 13.0) Mean: 11.3 (9.9 ??? 13.4) Mean: 11.7 (10.0 ??? 14.6) Mean: 11.8 (10.0 - 14.1) Pediatric Reference ranges were obtained from a study by thelma Dwyer prepared from 1437 samples obtained at 7 different centers using the same coagulation reagent [facility] instrumentation [facility] [place] Currently there are no coagulation studies available worldwide for children to 14 days, andno normal ranges.Performed By: #### [id number] #### [facility] [address] [place], [place] [address]XKV557.7 second(s)Cuncwune14.1-36.5FOhioHealth Southeastern Medical Center Comment on above:Result Comment: Results Called To mil Morocho By JOSIE And Read Back For Confirmation On 09/13/2024 20:39:40 EDT Results Verified By Repeat Analysis Parameter 15 days - 4 weeks 1 - 5 months 6 - 11 months 1 - 5 years 6 - 10 years 11 - 17 years PTT Mean: 35.4 (27.6-45.6) Mean: 33.5 (24.8-40.7) Mean: 32.4 (25.1-40.7) Mean: 31.6 (24.0-39.2) Mean: 31.6 (26.9-38.7) Mean: 31.0 (24.6-38.4) Pediatric Reference ranges were obtained from a study by thelma Dwyer prepared from 1437 samples obtained at 7 different centers using the same coagulation reagent and instrumentation as [facility] [place] [place] Currently there are no coagulation studies available worldwide for children to 14 days, andno normal ranges. Heparin therapeutic range (represented by Anti-Factor Xa activity of 0.2 - 0.4 U/mL) corresponds to PTT of 56.6 - 109.0 sec.Performed By: #### [id number] #### [facility]ul [facility] [address] [place], [place] [address]HTHiq 06-60-3964LEA28.6 second(s)Drcgvx82.1-36.5FOhioHealth Southeastern Medical CenterComment on above:Result Comment: Parameter 15 days - 4 weeks 1 - 5 months 6 - 11 months 1 - 5 years 6 - 10 years 11 - 17 years PTT Mean: 35.4 (27.6-45.6) Mean: 33.5 (24.8-40.7) Mean: 32.4 (25.1-40.7) Mean: 31.6 (24.0-39.2) Mean: 31.6 (26.9-38.7) Mean: 31.0 (24.6-38.4) Pediatric Reference ranges were obtained from a study by thelma Dwyer prepared from 1437 samples obtained at 7 different centers using the same coagulation reagent and instrumentation [place] [facility] [place] [place] Currently there are no coagulation studies available worldwide for children to 14 days, andno normal ranges. Heparin therapeutic range (represented by Anti-Factor Xa activity of 0.2 - 0.4 U/mL) corresponds to PTT of 56.6 - 109.0 sec.Performed By: #### [id number] #### [facility] [address], [place] [address]Bardetnuer 12-36-5727Pksyxjfj MI1842.40 pg/mLAbnormal 10.10-27.10A[facility]c Healthcare SystemComment on above:Result Comment: Critical Result I_TnIHS:1724.4 Called to and read back by: DANNA RUSSELL at: 09/13/2024 06:49:36 by:JOYCE Critical Result Verified by Repeat Analysis The 95% CI (Confidence Interval) PPV (Positive Predictive Value) for myocardial infarction in females is 38 pg/mL, in males 51 pg/mL. The results should be used in conjunction with clinical conditions of myocardial infarction. (Access High Sensitivity Troponin I Instructions For Use, [place], September 2017)Performed By: #### [id number] #### [facility] [address], [place] [address]jJUWjh 39-99-6600qHRQ749 mL/min/1.73 d7Krjuny>=59Acmc Healthcare SystemComment on above:Performed By: #### [id number] #### [facility] [address], [place] [address]UO Draw & Holdon 70-74-2544HA D&HSample drawn for Blood Ba NormalAcmc Healthcare SystemComment on above:Performed By: #### [id number] #### [facility] [address], [place] [address]NHMds 75-09-5530Gtibd gap [Moles/Vol]10 mmol/LNormal6-16[facility] Healthcare SystemComment on above:Performed By: #### [id number] #### [facility] [address], [place] [address]NUB/Creat Ratio16 No LpuxhRoodpw06-76KowoiuAcmc Healthcare SystemComment on above:Performed By: #### [id number] #### [facility] [address], [place] [address]Lbqjosj [Mass/Vol]9.5 mg/dLNormal8.9-11.1FOhioHealth Southeastern Medical CenterComment on above:Performed By: #### [id number] #### [facility] [address] [place], [place] [address]Wmdxrraz [Moles/Vol]96 mmol/EJdr286-486HjsfowAcmc Healthcare SystemComment on above:Performed By: #### [id number] #### [facility] [address], [place] [address]PH5 [Moles/Vol]32 mmol/IKwfu27-39EgowjfAcmc Healthcare System Comment on above:Performed By: #### [id number] #### [facility] [address], [place] [address]Vpnfxomjup [Mass/Vol]0.7 mg/dLNormal0.5-1.3FOhioHealth Southeastern Medical CenterComment on above:Performed By: #### [id number] #### [facility] [address], [place] [address]Utomhrh [Mass/Vol]102 mg/sEGettzb43-135BbbqstAcmc Healthcare SystemComment on above:Performed By: #### [id number] #### [facility] [address], [place] [address]Ppcvwypqz [Moles/Vol]3.9 mmol/LNormal3.5-5.3FOhioHealth Southeastern Medical CenterComment on above:Performed By: #### [id number] #### [facility] [address], [place] [address]Bjmcoz [Moles/Vol]134 mmol/WOnv471-907ZrwlsjAcmc Healthcare SystemComment on above:Performed By: #### [id number] #### [facility] [address], [place] [address]Ykir nitrogen [Mass/Vol]11 mg/dLNormal5-21A[facility] Healthcare SystemComment on above:Performed By: #### [id number] #### [facility] [address] [place] [address]ZQJ w/ Auto Diffon 56-67-5243Pnddpcay Absolute0.1 E9/LNormal 0.0-0.2FOhioHealth Southeastern Medical CenterComment on above:Performed By: #### [id number] #### [facility] [address] [place] [address]Ytdtrxmeh/100 WBC (Bld)0.7 %Normal0.0-2.0A[facility]c Healthcare SystemComment on above:Performed By: #### [id number] #### [facility] [address] [place] [address]Ybz Absolute0.2 E9/LNormal0.0-0.5FOhioHealth Southeastern Medical Center Comment on above:Performed By: #### [id number] #### [facility] [address] [place] [address]Ivjepbvwgmz/100 WBC (Bld)2.2 %Normal0.0-8.0A[facility] Healthcare SystemComment on above:Performed By: #### [id number] #### [facility] [address] [place] [address]Ikcwtsysmju distribution width (RBC) [Ratio]14.2 %Normal 10.9-14.2FOhioHealth Southeastern Medical CenterComment on above:Performed By: #### [id number] #### [facility] [address] [place] [address]Bzckoecvmm (Bld) [Volume fraction]40.3 %Glikwg09.0-46.0[facility] Healthcare SystemComment on above:Performed By: #### [id number] #### [facility] [address] [place] [address]Cqpnkcsfab (Bld) [Mass/Vol]13.7 g/oEXynpsm72.0-16.0[facility] Healthcare SystemComment on above:Performed By: #### [id number] #### [facility] [address] [place] [address]Lgsmw Absolute1.3 E9/LNormal1.0-4.0[facility] Comment on above:Performed By: #### [id number] #### [facility] [address] [place] [address]Lhxxsopjfvu/100 WBC (Bld)17.1 %Wsmhdu76.0-50.0[facility] Healthcare SystemComment on above:Performed By: #### [id number] #### [facility] [address] [place] [address]YWN (RBC) [Entitic mass]30.4 fdXphknx94.0-34.0[facility] Healthcare SystemComment on above:Performed By: #### [id number] #### [facility] [address] [place] [address]LMTF (RBC) [Mass/Vol]34.1 g/iYHrighd03.4-36.0[facility] Healthcare SystemComment on above:Performed By: #### [id number] #### [facility] [address] [place] [address]YCM (RBC) [Entitic vol]89.1 mCQifvhq48.0-100.0[facility] Healthcare SystemComment on above:Performed By: #### [id number] #### [facility] [address] [place] [address]Vkwy Absolute0.6 E9/LNormal0.2-1.0[facility] Comment on above:Performed By: #### [id number] #### [facility] [address] [place] [address]Jsxkciewt/100 WBC (Bld)7.5 %Normal4.0-14.0[facility] Healthcare SystemComment on above:Performed By: #### [id number] #### [facility] [address] [place] [address]Rpkmtl Absolute5.7 E9/LNormal2.0-7.5FOhioHealth Southeastern Medical Center Comment on above:Performed By: #### [id number] #### [facility] [address], [place] [address]Wbkvyb Auto72.5 %Qbwqua82.0-75.0[facility] Comment on above:Performed By: #### [id number] #### [facility] [address], [place] [address]Xmyilobf591.0 E9/MEdifkb903.0-500.0[facility] Comment on above:Performed By: #### [id number] #### [facility] [address], [place] [address]Idyzekvj mean volume (Bld) [Entitic vol]6.8 fLNormal6.4-10.8 [facility] SystemComment on above:Performed By: #### [id number] #### [facility] [address] [place] [address]FTX0.5 E12/LNormal4.3-5.9A[facility] Healthcare SystemComment on above:Performed By: #### [id number] #### [facility] [address] [place] [address]HTG6.9 E9/LNormal4.0-11.0[facility] Healthcare SystemComment on above:Performed By: #### [id number] #### [facility] [address] [place] [address]NYry 69-07-5764Ezghs CK114 Int._Unit/MXybyok37-481MpthlkAcmc Healthcare SystemComment on above:Performed By: #### [id number] #### [facility] [address], [place] [address]TD Head or Brain w/o Contraston 79-91-4823LM Head or Brain w/o ContrastExam Date/Time: 09/12/2024 07:18 EDT Reason for Exam: Neuro deficit, acute, stroke suspected;Stroke Report IMPRESSION: No acute intracranial process. Chronic findings as discussed. COMMUNICATION: Communicated by statrad radiologist Dr. Dowling with: Dr. Nunes on 09/12/2024 at 0729. HISTORY: Rapid response stroke. Altered mental status. Right-sided weakness. TECHNIQUE: Serial axial images without IV contrast were obtained from the vertex to the foramen magnum, with sagittal and coronal reconstructions. All CT scans at this facility use dose modulation, iterative reconstruction, and/or weight based dosing when appropriate to reduce radiation dose to as low as reasonably achievable. COMPARISON: None. RESULT: Acute change: No evidence of an acute infarct or other acute parenchymal process. Hemorrhage: No evidence of acute intracranial hemorrhage. Mass Lesion / Mass Effect: There is no evidence of an intracranial mass or extraaxial fluid collection. No significant mass effect. Chronic change: Areas of encephalomalacia especially within the right occipital region. Scattered patchy foci of decreased attenuation within supratentorial white matter which is a nonspecific finding but likely represents mild microvascular ischemia. Parenchyma: There is mild generalized volume loss. Ventricles: Ex vacuo dilation of the right lateral ventricle adjacent to the right occipital lobe encephalomalacia. Paranasal sinuses and skull base: The visualized paranasal sinuses are grossly clear. Mastoid air cells clear. The skull base is unremarkable. Soft tissues unremarkable. Ordering Provider: Vasile Nunes FINAL REPORT Dictated: 09/12/2024 10:38 am Keith Mark MD Signed (Electronic Signature): 09/12/2024 10:38 am Signed by: Keith Mark MD Transcribed by: LARS Technologist: Christelle [facility] [id number] HeadExam Date/Time: 09/12/2024 07:34 EDT Reason for Exam: NEURO DEFICIT, ACUTE, STROKE SUSPECTED;Other (please specify) Report Impression: Refer to concurrent CTA neck dictation. All CT scans at this facility use dose modulation, iterative reconstruction, and/or weight based dosing when appropriate to reduce radiation dose to as low as reasonably achievable. Tech Comments: GFR (mL/min/1/73m2) na Contrast: Isovue 370 Contrast amount in ml's: 100.00 Ordering Provider: Vasile Nunes FINAL REPORT Dictated: 09/12/2024 10:43 am Keith Mark MD Signed (Electronic Signature): 09/12/2024 10:43 am Signed by: Keith Mark MD Transcribed by: LARS Technologist: Christelle [facility] CenterA [facility] [id number] NeckExam Date/Time: 09/12/2024 07:34 EDT Reason for Exam: NEURO DEFICIT, ACUTE, STROKE SUSPECTED;Other (please specify) Report IMPRESSION: Patent extracranial and intracranial circulation without evidence for occlusion, significant stenosis, or aneurysm. HISTORY: Rapid response stroke. Right-sided weakness. TECHNIQUE: Spiral high resolution axial images were obtained through the head, neck and superior mediastinum following bolus administration of intravenous contrast for CT angiography. The data was subsequently post-processed utilizing 3D multi-planar reconstructions, 3D maximum intensity projections. COMPARISON: CT head 09/12/2024. All CT scans at this facility use dose modulation, iterative reconstruction, and/or weight based dosing when appropriate to reduce radiation dose to as low as reasonably achievable. RESULT: BRAIN: No significant interval change from the recent CT brain dictation. NECK: Soft tissues: The soft tissue planes are maintained without acute finding. No suspicious mass or lesion. No significant lymphadenopathy. Spine: Degenerative changes. No acute findings. Lung apices: The visualized lung apices are clear. CT ARTERIOGRAM: Extracranial Circulation: Aortic Arch: Common origin of the brachiocephalic and left common carotid arteries, a normal anatomic variant. There is no significant stenosis in the proximal brachiocephalic vessels. Right Carotid findings, with stenosis % estimated by NASCET criteria: Mild to moderate plaque formation. No significant stenosis involving the right common carotid artery. No significant stenosis of the right ICA. No evidence for dissection or other acute process. Left Carotid findings, with stenosis % estimated by NASCET criteria: Mild to moderate plaque formation. No significant stenosis involving the left common carotid artery. No significant stenosis of the left ICA. No evidence for dissection Report or other acute process. Cervical Vertebral Arteries: Patent bilaterally and codominant. No evidence for dissection or other acute process. Intracranial Circulation: Anterior Circulation: Distal ICAs, proximal ACAs, and proximal MCAs appear patent. No evidence for significant stenosis or aneurysm. Vertebrobasilar Circulation: Distal vertebral arteries, basilar artery, proximal open pit quarry supervisor, and visualized cerebellar vessels appear patent. No evidence for significant stenosis or aneurysm. Dural venous sinuses: Visualized dural venous sinuses are patent. Tech Comments: GFR (mL/min/1/73m2) na Contrast: Isovue 370 Contrast amount in ml's: 100.00 Ordering Provider: Vasile Nunes FINAL REPORT Dictated: 09/12/2024 10:42 am Keith Mark MD. Signed (Electronic Signature): 09/12/2024 10:42 am Signed by: Keith Mark MD Transcribed by: LARS Technologist: Christelle [facility] CenterED Clinical Summaryon [id number] Clinical SummaryED Clinical Summary [place] [id number] ED Clinical Summary Person Information Name: LACI CARDOZA [facility] Age: 69 Years : 1955 Sex: Female Language: Lebanese PCP: BRE TONY DO Marital Status: Visit Id: Visit Reason: Weakness or fatigue; Potential stroke; POSSIBLE STROKE SYMPTOMS Speciality: Acuity: 2 Enc Type: Observation Med Service: Medical Arrival: 09/12/2024 07:10:13 Discharge: LOS: 000 04:34 Checkin: 09/12/2024 07:10:13 Checkout: 09/12/2024 11:44:23 Dispo Type: Admitted as IP to this [facility] EVENTS: Event Name Event Status Request Date/Time Start Date/Time Complete Date/Time Arrive Complete 09/12/2024 07:10:13 09/12/2024 07:10:13 09/12/2024 07:10:13 Document Home Meds Request 09/12/2024 07:10:13 Triage Complete 09/12/2024 07:10:13 09/12/2024 07:41:24 09/12/2024 07:41:24 Bed Assign Complete 09/12/2024 07:10:13 09/12/2024 07:10:13 09/12/2024 07:10:13 Dr Exam Complete 09/12/2024 07:10:13 09/12/2024 07:12:41 09/12/2024 07:12:41 RN Exam Complete 09/12/2024 07:10:13 09/12/2024 08:06:53 09/12/2024 08:06:53 Registration Complete 09/12/2024 07:12:41 09/12/2024 08:54:16 09/12/2024 08:54:16 EKG Complete 09/12/2024 07:13:53 09/12/2024 08:31:41 NPO Request 09/12/2024 07:13:53 Pending Labs Complete 09/12/2024 07:13:53 09/12/2024 08:12:51 Blood Collect Request 09/12/2024 07:13:53 Lab Complete 09/12/2024 07:13:53 09/12/2024 07:58:03 Patient Care Request 09/12/2024 07:13:53 CT Complete 09/12/2024 07:13:53 09/12/2024 07:34:25 X-Ray Complete 09/12/2024 07:13:53 09/12/2024 07:32:45 09/12/2024 08:39:42 RT Request 09/12/2024 07:13:53 Pending Labs Cancel 09/12/2024 07:48:35 09/12/2024 07:48:35 09/12/2024 07:58:03 Lab Cancel 09/12/2024 07:48:35 09/12/2024 07:48:35 09/12/2024 07:58:03 Pending Labs Complete 09/12/2024 07:51:07 09/12/2024 07:51:07 09/12/2024 07:51:07 Patient Care Request 09/12/2024 07:52:19 Pending Labs Complete 09/12/2024 07:59:46 09/12/2024 08:29:28 Lab Complete 09/12/2024 07:59:46 09/12/2024 08:29:28 Fall Risk Request 09/12/2024 08:06:53 RR Stroke Request 09/12/2024 08:06:53 Pending Labs Complete 09/12/2024 08:12:46 09/12/2024 08:12:46 09/12/2024 08:29:28 Lab Complete 09/12/2024 08:12:46 09/12/2024 08:12:46 09/12/2024 08:29:28 Wet Read Request 09/12/2024 08:39:42 Reg Complete Request 09/12/2024 08:54:16 Reg Bed Request Complete 09/12/2024 08:54:16 09/12/2024 08:54:16 09/12/2024 08:54:16 Consult Request 09/12/2024 08:55:01 Meds Admin Complete 09/12/2024 08:55:08 09/12/2024 09:02:07 Hospitalist Consult Request 09/12/2024 08:55:08 Consult Request 09/12/2024 09:11:38 MRI Cancel 09/12/2024 09:12:01 09/12/2024 10:03:43 Observation Request 09/12/2024 09:13:32 Patient Care Request 09/12/2024 09:13:33 Patient Care Request 09/12/2024 09:13:33 Medicare Form Request 09/12/2024 09:13:34 Patient Care Request 09/12/2024 09:13:35 Patient Care Request 09/12/2024 09:13:35 MRI Start 09/12/2024 10:03:43 09/12/2024 11:11:06 Patient Care Request 09/12/2024 10:08:03 Consult Request 09/12/2024 10:08:03 NPO Request 09/12/2024 10:08:03 Meds Admin Request 09/12/2024 10:08:03 Pending Labs Request 09/12/2024 10:08:03 Lab Request 09/12/2024 10:08:03 Echo Cancel 09/12/2024 10:20:40 09/12/2024 10:33:08 Echo Request 09/12/2024 10:33:08 ADDRESS: [address] [place] [phone] PHYS DOC NOTES: MEDICAL INFORMATION: Prescriptions Given: Medications to Continue with No Changes Other Medications fluoxetine (Prozac) By Mouth every day. hydrochlorothiazide (hydrochlorothiazide 25 mg oral tablet) By Mouth every day. ibuprofen (Advil 200 mg oral tablet) By Mouth every 6 hours. omeprazole (Prilosec) By Mouth every day. PATIENT EDUCATION INFORMATION: Instructions: Follow up: With: Address: When: Neurology [phone] Within 2 to 4 weeks Comments: Call for followup appointment DIAGNOSIS: 1:Stroke-like episode; 2:History of seizure; 3:HTN (hypertension); 4:GERD (gastroesophageal reflux disease); 5:Anxiety and depression; Depression, unspecifiedNormalFisher Rob Medical CenterED Note-Physicianon [id number] Note-PhysicianED Note-Physician Basic Information Time Seen: Vasile Nunes DO 09/12/2024 07:12 Chief Complaint per ems pt nonverbal, right sided weakness since unknown time last night. hx cva and seizures. not pt's norm per ems/ on scene. pt able to answer this RN and moving both sides on arrival. fsbs@ [phone] History of Present Illness 69 female presents emergency department by EMS with concerns for strokelike syndrome. History is extremely limited by the fact that the patient is nonverbal at this time and the paramedics were really not able to establish much additional information from the family. From what we can gather last known well is unable to be established perhaps yesterday or the day before it is unclear. Patient doeshave prior history of stroke and seizures. The initial complaint was that the patient had altered mental status and right-sided deficits of the arm and leg. But again truly unable to establish when last known well occurred. No seizure activity was reported to the paramedics. is coming here but stated to the paramedics it would be sometime before he was able to get here. Remainder of history is unobtainable. No other aggravating or relieving factors no other associated symptoms no other prior treatments or complaints. Family: Reviewed and noncontributory Social: lives at home Review of systems negative unless otherwise specified in the HPI. Physical Exam Vitals & Measurements T: 36.6 ???C(Axillary) HR: 92(Peripheral) BP: 157/66 SpO2: 95% HT: 165.1 cm WT: 67.4 kg BMI: 24.73 General: Patient appears nontoxic Skin: Warm, dry, no pallor noted. Head: Normocephalic, atraumatic Neck: No JVD Eye: PERRLA, patient does have a fixed preferential left-sided gaze ENT: Dry mucus membranes Cardiovascular: Regular rate normal peripheral perfusion Respiratory: No respiratory distress no accessory muscle use no obvious audible wheezing Chest Wall: no deformity Musculoskeletal: No deformity no swelling GI: Soft no obvious distention. No rebound or rigidity. No guarding. No tenderness. Neurological: Extremely limited neurologic exam as the patient is not really able to follow some commands, does follow a couple of them however. Stroke scale score is 18 but again very limited in utility. She does have this preferential left-sided gaze which does appear to be acute. She has almost no effort against gravity for the right upper extremity right lower extremity with diminished sensation on that side as well. She is essentially mute and nonverbal it is unclear how much of this is new or old compared to her prior baseline and prior stroke. Procedure Patient is not a candidate for tenecteplase given inability to establish last known well. We believe it to be potentially last night which would put us outside the 3 and 4-1/2-hour window's. Medical Decision Making CT read by teleradiology as negative CTA was performed immediately after this and this was also negative for any LVO according to teleradiology. The remainder of the workup here is benign. I did see that the patient had history of seizure disorder although there was no seizure activity certainly seizure would remain in the differential diagnosis especially as the patient is nonverbal. She did seem to have some purposeful movements. Therefore I did load her here with IV Keppra and she is given half dose of diazepam as well. Case is discussed with the hospitalist for admission. Critical care time 30 minutes exclusive from separate billable procedures Assessment/Plan 1. Encephalopathy, (G93.40: Encephalopathy, unspecified)Encephalopathy 2. Stroke (I63.9: Cerebral infarction, unspecified) 3. History of seizure (Z87.898: Personal history of other specified conditions) Acute focal neurological deficit (R29.818: Other symptoms and signs involving the nervous system) Orders: diazepam, 2.5 mg = 0.5 mL, Injection, IV Push, Once, Stop date 09/12/24 8:54:00 EDT, STAT, Start date 09/12/24 8:54:00 EDT, 09/12/24 8:54:00 EDT levetiracetam + Generic Diluent 100 mL, 1,000 mg = 100 mL, IV Piggyback, Once, Stop date 09/12/24 8:54:00 EDT, STAT, Start date 09/12/24 8:54:00 EDT, 400 mL/hr, Infuse over 15 minute(s), 09/12/24 8:54:00 EDT Basic Metabolic Panel BB Draw & Hold Cardiac Monitoring CBC w/ Auto Diff Communication Order Communication Order Continuous Pulse Oximetry CT Head or Brain w/o Contrast CTA Head CTA Neck Dysphagia Screen ECG 12 Lead Adult ED Physician consult Hospitalist for continued care eGFR Extra SST Tube NIH Stroke Scale NPO Diet Oxygen Protocol PT & PTT Rapid Response Form Routine Capillary Glucose POC Stroke Quality Measures Troponin 0 Hr. UA with Cult Rflx XR Chest Single View Disposition Plan Discharge Prescription List Prescriptions No active prescription medications Follow-up No qualifying data available Problem List/Past Medical History Ongoing No qualifying data Historical No qualifying data Procedure (more content not included)...[facility]Comment [facility]:Result Comment: Electronically Signed By: Vasile Nunes DO\.br\Date and Time Signed: 09/12/24 09:14EDTED Patient Education Noteon 07-06-0765TZ Patient Education NoteED Patient Education NoteNormOhioHealth [facility] Patient Summaryon [id number] Patient SummaryED Patient Summary [place] [id number] Patient Discharge Instructions Person Information Name: LACI CARDOZA Age: 69 Years Arrival Date: 09/12/2024 07:10:13 Discharge Diagnosis: 1:Stroke-like episode; 2:History of seizure; 3:HTN (hypertension); 4:GERD (gastroesophageal reflux disease); 5:Anxiety and depression; Depression, unspecified Primary Care Physician: BRE TONY DO Provider Information Primary Provider: Vasile Nunes DO Advanced Lye Machine Operator:None The exam and treatment you received in the Emergency Department were for an urgent problem and are not intended as complete care. It is important that you follow up with a doctor, nurse practitioner,or physician???s janitorial assistant for ongoing care. If your symptoms become worse or you do not improve asexpected and you are unable to reach your usual health care provider, you should return to the Emergency Department. We are available 24 hours a day. LACI CARDOZA has been given the following list of patient education materials, prescriptions andfollow-up instructions: Follow-up Instructions: With: Address: When: Neurology [phone] Within 2 to 4 weeks Comments: Call for followup appointment In the event that this physician does not participate in your insurance network, please consult with your insurance company to find a nearby participating provider. Patient Education Materials: A MESSAGE TO ALL PATIENTS REGARDING OPIOIDS PRESCRIPTION OPIOIDS: WHAT YOU NEED TO KNOW Prescription opioids can be used to help relieve yzhmingr-bj-zitimi pain and are often prescribed following a surgery or injury, or for certain health conditions. These medications can be an important part of the treatment but also come with serious risks. It is important to work with your healthcare provider to make sure you are getting the safest, most effective care. WHAT ARE THE RISKS AND SIDE EFFECTS OF OPIOID USE? Prescription opioids carry serious risks of addiction and overdose, especially with prolonged use. An opioid overdose, often marked by slowed breathing, can cause sudden . The use of prescription opioids can have a number of side effects as well, even when taken as directed: ??? Tolerance???meaning you might need to take more of the medication for the same pain relief ??? Physical dependence???meaning you have symptoms of withdrawal when a medication is stopped ??? Increased sensitivity to pain ??? Constipation ??? Nausea, vomiting, and dry mouth ??? Sleepiness and dizziness ??? Confusion ??? Depression ??? Low levels of testosterone that can result in lower sex drive, energy, and strength ??? Itching and sweating RISKS ARE GREATER WITH: ??? History of drug misuse, substance use disorder, or overdose ??? Mental health conditions (such as depression or anxiety) ??? Sleep apnea ??? Older age (65 years and older) ??? Avoid alcohol while taking prescription opioids. Also, unless specifically advised by your health care provider, medications to avoid include: ??? Benzodiazepines (such as Xanax or Valium) ??? Muscle relaxants (such as Soma or Flexeril) ??? Hypnotics (such as Ambien or Lunesta) ??? Other prescription opioids KNOW YOUR OPTIONS Talk to your health care provider about ways to manage your pain that don???t involve prescription opioids. Some of these options may actually work better and have fewer risks and side effects. Options may include: ??? Pain relievers such as acetaminophen, ibuprofen, and naproxen ??? Some medication that are also used for depression or seizures ??? Physical therapy and exercise ??? Cognitive behavioral therapy, a psychological, goal-directed approach, in which patients learn how to modify physical, behavioral, and emotional triggers of pain and stress. IF YOU ARE PRESCRIBED OPIOIDS FOR PAIN: ??? Never take opioids in greater amounts or more often than prescribed. ??? Follow up with your primary health care provider. o Work together to create a plan on how to manage your pain. o Talk about ways to help manage your pain that don???t involve prescription opioids. o Talk about any and all concerns and side effects. ??? Help prevent misuse and abuse o Never sell or share prescription opioids. o Never use another person???s prescription opioids. ??? Store prescription opioids in a secure place and out of reach of others (this may include visitors, children, friends, and family). ??? Safely dispose of unused prescription opioids: Find your community drug take-back program or your pharmacy mail-back program, or flush them down the toilet, following guidance from the Food and Drug Administration (www.fda.gov/Drugs/ResourcesForYou). ??? Visit www.cdc.gov/drugoverdose to learn about the risks of opioids abuse and overdose. ??? If you believe (more content not included)...[facility] Brain w/o Contraston 56-55-7137QBW Brain w/o ContrastExam Date/Time: 09/12/2024 13:50 EDT Reason for Exam: Seizures Report IMPRESSION: No acute intracranial process. Chronic findings as discussed. HISTORY: Altered mental status. Right-sided weakness. TECHNIQUE: Routine noncontrast brain MRI protocol including diffusion and gradient echo images. COMPARISON: CT 09/12/2024. RESULT: Some limitations from motion. MR BRAIN: Acute Change: There is no evidence of restricted diffusion to suggest an acute infarct. Hemorrhage: No evidence of acute intracranial hemorrhage. No evidence of prior parenchymal hemorrhage on the gradient echo images. Mass Effect / Mass Lesion: No evidence of an intracranial mass or extra-axial fluid collection. No significant mass effect. Chronic Change: Scattered patchy areas of increased T2 and FLAIR signal are present in the supratentorial white matter which is a nonspecific finding but likely represents mild chronic microvascular ischemia. Areas of encephalomalacia within the right occipital region. Parenchyma: There is mild generalized parenchymal volume loss. Ventricles: Unchanged. Skull Base: Hypothalamic and pituitary region are grossly normal. Craniocervical junction is normal. No significant marrow replacement process. Vasculature: Refer to the recent CTA. Other: The visualized paranasal sinuses are clear. Mastoid air cells are clear. The orbits are unremarkable. The extracranial soft tissues are unremarkable. Report Ordering Provider: Charlie Harrington FINAL REPORT Dictated: 09/12/2024 2:08 pm Keith Mark MD Signed (Electronic Signature): 09/12/2024 2:08 pm Signed by: Keith Mark MD Transcribed by: LARS Technologist: Enrique [facility] HospitalPT & PTTon 05-41-9790DDJ Coag (PPP) [Relative time]1.08 {INR}Invalid Interpretation Code [facility] SystemComment on above:Result Comment: INR results are specifically intended to assess patients stabilized on long-term Anticoagulation therapy suggested INR???s ???Less Intensive Anticoagulation??? 2.0 ??? 3.0 Conventional Range 3.0 ??? 4.5Performed By: #### [id number] #### Mehul [facility] [address], [place] [address]SZ66.1 second(s)Normal9.4-12.5FOhioHealth Southeastern Medical Center Comment on above:Result Comment: 15 days - 4 weeks 1 - 5 months 6 -11 months 1-5 years 6-10 years 11 -17 years Mean: 11.2 (9.5-12.6) Mean: 11.0 (9.7-12.8) Mean: 11.0 (9.8-13.0) Mean: 11.3 (9.9-13.4) Mean: 11.7 (10.0-14.6) Mean: 11.8 (10.0 - 14.1) Pediatric Reference ranges were obtained from a study by mukesh Dwyer al. prepared from 1437 samples obtained at 7 different centers using the same coagulation reagent and instrumentation as [facility] Currently there are no coagulation studies available worldwide for children to 14 days, andno normal ranges.Performed By: #### [id number] #### Carver [facility] [address] [place], [place] [address]DDS76.8 second(s)Aqltre81.1-36.5FOhioHealth Southeastern Medical Center Comment on above:Result Comment: Parameter 15 days - 4 weeks 1 - 5 months 6 - 11 months 1 - 5 years 6 - 10 years 11 - 17 years PTT Mean: 35.4 (27.6-45.6) Mean: 33.5 (24.8-40.7) Mean: 32.4 (25.1-40.7) Mean: 31.6 (24.0-39.2) Mean: 31.6 (26.9-38.7) Mean: 31.0 (24.6-38.4) Pediatric Reference ranges were obtained from a study by Jon Khan et al. prepared from 1437 samples obtained at 7 different centers using the same coagulation reagent and instrumentation as [facility]. Currently there are no coagulation studies available worldwide for children to 14 days, andno normal ranges. Heparin therapeutic range (represented by Anti-Factor Xa activity of 0.2 - 0.4 U/mL) corresponds to PTT of 56.6 - 109.0 sec.Performed By: #### [id number] #### Carver [facility] [address] [place], [place] [address]Xqk-Ujjgxqj Noteon 76-06-4097Axk-Arrival NotePre-Arrival Note Pre-[facility] Current Date: 09/12/2024 07:10:51 EDT Gender: Date of : Age: Pre-Arrival Type: EMS ETA: 09/12/2024 07:18:00 EDT Primary Care Physician: Presenting Problem: Stroke like symptoms Pre-Arrival User: Senia Walter RN Referring Source: Location: [place] Completion Date/Time: 09/12/2024 06:46:00 [facility] Pre-Hospital Report Form Vital Signs: BP: 98/64, Pulse- 78, RR-18, SPO2- 97% on RA, Blood sugar-110 Pre-Hospital Report: LKW last night per but unknown Time. Nonverbal currently, weakness GCS- 14 Treatment in Route: IV placed, Fluids started Response to Treatment: Misc. Issues: CVA 6 years ago, Seizures.NormalAcmc Healthcare System Troponin 0 Hr.on 05-67-1110Cmhbmcgp VQ1068.90 pg/gVBivazati97.10-27.10[facility] Healthcare SystemComment on above:Result Comment: Critical Result I_TnIHS:1236.9 Called to and read back by: EMERALD WALSH at: 09/12/2024 17:55:53 by:[email or web address] Critical Result Verified by Repeat Analysis The 95% CI (Confidence Interval) PPV (Positive Predictive Value) for myocardial infarction in females is 38 pg/mL, in males 51 pg/mL. The results should be used in conjunction with clinical conditions of myocardial infarction. (eDealya High Sensitivity Troponin I Instructions For Use, Aceris 3D Inspection, September 2017)Performed By: #### [id number] #### [facility] [address], [place] [address]Eyprkffh HS4.10 pg/mLLow10.10-27.10[facility] Comment on above:Result Comment: The 95% CI (Confidence Interval) PPV (Positive Predictive Value) for myocardial infarction in females is 38 pg/mL, in males 51 pg/mL. The results should be used in conjunction with clinical conditions of myocardial infarction. (Access High Sensitivity Troponin I Instructions For Use, Aceris 3D Inspection, September 2017)Performed By: #### [id number] #### [facility] [address], [place] [address]Gpzdfgmd 3 Hr.on 20-96-2568Goeyrpge XE9526.60 pg/mLAbnormal 10.10-27.10[facility] Healthcare SystemComment on above:Result Comment: Critical Result Verified by Previous Result Critical Result I_TnIHS:8.6 Called to and read back by: DAKSHA WILLIAM at: 09/12/2024 21:07:01 by:[id number] The 95% CI (Confidence Interval) PPV (Positive Predictive Value) for myocardial infarction in females is 38 pg/mL, in males 51 pg/mL. The results should be used in conjunction with clinical conditions of myocardial infarction. (Access High Sensitivity Troponin I Instructions For Use, Aceris 3D Inspection, September 2017)Performed By: #### [id number] #### [facility] [address], [place] [address]Jcxxxbjp 6 Hr.on 48-89-8154Amseudll UZ6677.00 pg/mLAbnormal 10.10-27.10[facility] Healthcare SystemComment on above:Result Comment: Critical Result I_TnIHS:2217.0 Called to and read back by: DAKSHA WILLIAM at: 09/12/2024 23:49:43 by:[id number] Critical Result Verified by Previous Result The 95% CI (Confidence Interval) PPV (Positive Predictive Value) for myocardial infarction in females is 38 pg/mL, in males 51 pg/mL. The results should be used in conjunction with clinical conditions of myocardial infarction. (Access High Sensitivity Troponin I Instructions For Use, Aceris 3D Inspection, September 2017)Performed By: #### [id number] #### [facility] [address], [place] [address]UY with Cult Rflxon 40-75-5048Mdstp (U)Light-YellowNormalYellow [facility] SystemComment on above:Result Comment: Microscopic readings are only performed on those samples that meet specific criteria set forth by [facility].Performed By: #### [id number] #### [facility] [address], [place] [address]Xoqofrm (U) [Mass/Vol]NegativeNormalNegativeAcmc Healthcare SystemComment on above:Performed By: #### [id number] #### [facility] [address], [place] [address]Akjsizr Ql (U)NegativeNormalNegativeAcmc Healthcare System Comment on above:Performed By: #### [id number] #### [facility] [address], [place] [address]CH BloodNegativeNormalNegDayton Children's Hospital Comment on above:Performed By: #### [id number] #### [facility] [address], [place] [address]OX ClarityClearNormalClearAcmc Healthcare SystemComment on above:Performed By: #### [id number] #### [facility] [address], [place] [address]HC Leuk EstNegativeNormalNegDayton Children's Hospital Comment on above:Performed By: #### [id number] #### [facility] [address], [place] [address]CN NitriteNegativeNormMiddletown Hospital Comment on above:Performed By: #### [id number] #### [facility] [address], [place] [address]JR pH5.5Invalid Interpretation Code5.0-9.0[facility] SystemComment on above:Performed By: #### [id number] #### [facility] [address], [place] [address]NH ProteinNegativeNoUniversity Hospitals Samaritan Medical Center Comment on above:Performed By: #### [id number] #### [facility] [address], [place] [address]ZC Spec Grav1.019Invalid Interpretation Code1.005-1.030[facility] SystemComment on above:Performed By: #### [id number] #### [facility] [address], [place] [address]BR UrobilinogenNegativeNormalNegDayton Children's HospitalComment on above:Performed By: #### [id number] #### [facility] [address], [place] [address]Tkevkfxbdtpi (U) [Mass/Vol]NegativeNormalNegDayton Children's HospitalComment on above:Performed By: #### [id number] #### [facility] [address], [place] [address]RU Spec DescClean CatchNormCleveland Clinic Hillcrest HospitalComment on above:Performed By: #### [id number] #### [facility] [address], [place] [address]CO Chest Single Viewon 45-33-2591HN Chest Single ViewExam Date/Time: 09/12/2024 08:39 EDT Reason for Exam: Chest pain Report IMPRESSION: No acute findings by portable radiography. EXAMINATION/TECHNIQUE: XR Chest Single View HISTORY: Chest pain. COMPARISON: None RESULT: Shallow inspiration. No distinct focal consolidation. No large pleural effusion. No pneumothorax. Grossly unremarkable cardiomediastinal silhouette. No distinct acute osseous findings. Ordering Provider: Vasile Nunes FINAL REPORT Dictated: 09/12/2024 10:43 am Keith Mark MD Signed (Electronic Signature): 09/12/2024 10:43 am Signed by: Keith Mark MD Transcribed by: ALRS Technologist: SHIVAMOhioHealth Riverside Methodist HospitaleGFRon 86-68-8774lLVT32 mL/min/1.73 e6Ecaahu>=59A[facility] Healthcare SystemComment on above:Performed By: #### [id number] #### [facility] [address], [place] [address]2ud 22-31-614876Xaooz call to patient to reschedule no show appointment. Patient states did not wish to reschedule appointment with cardiology.NormalWilson Street Hospital US CAROTID ARTERY DUPLEX BILATERALon 10-21-2331HDKB US CAROTID ARTERY DUPLEX BILATERALFINDINGS: RIGHT: 115 mild ICA Peak Systolic Velocity (cm/sec) 1.5 Normal ICA/CCA Systolic Ratio LEFT: 142 47% ICA Peak Systolic Velocity (cm/sec) 1.7 mild ICA/CCA Systolic Ratio BILATERAL CAROTID SYSTEMS: Mild soft and echogenic plaque both common carotid and bulb location. No significant stenosis is present based on visual inspection, borderline stenosis suggested left distal ICA which maybe accentuated by tortuosity. Right vertebral arteries have normal cephalad-directed flow. Retrograde left vertebral arterial flow. IMPRESSION: Estimated range of stenosis*: 1. Mild left distal ICA based on velocity and ratio values maybe accentuated by tortuosity. 2. Left subclavian steal phenomenon with retrograde vertebral arterial flow. *COMMENT: These estimates represent a median value within a 95% confidence interval range. They represent percent diameter ICA stenosis derived from regression curve analysis using the NASCET method and Doppler ultrasound velocities. Please note with high-grade stenosis (greater than 95%), an actual reduction in velocity will occur. Reference: Todd Torres. carotid ultrasound, in RAD CLIN NA, 39 (3), Jun, 2000. TRANSCRIBED BY: ELECTRONICALLY SIGNED BY: Alicia HoughalNot AvailableISTAT XRay CRE on 56-58-5661NHYLC GFR> 60.0NoUNC Health Blue Ridge - Morganton Physician GroupComment on above: Result Comment: PERFORMED BY: [place] [address] PATHOLOGIST INTERN KEVIN KELLEY M.D.Performed By: #### ISCRE #### [address] head/brain wo/w conon 54-96-8462OB head/brain wo/w con [facility] Main [place] [address] [place] [address] MRI Report Signed Patient: Laci Cardoza MR#: [id number] 51 : 1955 Acct:[id number] Age/Sex: 68 / F ADM Date: 06/13/23 Loc: Room: Type: [facility] Attending Dr: Karel Rosa DO Copies to: Karel Rosa DO Ordering Provider: Karel Rosa DO Date of Service: 06/13/23 MR/MR head/brain wo/w con: R29.810,Z86.69,Z86.76 MR head/brain wo/w con 06/13/2023 8:17 PM SIGN AND SYMPTOMS: Difficulty closing eyelids, occasional seizures, visual issues PROTOCOL: Multiplanar multisequence MR images of the brain were obtained with and without IV contrast CONTRAST: 16 mL of intravenous ProHance COMPARISON: None. FINDINGS: Extra axial spaces: There is diffuse age-related cortical atrophy. Meningeal enhancement is noted, greatest in the posterior fossa, most concentrated along the cameron, interpeduncular cistern, and cerebral peduncles. There are a few focal areas of leptomeningeal enhancement in the supratentorial brain. No intraparenchymal abnormal enhancement. Hemorrhage: None. Ventricular system: Within normal limits. Basal cisterns: Within normal limits and not effaced. Cerebral parenchyma: T2 and FLAIR hyperintense signal is noted in the periventricular and subcortical white matter. Gliosis and encephalomalacia is noted in the parasagittal right occipital lobe consistent with a remote infarct. There is a remote lacunar infarct in the thalamus on the right. Midline shift: None.. Cerebellum: Within normal limits. Brainstem: Within normal limits. OTHER: Calvarium: Normal marrow signal. Vascular system: Satisfactory flow voids within the anterior and posterior circulation. Visualized Paranasal sinuses: Within normal limits. Visualized Orbits: Within normal limits. Visualized upper cervical spine: Within normal limits. Sella and skull base: Within normal limits. MR/MR head/brain wo/w con IMPRESSION: There is diffuse age-related cortical atrophy. Meningeal enhancement is noted, greatest in the posterior fossa, most concentrated along the cameron, interpeduncular cistern, and cerebral peduncles. There are a few focal areas of leptomeningeal enhancement in the supratentorial brain. These findings may be infectious or inflammatory in nature. However, leptomeningeal metastatic disease is not excluded. Further evaluation with lumbar puncture is recommended. No intraparenchymal abnormal enhancement. Chronic microvascular ischemic changes are noted. There is a remote lacunar infarct in the thalamus on the right. There is a remote cortical based infarct in the parasagittal right occipital lobe. Impression dictated by: Chuck Grossman M.D.06/13/2023 9:28 PM Dictation Location: [place] [address] Transcribed By: [facility] 06/13/232127 Dictated By: Chuck Grossman II, MD 06/13/232107 Signed By: 06/13/232127[facility] Physician GroupNo Panel InformationOrdered By: Karel Rosa on 20-78-2890Mectanz Estimated GFR (eGFR)> 60.0Ohio[facility] Hardin Memorial HospitalWhole blood creatinine measurementOrdered By: Karel Rosa on 73-01-6750Afstdgbgep [Mass/Vol]0.5 mg/dLLow0.6-1.3FMiami Valley HospitalComment on above:ER/ESD physician is notified/shown all ISTAT results.Critical values may be confirmed by laboratorytesting ifdeemed necessary by ER attending doctor.Result Comment: ER/ESD physician is notified/shown all ISTAT results. Critical values may be confirmed by laboratory testing if deemed necessary by ER attending doctor.Performed By: #### ISCRE #### [facility] [address] [id number] USAXR Ribs Righton 90-22-6119OW Ribs RightHISTORY: Rib pain since a fall. TECHNIQUE: Frontal [...] and signed by Robbin Irvin on 01/10/2022 0935NormalNorthern The Hospital Of Central ConnecticutMAM DIGITAL SCREEN W OR WO CAD BILATERALon 32-34-0348YKB DIGITAL SCREEN W OR WO CAD BILATERALBILATERAL DIGITAL MAMMOGRAPHY, SCREENING COMPARISON: 02/16/2014 and 01/04/2014. [...] patient regarding the results. Interpreted by: Bre uKnz MD Signed by: Bre Kunz MD 09/24/19 Final resultNoSalem Regional Medical Center1. No mammographic evidence for malignancy. 2. Continued yearly screening is recommended. BI-RADS 2, benign. Benign, no evidence of malignancy. Normal interval followup is recommended in 12 months. OVERALL ASSESSMENT - BENIGN. A letter of notification will be sent to the patient regarding the results.[facility], KESHIABILATERAL DIGITAL MAMMOGRAPHY, SCREENING COMPARISON: 02/16/2014 and 01/04/2014. HISTORY: Previous benign breast biopsies. TECHNIQUE: CC and MLO views were obtained bilaterally. CAD utilized. FINDINGS: The breasts are predominantly fat. Minimal fibroglandular tissue is symmetrically distributed. There is no evidence for suspicious dominant mass or suspicious-appearing clusters of calcification. Occ asional benign-appearing calcifications are seen. Biopsy clips are noted incidentally bilaterally.[employer] Incoming Radiant Results From Phase III Development/[employer] - 09/24/2019 12:10 PM EDT BILATERAL DIGITAL [...] sent to the patient regarding the results. [facility], [employer] plcDEXA BONE DENSITY 2 SITESon 38-51-2137WMKK BONE DENSITY 2 SITESDEXA BONE DENSITY STUDY - 09/22/2019: COMPARISON: DEXA [...] Signed by: Keith Ospina MD 09/23/19 Final resultNoalHighland District HospitalOsteopenia. Minimal change compared to the 2014 study. [...] than to changes in the patient's bone density.[facility], [employer] plcDEXA BONE DENSITY STUDY - 09/22/2019: COMPARISON: DEXA [...] T score of -1.5. This indicates a nonsignif icant -0.5% change since 2014. The mean femoral neck density measurement equals 0.800 g/sq cm, corresponding to a T score of -1.7. Previously the mean femoral neck density measurement equaled 0.774 g/sq cm, corresponding to T score of - 1.9. Comparison of femoral neck density measurements is not felt to be accurate from year to year.[facility]NOWRussell [facility]- [place], [place] Incoming Radiant Results From Phase III Development/[employer] - 09/23/2019 10:29 AM EDT DEXA BONE [...] IMPRESSION: Osteopenia. Minimal change compared to the 2015 study. The 10-year fracture risk for a [...] to changes in the patient's bone density. [facility], KYLipid Profileon 31-43-2428Vndyaszwmcl [Mass/Vol]148 mg/dL Normal<200Highland District HospitalComment on above:Result Comment: Cholesterol Guidelines: <200 Desirable 200-240 Borderline >240 UndesirablePerformed By: #### CBC, CP, LIPR, TSH, UA, UMICAO #### [facility] [address] [place] [address] Agriculture Worker: Avinash Aldrich MD #### URNMAB, AHCV #### [facility] [employer] [address] [place] [id number] Agriculture Worker: Ciro Lux MDCholesterol in HDL [Mass/Vol]61 mg/dLNormal>40 [facility] on above:Result Comment: HDL Guidelines: <40 Undesirable 40-59 Borderline >59 DesirablePerformed By: #### CBC, CP, LIPR, TSH, UA, UMICAO #### [facility] [address] [place], [place] [id number] Agriculture Worker: Avinash Aldrich MD #### URNMAB, AHCV #### [facility] [employer] [address] [place], [place] [id number] Agriculture Worker: Ciro Lux MDCholesterol in LDL [Mass/Vol]71 mg/dLNormal0-130 [facility] on above:Result Comment: LDL Guidelines: <100 Desirable 100-129 Near to/above Desirable 130-159 Borderline >159 Undesirable Direct (measured) LDL and calculated LDL are not interchangeable tests.Performed By: #### CBC, CP, LIPR, TSH, UA, UMICAO #### [facility] [address] [place], [place] [id number] Agriculture Worker: Avinash Aldrich MD #### INDIGO, AHCV #### [address] [id number] Agriculture Worker: JORDANA Francoholestmack.total/Cholesterol in HDL [Mass ratio]2.4 {ratio}Normal<5[facility] on above:Performed By: #### CBC, CP, LIPR, TSH, UA, UMICAO #### [facility] [address] [place] [address] Agriculture Worker: Avinash Aldrich MD #### INDIGO, AHCV #### [address] [id number] Agriculture Worker: Ciro Lux MDTriglyceride [Mass/Vol]78 mg/dLNormal<150[facility] on above:Result Comment: Triglyceride Guidelines: <150 Desirable 150-199 Borderline 200-499 High >499 Very high Based on AHA Guidelines for fasting triglyceride, November 2011.Performed By: #### CBC, CP, LIPR, TSH, UA, UMICAO #### [facility] [address] [place] [address] Agriculture Worker: Avinash Aldrich MD #### INDIGO, SOHEILACV #### [address] [id number] Agriculture Worker: Ciro Lux [facility], [place] [id number], Jnjzgg10.68 pg/mL Zxqavk98.0-65.0[facility] on above:Result Comment: SAMPLES FROM PATIENTS ROUTINELY RECEIVING HIGH DOSE BIOTIN THERAPY MAY SHOW FALSELY DEPRESSED RESULTS. ADDITIONAL INFORMATION MAY BE REQUIRED FOR DIAGNOSIS.Performed By: #### CBC, CP, LIPR, TSH, UA, UMICAO #### [facility] [address] [place] [address] Agriculture Worker: Avinash Aldrich MD #### URNMAB, AHCV #### [facility] [address] [place] [address] Agriculture Worker: Ciro Lux [facility] Auto Differentialon [id number] (Bld) [#/Vol]0.00 10*3/uLKettering [facility] Hospital- [place], KYBasophils/100 WBC (Bld)0 %0 - 2 % [facility] [place], KYDifferential TypeYESMMercy Health Tiffin Hospital [place], KYEosinophils (Bld) [#/Vol]0.20 10*3/uLKettering [facility]- [place], KYEosinophils/100 WBC (Bld)3 %0 - 5 %[facility]- [place], KYErythrocyte distribution width (RBC) [Ratio]13.4 %12.1 - 15.2 % [facility]- [place], KYHematocrit (Bld) [Volume fraction]44.6 %36 - 46 %[facility]- [place], KYHemoglobin (Bld) [Mass/Vol]15.1 g/dL12 - 16 g/dLKettering Memorial Hospital- [place], KYLymphocytes (Bld) [#/Vol]2.10 10*3/uLKettering [facility]- [place], KYLymphocytes/100 WBC (Bld)27 %15 - 40 %[facility]- [place], KYMCH (RBC) [Entitic mass]29.7 pg26 - 34 pg [facility]- [place], KYMCHC (RBC) [Mass/Vol]33.8 g/dL31 - 37 g/dLKettering Memorial Hospital- [place], KYMCV (RBC) [Entitic vol]88.0 fL80 - 100 fLKettering Memorial Hospital- [place], KYMonocytes (Bld) [#/Vol]0.50 10*3/uLTrumbull Memorial Hospital Health- [place], KYMonocytes/100 WBC (Bld)6 %4 - 8 %[facility]- [place], KYPlatelet mean volume (Bld) [Entitic vol]NOT REPORTED6 - 12 fLTrumbull Memorial Hospital Health- [place], KYPlatelets (Bld) [#/Vol]NOT REPORTEDVill[place], KYPlatelets (Bld) [#/Vol]404 10*3/[facility] (Bld) [#/Vol]5.07 10*6/uL4 - 5.2 m/[facility] morphology finding Nom (Bld)NOT REPORTEDVillanova, KYSegmented neutrophils/100 WBC (Bld)64 %47 - 75 %[place], KYSegs Absolute5.00[facility] HospitalBC (Bld) [#/Vol]NOT REPORTEDper 100 WBC [facility] (Bld) [#/Vol]7.9 10*3/[facility] MorphologyNOT REPORTEDUC Health with Diffon [id number]. Basophil0.00 k/uLNormal0.0-0.2MGrand Lake Joint Township District Memorial HospitalComment on above:Performed By: #### CBC, CP, LIPR, TSH, UA, UMICAO #### [facility] [address] [place] [address] Agriculture Worker: Avinash Aldrich MD #### JOSE SOOD #### [facility] [employer] [address] [place] [address] Agriculture Worker: Tesfaye Franco.Neutrophil (Seg)5.00 k/uLNormal2.5-7.0[facility] District HospitalComment on above:Performed By: #### CBC, CP, LIPR, TSH, UA, UMICAO #### [facility] [address] [place] [address] Agriculture Worker: Avinash Aldrich MD #### SOHEILA SOODCV #### [facility] [employer] [address] [place] [address] Agriculture Worker: Hernando Franco Diff PerformedYESNormSheltering Arms HospitalComment on above:Performed By: #### CBC, CP, LIPR, TSH, UA, UMICAO #### [facility] [address] [place], [place] [id number] Agriculture Worker: Avinash Aldrich MD #### URKIERA, AHCV #### [address] [id number] Agriculture Worker: Ciro Lux MDBasophils/100 WBC (Bld)0 %Normal0-2MGrand Lake Joint Township District Memorial HospitalComment on above:Performed By: #### CBC, CP, LIPR, TSH, UA, UMICAO #### [facility] [address] [place] [address] Agriculture Worker: Avinash Aldrich MD #### INDIGO, AHCV #### [address] [id number] Agriculture Worker: Ciro Lux MDEosinophils (Bld) [#/Vol]0.20 10*3/uLNormal 0.0-0.4[facility] on above:Performed By: #### CBC, CP, LIPR, TSH, UA, UMICAO #### [facility] [address] [place] [address] Agriculture Worker: Avinash Aldrich MD #### INDIGO, AHCV #### [address] [id number] Agriculture Worker: Ciro Lux MDEosinophils/100 WBC (Bld)3 %Normal0-5[facility] on above:Performed By: #### CBC, CP, LIPR, TSH, UA, UMICAO #### [facility] [address] [place], [place] [phone] Agriculture Worker: Avinash Aldrich MD #### URNMAB, AHCV #### [address] [id number] Agriculture Worker: Ciro Lux MDErythrocyte distribution width (RBC) [Ratio]13.4 %Hzbkyw07.1-15.2MGrand Lake Joint Township District Memorial HospitalComment on above:Performed By: #### CBC, CP, LIPR, TSH, UA, UMICAO #### [facility] [address] [place] [phone] Agriculture Worker: Avinash Aldrich MD #### INDIGO, AHCV #### [place] [phone] Agriculture Worker: Ciro Lux MDHematocrit (Bld) [Volume fraction]44.6 %Normal 36-46[facility] Hospitalment on above:Performed By: #### CBC, CP, LIPR, TSH, UA, UMICAO #### [facility] [address] [place] [phone] Agriculture Worker: Avinash Aldrich MD #### INDIGO, AHCV #### [place] [phone] Agriculture Worker: Ciro Lux MDHemoglobin (Bld) [Mass/Vol]15.1 g/dLNormal 12.0-16.0[facility] on above:Performed By: #### CBC, CP, LIPR, TSH, UA, UMICAO #### [facility] [address] [place] [phone] Agriculture Worker: Avinash Aldrich MD #### INDIGO, AHCV #### [place] [phone] Agriculture Worker: Ciro Lux MDLymphocytes (Bld) [#/Vol]2.10 10*3/uLNormal 1.0-4.8[facility] on above:Performed By: #### CBC, CP, LIPR, TSH, UA, UMICAO #### [facility] [address] [place] [phone] Agriculture Worker: Avinash Aldrich MD #### URKIERA, AHCV #### [address] [address] Agriculture Worker: Ciro Lux MDLymphocytes/100 WBC (Bld)27 %Hcctig16-92QqgacHighland District HospitalComment on above:Performed By: #### CBC, CP, LIPR, TSH, UA, UMICAO #### [facility] [address] [place] [phone] Agriculture Worker: Avinash Aldrich MD #### URNMAB, AHCV #### [place] [phone] Agriculture Worker: JOMAR Franco (RBC) [Entitic mass]29.7 zpEswohx42-13GxqoqHighland District HospitalComment on above:Performed By: #### CBC, CP, LIPR, TSH, UA, UMICAO #### [facility] [address] [place] [phone] Agriculture Worker: Avinash Aldrich MD #### INDIGO, AHCV #### [place] [phone] Agriculture Worker: JOMAR FrancoC (RBC) [Mass/Vol]33.8 g/tMNeiwqc76-92GjsdfHighland District HospitalComment on above:Performed By: #### CBC, CP, LIPR, TSH, UA, UMICAO #### [facility] [address] [place] [address] Agriculture Worker: Avinash Aldrich MD #### INDIGO, AHCV #### [address] [address] Agriculture Worker: FIONA Franco (RBC) [Entitic vol]88.0 rMOomyzk50-046MeiwpHighland District HospitalComment on above:Performed By: #### CBC, CP, LIPR, TSH, UA, UMICAO #### [facility] [address] [place], [place] 2831190 Agriculture Worker: Avinash Aldrich MD #### INDIGO, AHCV #### [address] [phone] Agriculture Worker: Ciro Lux MDMonocytes (Bld) [#/Vol]0.50 10*3/uLNormal0.0-1.0 [facility] on above:Performed By: #### CBC, CP, LIPR, TSH, UA, UMICAO #### [facility] [address] [place], [place] [phone] Agriculture Worker: Avinash Aldrich MD #### INDIGO, AHCV #### [address] [phone] Agriculture Worker: SALVATORE Francoonocytes/100 WBC (Bld)6 %Normal4-8[facility] on above:Performed By: #### CBC, CP, LIPR, TSH, UA, UMICAO #### [facility] [address] [place], [place] [phone] Agriculture Worker: Avinash Aldrich MD #### INDIGO, AHCV #### [address] [address] Agriculture Worker: Ciro Lux MDNeutrophil (Seg)64 %Nwybxu96-72ZoabjKettering Health – Soin Medical Center on above:Performed By: #### CBC, CP, LIPR, TSH, UA, UMICAO #### [facility] [address] [place], [place] 3546190 Agriculture Worker: Avinash Aldrich MD #### INDIGO, AHCV #### [address] [phone] Agriculture Worker: Ciro Lux MDPlatelets (Bld) [#/Vol]404 10*3/vAJirokn251-244 [facility] HospitalCombeaumont hospital on above:Performed By: #### CBC, CP, LIPR, TSH, UA, UMICAO #### [facility] [address] [place], [place] [phone] Agriculture Worker: Avinash Aldrich MD #### SOHEILA SOODCV #### [address] [id number] Agriculture Worker: TONI Franco (d) [#/Vol]5.07 10*6/uLNormal4.0-5.2MMercy Health – The [facility] Hospital on above:Performed By: #### CBC, CP, LIPR, TSH, UA, UMICAO #### [facility] [address] [place] [address] Agriculture Worker: Avinash Aldrich MD #### SOHEILA SOODCV #### [address] [address] Agriculture Worker: Ciro Lux [facility] [#/Vol]7.9 10*3/uLNormal3.5-11.0[facility] on above:Performed By: #### CBC, CP, LIPR, TSH, UA, UMICAO #### [facility] [address] [place] [phone] Agriculture Worker: Avinash Aldrich MD #### INDIGO, SOHEILACV #### [address] [address] Agriculture Worker: Tesfaye Franco.Imm.GranulocyteNOT REPORTEDNormal0.00-0.30 [facility] on above:Performed By: #### CBC, CP, LIPR, TSH, UA, UMICAO #### [facility] [address] [place] [phone] Agriculture Worker: Avinash Aldrich MD #### URNMAB, AHCV #### [address] [phone] Agriculture Worker: Ciro Lux MDImmature granulocytes (Bld) [#/Vol]NOT REPORTED Eckire8Ruvqu Forest Hill HospitalComment on above:Performed By: #### CBC, CP, LIPR, TSH, UA, UMICAO #### [facility] [address] [place] [phone] Agriculture Worker: Avinash Aldrich MD #### URNMAB, AHCV #### [place] [phone] Agriculture Worker: VINICIUS Franco AutomatedNOT REPORTEDNormalMercy Forest Hill HospitalComment on above:Performed By: #### CBC, CP, LIPR, TSH, UA, UMICAO #### [facility] [address] [place] [phone] ( Agriculture Worker: Avinash Aldrich MD #### URNM, AHCV #### [place] [phone] Agriculture Worker: Kelly Franco mean volume (Bld) [Entitic vol]NOT REPORTEDNormal6.0-12.0[facility] HospitalComment on above:Performed By: #### CBC, CP, LIPR, TSH, UA, UMICAO #### [facility] [address] [place] [phone] Agriculture Worker: Avinash Aldrich MD #### URNMAB, AHCV #### [place] [phone] Agriculture Worker: Lissa Franco (Bld) [#/Vol]NOT REPORTEDNormalOhiohealth Nelsonville Health Center HospitalComment on above:Performed By: #### CBC, CP, LIPR, TSH, UA, UMICAO #### [facility] [address] [place] [address] Agriculture Worker: Avinash Aldrich MD #### URNMAB, AHCV #### [address] [phone] Agriculture Worker: ANDRES Franco morphology finding Nom (Bld)NOT REPORTED [facility] on above:Performed By: #### CBC, CP, LIPR, TSH, UA, UMICAO #### [facility] [address] [place] [address] Agriculture Worker: Avinash Aldrich MD #### INDIGO, AHCV #### [address] [phone] Agriculture Worker: Ciro Lux MDWBC MorphologyNOT REPORTEDNormalKettering Health [facility] on above:Performed By: #### CBC, CP, LIPR, TSH, UA, UMICAO #### [facility] [address] [place] [address] Agriculture Worker: Avinash Aldrich MD #### INDIGO, AHCV #### [address] [address] Agriculture Worker: Ciro Lux [facility] Metabolic Profon 09-21-2019(cont.)Normal [facility] on above:Result Comment: Average GFR for 60-69 years old: 85 mL/min/1.73sq m Chronic Kidney Disease: <60 mL/min/1.73sq m Kidney failure: <15 mL/min/1.73sq m eGFR calculated using average adult body mass. Additional eGFR calculator available at: http://www.m-spatial.com/multiple_crcl_2012.htmPerformed By: #### CBC, CP, LIPR, TSH, UA, UMICAO #### [facility] [address] [place] [address] Agriculture Worker: Avinash Aldrich MD #### URNMAB, AHCV #### [address] [phone] Agriculture Worker: Ciro Lux MDAlbumin [Mass/Vol]4.3 g/dLNormal3.5-5.2MGrand Lake Joint Township District Memorial HospitalComment on above:Performed By: #### CBC, CP, LIPR, TSH, UA, UMICAO #### [facility] [address] [place] [phone] Agriculture Worker: Avinash Aldrich MD #### URNMAB, AHCV #### [place] [phone] Agriculture Worker: Gianni Francokaline Uhig679 U/NGvzh75-296UxqgdHighland District HospitalCombeaumont hospital on above:Performed By: #### CBC, CP, LIPR, TSH, UA, UMICAO #### [facility] [address] [place] [phone] Agriculture Worker: Avinash Aldrich MD #### INDIGO, AHCV #### [place] [phone] Agriculture Worker: Ciro Lux MDALT [Catalytic activity/Vol]19 U/LNormal5-33 [facility] HospitalCombeaumont hospital on above:Performed By: #### CBC, CP, LIPR, TSH, UA, UMICAO #### [facility] [address] [place] [phone] Agriculture Worker: Avinash Aldrich MD #### URNMAB, AHCV #### [place] [phone] Agriculture Worker: Ciro Lux MDAnion gap [Moles/Vol]11 mmol/LNormal9-17[facility] on above:Performed By: #### CBC, CP, LIPR, TSH, UA, UMICAO #### [facility] [address] [place], [place] [phone] Agriculture Worker: Avinash Aldrich MD #### INIDGO, AHCV #### [address] [phone] Agriculture Worker: Ciro Lux MDAST [Catalytic activity/Vol]18 U/LNormal<32[facility] District HospitalComment on above:Performed By: #### CBC, CP, LIPR, TSH, UA, UMICAO #### [facility] [address] [place] [address] Agriculture Worker: Avinash Aldrich MD #### INDIGO, AHCV #### [address] [phone] Agriculture Worker: Ciro Lux MDBilirubin Ql (U)0.60 mg/dLNormal0.30-1.20[facility] HospitalComment on above:Performed By: #### CBC, CP, LIPR, TSH, UA, UMICAO #### [facility] [address] [place] [address] Agriculture Worker: Avinash Aldrich MD #### INDIGO, AHCV #### [address] [id number] Agriculture Worker: Ciro Lux MDBUN/CRE Mqcwg65Fjlrzp2-18Vwzuv [facility] Comment on above:Performed By: #### CBC, CP, LIPR, TSH, UA, UMICAO #### [facility] [address] [place] [address] Agriculture Worker: Avinash Aldrich MD #### INDIGO, AHCV #### [address] [phone] Agriculture Worker: Ciro Lux MDCalcium [Mass/Vol]10.3 mg/dLNormal8.6-10.4Mercy Margie HospitalComment on above:Performed By: #### CBC, CP, LIPR, TSH, UA, UMICAO #### [facility] [address] [place] [address] Agriculture Worker: Avinash Aldrich MD #### URNMAB, AHCV #### [address] [phone] Agriculture Worker: JORDANA Francohloride [Moles/Vol]95 mmol/TSib21-220WmudiKettering Health – [facility] Center on above:Performed By: #### CBC, CP, LIPR, TSH, UA, UMICAO #### [facility] [address] [place] [address] Agriculture Worker: Avinash Aldrich MD #### INDIGO, AHCV #### [address] [id number] Agriculture Worker: JORDANA FrancoO2 [Moles/Vol]31 mmol/IZsxvrc75-79HqojrKettering Health – Soin Medical Center on above:Performed By: #### CBC, CP, LIPR, TSH, UA, UMICAO #### [facility] [address] [place] [address] Agriculture Worker: Avinash Aldrich MD #### ESTEPHANIANMAB, AHCV #### [place] [phone] Agriculture Worker: JORDANA Francoreatinine [Mass/Vol]0.72 mg/dLNormal0.50-0.90 [facility] on above:Performed By: #### CBC, CP, LIPR, TSH, UA, UMICAO #### [facility] [address] [place] [phone] Agriculture Worker: Avinash Aldrich MD #### URNMAB, AHCV #### [address] [id number] Agriculture Worker: Ciro Lux MDGFR, Amer>60Normal>60MerWoodhull Medical CenterCombeaumont hospital on above:Performed By: #### CBC, CP, LIPR, TSH, UA, UMICAO #### [facility] [address] [place] [address] Agriculture Worker: Avinash Aldrich MD #### INDIGO, AHCV #### [address] [phone] Agriculture Worker: Ciro Lux MDGFR,non Amer>60Normal>60[facility] HospitalCombeaumont hospital on above:Performed By: #### CBC, CP, LIPR, TSH, UA, UMICAO #### [facility] [address] [place] [phone] Agriculture Worker: Avinash Aldrich MD #### INDIGO, AHCV #### [address] [phone] Agriculture Worker: Ciro Lux MDGlucose [Mass/Vol]103 mg/mBChtz32-76MpxywGrand Lake Joint Township District Memorial HospitalCombeaumont hospital on above:Performed By: #### CBC, CP, LIPR, TSH, UA, UMICAO #### [facility] [address] [place] [phone] Agriculture Worker: Avinash Aldrich MD #### INDIGO, AHCV #### [place] [phone] Agriculture Worker: MICHI Francootassium [Moles/Vol]4.0 mmol/LNormal3.7-5.3 [facility] on above:Performed By: #### CBC, CP, LIPR, TSH, UA, UMICAO #### [facility] [address] [place] [phone] Agriculture Worker: Avinash Aldrich MD #### INDIGO, AHCV #### [address] [id number] Agriculture Worker: MICHI Francorotein [Mass/Vol]8.4 g/dLHigh6.4-8.3MTrinity Health System West Campusment on above:Performed By: #### CBC, CP, LIPR, TSH, UA, UMICAO #### [facility] [address] [place] [address] Agriculture Worker: Avinash Aldrich MD #### URNMAB, AHCV #### [address] [phone] Agriculture Worker: BRIDGET Francoodium [Moles/Vol]137 mmol/KZdjpjq918-638DaqsgHighland District HospitalComment on above:Performed By: #### CBC, CP, LIPR, TSH, UA, UMICAO #### [facility] [address] [place] [address] Agriculture Worker: Avinash Aldrich MD #### INDIGO, AHCV #### [address] [phone] Agriculture Worker: Ciro Lux MDUrea nitrogen [Mass/Vol]12 mg/dLNormal8-23[facility] HospitalComment on above:Performed By: #### CBC, CP, LIPR, TSH, UA, UMICAO #### [facility] [address] [place] [phone] Agriculture Worker: Avinash Aldrich MD #### URNMAB, AHCV #### [address] [phone] Agriculture Worker: Ciro Lux MDAlbumin/Globulin [Mass ratio]NOT REPORTEDNormal 1.0-2.5[facility] on above:Performed By: #### CBC, CP, LIPR, TSH, UA, UMICAO #### [facility] [address] [place] [phone] (389) Agriculture Worker: Avinash Aldrich MD #### URNMAB, AHCV #### [facility] [employer] [address] [place] [address] Agriculture Worker: BRIGDET Francotaging:NOT REPORTEDNormSheltering Arms Hospital Comment on above:Performed By: #### CBC, CP, LIPR, TSH, UA, UMICAO #### [facility] [address] [place] [address] Agriculture Worker: Avinash Aldrich MD #### URNMAB, AHCV #### [facility] [employer] [address] [place] [address] Agriculture Worker: Ciro Lux [facility] MUS[facility]EEomprehensive Metabolic Panelon 09-21-2019 Albumin [Mass/Vol]4.3 g/dL3.5 - 5.2 g/dLKettering [facility] Hospital- [place], KYAlbumin/Globulin [Mass ratio]NOT REPORTEDElyria Memorial Hospital [place], KYALP [Catalytic activity/Vol]106 U/L High35 - 104 U/LMcleveland clinic mercy hospitaly Health- [place], KYALT [Catalytic activity/Vol]19 U/L5 - 33 U/L [facility]- [place], KYAnion gap [Moles/Vol]11 mmol/L9 - 17 mmol/LMcleveland clinic mercy hospitaly Health- [place], KYAST [Catalytic activity/Vol]18 U/L<32[facility]- [place], KYBilirubin Ql (U)0.60 mg/dL0.3 - 1.2 mg/dLKettering Memorial Hospital- [place], KYBun/Cre Rkdyt94Aftch [facility]- [place], [place] Calcium [Mass/Vol]10.3 mg/dL8.6 - 10.4 mg/dLMarymount Hospitalcy Health- [place], KYChloride [Moles/Vol]95 mmol/LLow98 - 107 mmol/LMcleveland clinic mercy hospitaly Health- [place], KYCO2 [Moles/Vol]31 mmol/L20 - 31 mmol/LMcleveland clinic mercy hospitaly Health- [place], KYCreatinine [Mass/Vol]0.72 mg/dL0.5 - 0.9 mg/dLMarymount Hospitalcy Health- [place], KYGFR >60>60 mL/minMercy Health- [place], [place] GFR Non->60>60 mL/minBrecksville [facility], VAGFR/1.73 sq M predicted among non-blacks MDRD (S/P/Bld) [Vol rate/Area]NOT REPORTEDBrecksville VA / [facility], [place] GFR/1.73 sq M predicted among non-blacks MDRD (S/P/Bld) [Vol rate/Area][facility], VAComment on above:Average GFR for 60-69 years old: 85 mL/min/1.73sq m Chronic Kidney Disease: <60 mL/min/1.73sq m Kidney failure: <15 mL/min/1.73sq m eGFR calculated using average adult body mass. Additional eGFR calculator available at: http://www.Bouncefootball/multiple_crcl_2011.htm Glucose [Mass/Vol]103 mg/iUTnnd77 - 99 mg/dLBrecksville VA / [facility]ille [facility], VAInterpretation and review of laboratory resultsAbnormalBrecksville [facility], VAPotassium [Moles/Vol]4.0 mmol/L3.7 - 5.3 mmol/[facility], KYProtein [Mass/Vol]8.4 g/dLHigh6.4 - 8.3 g/dLBrecksville VA [facility], VASodium [Moles/Vol]137 mmol/L135 - 144 mmol/[facility], KYUrea nitrogen [Mass/Vol]12 mg/dL8 - 23 mg/dLBrecksville VA / [facility], VALipid Panelon [id number] [Mass/Vol]148 mg/dL<200[facility], VAComment on above: Cholesterol Guidelines: <200 Desirable 200-240 Borderline >240 Undesirable Cholesterol in HDL [Mass/Vol]61 mg/dL>40[place], KYCombeaumont hospital on above: HDL Guidelines: <40 Undesirable 40-59 Borderline >59 Desirable Cholesterol in LDL [Mass/Vol]71 mg/dL0 - 130 mg/dLBrecksville VA [facility], VAComment on above: LDL Guidelines: <100 Desirable 100-129 Near to/above Desirable 130-159 Borderline >159 Undesirable Direct (measured) LDL and calculated LDL are not interchangeable tests. Cholesterol in VLDL [Mass/Vol]NOT REPORTED1 - 30 mg/dLBrecksville [facility], [place] Cholesterol.total/Cholesterol in HDL [Mass ratio]2.4 {ratio}<5[facility] [place], KYTriglyceride [Mass/Vol]78 mg/dL<150[facility], KYComment on above: Triglyceride Guidelines: <150 Desirable 150-199 Borderline 200-499 High >499 Very high Based on AHA Guidelines for fasting triglyceride, November 2011. Lipid Profileon [id number] in VLDL [Mass/Vol]NOT REPORTEDNormal1-30 [facility] HospitalComment on above:Performed By: #### CBC, CP, LIPR, TSH, UA, UMICAO #### [facility] [address] [place] [address] Agriculture Worker: Avinash Aldrich MD #### URNMAB, AHCV #### [facility] [address] [place] [address] Agriculture Worker: Ciro Lux MDOtheron [id number] granulocytes (Bld) [#/Vol]NOT REPORTEDBrecksville [facility], KYPTH, [place] [id number] Gezedl04.68 pg/mL15 - 65 pg/mLBrecksville VA / [facility], KYComment on above:SAMPLES FROM PATIENTS ROUTINELY RECEIVING HIGH DOSE BIOTIN THERAPY MAY SHOW FALSELY DEPRESSED RESULTS. ADDITIONAL INFORMATION MAY BE REQUIRED FOR DIAGNOSIS. Basic Metabolic Panelon [id number] gap [Moles/Vol]10 mmol/L9 - 17 mmol/L [facility], KYBun/Cre Eihcw03JkqaCogfd Health- [place], KYCalcium [Mass/Vol]9.9 mg/dL8.6 - 10.4 mg/dLBrecksville [facility] / [facility], KYChloride [Moles/Vol]99 mmol/L98 - 107 mmol/LMCorey Hospital, KYCO2 [Moles/Vol]30 mmol/L20 - 31 mmol/LMCorey Hospital, KYCreatinine [Mass/Vol]0.79 mg/dL0.5 - 0.9 mg/dLBrecksville [facility], KYGFR >60>60 mL/minBrecksville VA [facility], KYGFR Non->60>60 mL/minBrecksville VA [facility], KYGFR/1.73 sq M predicted among non-blacks MDRD (S/P/Bld) [Vol rate/Area]NOT REPORTEDBrecksville [facility], KYGFR/1.73 sq M predicted among non-blacks MDRD (S/P/Bld) [Vol rate/Area][facility], KYComment on above:Average GFR for 60-69 years old: 85 mL/min/1.73sq m Chronic Kidney Disease: <60 mL/min/1.73sq m Kidney failure: <15 mL/min/1.73sq m eGFR calculated using average adult body mass. Additional eGFR calculator available at: http://www.Bouncefootball/multiple_crcl_2011.htm Glucose [Mass/Vol]105 mg/nZKulk16 - 99 mg/dLBrecksville [facility], KYInterpretation and review of laboratory resultsAbnormalBrecksville [facility], KYPotassium [Moles/Vol]3.3 mmol/LLow3.7 - 5.3 mmol/LMCorey Hospital, KYSodium [Moles/Vol] 139 mmol/L135 - 144 mmol/[facility], KYUrea nitrogen [Mass/Vol]20 mg/dL8 - 23 mg/dLBrecksville [facility], KYBasic Metabolic Profon 11-27-2018(cont.)Normal [facility] HospitalComment on above:Result Comment: Average GFR for 60-69 years old: 85 mL/min/1.73sq m Chronic Kidney Disease: <60 mL/min/1.73sq m Kidney failure: <15 mL/min/1.73sq m eGFR calculated using average adult body mass. Additional eGFR calculator available at: http://www.Bouncefootball/multiple_crcl_2012.htmPerformed By: #### BMP #### [facility] [address] [place] [address] Agriculture Worker: Chad Mcduffie gap [Moles/Vol]10 mmol/LNormal9-17[facility] HospitalComment on above:Performed By: #### BMP #### [facility] [address] [place], [place] [phone] Agriculture Worker: DADA Mcduffie/CRE Bwmyq21Srcv3-92UcwinHighland District Hospital Comment on above:Performed By: #### BMP #### [facility] [address] [place], [place] [id number] Agriculture Worker: JORDANA Mcduffiealcium [Mass/Vol]9.9 mg/dLNormal8.6-10.4[facility] HospitalComment on above:Performed By: #### BMP #### [facility] [address] [place], [place] 4067190 Agriculture Worker: JORDANA Mcduffiehloride [Moles/Vol]99 mmol/JErvorv44-484HeokdHighland District HospitalComment on above:Performed By: #### BMP #### [facility] [address] [place], [place] 4796390 Agriculture Worker: Avinash Aldrich MDCO2 [Moles/Vol]30 mmol/WMmrjea64-26Khtxk Willard HospitalComment on above:Performed By: #### BMP #### [facility] [address] [place] [address] Agriculture Worker: JORDANA Mcduffiereatinine [Mass/Vol]0.79 mg/dLNormal0.50-0.90 [facility] HospitalComment on above:Performed By: #### BMP #### [facility] [address] [place] [address] Agriculture Worker: TAWANNA Mcduffie, Amer>60Normal>60[facility] HospitalComment on above:Performed By: #### BMP #### [facility] [address] [place], [place] 1263190 Agriculture Worker: TAWANNA Mcduffie,non Amer>60Normal>60[facility] HospitalComment on above:Performed By: #### BMP #### [facility] [address] [place], [place] 7474290 Agriculture Worker: Avinash Aldrich MDGlucose [Mass/Vol]105 mg/nCDwno62-44TdvqyGrand Lake Joint Township District Memorial HospitalComment on above:Performed By: #### BMP #### [facility] [address] [place] [phone] Agriculture Worker: Avinash Aldrich, MDPotassium [Moles/Vol]3.3 mmol/LLow3.7-5.3MCincinnati Shriners Hospital HospitalComment on above:Performed By: #### BMP #### [facility] [address] [place] [address] Agriculture Worker: BRIDGET Mcduffieodium [Moles/Vol]139 mmol/PRxryfx691-254LhoktHighland District HospitalComment on above:Performed By: #### BMP #### [facility] [address] [place] [phone] Agriculture Worker: Avinash Aldrich MDUrea nitrogen [Mass/Vol]20 mg/dLNormal8-23[facility] HospitalComment on above:Performed By: #### BMP #### [facility] [address] [place] [address] Agriculture Worker: BRIDGET Mcduffietaging:NOT REPORTEDNoSalem Regional Medical Center Comment on above:Performed By: #### BMP #### [facility] [address] [place] [phone] Agriculture Worker: Avinash Aldrich MDXR FOOT LEFT (MIN 3 VIEWS)on [id number] FOOT LEFT (MIN 3 VIEWS)EXAM: XR FOOT LEFT (MIN 3 VIEWS) HISTORY: [...] Signed by: Shyam Edmond MD 11/18/18 Final resultNormalHighland District HospitalHep C Abon [id number] C AbNONREACTIVE NormalNRHighland District HospitalComment on above:Result Comment: The hepatitis C procedure used in [...] is recommended by ordering HCV RNA by PCR.Performed By: #### CBC, CP, LIPR, TSH, UA, UMICAO #### [facility] [address] [place] [address] Agriculture Worker: Avinash Aldrich MD #### INDIGO, AHCV #### [facility] [employer] [address] [place] [address] Agriculture Worker: Juan Franco.,Random Uron [id number] [Mass/Vol]105.7 mg/lIMnchbm49.0-217.0High[facility] District HospitalComment on above: Performed By: #### CBC, CP, LIPR, TSH, UA, UMICAO #### [facility] [address] [place] [address] Agriculture Worker: Avinash Aldrich MD #### INDIGO, AHCV #### [facility] [employer] [address] [place] [address] Agriculture Worker: Rafaela Francob/Creat RatioCANNOT BE CALCULATEDNormal <25[facility] HospitalComment on above:Performed By: #### CBC, CP, LIPR, TSH, UA, UMICAO #### [facility] [address] [place] [address] Agriculture Worker: Avinash Aldrich MD #### TANYAAB, AHCV #### [address] [address] Agriculture Worker: SALVATORE Francoicroalbumin conc.<12Normal<21[facility]ennis Memorial HospitalComment on above:Performed By: #### CBC, CP, LIPR, TSH, UA, UMICAO #### [facility] [address] [place] [address] Agriculture Worker: Avinash Aldrich MD #### INDIGO, AHCV #### [address] [address] Agriculture Worker: JORDANA Francomedina [id number] distribution width (RBC) [Ratio]13.6 %Kqrbsh68.1-15.2[facility] St[facility] Memorial HospitalComment on above: Performed By: #### CBC, CP, LIPR, TSH, UA, UMICAO #### [facility] [address] [place] [address] Agriculture Worker: Avinash Aldrich MD #### INDIGO, AHCV #### [address] [address] Agriculture Worker: Ciro Lux MDHematocrit (Bld) [Volume fraction]44.6 %Normal 36-46[facility] Memorial HospitalComment on above:Performed By: #### CBC, CP, LIPR, TSH, UA, UMICAO #### [facility] [address] [place] [address] Agriculture Worker: Avinash Aldrich MD #### INDIGO, AHCV #### [address] [address] Agriculture Worker: Ciro Lux MDHemoglobin (Bld) [Mass/Vol]14.9 g/dLNormal 12.0-16.0[facility] HospitalComment on above:Performed By: #### CBC, CP, LIPR, TSH, UA, UMICAO #### [facility] [address] [place], [place] 2686090 Agriculture Worker: Avinash Aldrich MD #### INDIGO, SOHEILACV #### [address] [id number] Agriculture Worker: JOMAR Franco (RBC) [Entitic mass]29.7 fwQocycs58-61OdgkrHighland District HospitalComment on above:Performed By: #### CBC, CP, LIPR, TSH, UA, UMICAO #### [facility] [address] [place] [phone] Agriculture Worker: Avinash Aldrich MD #### INDIGO, SOHEILACV #### [place] [phone] Agriculture Worker: JOMAR FrancoC (RBC) [Mass/Vol]33.5 g/dMEyzete35-40XfhrzHighland District HospitalComment on above:Performed By: #### CBC, CP, LIPR, TSH, UA, UMICAO #### [facility] [address] [place] [phone] Agriculture Worker: Avinash Aldrich MD #### INDIGO, SOHEILACV #### [place] [phone] Agriculture Worker: FIONA Franco (RBC) [Entitic vol]88.6 aMMgxnki98-760DwyruHighland District HospitalComment on above:Performed By: #### CBC, CP, LIPR, TSH, UA, UMICAO #### [facility] [address] [place] [phone] Agriculture Worker: Avinash Aldrich MD #### INDIGO, SOHEILACV #### [place] [phone] Agriculture Worker: Lissa Franco (d) [#/Vol]339 10*3/pDMnqybv864-711 [facility] on above:Performed By: #### CBC, CP, LIPR, TSH, UA, UMICAO #### [facility] [address] [place], [place] 0488890 Agriculture Worker: Avinash Aldrich MD #### INDIGO, AHCV #### [address] [id number] Agriculture Worker: ANDRES Franco ([facility]) [#/Vol]5.03 10*6/uLNormal4.0-5.2MMercy Health – [facility] Hospital on above:Performed By: #### CBC, CP, LIPR, TSH, UA, UMICAO #### [facility] [address] [place] [phone] Agriculture Worker: Avinash Aldrich MD #### INDIGO, AHCV #### [address] [address] Agriculture Worker: LUIS DANIEL Franco ([facility]) [#/Vol]7.7 10*3/uLNormal3.5-11.0[facility] on above:Performed By: #### CBC, CP, LIPR, TSH, UA, UMICAO #### [facility] [address] [place], [place] 1580790 Agriculture Worker: Avinash Aldrich MD #### INDIGO, AHCV #### [address] [address] Agriculture Worker: RUSS Franco AutomatedNOT REPORTEDNormalHighland District HospitalCombeaumont hospital on above:Performed By: #### CBC, CP, LIPR, TSH, UA, UMICAO #### [facility] [address] [place] [address] Agriculture Worker: Avinahs Aldrich MD #### INDIGO, AHCV #### [facility] [address] [place], [place] [phone] Agriculture Worker: MICHI Francolatelet mean volume (Bld) [Entitic vol]NOT REPORTEDNormal6.0-12.0[facility] HospitalComment on above:Performed By: #### CBC, CP, LIPR, TSH, UA, UMICAO #### [facility] [address] [place] [address] Agriculture Worker: Avinash Aldrich MD #### INDIGO, AHCV #### [facility] [address] [place], [place] 5208408 Agriculture Worker: Ciro Lux MDErythrocyte distribution width (RBC) [Ratio]13.6 %12.1 - 15.2 %[facility], VAHematocrit (Bld) [Volume fraction]44.6 %36 - 46 %[facility], VAHemoglobin (Bld) [Mass/Vol]14.9 g/dL12 - 16 g/dLAshtabula General HospitalH (RBC) [Entitic mass]29.7 pg26 - 34 pgVillanova, KYMCHC (RBC) [Mass/Vol]33.5 g/dL31 - 37 g/dLAshtabula General HospitalV (RBC) [Entitic vol] 88.6 fL80 - 100 [facility], KYPlatelet mean volume (Bld) [Entitic vol] NOT REPORTED6 - 12 fLBrecksville VA / [facility]ille [facility], KYPlatelets (Bld) [#/Vol]339 10*3/[facility], KYRBC (Bld) [#/Vol]5.03 10*6/uL4 - 5.2 m/[facility], KYWBC (Bld) [#/Vol]7.7 10*3/[facility], KYWBC (Bld) [#/Vol]NOT REPORTEDper 100 WBCBrecksville VA [facility], [facility] Metabolic Profon 10-28-2018(cont.)[facility] on above:Result Comment: Average GFR for 60-69 years old: 85 mL/min/1.73sq m Chronic Kidney Disease: <60 mL/min/1.73sq m Kidney failure: <15 mL/min/1.73sq m eGFR calculated using average adult body mass. Additional eGFR calculator available at: http://www.m-spatial.Autopilot/multiple_crcl_2012.htmPerformed By: #### CBC, CP, LIPR, TSH, UA, UMICAO #### [facility] [address] [place] [address] Agriculture Worker: Avinash Aldrich MD #### INDIGO, AHCV #### [address] [id number] Agriculture Worker: Ciro Lux MDAlbumin [Mass/Vol]4.2 g/dLNormal3.5-5.2MMercy Health – The [facility] Hospital on above:Performed By: #### CBC, CP, LIPR, TSH, UA, UMICAO #### [facility] [address] [place] [address] Agriculture Worker: Avinash Aldrich MD #### INDIGO, AHCV #### [address] [address]17[address] Agriculture Worker: Ziggy Franco Xibb923 U/HRodbfa88-571EwxlzKettering Health – [facility] Center on above:Performed By: #### CBC, CP, LIPR, TSH, UA, UMICAO #### [facility] [address] [place] [address] Agriculture Worker: Avinash Aldrich MD #### INDIGO, AHCV #### [address] [phone] Agriculture Worker: Ciro Madoff, MDALT [Catalytic activity/Vol]16 U/LNormal5-33 [facility] HospitalComment on above:Performed By: #### CBC, CP, LIPR, TSH, UA, UMICAO #### [facility] [address] [place], [place] [phone] Agriculture Worker: Avinash Aldrich MD #### INDIGO, AHCV #### [address] 1963[address] Agriculture Worker: Ciro Lux MDAnion gap [Moles/Vol]13 mmol/LNormal9-17[facility] HospitalComment on above:Performed By: #### CBC, CP, LIPR, TSH, UA, UMICAO #### [facility] [address] [place] [phone] Agriculture Worker: Avinash Aldrich MD #### INDIGO, SOHEILACV #### [address] [phone] Agriculture Worker: Ciro Lux MDAST [Catalytic activity/Vol]15 U/LNormal<32[facility] HospitalComment on above:Performed By: #### CBC, CP, LIPR, TSH, UA, UMICAO #### [facility] [address] [place], [place] 5672190 Agriculture Worker: Avinash Aldrich MD #### INDIGO, AHCV #### [address] [phone] Agriculture Worker: Ciro Lux MDBilirubin Ql (U)0.64 mg/dLNormal0.30-1.20[facility] District HospitalCombeaumont hospital on above:Performed By: #### CBC, CP, LIPR, TSH, UA, UMICAO #### [facility] [address] [place] [phone] Agriculture Worker: Avinash Aldrich MD #### INDIGO, AHCV #### [address] [place] 4412508 Agriculture Worker: Ciro Lux MDBUN/CRE Evqxe62Zhya8-22SpdcdHighland District Hospital Comment on above:Performed By: #### CBC, CP, LIPR, TSH, UA, UMICAO #### [facility] [address] [place] [address] Agriculture Worker: Avinash Aldrich MD #### INDIGO, AHCV #### [address] [id number] Agriculture Worker: JORDANA Francoalcium [Mass/Vol]10.6 mg/dLHigh8.6-10.4[facility] HospitalComment on above:Performed By: #### CBC, CP, LIPR, TSH, UA, UMICAO #### [facility] [address] [place], [place] [phone] Agriculture Worker: Avinash Aldrich MD #### INDIGO, AHCV #### [address] [phone] Agriculture Worker: JORDANA Francohloride [Moles/Vol]96 mmol/GEjd60-509CqjamHighland District HospitalComment on above:Performed By: #### CBC, CP, LIPR, TSH, UA, UMICAO #### [facility] [address] [place], [place] 7309890 Agriculture Worker: Avinash Aldrich MD #### INDIGO, AHCV #### [address] [id number] Agriculture Worker: JORDANA FrancoO2 [Moles/Vol]31 mmol/PLklrys23-92UlqcmHighland District HospitalComment on above:Performed By: #### CBC, CP, LIPR, TSH, UA, UMICAO #### [facility] [address] [place], [place] 5722390 Agriculture Worker: Avinash Aldrich MD #### URNMAB, AHCV #### [address] [phone] Agriculture Worker: JORDANA Francoreatinine [Mass/Vol]0.72 mg/dLNormal0.50-0.90 [facility] on above:Performed By: #### CBC, CP, LIPR, TSH, UA, UMICAO #### [facility] [address] [place] [phone] Agriculture Worker: Avinash Aldrich MD #### URNMAB, AHCV #### [place] [address] Agriculture Worker: Ciro Lux MDGFR, Amer>60Normal>60[facility] HospitalComment on above:Performed By: #### CBC, CP, LIPR, TSH, UA, UMICAO #### [facility] [address] [place] [phone] Agriculture Worker: Avinash Aldrich MD #### INDIGO, AHCV #### [place] [address]78[address] Agriculture Worker: Ciro Lux MDGFR,non Amer>60Normal>60[facility] District HospitalCombeaumont hospital on above:Performed By: #### CBC, CP, LIPR, TSH, UA, UMICAO #### [facility] [address] [place] [phone] Agriculture Worker: Avinash Aldrich MD #### URNMAB, AHCV #### [address] [phone] Agriculture Worker: Ciro Lux MDGlucose [Mass/Vol]90 mg/mBXgnirw77-05PsthrGrand Lake Joint Township District Memorial HospitalCombeaumont hospital on above:Performed By: #### CBC, CP, LIPR, TSH, UA, UMICAO #### [facility] [address] [place] [phone] Agriculture Worker: Avinash Aldrich MD #### INDIGO, AHCV #### [address] [address] Agriculture Worker: Ciro Lux MDPotassium [Moles/Vol]3.6 mmol/LLow3.7-5.3MGrand Lake Joint Township District Memorial HospitalComment on above:Performed By: #### CBC, CP, LIPR, TSH, UA, UMICAO #### [facility] [address] [place] [phone] Agriculture Worker: Avinash Aldrich MD #### INDIGO, AHCV #### [place] [phone] Agriculture Worker: Ciro Lux MDProtein [Mass/Vol]8.2 g/dLNormal6.4-8.3MGrand Lake Joint Township District Memorial HospitalComment on above:Performed By: #### CBC, CP, LIPR, TSH, UA, UMICAO #### [facility] [address] [place] [phone] Agriculture Worker: Avinash Aldrich MD #### INDIGO, AHCV #### [address] [phone] Agriculture Worker: Ciro Lux MDSodium [Moles/Vol]140 mmol/YOyrpid995-060ZxflkHighland District HospitalComment on above:Performed By: #### CBC, CP, LIPR, TSH, UA, UMICAO #### [facility] [address] [place] [address] Agriculture Worker: Avinash Aldrich MD #### INDIGO, AHCV #### [address] [phone] Agriculture Worker: Ciro Lux MDUrea nitrogen [Mass/Vol]15 mg/dLNormal8-23[facility] HospitalComment on above:Performed By: #### CBC, CP, LIPR, TSH, UA, UMICAO #### [facility] [address] [place] [address] Agriculture Worker: Avinash Aldrich MD #### URNMAB, AHCV #### [address] [phone] Agriculture Worker: Ciro Lux MDAlbumin/Globulin [Mass ratio]NOT REPORTEDNormal 1.0-2.5[facility] District HospitalComment on above:Performed By: #### CBC, CP, LIPR, TSH, UA, UMICAO #### [facility] [address] [place] [address] Agriculture Worker: Avinash Aldrich MD #### URNMAB, AHCV #### [address] [address] Agriculture Worker: BRIDGET Francotaging:NOT REPORTEDNormalHighland District Hospital Comment on above:Performed By: #### CBC, CP, LIPR, TSH, UA, UMICAO #### [facility] [address] [place] [address] Agriculture Worker: Avinash Aldrich MD #### URNMAB, AHCV #### [address] [phone] Agriculture Worker: Ciro Lux [facility] MUSK[facility]EEomprehensive Metabolic Panelon 10-28-2018 Albumin [Mass/Vol]4.2 g/dL3.5 - 5.2 g/dLBrecksville [facility], KYAlbumin/Globulin [Mass ratio]NOT REPORTEDBrecksville [facility], KYALP [Catalytic activity/Vol]102 U/L 35 - 104 U/LMCorey Hospital, KYALT [Catalytic activity/Vol]16 U/L5 - 33 U/L [facility], KYAnion gap [Moles/Vol]13 mmol/L9 - 17 mmol/LMMercy Health [facility]iffin [facility] [place], KYAST [Catalytic activity/Vol]15 U/L<32MerSt. Anne Hospital- [place], KYBilirubin Ql (U)0.64 mg/dL0.3 - 1.2 mg/dLKettering Memorial Hospital- [place], KYBun/Cre Rwavu78HzxuTmwfi Health- [place], [place] Calcium [Mass/Vol]10.6 mg/dLHigh8.6 - 10.4 mg/dLKettering Memorial Hospital- [place], KYChloride [Moles/Vol]96 mmol/LLow98 - 107 mmol/LMProtestant Deaconess Hospital- [place], KYCO2 [Moles/Vol]31 mmol/L20 - 31 mmol/LMProtestant Deaconess Hospital- [place], KYCreatinine [Mass/Vol]0.72 mg/dL0.5 - 0.9 mg/dLKettering Memorial Hospital- [place], KYGFR >60>60 mL/minBrecksville VA / [facility], [place] GFR Non->60>60 mL/minBrecksville VA / [facility], KYGFR/1.73 sq M predicted among non-blacks MDRD (S/P/Bld) [Vol rate/Area]NOT REPORTEDBrecksville VA / [facility], [place] GFR/1.73 sq M predicted among non-blacks MDRD (S/P/Bld) [Vol rate/Area][facility], KYComment on above:Average GFR for 60-69 years old: 85 mL/min/1.73sq m Chronic Kidney Disease: <60 mL/min/1.73sq m Kidney failure: <15 mL/min/1.73sq m eGFR calculated using average adult body mass. Additional eGFR calculator available at: http://www.m-spatial.Autopilot/multiple_crcl_2011.htm Glucose [Mass/Vol]90 mg/dL70 - 99 mg/dLBrecksville VA / [facility], KYInterpretation and review of laboratory resultsAbnormalBrecksville VA / [facility], KYPotassium [Moles/Vol]3.6 mmol/LLow3.7 - 5.3 mmol/LMProtestant Deaconess Hospital- [place], KYProtein [Mass/Vol]8.2 g/dL6.4 - 8.3 g/dLBrecksville VA [facility], KYSodium [Moles/Vol]140 mmol/L135 - 144 mmol/LMMercy Health [facility]iffin [facility] [place], KYUrea nitrogen [Mass/Vol]15 mg/dL8 - 23 mg/dLVillanova, [place] Hepatitis C Antibodyon [id number] C AbNONREACTIVENONREACTIVEVillanova, KYComment on above: The hepatitis C procedure used [...] ordering HCV RNA by PCR. Lipid Panelon [id number] [Mass/Vol]172 mg/dL<200[place], [place] Comment on above: Cholesterol Guidelines: <200 Desirable 200-240 Borderline >240 Undesirable Cholesterol in HDL [Mass/Vol]78 mg/dL>40[place], KYComment on above: HDL Guidelines: <40 Undesirable 40-59 Borderline >59 Desirable Cholesterol in LDL [Mass/Vol]77 mg/dL0 - 130 mg/dLVillanova, KYComment on above: LDL Guidelines: <100 Desirable 100-129 Near to/above Desirable 130-159 Borderline >159 Undesirable Direct (measured) LDL and calculated LDL are not interchangeable tests. Cholesterol in VLDL [Mass/Vol]NOT REPORTED1 - 30 mg/dLVillanova, [place] Cholesterol.total/Cholesterol in HDL [Mass ratio]2.2 {ratio}<5[place], KYTriglyceride [Mass/Vol]84 mg/dL<150[place], KYComment on above: Triglyceride Guidelines: <150 Desirable 150-199 Borderline 200-499 High >499 Very high Based on AHA Guidelines for fasting triglyceride, November 2011. Lipid Profileon [id number] [Mass/Vol]172 mg/dLNormal<200[facility] District HospitalComment on above:Result Comment: Cholesterol Guidelines: <200 Desirable 200-240 Borderline >240 UndesirablePerformed By: #### CBC, CP, LIPR, TSH, UA, UMICAO #### [facility] [address] [place] [address] Agriculture Worker: Avinash Aldrich MD #### URNMAB, AHCV #### [facility] [address] [place], [place] [phone] Agriculture Worker: JORDANA Francoholesterol in HDL [Mass/Vol]78 mg/dLNormal>40 [facility] on above:Result Comment: HDL Guidelines: <40 Undesirable 40-59 Borderline >59 DesirablePerformed By: #### CBC, CP, LIPR, TSH, UA, UMICAO #### [facility] [address] [place] [phone] Agriculture Worker: Avinash Aldrich MD #### URNMAB, AHCV #### [address] [id number] Agriculture Worker: JORDANA Francoholesterol in LDL [Mass/Vol]77 mg/dLNormal0-130 [facility] on above:Result Comment: LDL Guidelines: <100 Desirable 100-129 Near to/above Desirable 130-159 Borderline >159 Undesirable Direct (measured) LDL and calculated LDL are not interchangeable tests.Performed By: #### CBC, CP, LIPR, TSH, UA, UMICAO #### [facility] [address] [place], [place] [phone] Agriculture Worker: Avinash Aldrich MD #### ESTEPHANIANMAB, AHCV #### [address] [phone] Agriculture Worker: Magdiel Francostmack.total/Cholesterol in HDL [Mass ratio]2.2 {ratio}Normal<5[facility] on above:Performed By: #### CBC, CP, LIPR, TSH, UA, UMICAO #### [facility] [address] [place], [place] [phone] Agriculture Worker: Avinash Aldrich MD #### URNMAB, AHCV #### [facility] [address] [place], [place] [phone] Agriculture Worker: Ciro Lux MDTriglyceride [Mass/Vol]84 mg/dLNormal<150High[facility] District HospitalComment on above:Result Comment: Triglyceride Guidelines: <150 Desirable 150-199 Borderline 200-499 High >499 Very high Based on AHA Guidelines for fasting triglyceride, November 2011.Performed By: #### CBC, CP, LIPR, TSH, UA, UMICAO #### [facility] [address] [place], [place] [phone] Agriculture Worker: Avinash Aldrich MD #### URNMAB, AHCV #### [facility] [employer] [address] [place], [place] [phone] Agriculture Worker: JORDANA Francoholesterol in VLDL [Mass/Vol]NOT REPORTEDNormal 1-30Highland District HospitalComment on above:Performed By: #### CBC, CP, LIPR, TSH, UA, UMICAO #### [facility] [address] [place], [place] [id number] Agriculture Worker: Avinash Aldrich MD #### URNMAB, AHCV #### [facility] [employer] [address] [place], [place] [id number] Agriculture Worker: SALVATORE Francoicroalbumin, Uron 74-68-8066Pikjszg/Creatinine DL <= 20 mg/L (24H U) [Mass ratio]<12<21 mg/[facility], [place] Albumin/Creatinine DL <= 20 mg/L (U) [Ratio]CANNOT BE CALCULATED<25 mcg/mg creat [facility], KYCreatinine [Mass/Vol]105.7 mg/dL28 - 217 mg/dLBrecksville VA / [facility], KYMicroscopic Urinalysison 36-35-8225Nrzxpskmd, UANOT REPORTEDWestern [facility] Hospital, KYBacteria, UARAREAbnormalWestern Reserve Hospital, KYCasts UANOT REPORTED/LPCommunity Regional [facility], KYCrystals UANOT REPORTEDNone /[facility], KYEpithelial Cells UA2 TO 5/[facility], KYInterpretation and review of laboratory resultsAbnormalMercy Health- [place], KYMucus, UANOT REPORTEDNoneMercy Health- [place], KYOther Observations UANOT REPORTEDNOT REQ.[facility] [place], KYRBC (U) [#/Vol]NOT REPORTEDMercy Health- [place], KYRenal Epithelial, UrineNOT REPORTED0 /HPFMercy Health- [place], KYTrichomonas, UANOT REPORTEDNoneMercy Health- [place], KYWBC, UA0 TO 20 /HPFMercy Health- [place], KYYeast, UANOT REPORTEDNoneMercy Health- [place], [place]- [facility] [place], KYTSH without Reflexon 62-48-9912XTT Qn4.72 m[IU]/LMercy Health- [place], KYThyroid Stim. Horm.on 31-59-5424VSQ Qn4.72 m[IU]/LNormal0.30-5.00 High[facility] District HospitalComment on above:Performed By: #### CBC, CP, LIPR, TSH, UA, UMICAO #### [facility] [address] [place] [address] Agriculture Worker: Avinash Aldrich MD #### URNMAB, AHCV #### [facility] [address] [place] [address] Agriculture Worker: Ciro Lux MDUrinalysison 08-34-2613Eudedymey UrineNegative NEGATIVEMercy Health- [place], KYColor, UAYELLOWYELLOWMercy Health- [place], KYGlucose, Ur NegativeNEGATIVEMercy Health- [place], KYInterpretation and review of laboratory resultsAbnormalMercy Health- [place], KYKetones Ql (U)NegativeNEGATIVEMercy Health- [place], KYLeukocyte esterase Test strip Ql (U)1+AbnormalNEGATIVEMercy Health- [place], [place] Nitrite, UrineNegativeNEGATIVEMercy Health- [place], KYpH, UA7.0[facility] [place], [place] Protein (U) [Mass/Vol]NegativeNEGATIVEMercy Health- [place], KYSpecific [place], UA 1.010[facility]- [place], KYTurbidity UACLEARCLEARMercy Health- [place], KYUrinalysis CommentsMercy Health- [place], KYUrine HgbNegativeNEGATIVEKettering Memorial Hospital- [place], [place] Urobilinogen, UrineNormalNormalKettering Memorial Hospital- [place], KYUrinalysis, Routineon 31-59-8001Cepezrgmibt Acid,UrNegativeNormalNEGMerWoodhull Medical CenterComment on above:Performed By: #### CBC, CP, LIPR, TSH, UA, UMICAO #### [facility] [address] [place] [address] Agriculture Worker: Avinash Aldrich MD #### URNMAB, AHCV #### [address] [id number] Agriculture Worker: Ciro Lux MDBilirubin, SemiQt,UrNegativeNormalNEGHighland District HospitalComment on above:Performed By: #### CBC, CP, LIPR, TSH, UA, UMICAO #### [facility] [address] [place] [address] Agriculture Worker: Avinash Aldrich MD #### URNMAB, AHCV #### [address] [id number] Agriculture Worker: JORDANA Francosaint francis hospital [facility] (YELLOWOhioHealth Dublin Methodist Hospital Comment on above:Performed By: #### CBC, CP, LIPR, TSH, UA, UMICAO #### [facility] [address] [place] [address] Agriculture Worker: Avinash Aldrich MD #### URNMAB, AHCV #### [facility] [employer] [address] [place] [address] [id number] Agriculture Worker: JORDANA FrancoGalion HospitalComment on above:Performed By: #### CBC, CP, LIPR, TSH, UA, UMICAO #### [facility] [address] [place] [address] Agriculture Worker: Avinash Aldrich MD #### URNMAB, AHCV #### [address] [phone] Agriculture Worker: Ciro Lux MDGlucose Ql (U)NegativeNormalNEGKettering Health – Soin Medical Center on above:Performed By: #### CBC, CP, LIPR, TSH, UA, UMICAO #### [facility] [address] [place] [address] Agriculture Worker: Avinash Aldrich MD #### URNMAB, AHCV #### [address] [phone] Agriculture Worker: Ciro Lux MDHemoglobin, UrNegativeNormalNEGMerWood County Hospital on above:Performed By: #### CBC, CP, LIPR, TSH, UA, UMICAO #### [facility] [address] [place] [address] Agriculture Worker: Avinash Aldrich MD #### URNMAB, AHCV #### [address] [id number] Agriculture Worker: Ciro Lux MDLeukocyte esterase Test strip Ql (U)1+Abnormal NEGHighland District HospitalCombeaumont hospital on above:Performed By: #### CBC, CP, LIPR, TSH, UA, UMICAO #### [facility] [address] [place] [address] Agriculture Worker: Avinash Aldrich MD #### URNMAB, AHCV #### [address] [id number] Agriculture Worker: Ciro Lxu MDNitrite,UrNegativeNormalNEGKettering Health – Soin Medical Center on above:Performed By: #### CBC, CP, LIPR, TSH, UA, UMICAO #### [facility] [address] [place] [address] Agriculture Worker: Avinash Aldrich MD #### URNMAB, AHCV #### [address] [id number] Agriculture Worker: Michi Franco (U)7.0 [pH]Normal5.0-8.0Highland District HospitalComment on above:Performed By: #### CBC, CP, LIPR, TSH, UA, UMICAO #### [facility] [address] [place] [address] Agriculture Worker: Avinash Aldrich MD #### ESTEPHANIANM, AHCV #### [address] [id number] Agriculture Worker: MICHI Francoinspira medical center elmer Ql (U)NegativeNormalNEGHighland District HospitalComment on above:Performed By: #### CBC, CP, LIPR, TSH, UA, UMICAO #### [facility] [address] [place] [address] Agriculture Worker: Avinash Aldrich MD #### INDIGO, AHCV #### [place] [id number] Agriculture Worker: BRIDGET Francopecific gravity (U) [Rel density]1.010Normal 1.005-1.030Highland District HospitalComment on above:Performed By: #### CBC, CP, LIPR, TSH, UA, UMICAO #### [facility] [address] [place] [phone] Agriculture Worker: Avinash Aldrich MD #### URNMAB, AHCV #### [place] [id number] Agriculture Worker: Ciro Lux MDTurbidityCLEARNormalCUniversity Hospitals Samaritan [facility] Center Comment on above:Performed By: #### CBC, CP, LIPR, TSH, UA, UMICAO #### [facility] [address] [place] [phone] Agriculture Worker: Avinash Aldrich MD #### URNMAB, AHCV #### [address] [address] Agriculture Worker: Ciro Lux MDUrobilinogen,UrNormalNormalNORMHighland District HospitalComment on above:Performed By: #### CBC, CP, LIPR, TSH, UA, UMICAO #### [facility] [address] [place] [phone] Agriculture Worker: Avinash Aldrich MD #### URNMAB, AHCV #### [place] [id number] Agriculture Worker: Ciro Lux MDUrinalysis,Microon 10-28-2018-----NormalHighland District HospitalComment on above:Performed By: #### CBC, CP, LIPR, TSH, UA, UMICAO #### [facility] [address] [place] [phone] Agriculture Worker: Avinash Aldrich MD #### URKIERA, AHCV #### [place] [phone] Agriculture Worker: Ciro Lux MDBacteria LM.HPF (Urine sed) [#/Area]RAREAbnormal NONEHighland District HospitalCombeaumont hospital on above:Performed By: #### CBC, CP, LIPR, TSH, UA, UMICAO #### [facility] [address] [place] [address] Agriculture Worker: Avinash Aldrich MD #### URNMAB, AHCV #### [place] [id number] Agriculture Worker: Ciro Lux MDEpithelial cells LM.HPF (Urine sed) [#/Area]2 TO 5NormalHighland District HospitalComment on above:Performed By: #### CBC, CP, LIPR, TSH, UA, UMICAO #### [facility] [address] [place], [place] [id number] Agriculture Worker: Avinash Aldrich MD #### URNMAB, AHCV #### [address] [phone] Agriculture Worker: Ciro Lux MDWBC (U) [#/Vol]0 TO 0Mviltd7Gzkwg John C. Stennis Memorial HospitalComment on above:Performed By: #### CBC, CP, LIPR, TSH, UA, UMICAO #### [facility] [address] [place] [address] Agriculture Worker: Avinash Aldrich MD #### ESTEPHANIANM, AHCV #### [address] [phone] Agriculture Worker: Luis Francorpviktoriya sediment LM Ql (Urine sed)NOT REPORTED NormalNONEMercy John C. Stennis Memorial HospitalComment on above:Performed By: #### CBC, CP, LIPR, TSH, UA, UMICAO #### [facility] [address] [place] [address] Agriculture Worker: Avinash Aldrich MD #### ESTEPHANIANMAB, AHCV #### [address] [phone] Agriculture Worker: JORDANA Francoasts LM.LPF (Urine sed) [#/Area]NOT REPORTED NormalMercy John C. Stennis Memorial HospitalComment on above:Performed By: #### CBC, CP, LIPR, TSH, UA, UMICAO #### [facility] [address] [place] [address] Agriculture Worker: Avinash Aldrich MD #### URNMAB, AHCV #### [address] [phone] Agriculture Worker: JORDANA Francorystals LM Nom (Urine sed)NOT REPORTEDNormal NONEMercy Margie HospitalComment on above:Performed By: #### CBC, CP, LIPR, TSH, UA, UMICAO #### [facility] [address] [place], [place] [phone] Agriculture Worker: Avinash Aldrich MD #### URNMAB, AHCV #### [address] [id number] Agriculture Worker: Ciro Lux MDEpithelial, RenalNOT FAXMJKPAQgzxjd2HnbyjMiami Valley Hospitalment on above:Performed By: #### CBC, CP, LIPR, TSH, UA, UMICAO #### [facility] [address] [place] [address] Agriculture Worker: Avinash Aldrich MD #### URNMAB, AHCV #### [address] [id number] Agriculture Worker: Mark Francous StrandsNOT REPORTEDNormalNONEMeGlenbeigh HospitalComment on above:Performed By: #### CBC, CP, LIPR, TSH, UA, UMICAO #### [facility] [address] [place] [address] Agriculture Worker: Avinash Aldrich MD #### URNMAB, AHCV #### [address] [phone] Agriculture Worker: Ciro Lux MDOther ObservationsNOT REPORTEDNormalNREQMiami Valley Hospitalment on above:Performed By: #### CBC, CP, LIPR, TSH, UA, UMICAO #### [facility] [address] [place] [address] Agriculture Worker: Avinash Aldrich MD #### URNMAB, AHCV #### [address] [address] Agriculture Worker: TONI FrancoBC (U) [#/Vol]NOT REPORTEDNormal0-2MGrand Lake Joint Township District Memorial HospitalComment on above:Performed By: #### CBC, CP, LIPR, TSH, UA, UMICAO #### [facility] [address] [place], [place] [id number] Agriculture Worker: Avinash Aldrich MD #### URNMAB, AHCV #### [address] [phone] Agriculture Worker: Shirlene FrancoonasNOT REPORTEDNormalNONEMeGlenbeigh HospitalComment on above:Performed By: #### CBC, CP, LIPR, TSH, UA, UMICAO #### [facility] [address] [place], [place] 0597490 Agriculture Worker: Avinash Aldrich MD #### URNMAB, AHCV #### [address] [id number] Agriculture Worker: Ciro Lux MDYeast LM Ql (Urine sed)NOT REPORTEDNormalNONE Highland District HospitalComment on above:Performed By: #### CBC, CP, LIPR, TSH, UA, UMICAO #### [facility] [address] [place] [address] Agriculture Worker: Avinash Aldrich MD #### URNMAB, AHCV #### [address] [phone] Agriculture Worker: Ciro Lux MD Vital Signs Date TimeVital SignValuePerforming ZylnhsnwiNwlhdrql28-94-6564 15:40-0400Body ghtqij393.4 cmMD [facility] Work Phone: [facility]07-03-2023 15:40-0400 Body .11 kgMD Robbin [place] Work Phone: [facility]07-03-2023 15:39-0400 Body awyoyzrmhls92.1 [degF]MD Robbin Ortiz Work Phone: [facility]07-03-2023 15:39-0400 Diastolic blood shjdypbe36 mm[Hg]MD Robbin Ortiz Work Phone: [facility]07-03-2023 15:39-0400 Heart rate62 /minMD Robbin Ortiz Work Phone: [facility]07-03-2023 15:39-0400 Respiratory rate18 /minMD Robbin Ortiz Work Phone: [facility]07-03-2023 15:39-0400 SaO2% (BldA) [Mass fraction]98 %MD Robbin Ortiz Work Phone: [facility]07-03-2023 15:39-0400 Systolic blood jzpjulrh259 mm[Hg]MD Robbin Ortiz Work Phone: [facility] Encounters Encounter DateEncounter TypeCare ProviderFacilityStart: 11-05-2024 End: 34-53-9395beemyhzvlfGlpemzl K ClingmanFacility:FT Extended CareStart: 11-05-2024 End: 14-80-9738Wsc-SiteMicbilly ClingmanExtended Care Start: 32-36-1838qylinanvdkRkyqszhx AnderleFacility: Extended CareStart: 09-18-2024 End: 65-37-5145ikbmiuzmsxUdpadgp GAINESFacility:FT Extended CareStart: 09-18-2024 End: 05-66-0672Bpi-SitePrashanth ELIAS Extended Care Start: 09-17-2024 End: 55-66-6935duwjxaqqotJfdohhf GAINESFacility:[facility]tart: 09-12-2024 End: 03-26-7528Ohxikzfxet and management of inpatientLawrence J. Anderle Facility:[facility]tart: 29-80-7156Pxxqcatpq department patient visitFacility:[facility] Start: 09-02-2023 End: 19-11-5460salwryqmmqFF Robbin Ortiz Work Phone: [facility] Work Phone: Start: 09-02-2023 End: 04-84-9430Twxsrhv encounter procedureMD Robbin Ortiz Work Phone: [facility] V[facility] Surgery [place] Work Phone: Start: 06-24-2023 End: 19-26-5698zdopqvwmtaYMBGGGDKENZ HASSETTNot AvailableStart: 06-21-2023 End: 81-44-8253nfybxipccrYUTY R RISALITINot AvailableStart: 06-21-2023 End: 48-18-4440mzyegwibixLWOM R RISALITINot AvailableStart: 06-13-2023 End: 01-49-2616Fzhoqtt encounter procedureMD Robbin Ortiz Work Phone: [facility] Main [place] Work Phone: Start: 06-13-2023 End: 19-50-5212zmusiyvlkcYC Robert Hill Work Phone: [facility] Work Phone: Start: 03-07-2023 End: 65-69-0302vwndtbadjiRBADJD L HILLNot AvailableStart: 08-20-2022 End: 86-59-7917Agbnayxoz department patient visitMD Robbin Ortiz Work Phone: [facility] Work Phone: Start: 12-20-2020 End: 90-71-6344utbqiesfirCEGBAE CHARLIFacility:N5Sgiwg: 76-15-6842bmbikbonweBO ROBBIN ORTIZFacility:E7Scbhf: 16-09-1364czyicdpybeWP ROBBIN ORTIZFacility:B1Thjeg: 05-10-2020 End: 59-35-7493kmnxnlupgdJC NONE LISTED REQUESTFacility:F2Rbnjd: 04-18-2020 End: 88-98-7241ajtdigdwegOA NONE LISTED REQUESTFacility:O3Ezjaw: 09-22-2019 End: 75-05-0474Mognepp encounter procedureVIJAY [facility] Start: 09-22-2019 End: 37-06-5642Yehlvcxvjw hospital visit by Tere [facility] Dexa ScanComment on above:Osteopenia, unspecified locationBreast cancer screening by mammogramStart: 09-21-2019 End: 11-70-1616Yaaswjs [facility] Start: 09-21-2019 End: 70-66-6791Xienpjpomu hospital visit by Shayy [facility] Start: 11-27-2018 End: 83-11-4142Wvvfeet encounter [facility] Start: 11-27-2018 End: 39-94-9707Fciokzhrfu hospital visit by Shayy OrtizHORTON MEDICAL CENTERBernadette [facility] Start: 11-17-2018 End: 69-51-2210Gnobabv encounter [facility]Thomas [facility] Start: 11-17-2018 End: 62-73-5116Hubfrip encounter procedureThomas [facility] Start: 11-17-2018 End: 79-08-5477Xrjknuumym hospital [facility] Hospitalgulshan [facility] RadiologyStart: 10-28-2018 End: 61-87-2720Ymiciyq encounter [facility] Start: 10-28-2018 End: 35-35-6993Poxbwmilqf hospital visit by Shayy OrtizHORTON MEDICAL CENTERBernadette Laboratory Procedures DateProcedureProcedure DetailPerforming ClinicianStart: 09-14-2024 Catheterization of left heartPrashanth ELIAS Start: 59-49-4255FDT of headMD Robbin Ortiz Work Phone: Start: 53-89-4209Mbq bone density study 1/> sites axial skelROBGULSHAN MERTENStart: 21-38-2119Oiluzuzin mammography bi 2-view breast inc cadROBGULSHAN MERTENStart: 62-42-1458Phu bone density study 1/> sites axial skel Boy Torres Work Phone: Start: 77-21-5719Krpfxdxvd mammography bi 2-view breast inc [facility] [employer] Work Phone: Start: 34-58-5430Vegcp of parathormoneBRAULIOERT ANGEL Start: 58-21-6166Dcunx count complete auto&auto difrntl wbcROBGULSHAN MERTENStart: 11-33-9348Kbqpygbwkrugd metabolic panelROBERT MERTENStart: 69-59-1102Kckvt panel ROBBIN MERTENStart: 75-66-5584Iqdfp of parathormoneRobert Cynthia Ortiz Work Phone: Start: 15-12-3399Oujvk count complete auto&auto difrntl wbcRobbin Ortiz Work Phone: Start: 87-76-7346Rjwodgwtqokej metabolic panelRobgulshan Ortiz Work Phone: Start: 13-86-1868Ymhgj panelRobgulshan Ortiz Work Phone: Start: 46-12-3799Fqtvb metabolic panel calcium total [facility]ITALtart: 39-11-6017Mshrn metabolic panel calcium totalRobgulshan Ortiz Work Phone: Start: 88-34-0257Jpwwy foot complete minimum 3 views ROBBIN MERTENStart: 89-22-8538Lrwtd of thyroid stimulating hormone tshROBGULSHAN ORTIZ Start: 27-75-7862Dzkco count complete automatedROBERT MERTENStart: 10-28-2018 Comprehensive metabolic panelROBERT MERTENStart: 84-83-8263Fcteatxed c antibody ROBBIN MERTENStart: 42-81-9122Nsqyb panelROBERT MERTENStart: 67-38-0302Zagcgfokmv microscopic onlyROBERT MERTENStart: 23-10-2666Ckntk albumin quantitativeROBERT MERTENStart: 16-48-2423Werww dip stick/tablet rgnt auto w/o microscopyROBBIN STEELE Start: 60-97-9112Ycynk of thyroid stimulating hormone tshRobgulshan Ortiz Work Phone: Start: 30-50-9589Afyol count complete automatedRobbin Ortiz Work Phone: Start: 16-71-5429Cdgahlayfztdj metabolic panelRobgulshan Ortiz Work Phone: Start: 15-91-0022Ipeptwkwv c antibodyRobgulshan Ortiz Work Phone: Start: 62-18-4778Tzotm panelRobgulshan Ortiz Work Phone: Start: 97-03-8250Ngfoqhcovx microscopic onlyRobert Cynthia Ortiz Work Phone: Start: 37-42-3197Vhckz albumin quantitativeRobert Cynthia Ortiz Work Phone: Start: 09-70-1854Henon dip stick/tablet rgnt auto w/o microscopyRobgulshan Ortiz Work Phone: Start: 49-35-5498lnwzttzvz stereo biopsyJejeanette ELIAS Start: 81-62-3805qbefm wrist surgeryJemelissa ELIAS bilateral total kneeJemelissa TEJINDER Plan of Treatment DateCare ActivityDetailAuthorStart: 79-47-1818Wwrgl chest X-rayXR chest 1V portableKnox Community Hospitaltart: 36-80-7493OslrtvfkyKnox Community Hospitaltart: 19-19-5147Bnedfqpqt for malignant neoplasm of breastBreast cancer screenMer Health- [place], [place]Start: 68-09-9568Edpocmzkpf measurement Creatinine monitoringTrumbull Memorial Hospital Health- [place], KYStart: 90-49-2824Risfr panelLipid screenTrumbull Memorial Hospital Health- [place], KYStart: 82-05-7353Itfbdarib monitoringPotassium monitoringMercy Health- [place], KYStart: 38-55-5270Qkuib screenLipid screenMercy Health- [place], KYStart: 38-38-3430Qupgvlgpyy measurementCreatinine monitoringMercy Health- [place], KYStart: 40-42-4018Yuxklguedb monitoringCreatinine monitoringMercy Health- [place], KYStart: 34-56-8946Rjtkddjbe monitoringPotassium monitoringMercy Health- [place], KYStart: 20-83-5178Hikijbteou monitoringCreatinine monitoringMercy Health- [place], KYStart: 29-05-7346Mvlim panelLipid screenMercy Health- [place], KYStart: 21-75-2204Xjskd screenLipid screenMercy Health- [place], KYStart: 10-29-2019 Potassium monitoringPotassium monitoringWexner Medical Centerart: 10-20-2019 Influenza vaccinationFlu vaccine (#1)[facility]: 09-22-2019 End: 33-44-1191Lipdaiyasyt94/04/2020 Appointment RadiologyK[facility]tering Health Behavioral Medical CenterStart: 17-47-5511Ukaowz Wellness Visit (AWV)Annual Wellness Visit (AWV)[facility] Centerart: 52-48-1619Yebraeaeynjp 65+ years Vaccine (1 of 1 - PPSV23)Pneumococcal 65+ years Vaccine (1 of 1 - PPSV23)[place], [place] Start: 01-06-2019 End: 12-56-8434Wikplg Visit01/06/2019 Office Visit Cardiology Michael Gomez MD [address] [place] [address] [facility] Cardiology SpecialistStart: 53-66-8710Numhjjxgi vaccinationFlu vaccine (#1)[facility]: 04-67-9248Gmlvi cancer screen colonoscopyColon cancer screen colonoscopyWyandot Memorial Hospital: 23-93-2358Zxnxfvwlr for malignant neoplasm of colonColon cancer screen colonoscopyWyandot Memorial Hospital: 32-99-6347Tudafj cancer screenBreast cancer [facility] Hospitalart: 23-27-1916Tjsxaliks for malignant neoplasm of breastBreast cancer screenWyandot Memorial Hospital: 11-71-1180Lmfogauj cancer screenCervical cancer [facility]: 66-89-9394Umcvphqxz for malignant neoplasm of cervix Cervical cancer [facility]: 22-43-5628Qonjsnkrbs monitoring Creatinine [facility]: 82-68-5229Uzogcpviu monitoring Potassium monitoringWexner Medical Centerart: 44-59-7506Gcfcxvob Vaccine (2 of 3)Shingles Vaccine (2 of 3)[facility]: 14-45-7476QViG/Tdap/Td vaccine (1 - Tdap)DTaP/Tdap/Td vaccine (1 - Tdap)[facility], [facility]: 73-47-9749KUQ screenHIV screenBrecksville VA / [facility], [facility]: 26-88-4233MYV screening HIV [facility], [facility]: 48-04-9523Uqtvvhmsq C screenHepatitis C [facility], VAPatient referralFort Hamilton Hospital Work Phone: Immunizations Immunization DateImmunizationNotesCare WvdnrutaXvptauht80-73-2150LHVKR-44 Elvira Hdz (Pfizer)MD Robbin Ortiz Work Phone: [facility]03-01-2021COVID-19 Elvira Hdz (Pfizer)MD Robbin Ortiz Work Phone: [facility]10-01-2016influenza, injectable, madin erica canine kidney, preservative freeRobert [facility], UM38-48-5484lhaybu vaccine, [facility], QJ69-00-1115 zoster vaccine, [facility], LG55-88-5521lkfilgbwbggy polysaccharide vaccine, 23 valentRChildren's Hospital for [facility], [place] Payers DatePayer CategoryPayerPolicy ID2025Medicare [id number] 2024Self-pay2020MedicareMEDICARE MEDICARE PART A AND B [id number] 2019-Present [phone] [address], [id number] [facility] MEDICAL MUT[employer] - EXCHANGE [id number] 2019- Present [phone] [address] [place] [id number] [facility] [address] xxxxxxxxxxxx 2014-Present [phone] [address] [place] [address]ayttirnsyqke [id number] [id number] 1960Self-[id number] 1960Unknown [id number] 2..1.827626.3.579.2. [id number] 2..1.886745.3.57[id number] 2..1.765253.3.57[id number] 2..1.922776.3.57[id number] 2.0.1.800711.3.57[id number] 2.0.1.079348.3.57[id number] 2.0.1.112095.3.57[id number] 2.0.1.862248.3.57[id number] 2.0.1.012405.3.57[id number] 2.16.840.1.873651.3.57[id number] 2.16.840.1.526577.3.57[id number] 2.16.840.1.286521.3.57[id number] 2.16.840.1.573628.3.57[id number] 2.16.840.1.480755.3.57[id number] 2.16.840.1.603955.3.57[id number] 2.16.840.1.296631.3.57[id number] 2.16.840.1.382806.3.57[id number] 2.16.840.1.874882.3.57[id number] 2.16.840.1.706492.3.57[id number] 2.16.840.1.294292.3.57[id number] 2.16.840.1.453057.3.57[id number] 2.16.840.1.725931.3.57[id number] 2.16.840.1.361152.3.57[id number] 2..840.1.661956.3.57[id number] 2.16.840.1.0[id number] 2.16.840.1.067843.3.579.2.593Unknown [id number] 2.16.840.1.1[id number] 2.16.840.1.2[id number] 2..840.1.433643.3.579.2.531 Social History DateTypeDetailFacilityStart: 04-24-2016 End: [id number] smoking status NHISNever smokerKnox Community Hospitaltart: 04-24-2016 End: [id number] intakeYesPremier Health Upper Valley Medical Centertart: 04-26-2015 Alcohol CommentoccasionBarney Children's Medical Centerx Assigned At BirthNot on file [facility]: [id number] use and exposureNever [facility] Hospitalart: [id number] intakeCurrent drinker of alcohol (finding)[facility]: [id number] Assigned At BirthFeGenesis HospitalTobacco smoking statusSt. Charles Hospital [facility] Start: [id number] (finding)[facility] Clinical Notes 09-12-2024 to 09-18-2024 Note Date & [id number] NoteDischarge Summary Admission and Discharge Information Admit Date/Time:09/12/2024 14:09 Admitting Physician - Mazin Sy III, DO Consulting Physician - Mahin Conroy MD Admitting Diagnoses: Discharge Diagnoses 1. Seizure, 09/13/2024 2. Stroke-like episode, 09/12/2024 Stroke ruled out w/ MRI 3. Delirium, acute, 09/17/2024 4. Takotsubo cardiomyopathy, 09/13/2024 5. Elevated troponin, 09/13/2024 6. Hypokalemia, 09/14/2024 7. HTN (hypertension), 09/12/2024 8. HLD (hyperlipidemia), 09/17/2024 9. Glaucoma, 09/17/2024 10. GERD (gastroesophageal reflux disease), 09/12/2024 11. Anxiety and depression, 09/12/2024 12. On deep vein thrombosis (DVT) prophylaxis, 09/17/2024 Please refer to my progress note for in-depth information regarding each individual diagnosis Procedure History Cardiac catheterization, left heart (09/14/2024), bilateral stereo biopsy (02/2014), right wrist surgery (1990), bilateral total knee. Hospital Course 69-year-old female with PMH of HTN, HLD, glaucoma, GERD, anxiety, depression. - Patient presented to the ED via EMS secondary to becoming nonverbal, right- sided weakness with unknown last well. Niece Kelsey Grimaldo [phone] is POA-HC - she is looking for paperwork to provide to staff, perfamily male visitor Seven is S.O. not even though he will say they are . Medical information to POA and she will share with family. FULL CODE 1. Seizure (R56.9: Unspecified convulsions) 2. Stroke-like episode (R29.90: Unspecified symptoms and signs involving the nervous system) 3. Delirium, acute (R41.0: Disorientation, unspecified) Initial eval was suspicious for CVA (left MCA distribution, leftward gaze deviation, right hemiparesis, severe aphasia) however determined to be seizures as pt was NOT taking anti-seizure medication as it was inadvertently misplaced - > niece to help w/med set up at home. -Hx. of remote R occipital ischemic CVA that could serve as a potential seizure nidus -> will need lifelong anti-epileptic meds -CT head: no acute intracranial hemorrhage but did show encephalomalacia in the right occipital lobe with ex vacuo dilatation of the right lateral ventricle. -CTA head/neck: no acute process -09/12: MRI brain: no acute cranial process w/ chronic findings -09/15: Repeat MRI brain: no enhancement of concern though there are 3 very meniscal foci suggestive of acute ischemia questionable representation of emboli related to cardiac cath. Per neurology they are of no consequence. -09/16: EEG: abnormal showing moderate slowing of the background electrical activity. Suggest underlying metabolic disturbance -PT/OT -> transition to TCU -Seizure precautions Consult Neuro: -Keppra 1g BID -Cont. delirium supportive care, promote sleep/wake cycle -June d/c w/ OP neuro clinic f/u 4. Takotsubo cardiomyopathy (I51.81: Takotsubo syndrome) 5. HTN (hypertension) (I10: Essential (primary) hypertension) + elevated trop w/ max 2,217.00 Echo: EF 50-55%, no shunting, Suboptimal study due to poor endocardial definition. Consult FT/HV: -08/26: LHC: Non-obstructing CAD, + stress induced cardiomyopathy Cardio recs: -Med mgt. aggressive risk factor control: -Consider initiation of losartan/beta-he/Jardiance or Farxiga for stress- induced cardiomyopathy -> currently bp is low normotensive - will need to re- eval at later time -Event monitor as OP - to be set up when d/c from TCU -There was discrepancy in the blood pressure between the left arm and the invasive pressure. ----*Consider obtaining ultrasound of the left subclavian artery to rule out any stenosis --> CTA head/neck was discussed with radiology Dr. Storey who states proximal left subclavian artery stenosis proximal 50-60%, mildly flow-limiting, this was reviewed with Dr. Sullivan who is in agreement with OP vascular follow-up. 6. Hypokalemia (E87.6: Hypokalemia) Replete K/Mag prn -Trend labs 7. HLD (hyperlipidemia) (E78.5: Hyperlipidemia, unspecified) -Statin 8. Glaucoma (H40.9: Unspecified glaucoma) -Cont. home regimen 9. GERD (gastroesophageal reflux disease) (K21.9: Gastro-esophageal reflux disease without esophagitis) -PPI 10. Anxiety and depression (F41.9: Anxiety disorder, unspecified) Unable to determine stability given current mentation -Fluoxetine - Patient appears to be improved from time of admission, she has been cleared by cardiology and neurology for transition to TCU. I did speak at length with patient's niece this a.m. with review of labs, diagnostics, recommendations by consultants, review of her left subclavian artery stenosis and recommendations for vascular follow-up. She is agreeable with transition to TCU today. --Other chronic medical conditions as outlined in note. Refer to d/c plan below: -Case reviewed and discussed with Dr. Marina who is in agreement with current d/c plan. Case will be reviewed and discussed with Dr. Elias once the hospital boom cat operator (more content not included)...[facility] Healthcare SystemComment on above:Result Comment: Electronically Signed By: Valerie RUBIO\.br\Date and Time Signed: 09/17/24 10:45 EDT\.br\Electronically Co-Signed By: Valerie RUBIO\.br\Date and Time Co-Signed: 09/18/24 07:05 EDT\.br\Electronically Co-Signed By: Shyam Marina DO.br\Date and Time Co-Signed:09/18/24 12:50 [id number] NoteProgress Note-Physician Assessment/Plan ASSESSMENT: 69-year-old woman with history of seizure disorder but not taking antiepileptic medications who wasinitially seen here in September 12, 2024 exhibiting multiple signs concerning for cerebrovascular syndrome (left MCA distribution, leftward gaze deviation, right hemiparesis, severe aphasia), with all those completely resolving and MRI without any diffusion restriction. I thus suspect those deficits were postictal phenomena and she had either had unwitnessed seizure activity or subclinical seizure activity. She has history of a remote right occipital ischemic stroke that could serve as a potential seizurenidus (poststroke seizures) and this will warrant lifelong antiepileptic medication. She had a troponin leak and had a cardiac catheterization on September 14, 2024, after which she had persistent altered mentation even into the next day. When I evaluated her the next day she looked somewhat similar to the way she did on Saturday and the concern again was for subclinical seizure activity. Routine EEG performed was most notable for generalized slowing that could suggest recent subclinical seizure activity. We went up on her levetiracetam. A repeat MRI brain with contrast shows no enhancement of concern, and is overall reassuring, thoughthere are 3 miniscule foci of diffusion restriction suggestive of acute ischemia (2 tiny foci in the right cerebellar hemisphere and 1 tiny focus in the right parietal lobe) and I suspect these represent emboli related to her cardiac catheterization. They are of no consequence. She is more alert, still somewhat confused and disoriented and slow to answer some questions. I suspect she has some degree of delirium related to her hospital stay. PLAN: 1. Continue the levetiracetam at 1000 mg twice daily 2. No other immediate recommendations from a neurology standpoint 1. Seizure (R56.9: Unspecified convulsions) 2. Elevated troponin (R79.89: Other specified abnormal findings of blood chemistry) 3. Depression, unspecified (F32.A: Depression, unspecified) 4. Stroke-like episode (R29.90: Unspecified symptoms and signs involving the nervous system) 5. HTN (hypertension) (I10: Essential (primary) hypertension) 6. GERD (gastroesophageal reflux disease) (K21.9: Gastro-esophageal reflux disease without esophagitis) 7. Anxiety and depression (F41.9: Anxiety disorder, unspecified) 8. Takotsubo cardiomyopathy (I51.81: Takotsubo syndrome) 9. Hypokalemia (E87.6: Hypokalemia) Subjective She is awake. Ate some of her breakfast. I arrived at the same time her did. She is having some difficulty answering questions for him regarding how the night went and how her breakfast was. Does not seem to remember having breakfast. Review of Systems Could not obtain due to mental status Objective Vitals & Measurements T: 36.5 ???C(Axillary) HR: 65(Peripheral) RR: 17 BP: 112/68 SpO2: 97% HT: 152 cm WT: 73.8 kg Intake & Output This visit (24 hour periods starting at 07:00 EDT) 09/17/24 * 09/16/24 09/15/24 Total Summary Intake mL -- 340 784.52 Output mL -- 500 -- Fluid Balance -- -160 784.52 Intake (5) Generic Diluent, levetiracetam mL -- -- 100 Generic Diluent, potassium chloride mL -- -- 11.44 Oral Intake mL -- 340 -- Sodium Chloride 0.9% intravenous solution 1,000 mL mL -- -- 672.08 diazepam mL -- -- 1 Total -- 340 784.52 Output (1) Urine Voided mL -- 500 -- Total -- 500 -- Counts (0) * This column has not completed the indicated time period. Physical Exam GEN: Well-kempt. No distress. No deformities/trauma. CARDIO/VASC: Limbs without significant edema and appear well-perfused. PULM: Normal work of breathing. SKIN: Visualized skin is intact and without lesions aside from age-related findings. MS: Awake and alert. Attention moderately impaired. Not oriented to [facility]. Oriented to August.Did not answer year orientation question. LANG: Speech without any significant dysarthria and no apparent aphasia. EYES: Sclera appear injected, especially in the left. Pupils seem fixed, mid position. Gaze is conjugate. Ocular motility full. No pathologic nystagmus. Visual arvizu are full to finger counting. CN: Facial sensation normal. Hearing acuity normal. MOTOR: Muscle bulk normal. Muscle tone normal. Moving less with her right extremities but she can hold the right upper extremity up in the air without significant drift. REFLEXES: No pathologic reflexes. SENSORY: Light touch normal. Pinprick normal. CEREBELLAR: No ataxia. No gaze preference. Lab Results Platelet: 277 E9/L (09/17/24 06:33:00) Diagnostic Results (09/12/2024 07:[address] Head or Brain w/o Contrast) * Final Report * Reason For Exam Neuro deficit, acute, stroke suspected;Stroke POWERSCRIBE REPORT IMPRESSION: No acute intracranial process. Chronic findings as discussed. COMMUNIC (more content not included)...[facility] SystemComment on above:Result Comment: Electronically Signed By: Juilta Ríos RN\.br\Date and Time Signed: 09/17/24 09:15 EDT\.br\Electronically Co-Signed By: Charlie Harrington DO\.br\Date and Time Co-Signed: 09/17/24 09:51 [id number] NoteProgress Note-Physician Assessment/Plan PLAN 1. Seizure (R56.9: Unspecified convulsions) Stroke-like episode (R29.90: Unspecified symptoms and signs involving the nervous system) Was initially thought to be stroke but secondary to Seizure pt w/hx of seizures. CT head showed no acute intracranial hemorrhage but did show encephalomalacia in the right occipital lobe with ex vacuo dilatation of the right lateral ventricle. CTA of the head and neck were both normal. Consult neurology appreciated. MRI brain shows no acute cranial process only chronic . PT/OT /ST to eval, treat recommending SNF. Keppra Increasing levetiracetam to 1000 mg twice daily starting this morning of note: pt was not taking home dose anti-seizure medication as it was inadvertently misplaced. Niece to help w/med set up at home. 09/15 pt still w/change in mental status post cath. Likely from sedation however re-discussed case with neurology w/ recommendations: 09/16 EEG from yesterday abnormal showing moderate slowing of the background electrical activity. Suggest underlying metabolic disturbance Repeat MRI of the brain with contrast shows no enhancement of concern though there are 3 very meniscal foci suggestive of acute ischemia questionable representation of emboli related to cardiac cath.Per neurology they are of no consequence. Continue Keppra 1000 mg twice daily I did reach out and speak to Pt's niece who is MARYCARMEN Grimaldo [phone] and updated on above. 2. Elevated troponin (R79.89: Other specified abnormal findings of blood chemistry) Takotsubo cardiomyopathy (I51.81: Takotsubo syndrome) Troponin elevation 1236.90 2038.60, 2217.00 1724.40 trending up then flattened. Possibly w/seizure and see cardiology below. No CP or EKG changes. Cardiology consult appreciated. Echo shows apical wall motion suggestive of Takotsubo pt w/hx of this. Heparin discontinued 09/14 s/p left heart cath which non obstructive CAD. Stress induced cardiomyopathy. Continue statin per cardiology-lipid panel normal. 3. HTN (hypertension) (I10: Essential (primary) hypertension) Hypotensive this AM. SBP 95 Continue Hold HCTZ today Hydralazine for SBP >160 4. GERD (gastroesophageal reflux disease) (K21.9: Gastro-esophageal reflux disease without esophagitis) PPI 5. Anxiety and depression (F41.9: Anxiety disorder, unspecified) Prozac - 6. Hypokalemia (E87.6: Hypokalemia) Potassium level stable today Trend labs and replace as necessary DVT Prophylaxis: Heparin gtt Disposition: Inpt status will require >2 midnights stays for further work up and treatment of above. I discussed the diagnosis and plan of care with the patient and family at the bedside. Subjective Pt seen at the bedside this AM. She is more awake, alert; She still is mildly confused. She is alert to self w/periods of confusion. She states she has no pain. She moves extremities but not really to commands. Improved today from yesterday. niece Kelsey updated Pending SNF Objective Vitals & Measurements T: 36.5 ???C(Oral) TMIN: 36.4 ???C(Axillary) TMAX: 37.3 ???C(Oral) HR: 72(Peripheral) RR: 18 BP: 99/70 SpO2: 93% HT: 152 cm WT: 71.1 kg Intake & Output This visit (24 hour periods starting at 07:00 EDT) 09/16/24 * 09/15/24 09/14/24 Total Summary Intake mL 340 784.52 1,617.61 Output mL -- -- 900 Fluid Balance 340 784.52 717.61 Intake (5) Generic Diluent, levetiracetam mL -- 100 100 Generic Diluent, potassium chloride mL -- 11.44 100 Oral Intake mL 340 -- -- Sodium Chloride 0.9% intravenous solution 1,000 mL mL -- 672.08 1,417.61 diazepam mL -- 1 -- Total 340 784.52 1,617.61 Output (1) Urine Voided mL -- -- 900 Total -- -- 900 Counts (1) Stool Count -- -- 1 * This column has not completed the indicated time period. Physical Exam General: NAD. awake. Skin: pale, Warm, dry Head: Normocephalic, atraumatic face w/o droop. Neck: No JVD Eye: pupils equal but non reactive w/bilateral scleras redness/irritation. fixed preferential left-sided gaze now resolved. full ocular motility today. ENT: Dry mucus membranes, nares patent. normal hearing. Cardiovascular: Regular rate normal peripheral perfusion Respiratory: No respiratory distress no accessory muscle use no obvious audible wheezing Chest Wall: no deformity Musculoskeletal: No deformity no swelling GI: Soft no obvious distention. No rebound or rigidity. No guarding. No tenderness. Neurological: awake, verbal today. Oriented. Follows all commands appropriately. Lab Results WBC: 10 E9/L (09/16/24 06:16:00) RBC: 4.4 E12/L (09/16/24 06:16:00) HGB: 13.2 gm/dL (09/16/24 06:16:00) Hct: 39 % (09/16/24 06:16:00) MCV: 88.9 fL (09/16/24 06:16:00) MCH: 30.2 pg (09/16/24 06:16:00) MCHC: 33.9 gm/dL (09/16/24 06:16:00) RDW: 14.2 % (09/16/24 06:16:00) Platelet: 280 E9/L (09/16/24 06:16:00) MPV: 6.7 fL (09/16/24 06:1 (more content not included)...[facility] SystemComment on above:Result Comment: Electronically Signed By: Silvia ALANIZ\.br\Date and Time Signed: 09/16/24 13:18 EDT\.br\Electronically Co-Signed By: Shyam Marina DO\.br\Date and Time Co-Signed: 09/16/24 14:49 [id number] NoteProgress Note-Physician Assessment/Plan ASSESSMENT: 69-year-old woman with history of seizure disorder but not taking antiepileptic medications who wasinitially seen here in September 12, 2024 exhibiting multiple signs concerning for cerebrovascular syndrome (left MCA distribution, leftward gaze deviation, right hemiparesis, severe aphasia), with all those completely resolving and MRI without any diffusion restriction. I thus suspect those deficits were postictal phenomena and she had either had unwitnessed seizure activity or subclinical seizure activity. She has history of a remote right occipital ischemic stroke that could serve as a potential seizurenidus (poststroke seizures) and this will warrant lifelong antiepileptic medication. She had a troponin leak and had a cardiac catheterization on Saturday, after which she had persistentaltered mentation even into the next day. When I evaluated her on Saturday she looks somewhat similar to the way she did on Saturday and the concern again was for subclinical seizure activity. RoutineEEG performed yesterday is most notable for generalized slowing that could suggest recent subclinical seizure activity. We went up on her levetiracetam. A repeat MRI brain with contrast shows no enhancement of concern, and is overall reassuring, thoughthere are 3 miniscule foci of diffusion restriction suggestive of acute ischemia (2 tiny foci in the right cerebellar hemisphere and 1 tiny focus in the right parietal lobe) and I suspect these represent emboli related to her cardiac catheterization. They are of no consequence. PLAN: 1. Continue the levetiracetam at 1000 mg twice daily 2. Further recommendations to follow 1. Seizure (R56.9: Unspecified convulsions) 2. Elevated troponin (R79.89: Other specified abnormal findings of blood chemistry) 3. Depression, unspecified (F32.A: Depression, unspecified) 4. Stroke-like episode (R29.90: Unspecified symptoms and signs involving the nervous system) 5. HTN (hypertension) (I10: Essential (primary) hypertension) 6. GERD (gastroesophageal reflux disease) (K21.9: Gastro-esophageal reflux disease without esophagitis) 7. Anxiety and depression (F41.9: Anxiety disorder, unspecified) 8. Takotsubo cardiomyopathy (I51.81: Takotsubo syndrome) 9. Hypokalemia (E87.6: Hypokalemia) Subjective She is awake this morning. Attempting to work with therapist. Seems confused. Mentions amyloid again. Review of Systems Could not obtain due to mental status[1] Objective Vitals & Measurements T: 36.4 ???C(Axillary) TMIN: 36.4 ???C(Axillary) TMAX: 37.3 ???C(Oral) HR: 96(Monitored) RR: 18 BP:98/65 SpO2: 98% WT: 71.1 kg Intake & Output This visit (24 hour periods starting at 07:00 EDT) 09/16/24 * 09/15/24 09/14/24 Total Summary Intake mL -- 784.52 1,617.61 Output mL -- -- 900 Fluid Balance -- 784.52 717.61 Intake (5) Generic Diluent, levetiracetam mL -- 100 100 Generic Diluent, potassium chloride mL -- 11.44 100 Oral Intake mL -- -- -- Sodium Chloride 0.9% intravenous solution 1,000 mL mL -- 672.08 1,417.61 diazepam mL -- 1 -- Total -- 784.52 1,617.61 Output (1) Urine Voided mL -- -- 900 Total -- -- 900 Counts (1) Stool Count -- -- 1 * This column has not completed the indicated time period. Physical Exam GEN: Well-kempt. No distress. No deformities/trauma. CARDIO/VASC: Limbs without significant edema and appear well-perfused. PULM: Normal work of breathing. SKIN: Visualized skin is intact and without lesions aside from age-related findings. MS: Awake and alert. Attention moderately impaired. LANG: Speech without any significant dysarthria and no apparent aphasia. EYES: Sclera appear injected, especially in the left. Slight corneal opacifications? Pupils seem fixed, mid position. Gaze is conjugate. Ocular motility full. No pathologic nystagmus. Visual arvizu are full to finger counting. CN: Facial sensation normal. Hearing acuity normal. MOTOR: Muscle bulk normal. Muscle tone normal. Moving less with her right extremities but she can hold the right upper extremity up in the air without significant drift. REFLEXES: No pathologic reflexes. SENSORY: Light touch normal. Pinprick normal. CEREBELLAR: No ataxia. No gaze preference or signs of neglect. Lab Results WBC: 10 E9/L (09/16/24 06:16:00) RBC: 4.4 E12/L (09/16/24 06:16:00) HGB: 13.2 gm/dL (09/16/24 06:16:00) Hct: 39 % (09/16/24 06:16:00) MCV: 88.9 fL (09/16/24 06:16:00) MCH: 30.2 pg (09/16/24 06:16:00) MCHC: 33.9 gm/dL (09/16/24 06:16:00) RDW: 14.2 % (09/16/24 06:16:00) Platelet: 280 E9/L (09/16/24 06:16:00) MPV: 6.7 fL (09/16/24 06:16:00) Neutro Auto: 78.1 % High (09/16/24 06:16:00) Lymph Auto: 13.4 % Low (09/16/24 06:16:00) [place] Auto: 7.9 % (09/16/24 06:16:00) Eos Auto: 0.2 % (09/16/24 06:16:00) Basophil Auto: 0.4 % (09/16/24 06:16:00) Neutro Absolute: 7.8 E9/L High (09/16/ (more content not included)...[facility] SystemComment on above:Result Comment: Electronically Signed By: Julita Ríos RN\.br\Date and Time Signed: 09/16/24 09:26 EDT\.br\Electronically Co-Signed By: Charlie Harrington DO\.br\Date and Time Co- Signed: 09/16/24 10:15 [id number] NoteProgress Note-Physician Assessment/Plan PLAN 1. Seizure (R56.9: Unspecified convulsions) Stroke-like episode (R29.90: Unspecified symptoms and signs involving the nervous system) Was initially thought to be stroke but secondary to Seizure pt w/hx of seizures. CT head showed no acute intracranial hemorrhage but did show encephalomalacia in the right occipital lobe with ex vacuo dilatation of the right lateral ventricle. CTA of the head and neck were both normal. Consult neurology appreciated. MRI brain shows no acute cranial process only chronic . PT/OT /ST to eval, treat recommending SNF. Keppra Increasing levetiracetam to 1000 mg twice daily starting this morning of note: pt was not taking home dose anti-seizure medication as it was inadvertently misplaced. Niece to help w/med set up at home. 09/15 pt still w/change in mental status post cath. Likely from sedation however re-discussed case with neurology w/ recommendations: Repeat MRI EEG pending See above Keppra changes. I did reach out and speak to Pt's niece who is KIRBY Grimaldo [phone] and updated on above. 2. Elevated troponin (R79.89: Other specified abnormal findings of blood chemistry) Takotsubo cardiomyopathy (I51.81: Takotsubo syndrome) Troponin elevation 1236.90 2038.60, 2217.00 1724.40 trending up then flattened. Possibly w/seizure and see cardiology below. No CP or EKG changes. Cardiology consult appreciated. Echo shows apical wall motion suggestive of Takotsubo pt w/hx of this. Heparin discontinued s/p left heart cath which non obstructive CAD. Stress induced cardiomyopathy. Continue statin per cardiology-lipid panel normal. 3. HTN (hypertension) (I10: Essential (primary) hypertension) Hypotensive this AM. SBP 95 Continue Hold HCTZ today Hydralazine for SBP >160 4. GERD (gastroesophageal reflux disease) (K21.9: Gastro-esophageal reflux disease without esophagitis) PPI 5. Anxiety and depression (F41.9: Anxiety disorder, unspecified) Prozac - 6. Hypokalemia (E87.6: Hypokalemia) Potassium level 3.2 Potassium 40mEq today. Trend labs and replace as necessary DVT Prophylaxis: Heparin gtt Disposition: Inpt status will require >2 midnights stays for further work up and treatment of above. I discussed the diagnosis and plan of care with the patient and family at the bedside. Subjective Pt seen at bedside this AM. Pt w/little change in mentation from yesterday. Pt does moan and at times says ouch or what. Pt moving upper and lower extremities on hero own but not to commands. Does withdraw to pain. Rediscussed case with neurology who saw pt again today. Obtaining an MRI of the brain and EEG post heart cath. Believe that symptoms likely due to sedation from heart cath however willdo work up to assess for stroke. Objective Vitals & Measurements T: 37.1 ???C(Oral) TMIN: 36.5 ???C(Axillary) TMAX: 38.5 ???C(Axillary) HR: 96(Monitored) RR: 16 BP:103/71 SpO2: 97% Intake & Output This visit (24 hour periods starting at 07:00 EDT) 09/15/24 * 09/14/24 09/13/24 Total Summary Intake mL -- 1,617.61 753.59 Output mL -- 900 -- Fluid Balance -- 717.61 753.59 Intake (5) Generic Diluent, levetiracetam mL -- 100 89.6 Generic Diluent, potassium chloride mL -- 100 179.36 Oral Intake mL -- -- 200 Sodium Chloride 0.9% intravenous solution 1,000 mL mL -- 1,417.61 148.08 heparin 25,000 unit(s) [12 unit/kg/hr] + Dextrose 5% in Water intravenous solution 500 mL mL -- -- 136.55 Total -- 1,617.61 753.59 Output (1) Urine Voided mL -- 900 -- Total -- 900 -- Counts (1) Stool Count -- 1 -- * This column has not completed the indicated time period. Physical Exam General: NAD. awake. Skin: pale, Warm, dry Head: Normocephalic, atraumatic face w/o droop. Neck: No JVD Eye: pupils equal but non reactive w/bilateral scleras redness/irritation. fixed preferential left-sided gaze now resolved. full ocular motility today. ENT: Dry mucus membranes, nares patent. normal hearing. Cardiovascular: Regular rate normal peripheral perfusion Respiratory: No respiratory distress no accessory muscle use no obvious audible wheezing Chest Wall: no deformity Musculoskeletal: No deformity no swelling GI: Soft no obvious distention. No rebound or rigidity. No guarding. No tenderness. Neurological: awake, verbal today. Oriented. Follows all commands appropriately. Lab Results Platelet: 336 E9/L (09/15/24 05:59:00) PT: 13.7 second(s) High (09/15/24 05:59:00) INR: 1.22 (09/15/24 05:59:00) Sodium Lvl: 134 mmol/L Low (09/15/24 05:59:00) Potassium Lvl: 3.4 mmol/L Low (09/15/24 05:59:00) Chloride: 101 mmol/L (09/15/24 05:59:00) CO2: 24 mmol/L (09/15/24 05:59:00) AGAP: 12 mEq/L (09/15/24 05:59:00) Glucose Cap: 95 mg/dL (09/14/24 14:28:00) POC Device SN: [id number] (09/14/24 14:28:00) POC User ID: [id number] (09/14/24 14:28:00) POC Userna (more content not included)...[facility]:Result Comment: Electronically Signed By: Silvia ALANIZ\.br\Date and Time Signed: 09/15/24 10:41 EDT\.br\Electronically Co- Signed By: Shyam Marina DO.br\Date and Time Co-Signed: 09/15/24 12:28 EDT 09-15-2024 NoteProgress Note-Physician Assessment/Plan ASSESSMENT: 69-year-old woman with history of seizure disorder but not taking antiepileptic medications who wasinitially seen here in September 12, 2024 exhibiting multiple signs concerning for cerebrovascular syndrome (left MCA distribution, leftward gaze deviation, right hemiparesis, severe aphasia), with all those completely resolving and MRI without any diffusion restriction. I thus suspect those deficits were postictal phenomena and she had either had unwitnessed seizure activity or subclinical seizure activity. She has history of a remote right occipital ischemic stroke that could serve as a potential seizurenidus (poststroke seizures). She has persistent alteration of mental status since her cardiac catheterization yesterday. She currently looks somewhat similar to the way she did on Saturday. I am again concerned for subclinical seizure activity. With the left heart catheterization, would also have to be concerned about the possibility of embolic stroke. PLAN: 1. Increasing levetiracetam to 1000 mg twice daily starting this morning 2. Routine EEG 3. Repeat MRI brain without contrast 1. Seizure (R56.9: Unspecified convulsions) 2. Elevated troponin (R79.89: Other specified abnormal findings of blood chemistry) 3. Depression, unspecified (F32.A: Depression, unspecified) 4. Stroke-like episode (R29.90: Unspecified symptoms and signs involving the nervous system) 5. HTN (hypertension) (I10: Essential (primary) hypertension) 6. GERD (gastroesophageal reflux disease) (K21.9: Gastro-esophageal reflux disease without esophagitis) 7. Anxiety and depression (F41.9: Anxiety disorder, unspecified) 8. Takotsubo cardiomyopathy (I51.81: Takotsubo syndrome) 9. Hypokalemia (E87.6: Hypokalemia) Subjective She has not returned to her normal mental status since her cardiac catheterization yesterday. Facial droop was noted. Persistently less alert. Objective Vitals & Measurements T: 38.3 ???C(Axillary) TMIN: 36.5 ???C(Axillary) TMAX: 38.5 ???C(Axillary) HR: 96(Monitored) RR: 16BP: 103/71 SpO2: 97% Intake & Output This visit (24 hour periods starting at 07:00 EDT) 09/15/24 * 09/14/24 09/13/24 Total Summary Intake mL -- 1,617.61 753.59 Output mL -- 900 -- Fluid Balance -- 717.61 753.59 Intake (5) Generic Diluent, levetiracetam mL -- 100 89.6 Generic Diluent, potassium chloride mL -- 100 179.36 Oral Intake mL -- -- 200 Sodium Chloride 0.9% intravenous solution 1,000 mL mL -- 1,417.61 148.08 heparin 25,000 unit(s) [12 unit/kg/hr] + Dextrose 5% in Water intravenous solution 500 mL mL -- -- 136.55 Total -- 1,617.61 753.59 Output (1) Urine Voided mL -- 900 -- Total -- 900 -- Counts (1) Stool Count -- 1 -- * This column has not completed the indicated time period. Physical Exam GEN: Well-kempt. No distress. No deformities/trauma. CARDIO/VASC: Limbs without significant edema and appear well-perfused. PULM: Normal work of breathing. SKIN: Visualized skin is intact and without lesions aside from age-related findings. MS: Drowsy. Not responding verbally. Attention severely impaired. LANG: No speech heard. EYES: Sclera appear injected, especially in the left. Slight corneal opacifications? Pupils seem fixed, mid position. Gaze is conjugate. Ocular motility full. No pathologic nystagmus. Visual arvizu are full to finger counting. CN: Facial sensation normal. Hearing acuity normal. MOTOR: Muscle bulk normal. Muscle tone normal. Localizes to noxious stimuli readily with her left upper extremity. Right upper extremity withdraws slightly to noxious stimuli. Both legs seem to be moving. REFLEXES: Reflexes normoactive throughout. No pathologic reflexes. SENSORY: Light touch normal. Pinprick normal. CEREBELLAR: Left upper extremity not ataxic. Again with some left side gaze preference. Lab Results Platelet: 336 E9/L (09/15/24 05:59:00) PT: 13.7 second(s) High (09/15/24 05:59:00) INR: 1.22 (09/15/24 05:59:00) Sodium Lvl: 134 mmol/L Low (09/15/24 05:59:00) Potassium Lvl: 3.4 mmol/L Low (09/15/24 05:59:00) Chloride: 101 mmol/L (09/15/24 05:59:00) CO2: 24 mmol/L (09/15/24 05:59:00) AGAP: 12 mEq/L (09/15/24 05:59:00) Glucose Cap: 95 mg/dL (09/14/24 14:28:00) POC Device SN: [id number] (09/14/24 14:28:00) POC User ID: [id number] (09/14/24 14:28:00) POC Username: RY THAKKAR (09/14/24 14:28:00) Diagnostic Results (09/12/2024 07:[address] Head or Brain w/o Contrast) * Final Report * Reason For Exam Neuro deficit, acute, stroke suspected;Stroke POWERSCRIBE REPORT IMPRESSION: No acute intracranial process. Chronic findings as discussed. COMMUNICATION: Communicated by statrad radiologist Dr. Dowling with: Dr. Nunes on 09/12/2024 at 0729. HISTORY: Rapid response stroke. Altered mental status. Right-sided weakness. TECHNIQUE: Serial axial images without IV (more content not included)...[facility] SystemComment on above:Result Comment: Electronically Signed By: Bisi Snyder RN\.br\Date and Time Signed: 09/15/24 08:15 EDT\.br\Electronically Co-Signed By: Charlie Harrington DO\.br\Date and Time Co- Signed: 09/15/24 09:32 [id number] NoteOperative Report Procedure Left heart catheterization procedure report/aortogram. DATE OF PROCEDURE: 09/14/2024 [employer] SUPERVISOR TRANG CAMPBELL MD [facility] INDICATION: ACS BRIEF HISTORY: This a pleasant 69-year-old female who did present to the hospital with mental status changes/seizure. She was ruled in for ACS with elevated troponin. Her echo did show apical wall motion abnormalities. She did have prior history of stress-induced cardiomyopathy PROCEDURE(S) PERFORMED: Left Heart Catheterization Selective Coronary Angiography Aortogram Moderate Sedation PRE-PROCEDURAL INFORMED CONSENT: The procedure and conscious sedation were discussed in detail withthe patient/next of kin/durable power of including the indications, expected outcomes, potential treatment options based upon the results, alternative treatment options and benefits, risks and possible complications associated with the procedure. The patient/next of kin/durable power of expressed an understanding of the information provided and willingness to proceed. Signed, informed consent forthe procedure was obtained for all of the above. DESCRIPTION OF THE PROCEDURE: In the postabsorptive state, the patient was brought to the [facility] and placed on the table. The planned puncture sites/areas were prepped and draped in usual sterile fashion and a safety time-out was performed. Moderate Sedation was given by the Cardiac [facility] Server RN. RIGHT RADIAL ARTERY ACCESS: The puncture site was infiltrated with 1% lidocaine. Through and through technique used to gain access to the right radial artery using ultrasound guidance. After that 6 Andorran sheath was placed. Spasmolytic cocktail was given after that. Selective left and right coronary artery angiography : Under fluoroscopic guidance 5 Andorran JL 3 .5 was advanced over0.035 J-wire aiming to engage the left main . The left main was cannulated but nonselectively due to significant right brachiocephalic artery tortuosity and radial spasm and multiple views were taken per routine. After that Under fluoroscopic guidance, a 5 F JR4 diagnostic catheter was tried but could not engage so we tried 5 Andorran ARmod which also did not engage due to significant right brachiocephalic tortuosity at that time overthe wire 5 Andorran AR mod was removed and we advanced a 5 Andorran pigtail and aortogram was performed. After that we tried to advance the JR 4 5 Andorran catheter but we could not due to spasm. The procedure was concluded by removal of all the catheters, wires and sheaths. Accesses were managed as outlined below. No immediate complications COMPLICATIONS: None ESTIMATED BLOOD LOSS: <20cc CONTRAST ADMINISTERED: Please see [facility] Log for further details FINDINGS: CORONARY ANGIOGRAPHY: Right dominant System Left Main: Normal LAD: Tortuous minor irregularities medium size D1: Small to medium minor irregularities tortuous LCx: Medium minor irregularities OM1: Small to medium minor irregularities RCA: Nonselective visualized after aortogram, patent with no significant stenosis ACCESS MANAGEMENT: Primary: Right Radial Artery: Vasc Band; successful hemostasis achieved. CONCLUSIONS: Nonobstructive coronary artery disease. Due to right brachiocephalic artery tortuosity/radial spasmimages were obtained nonselectively for the left system. RCA could not be engaged directly so aortogram was performed. Stress-induced cardiomyopathy. RECOMMENDATIONS: Medical management Aggressive risk factors control. Consider initiation of losartan/beta- he/Jardiance or Farxiga for stress-induced cardiomyopathy. Patient will benefit from monitor as an outpatient. There was discrepancy in the blood pressure between the left arm and the invasive pressure. Consider obtaining ultrasound of the left subclavian artery to rule out any stenosis. Standard post-cath management as per hospital protocol Cardiovascular Risk Factors modification Assessment/Plan 1. Seizure (R56.9: Unspecified convulsions) Ordered: 73641 LHC +/- LL vgram 70002 Supravalvular aortography [facility] Hospital Care/Day Moderate 35 Minutes 59830 2. Elevated troponin (R79.89: Other specified abnormal findings of blood chemistry) Ordered: 76680 LHC +/- LL vgram 82802 Supravalvular aortography [facility] Hospital Care/Day Moderate 35 Minutes 42331 3. Depression, unspecified (F32.A: Depression, unspecified) Ordered: 52099 LHC +/- LL vgram 71458 Supravalvular aortography [facility] Hospital Care/Day Moderate 35 Minutes 93245 4. Stroke-like episode (R29.90: Unspecified symptoms and signs involving the nervous system) Ordered: 29334 LHC +/- LL vgram 05771 Supravalvular aortography [facility] Hospital Care/Day Moderate 35 Minutes 46870 5. HTN (hypertension) (I10: Essential (primary) hypertension) Ordered: 06123 LHC +/- LL vgram 08191 Supravalvular aortography [facility] Hospital Care/Day Moderate 35 Minutes 85392 6. GERD (gastroesophagea (more content not included)...[facility] SystemComment on above:Result Comment: Electronically Signed By: Adrian RODRIGEZ, Trang\.br\Date and Time Signed: 09/14/24 20:16 [id number] NoteProgress Note-Nurse LIBRA Diallo at bedside at this time to assess patient. No further orders given to this RN. INCLUSION SPECIAL EDUCATION TEACHER aware that patient is drowsy and uncooperative.[facility]07-28-2025 NoteProgress Note-Nurse Dr. Diallo at bedside at this time to assess patient again regarding patient still being drowsy and uncooperative since returning from [facility] this afternoon. No order received. Care on-going for patient. Right radial has no signs of bleeding or hematoma. at bedside. Bed alarm is on. Call lipscomb on patient's bed. [facility]-28-2025 NoteProgress Note-Nurse Dr. Diallo at bedside at this time to assess patient. Patient drowsy and uncooperative since returning from [facility]. 2L NC applied to patient for comfort. at bedside. Bed alarm is on. Right radial has TR band in place, no signs of bleeding or hematoma. Vital signs stable. No orders from Dr. Diallo at this time.[facility]07-[facility]-2025 NoteProgress Note-Nurse TR band taken off at this time. Right radial is soft, no signs of bleeding or hematoma. Vital signsstable. Arm board still on patient's right forearm. Patient educated on the importance of keeping right radial straight and not lifting objects with right hand or bending right hand. Patient verbalized understanding. [facility]07-28-2025 NoteProgress Note-Physician Subjective Patient was seen earlier. She is status post left heart catheterization showing nonobstructive disease. Review of Systems As per HPI Objective Vitals & Measurements T: 36.8 ???C(Oral) TMIN: 36.4 ???C(Oral) TMAX: 36.9 ???C(Oral) HR: 74(Peripheral) RR: 16 BP: 112/72SpO2: 97% WT: 73.9 kg Intake & Output This visit (24 hour periods starting at 07:00 EDT) 09/14/24 * 09/13/24 09/12/24 Total Summary Intake mL 100 753.59 1,089.23 Output mL -- -- -- Fluid Balance 100 753.59 1,089.23 Intake (7) Generic Diluent, levetiracetam mL -- 89.6 199.58 Generic Diluent, potassium chloride mL 100 179.36 -- Oral Intake mL -- 200 -- Sodium Chloride 0.9% intravenous solution 1,000 mL mL -- 148.08 887.85 diazepam mL -- -- 0.5 heparin 25,000 unit(s) [12 unit/kg/hr] + Dextrose 5% in Water intravenous solution 500 mL mL -- 136.55 -- perflutren mL -- -- 1.3 Total 100 753.59 1,089.23 Output (0) Counts (1) Stool Count 1 -- -- * This column has not completed the indicated time period. Physical Exam Pleasant no acute distress he seems to be more awake. Heart regular rate and rhythm S1-S2. Lungs decreased breath sound. Abdomen nontender. Extremities no edema Lab Results WBC: 6.1 E9/L (09/14/24 05:14:00) RBC: 4.2 E12/L Low (09/14/24 05:14:00) HGB: 12.5 gm/dL (09/14/24 05:14:00) Hct: 36.9 % (09/14/24 05:14:00) MCV: 88.3 fL (09/14/24 05:14:00) MCH: 30 pg (09/14/24 05:14:00) MCHC: 33.9 gm/dL (09/14/24 05:14:00) RDW: 14 % (09/14/24 05:14:00) Platelet: 256 E9/L (09/14/24 05:14:00) MPV: 7.1 fL (09/14/24 05:14:00) RBC Morph: NORMAL (09/14/24 05:14:00) PT: 12.5 second(s) (09/14/24 05:14:00) INR: 1.11 (09/14/24 05:14:00) PTT: 74 second(s) High (09/14/24 04:14:00) Glucose Lvl: 83 mg/dL (09/14/24 05:14:00) BUN: 7 mg/dL (09/14/24 05:14:00) Creatinine: 0.5 mg/dL (09/14/24 05:14:00) eGFR: 101 mL/min/1.73 m2 (09/14/24 05:14:00) BUN/Creat Ratio: 14 (09/14/24 05:14:00) Sodium Lvl: 135 mmol/L (09/14/24 05:14:00) Potassium Lvl: 3.2 mmol/L Low (09/14/24 05:14:00) Chloride: 100 mmol/L Low (09/14/24 05:14:00) CO2: 30 mmol/L (09/14/24 05:14:00) AGAP: 8 mEq/L (09/14/24 05:14:00) Calcium Lvl: 8.6 mg/dL Low (09/14/24 05:14:00) Assessment/Plan 1. Seizure (R56.9: Unspecified convulsions) Per primary team. Patient would benefit from monitor as an outpatient 2. Elevated troponin (R79.89: Other specified abnormal findings of blood chemistry) Cath was performed today showing nonobstructive disease likely stress-induced cardiomyopathy. Of note pictures were nonselective due to significant tortuosity involving the right brachiocephalic artery. Continue aggressive vasculitis management. No need for IV heparin. 3. Depression, unspecified (F32.A: Depression, unspecified) 4. Stroke-like episode (R29.90: Unspecified symptoms and signs involving the nervous system) 5. HTN (hypertension) (I10: Essential (primary) hypertension) Adjust medication as needed. Of note there was significant difference in the blood pressure that wewere getting from her left arm versus her invasive blood pressure. She will benefit from arterial Doppler to the left upper extremity that can be done as an outpatient to rule out left subclavian stenosis 6. GERD (gastroesophageal reflux disease) (K21.9: Gastro-esophageal reflux disease without esophagitis) 7. Anxiety and depression (F41.9: Anxiety disorder, unspecified) 8. Takotsubo cardiomyopathy (I51.81: Takotsubo syndrome) Continue current management. Outpatient follow-up 9. Hypokalemia (E87.6: Hypokalemia) Electrolytes collection Orders: CV Cardiovascular CV Coronary IVUS FFR Initial CV Coronary IVUS Initial Patient Education Saline Lock Insert Discussed with the patient and her boyfriend per her request. Please consult health social work professor Problem List/Past Medical History Ongoing No qualifying data Historical No qualifying data Medications Inpatient heparin additive 25,000 unit(s) [12 unit/kg/hr] + Premix Dextrose 5% Diluent 500 mL hydrALAZINE 20 mg/mL Inj, 10 mg= 0.5 mL, IV Push, q6hr, PRN Keppra 500 mg Tab, 500 mg= 1 tab(s), Oral, BID NS 1000 mL Soln-IV 1,000 mL, 1000 mL, IV ondansetron 4 mg/2 mL Inj, 4 mg= 2 mL, IV Push, q6hr, PRN Pantoprazole [address] Tab, 40 mg= 1 tab(s), Oral, Daily Prozac 10 mg Cap, 10 mg= 1 cap(s), Oral, Daily Home Advil 200 mg oral tablet, Oral, q6hr atorvastatin 40 mg Tab dorzolamide-timolol Opth 2%-0.5% Christi, 1 drop(s), Eye-Left, BID hydrochlorothiazide 25 mg oral tablet, Oral, Daily levetiracetam 500 mg Tab, 500 mg= 1 tab(s), Oral, BID Prilosec, Oral, Daily Prozac, Oral, Daily Refresh Relieva PF, 1 drop(s), Eye-Both, Daily Rocklatan 0.02%-0.005% ophthalmic solution, 1 drop(s), Eye-Left, DailyAcm[facility] Healthcare SystemComment on above:Result Comment: Electronically Signed By: Adrian RODRIGEZ, Trang\.br\Date and Time Signed: 09/14/24 12:43 [id number] Note Progress Note-Physician Assessment/Plan PLAN 1. Seizure (R56.9: Unspecified convulsions) Stroke-like episode (R29.90: Unspecified symptoms and signs involving the nervous system) Was initially thought to be stroke but secondary to Seizure pt w/hx of seizures. CT head showed no acute intracranial hemorrhage but did show encephalomalacia in the right occipital lobe with ex vacuo dilatation of the right lateral ventricle. CTA of the head and neck were both normal. Consult neurology appreciated. MRI brain shows no acute cranial process only chronic . PT/OT /ST to eval, treat recommending SNF. Keppra loaded yesterday w/1000mg Continue Keppra 500mg BID per neurology of note: pt was not taking home dose anti-seizure medication as it was inadverntly misplaced. Nieceto help w/med set up at home. 2. Elevated troponin (R79.89: Other specified abnormal findings of blood chemistry) Takotsubo cardiomyopathy (I51.81: Takotsubo syndrome) Troponin elevation 1236.90 2038.60, 2217.00 1724.40 trending up then flattened. Possibly w/seizure and see cardiology below. No CP or EKG changes. Cardiology consult appreciated. Likely Takotsubo but ACS not ruled out yet. Echo shows apical wall motion suggestive of Takotsubo pt w/hx of this. Continue heparin gtt per cardiology --cleared c/neurology NPO after midnight for left heart cath this AM Continue statin per cardiology-lipid panel normal. 3. HTN (hypertension) (I10: Essential (primary) hypertension) Hypotensive this AM. SBP 95 Continue Hold HCTZ today Hydralazine for SBP >160 4. GERD (gastroesophageal reflux disease) (K21.9: Gastro-esophageal reflux disease without esophagitis) PPI 5. Anxiety and depression (F41.9: Anxiety disorder, unspecified) Prozac - 6. Hypokalemia (E87.6: Hypokalemia) Potassium level 3.2 Potassium 40mEq today. Trend labs and replace as necessary DVT Prophylaxis: Heparin gtt Disposition: Inpt status will require >2 midnights stays for further work up and treatment of above. I discussed the diagnosis and plan of care with the patient and family at the bedside. Subjective Pt seen at bedside this AM. No acute issues last night. Denies CP, SOB, N/V. States she is feeling better. Pending Heart cath this AM -still on Heparin gtt. Objective Vitals & Measurements T: 36.5 ???C(Oral) TMIN: 36.4 ???C(Oral) TMAX: 36.9 ???C(Oral) HR: 63(Peripheral) RR: 18 BP: 95/55 SpO2: 96% WT: 73.9 kg Intake & Output This visit (24 hour periods starting at 07:00 EDT) 09/14/24 * 09/13/24 09/12/24 Total Summary Intake mL 100 753.59 1,089.23 Output mL -- -- -- Fluid Balance 100 753.59 1,089.23 Intake (7) Generic Diluent, levetiracetam mL -- 89.6 199.58 Generic Diluent, potassium chloride mL 100 179.36 -- Oral Intake mL -- 200 -- Sodium Chloride 0.9% intravenous solution 1,000 mL mL -- 148.08 887.85 diazepam mL -- -- 0.5 heparin 25,000 unit(s) [12 unit/kg/hr] + Dextrose 5% in Water intravenous solution 500 mL mL -- 136.55 -- perflutren mL -- -- 1.3 Total 100 753.59 1,089.23 Output (0) Counts (0) * This column has not completed the indicated time period. Physical Exam General: NAD. awake. Skin: pale, Warm, dry Head: Normocephalic, atraumatic face w/o droop. Neck: No JVD Eye: pupils equal but non reactive w/bilateral scleras redness/irritation. fixed preferential left-sided gaze now resolved. full ocular motility today. ENT: Dry mucus membranes, nares patent. normal hearing. Cardiovascular: Regular rate normal peripheral perfusion Respiratory: No respiratory distress no accessory muscle use no obvious audible wheezing Chest Wall: no deformity Musculoskeletal: No deformity no swelling GI: Soft no obvious distention. No rebound or rigidity. No guarding. No tenderness. Neurological: awake, verbal today. Oriented. Follows all commands appropriately. Lab Results WBC: 6.1 E9/L (09/14/24 05:14:00) RBC: 4.2 E12/L Low (09/14/24 05:14:00) HGB: 12.5 gm/dL (09/14/24 05:14:00) Hct: 36.9 % (09/14/24 05:14:00) MCV: 88.3 fL (09/14/24 05:14:00) MCH: 30 pg (09/14/24 05:14:00) MCHC: 33.9 gm/dL (09/14/24 05:14:00) RDW: 14 % (09/14/24 05:14:00) Platelet: 256 E9/L (09/14/24 05:14:00) MPV: 7.1 fL (09/14/24 05:14:00) Neutro Auto: 62.7 % (09/13/24 12:10:00) Lymph Auto: 26.6 % (09/13/24 12:10:00) [place] Auto: 8.6 % (09/13/24 12:10:00) Eos Auto: 1 % (09/13/24 12:10:00) Basophil Auto: 1.1 % (09/13/24 12:10:00) Neutro Absolute: 4.3 E9/L (09/13/24 12:10:00) Lymph Absolute: 1.8 E9/L (09/13/24 12:10:00) [place] Absolute: 0.6 E9/L (09/13/24 12:10:00) Eos Absolute: 0.1 E9/L (09/13/24 12:10:00) Basophil Absolute: 0.1 E9/L (09/13/24 12:10:00) RBC Morph: NORMAL (09/14/24 05:14:00) PT: 12.5 second(s) (09/14/24 05:14:00) INR: 1.11 (09/14/24 05:14:00) PTT: 74 second(s) High (09/14/24 04:14:00) Glucose Lvl: 83 mg/dL (09/14/24 05:14:00) BUN: 7 mg/dL (09/14 (more content not included)...[facility] Comment on above:Result Comment: Electronically Signed By: Silvia ALANIZ\.br\Date and Time Signed: 09/14/24 08:42 EDT\.br\Electronically Co- Signed By: Silvia ALANIZ\.br\Date and Time Co-Signed: 09/14/24 08:43 EDT\.br\Electronically Co-Signed By: Shyam Marina DO\.br\Date and Time Co-Signed: 09/14/24 10:27 [id number] NoteOperative Report Procedure Airway Assessment: Class III: Visualization of the soft palate and base of uvula Airway Abnormalities: none ASA Classification: ASA 3: A patient with severe systemic disease Risks/Benefits of IV Sedation: Have been explained IV Sedation Plan: _Patient agrees to IV sedation plan Assessment/Plan 1. Seizure (R56.9: Unspecified convulsions) 2. Elevated troponin (R79.89: Other specified abnormal findings of blood chemistry) 3. Depression, unspecified (F32.A: Depression, unspecified) 4. Stroke-like episode (R29.90: Unspecified symptoms and signs involving the nervous system) 5. HTN (hypertension) (I10: Essential (primary) hypertension) 6. GERD (gastroesophageal reflux disease) (K21.9: Gastro-esophageal reflux disease without esophagitis) 7. Anxiety and depression (F41.9: Anxiety disorder, unspecified) 8. Takotsubo cardiomyopathy (I51.81: Takotsubo syndrome) 9. Hypokalemia (E87.6: Hypokalemia) Orders: fentanyl, 50 mcg = 1 mL, Injection, IV Push, q2min PRN Other (see comment) for 4 dose(s), Stop dateLimited # of times, Routine, Start date 09/14/24 6:20:00 EDT, 09/14/24 6:20:00 EDT heparin, 1,000 unit(s) = 500 mL, Soln-IV, Misc, Once PRN Other (see comment), Routine, Start date 09/14/24 6:20:00 EDT heparin, 1,000 unit(s) = 500 mL, Soln-IV, Misc, Once PRN Other (see comment), Routine, Start date 09/14/24 6:20:00 EDT heparin, 1,000 unit(s) = 500 mL, Soln-IV, Misc, Once PRN Other (see comment), Routine, Start date 09/14/24 6:20:00 EDT heparin, 5,000 unit(s) = 5 mL, Injection, IV Push, q2min PRN Other (see comment) for 4 dose(s), Stop date Limited # of times, Routine, Start date 09/14/24 6:20:00 EDT iopamidol, = 200 mL, Injection, IV Push, q5min PRN Other (see comment) for 4 dose(s), Stop date Limited # of times, Routine, Start date 09/14/24 6:20:00 EDT iopamidol, = 50 mL, Injection, IV Push, q5min PRN Other (see comment) for 4 dose(s), Stop date Limited # of times, Routine, Start date 09/14/24 6:20:00 EDT lidocaine, 100 mg, 10 mL, Injection, SubCutaneous, q5min PRN Other (see comment) for 3 dose(s), Stop date Limited # of times, Routine, Start date 09/14/24 6:20:00 EDT midazolam, 1 mg = 1 mL, Injection, IV Push, q2min PRN Other (see comment) for 4 dose(s), Stop date Limited # of times, Routine, Start date 09/14/24 6:20:00 EDT, 09/14/24 6:20:00 EDT niCARdipine 20 mg + Sodium Chloride 0.9% intravenous solution 200 mL, 200 mL, IV, titrate per protocol, Routine, Start date 09/14/24 6:20:00 EDT, Total volume (mL): 200, 67.4 kg, Use as directed for radial cocktail, 1.76, m2 nitroglycerin 50 mg [5 mcg/min] + Dextrose 5% in Water intravenous solution 250 mL, 250 mL, IV, 1.5mL/hr, Routine, Start date 09/14/24 6:20:00 EDT, 166.7 hour(s), Total volume (mL): 250, 67.4 kg, 1.76, m2 Sodium Chloride 0.9% intravenous solution 1,000 mL, 1,000 mL, IV, 75 mL/hr, Routine, Start date 09/14/24 6:20:00 EDT, 13.3 hour(s), Total volume (mL): 1,000, 67.4 kg, 1.76, m2 verapamil, 2.5 mg = 1 mL, Soln-IV, IV Push, q2min PRN Other (see comment), Routine, Start date 09/14/24 6:20:00 EDT, as directed for radial cocktail Communication Order Communication Order Communication Order Communication Order Communication Order Communication Order Communication Order Communication Order Communication Order CV Cardiovascular CV Coronary IVUS FFR Initial CV Coronary IVUS Initial NPO Diet Oxygen Protocol Patient Education Routine Capillary Glucose POC Saline Lock InsertFisher [facility] HospitalComment on above:Result Comment: Electronically Signed By: Adrian RODRIGEZ, Trang\.br\Date and Time Signed: 09/14/24 08:52 [id number] NoteProgress Note-Nurse Ware Server RN turned off heparin gtt at this time.[facility] 09-13-2024 NoteProgress Note-Physician Assessment/Plan PLAN 1. Seizure (R56.9: Unspecified convulsions) Stroke-like episode (R29.90: Unspecified symptoms and signs involving the nervous system) Was initially thought to be stroke but secondary to Seizure pt w/hx of seizures. CT head showed no acute intracranial hemorrhage but did show encephalomalacia in the right occipital lobe with ex vacuo dilatation of the right lateral ventricle. CTA of the head and neck were both normal. Consult neurology appreciated. MRI brain shows no acute cranial process only chronic . PT/OT /ST to eval, treat recommending SNF. Keppra loaded yesterday w/1000mg Continue Keppra 500mg BID per neurology of note: pt was not taking home dose anti-seizure medication as it was inadverntly misplaced. Nieceto help w/med set up at home. 2. Elevated troponin (R79.89: Other specified abnormal findings of blood chemistry) Troponin elevation 1236.90 2038.60, 2217.00 1724.40 trending up then flattened. Possibly w/seizure and see cardiology below. No CP or EKG changes. Cardiology consult appreciated. Likely Takotsubo but ACS not ruled out yet. Echo shows apical wall motion suggestive of Takotsubo pt w/hx of this. Start heparin gtt per cardiology --cleared c/neurology NPO after midnight for left heart cath in AM Add statin per cardiology pending liver enzymes prior to initiation. 3. HTN (hypertension) (I10: Essential (primary) hypertension) Normotensive Hold HCTZ today Hydralazine for SBP >160 4. GERD (gastroesophageal reflux disease) (K21.9: Gastro-esophageal reflux disease without esophagitis) PPI 5. Anxiety and depression (F41.9: Anxiety disorder, unspecified) Prozac - DVT Prophylaxis: Heparin gtt Disposition: Inpt status will require >2 midnights stays for further work up and treatment of above. I discussed the diagnosis and plan of care with the patient and family at the bedside. High level of MDM based on addressing above issues. I spent 62 minutes on care including chart review, ordering, documentation, exam, discussion of care plan with patient. This documentation was transcribed using voice recognition software. Several attempts were made to ensure accuracy. However inadvertent computerized supply chain program manager errors may be present. Subjective Pt seen at bedside this AM. leftward gaze deviation, right hemiparesis, severe aphasia, all initially concerning for cerebrovascular syndrome have all resolved. pt able to speak, follow all commands,move extremities and denies complaints. Blanquitaece is at bedside. She is update on POC and agreeable to neurology and cardiology recommendations. Niece states that pt inadvertenlty wasn't taking her seizure medications as her spouse had misplaced her meds. Pt w/poor vision and she will be assisting now with med set up. Pt NPO after midnight for heart cath in AM. Pending speech consult this AM to clearfor po. Objective Vitals & Measurements T: 36.5 ???C(Oral) TMIN: 36.5 ???C(Oral) TMAX: 38.0 ???C(Oral) HR: 60(Monitored) RR: 18 BP: 115/76 SpO2: 97% HT: 152 cm WT: 72.6 kg Intake & Output This visit (24 hour periods starting at 07:00 EDT) 09/13/24 * 09/12/24 09/11/24 Total Summary Intake mL -- 1,089.23 -- Output mL -- -- -- Fluid Balance -- 1,089.23 -- Intake (4) Generic Diluent, levetiracetam mL -- 199.58 -- Sodium Chloride 0.9% intravenous solution 1,000 mL mL -- 887.85 -- diazepam mL -- 0.5 -- perflutren mL -- 1.3 -- Total -- 1,089.23 -- Output (0) Counts (0) * This column has not completed the indicated time period. Physical Exam General: NAD. awake. Skin: pale, Warm, dry Head: Normocephalic, atraumatic face w/o droop. Neck: No JVD Eye: pupils equal but non reactive w/bilateral scleras redness/irritation. fixed preferential left-sided gaze now resolved. full ocular motility today. ENT: Dry mucus membranes, nares patent. normal hearing. Cardiovascular: Regular rate normal peripheral perfusion Respiratory: No respiratory distress no accessory muscle use no obvious audible wheezing Chest Wall: no deformity Musculoskeletal: No deformity no swelling GI: Soft no obvious distention. No rebound or rigidity. No guarding. No tenderness. Neurological: awake, verbal today. Oriented. Follows all commands appropriately. Lab Results Glucose Lvl: 86 mg/dL (09/13/24 04:26:00) BUN: 9 mg/dL (09/13/24 04:26:00) Creatinine: 0.5 mg/dL (09/13/24 04:26:00) eGFR: 101 mL/min/1.73 m2 (09/13/24 04:26:00) BUN/Creat Ratio: 18 (09/13/24 04:26:00) Sodium Lvl: 135 mmol/L (09/13/24 04:26:00) Potassium Lvl: 3.1 mmol/L Low (09/13/24 04::00) Chloride: 100 mmol/L Low (09/13/24 04:26:00) CO2: 28 mmol/L (09/13/24 04:26:00) AGAP: 10 mEq/L (09/13/24 04:26:00) Calcium Lvl: 8.5 mg/dL Low (09/13/24 04:26:00) Chol: 145 mg/dL (09/13/24 04:26:00) Tri mg/dL (09/13/24 04:26:00) HDL: 42 mg/dL (09/13/24 04:26:00) LDL Direct: 87 mg/dL ( (more content not included)...[facility] Comment on above:Result Comment: Electronically Signed By: Silvia ALANIZ\.br\Date and Time Signed: 09/13/24 11:50 EDT\.br\Electronically Co- Signed By: Silvia ALANIZ\.br\Date and Time Co-Signed: 09/13/24 11:52 EDT\.br\Electronically Co-Signed By: Mazin Sy III, DO\.br\Date and Time Co-Signed: 09/13/24 14:25 [id number] NoteProgress Note-Physician Assessment/Plan SUBJECTIVE: She is at her baseline this morning. Vision is at baseline. She is alert, talking, conversant. It turns out because of circumstance at home she probably has not been getting her levetiracetam. No overnight events. Nothing to add review of systems. ASSESSMENT: At the time of initial assessment here on September 12, 2024 she was exhibiting leftward gaze deviation,right hemiparesis, severe aphasia, all initially concerning for cerebrovascular syndrome (left MCA distribution). However, all those symptoms gradually resolved. Given her history, this was much morelikely to be postictal paralysis and other postictal phenomena rather than a transient ischemic attack. The elevated troponin might reflect an unwitnessed generalized seizure. She has a remote right occipital ischemic stroke that could serve as a potential seizure nidus. Hervisual arvizu are full. Her vision issues are all ocular. 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 Her MRI does not show any evidence of cerebral amyloid angiopathy. PLAN: 1. Levetiracetam 500 mg twice daily 1. Stroke-like episode (R29.90: Unspecified symptoms and signs involving the nervous system) 2. History of seizure (Z87.898: Personal history of other specified conditions) 3. HTN (hypertension) (I10: Essential (primary) hypertension) 4. GERD (gastroesophageal reflux disease) (K21.9: Gastro-esophageal reflux disease without esophagitis) 5. Anxiety and depression (F41.9: Anxiety disorder, unspecified) Depression, unspecified (F32.A: Depression, unspecified) Stroke (I63.9: Cerebral infarction, unspecified) Objective Vitals & Measurements T: 36.8 ???C(Oral) TMIN: 36.6 ???C(Axillary) TMAX: 38.0 ???C(Oral) HR: 70(Monitored) RR: 18 BP: 107/71 SpO2: 96% HT: 152 cm WT: 72.6 kg Intake & Output This visit (24 hour periods starting at 07:00 EDT) 09/13/24 * 09/12/24 09/11/24 Total Summary Intake mL -- 939.23 -- Output mL -- -- -- Fluid Balance -- 939.23 -- Intake (4) Generic Diluent, levetiracetam mL -- 199.58 -- Sodium Chloride 0.9% intravenous solution 1,000 mL mL -- 737.85 -- diazepam mL -- 0.5 -- perflutren mL -- 1.3 -- Total -- 939.23 -- Output (0) Counts (0) * This column has not completed the indicated time period. Physical Exam GEN: General appearance normal. Well-kempt. No distress. No deformities/trauma. CARDIO/VASC: Limbs without significant edema and appear well-perfused. PULM: Normal work of breathing. SKIN: Visualized skin is intact and without lesions aside from age-related findings. MS: Affect is normal. Patient is alert. Attention is normal. LANG: Speech is fluent and non-dysarthric. EYES: Sclera appear injected, especially in the left. Slight corneal opacifications? Pupils seem fixed, mid position. Gaze is conjugate. Ocular motility full. No pathologic nystagmus. Visual arvizu are full to finger counting. CN: Facial sensation normal. Hearing acuity normal. Face without droop and with normal motor function. MOTOR: Muscle bulk normal. Muscle tone normal. Muscle strength normal. No tremors. REFLEXES: Reflexes normoactive throughout. No pathologic reflexes. SENSORY: Light touch normal. Pinprick normal. CEREBELLAR: No limb dysmetria with [id number] or heel-maldonado. Lab Results WBC: 7.9 E9/L (09/12/24 07:47:00) RBC: 4.5 E12/L (09/12/24 07:47:00) HGB: 13.7 gm/dL (09/12/24 07:47:00) Hct: 40.3 % (09/12/24 07:47:00) MCV: 89.1 fL (09/12/24 07:47:00) MCH: 30.4 pg (09/12/24 07:47:00) MCHC: 34.1 gm/dL (09/12/24 07:47:00) RDW: 14.2 % (09/12/24 07:47:00) Platelet: 284 E9/L (09/12/24 07:47:00) MPV: 6.8 fL (09/12/24 07:47:00) Neutro Auto: 72.5 % (09/12/24 07:47:00) Lymph Auto: 17.1 % (09/12/24 07:47:00) [place] Auto: 7.5 % (09/12/24 07:47:00) Eos Auto: 2.2 % (09/12/24 07:47:00) Basophil Auto: 0.7 % (09/12/24 07:47:00) Neutro Absolute: 5.7 E9/L (09/12/24 07:47:00) Lymph Absolute: 1.3 E9/L (09/12/24 07:47:00) [place] Absolute: 0.6 E9/L (09/12/24 07:47:00) Eos Absolute: 0.2 E9/L (09/12/24 07:47:00) Basophil Absolute: 0.1 E9/L (09/12/24 07:47:00) PT: 12.1 second(s) (09/12/24 07:47:00) INR: 1.08 (09/12/24 07:47:00) PTT: 27.8 second(s) (09/12/24 07:47:00) Glucose Lvl: 86 mg/dL (09/13/24 04:26:00) BUN: 9 mg/dL (09/13/24 04:26:00) Creatinine: 0.5 mg/dL (09/13/24 04:26:00) eGFR: 101 mL/min/1.73 m2 (09/13/24 04:26:00) BUN/Creat Ratio: 18 (09/13/24 04:26:00) Sodium Lvl: 135 mmol/L (09/13/24 04:26:00) Potassium Lvl: 3.1 mmol/L Low (09/13/24 04:26:00) Chloride: 100 mmol/L Low (09/13/24 04:26:00) CO2: 28 mmol/L (09/13/24 04:26:00) AGAP: 10 mEq/L (09/13/24 04:26:00) Calcium Lvl: 8.5 mg/dL Low (09/13/24 04:26:00) Chol: 145 mg/dL (09/13/24 04:26:00) Tri mg/dL (09/13/24 04:26:00) HDL: 42 mg/dL (09/13/24 04:26:00) LDL Direct: 87 mg/dL (09/13/24 04:26:00) VLDL: 17 mg/dL (09/13/24 04:26:00) Tr (more content not included)...[facility]: Result Comment: Electronically Signed By: Prachi Wilson RN\.br\Date and Time Signed: 09/13/24 07:09EDT\.br\Electronically Co-Signed By: Charlie Harrington DO\.br\Date and Time Co-Signed: 09/13/24 10:05 EDT\.br\Electronically Co-Signed By: Prachi Wilson RN [id number] NoteProgress Note-Physician Assessment/Plan SUBJECTIVE: She is at her baseline this morning. Vision is at baseline. She is alert, talking, conversant. It turns out because of circumstance at home she probably has not been getting her levetiracetam. No overnight events. Nothing to add review of systems. ASSESSMENT: At the time of initial assessment here on September 12, 2024 she was exhibiting leftward gaze deviation,right hemiparesis, severe aphasia, all initially concerning for cerebrovascular syndrome (left MCA distribution). However, all those symptoms gradually resolved. Given her history, this was much morelikely to be postictal paralysis and other postictal phenomena rather than a transient ischemic attack. The elevated troponin might reflect an unwitnessed generalized seizure. She has a remote right occipital ischemic stroke that could serve as a potential seizure nidus. Hervisual arvizu are full. Her vision issues are all ocular. 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 Her MRI does not show any evidence of cerebral amyloid angiopathy. PLAN: 1. Levetiracetam 500 mg twice daily 1. Stroke-like episode (R29.90: Unspecified symptoms and signs involving the nervous system) 2. History of seizure (Z87.898: Personal history of other specified conditions) 3. HTN (hypertension) (I10: Essential (primary) hypertension) 4. GERD (gastroesophageal reflux disease) (K21.9: Gastro-esophageal reflux disease without esophagitis) 5. Anxiety and depression (F41.9: Anxiety disorder, unspecified) Depression, unspecified (F32.A: Depression, unspecified) Stroke (I63.9: Cerebral infarction, unspecified) Objective Vitals & Measurements T: 36.8 ???C(Oral) TMIN: 36.6 ???C(Axillary) TMAX: 38.0 ???C(Oral) HR: 70(Monitored) RR: 18 BP: 107/71 SpO2: 96% HT: 152 cm WT: 72.6 kg Intake & Output This visit (24 hour periods starting at 07:00 EDT) 09/13/24 * 09/12/24 09/11/24 Total Summary Intake mL -- 939.23 -- Output mL -- -- -- Fluid Balance -- 939.23 -- Intake (4) Generic Diluent, levetiracetam mL -- 199.58 -- Sodium Chloride 0.9% intravenous solution 1,000 mL mL -- 737.85 -- diazepam mL -- 0.5 -- perflutren mL -- 1.3 -- Total -- 939.23 -- Output (0) Counts (0) * This column has not completed the indicated time period. Physical Exam GEN: General appearance normal. Well-kempt. No distress. No deformities/trauma. CARDIO/VASC: Limbs without significant edema and appear well-perfused. PULM: Normal work of breathing. SKIN: Visualized skin is intact and without lesions aside from age-related findings. MS: Affect is normal. Patient is alert. Attention is normal. LANG: Speech is fluent and non-dysarthric. EYES: Sclera appear injected, especially in the left. Slight corneal opacifications? Pupils seem fixed, mid position. Gaze is conjugate. Ocular motility full. No pathologic nystagmus. Visual arvizu are full to finger counting. CN: Facial sensation normal. Hearing acuity normal. Face without droop and with normal motor function. MOTOR: Muscle bulk normal. Muscle tone normal. Muscle strength normal. No tremors. REFLEXES: Reflexes normoactive throughout. No pathologic reflexes. SENSORY: Light touch normal. Pinprick normal. CEREBELLAR: No limb dysmetria with xerfrr-bmvb-rkhnuk or heel-maldonado. Lab Results WBC: 7.9 E9/L (09/12/24 07:47:00) RBC: 4.5 E12/L (09/12/24 07:47:00) HGB: 13.7 gm/dL (09/12/24 07:47:00) Hct: 40.3 % (09/12/24 07:47:00) MCV: 89.1 fL (09/12/24 07:47:00) MCH: 30.4 pg (09/12/24 07:47:00) MCHC: 34.1 gm/dL (09/12/24 07:47:00) RDW: 14.2 % (09/12/24 07:47:00) Platelet: 284 E9/L (09/12/24 07:47:00) MPV: 6.8 fL (09/12/24 07:47:00) Neutro Auto: 72.5 % (09/12/24 07:47:00) Lymph Auto: 17.1 % (09/12/24 07:47:00) [place] Auto: 7.5 % (09/12/24 07:47:00) Eos Auto: 2.2 % (09/12/24 07:47:00) Basophil Auto: 0.7 % (09/12/24 07:47:00) Neutro Absolute: 5.7 E9/L (09/12/24 07:47:00) Lymph Absolute: 1.3 E9/L (09/12/24 07:47:00) [place] Absolute: 0.6 E9/L (09/12/24 07:47:00) Eos Absolute: 0.2 E9/L (09/12/24 07:47:00) Basophil Absolute: 0.1 E9/L (09/12/24 07:47:00) PT: 12.1 second(s) (09/12/24 07:47:00) INR: 1.08 (09/12/24 07:47:00) PTT: 27.8 second(s) (09/12/24 07:47:00) Glucose Lvl: 86 mg/dL (09/13/24 04:26:00) BUN: 9 mg/dL (09/13/24 04:26:00) Creatinine: 0.5 mg/dL (09/13/24 04:26:00) eGFR: 101 mL/min/1.73 m2 (09/13/24 04:26:00) BUN/Creat Ratio: 18 (09/13/24 04:26:00) Sodium Lvl: 135 mmol/L (09/13/24 04:26:00) Potassium Lvl: 3.1 mmol/L Low (09/13/24 04:26:00) Chloride: 100 mmol/L Low (09/13/24 04:26:00) CO2: 28 mmol/L (09/13/24 04:26:00) AGAP: 10 mEq/L (09/13/24 04:26:00) Calcium Lvl: 8.5 mg/dL Low (09/13/24 04:26:00) Chol: 145 mg/dL (09/13/24 04:26:00) Tri mg/dL (09/13/24 04:26:00) HDL: 42 mg/dL (09/13/24 04:26:00) LDL Direct: 87 mg/dL (09/13/24 04:26:00) VLDL: 17 mg/dL (09/13/24 04:26:00) Tr (more content not included)...[facility]: Result Comment: Electronically Signed By: Prachi Wilson RN\.br\Date and Time Signed: 09/13/24 07:09EDT\.br\Electronically Co-Signed By: Charlie Harrington DO\.br\Date and Time Co-Signed: 09/13/24 10:05 [id number] NoteConsultation Note Chief Complaint Strokelike s/s History of Present Illness 69 year old female with past medical history significant for CVA, seizures, HTN, GERD, anxiety/depression. EMS was called by pt's due to AMS and possible stroke versus seizure. Per EMS pt w/right sided weakness and was nonverbal. History is limited but was obtained by ED and EMS documentation and partial family discussion. Main complaint seem to be patient mentation, speech and right-sided weakness. In the ED pt was able to move both sides of her extremities but was still nonverbal. Pt's did present to bedside states that pt did get out of bed around 6AM and went to the bathroom using her walker w/o any issues. States that they both got up around 6AM -states his was walking when she started to collapse. Pt's states he caught her and lowered her to the ground. States, she wasn't right after that . Reports that he ran next door for help and the boy there helped get her up to chair and called EMS. A ct of the head was obtained in the ED which showed no acute intracranial hemorrhage but did show encephalomalacia in the right occipital lobe with ex vacuo dilatation of the right lateral ventricle. A CTA of the head and neck were both normal. Cardio consulted regarding elevated troponin. According to her niece who was at bedside patient didhave prior heart attack and that when she was diagnosed with broken heart syndrome. Patient denies any chest pain. Her echo was done yesterday which showed apical hypokinesis. Patient seems to be more awake than yesterday Review of Systems As per HPI Physical Exam Vitals & Measurements T: 36.8 ???C(Oral) TMIN: 36.7 ???C(Oral) TMAX: 38.0 ???C(Oral) HR: 68(Monitored) RR: 18 BP: 102/63 SpO2: 93% HT: 152 cm WT: 72.6 kg [place] [facility] regular rhythm S1-S2. Lungs decreased breath sounds. Abdomen nontender. Extremities no edema management per Assessment/Plan 1. Elevated troponin (R79.89: Other specified abnormal findings of blood chemistry) Patient troponin did go up. Currently it is trending down. Echo showed apical wall motion. Patient may be suggestive of broken heart rhythm syndrome however underlying acute coronary syndrome still not officially diagnosed. Patient reports prior history of broken heart syndrome. At this time I would recommend left heart catheterization tomorrow if okay from neurology standpoint. May consider starting IV heparin if it is okay from neurology standpoint. Maintain adequate hydration. N.p.o. after midnight. Discussed with the family and they were agreeable. Consider adding statin if no contraindications 2. Stroke-like episode (R29.90: Unspecified symptoms and signs involving the nervous system) Management per neurology 3. History of seizure (Z87.898: Personal history of other specified conditions) Management per neurology keep patient on cardiac amatory 4. HTN (hypertension) (I10: Essential (primary) hypertension) Blood pressure seems to be borderline adjust medications as needed. Maintain adequate hydration 5. GERD (gastroesophageal reflux disease) (K21.9: Gastro-esophageal reflux disease without esophagitis) 6. Anxiety and depression (F41.9: Anxiety disorder, unspecified) Depression, unspecified (F32.A: Depression, unspecified) Stroke (I63.9: Cerebral infarction, unspecified) Problem List/Past Medical History Ongoing No qualifying data Historical No qualifying data Procedure/Surgical History bilateral stereo biopsy (02/2014), right wrist surgery (1990), bilateral total knee. Medications Inpatient aspirin 300 mg Supp, 300 mg= 1 supp, Rectal, Daily heparin 5000 units/mL Inj, 5000 unit(s)= 1 mL, SubCutaneous, BID levetiracetam additive + Generic Diluent 100 mL NS 1000 mL Soln-IV 1,000 mL, 1000 mL, IV ondansetron 4 mg/2 mL Inj, 4 mg= 2 mL, IV Push, q6hr, PRN potassium chloride additive + premix generic diluent 100 mL Home Advil 200 mg oral tablet, Oral, q6hr atorvastatin 40 mg Tab hydrochlorothiazide 25 mg oral tablet, Oral, Daily levetiracetam 500 mg Tab, 500 mg= 1 tab(s), Oral, BID Prilosec, Oral, Daily Prozac, Oral, Daily Allergies penicillin (Unknown) Social History Alcohol - Denies Alcohol Use, 09/12/2024 Substance Abuse - Denies Substance Abuse, 09/12/2024 Tobacco - Denies Tobacco Use, 09/12/2024[facility]:Result Comment: Electronically Signed By: Adrian RODRIGEZ, Trang\.br\Date and Time Signed: 09/13/24 09:21 [id number] NoteProgress Note-Physician Note reviewing the chart prior to this dictation troponins have risen from being within normal limits to greater than 1000 at 5 PM, subsequent troponin was 2037 and 2216. We are asked for an EKG earlier which demonstrated normal sinus rhythm the computer says possible anterior myocardial infarct, there were no Q waves, cannot see any suspicious ST segments. An echocardiogram demonstrated an ejecti on fraction of 50 to 55% suggested as a suboptimal study/apical hypokinesis. As the differential for transient right-sided weakness included seizure activity, I did ask for a add-on CPK which was well within normal limits. In review of history and physical progress, note patient had been found downat home, though there was no evidence of intracranial hemorrhage, weighing the risk of anticoagulation against potential for acute coronary syndrome. I did check back with her nurse prior to this documentation she continues to deny any chest pain as she did when I evaluated her earlier when she wasdenying any chest pain or shortness of breath. ? If troponin is a stress response from catecholamine release from seizure or threatened CVA as she did not have any acute suspicious EKG changes and did not admit to any suspicious symptoms i.e. denying repetitively any chest pain or shortness of breath and appeared non distressed. Patient is on aspirin, lipids will be checked in the a.m. Will consult with cardiology in the a.m., should patient develop any chest pain or shortness of breath, arrhythmia or if troponin which now appears to be leveling off rises or if there is need for repeat EKG acute changes will reconsider risk versus benefits of anticoagulation.[facility] SystemComment on above:Result Comment: Electronically Signed By: Gurpreet GABRIEL DO\.br\Date and Time Signed: 09/13/24 00:17 [id number] NoteHistory and Physical Basic Information Admit Date/Time:09/12/2024 14:09 Chief Complaint per ems pt nonverbal, right sided weakness since unknown time last night. hx cva and seizures. not pt's norm per ems/ on scene. pt able to answer this RN and moving both sides on arrival. [email or web address]@ [id number] History of Present Illness 69 year old female with past medical history significant for CVA, seizures, HTN, GERD, anxiety/depression. EMS was called by pt's due to AMS and possible stroke versus seizure. Per EMS pt w/right sided weakness and was nonverbal. History is limited but was obtained by ED and EMS documentation and partial family discussion. Main complaint seem to be patient mentation, speech and right-sided weakness. In the ED pt was able to move both sides of her extremities but was still nonverbal. Pt's did present to bedside states that pt did get out of bed around 6AM and went to the bathroom using her walker w/o any issues. States that they both got up around 6AM -states his was walking when she started to collapse. Pt's states he caught her and lowered her to the ground. States, she wasn't right after that . Reports that he ran next door for help and the boy there helped get her up to chair and called EMS. A ct of the head was obtained in the ED which showed no acute intracranial hemorrhage but did show encephalomalacia in the right occipital lobe with ex vacuo dilatation of the right lateral ventricle. A CTA of the head and neck were both normal. Patient was loaded with IV Keppra in the ED and givenhalf dose of Valium as well for possible seizure-like activity as patient does have history of thisas well. Patient was referred to the hospitalist group for further workup and neurology consultation and recommendations. MRI of the brain is pending. Review of Systems Additional ROS info: Except as noted in the above Review of Systems and in the History of Present Illness all other systems have been reviewed and are negative or noncontributory. Scoring Gomez Fall Risk Score: 85 High (09/12/24) Physical Exam Vitals & Measurements T: 38.0 ???C(Oral) TMIN: 36.6 ???C(Axillary) TMAX: 38.0 ???C(Oral) HR: 90(Peripheral) RR: 17 BP: 121/79 SpO2: 92% HT: 152 cm WT: 67.4 kg General: NAD. awake. inattentive. Skin: pale, Warm, dry Head: Normocephalic, atraumatic Neck: No JVD Eye: pupils equal but non reactive w/bilateral sclears redness/irriation. fixed preferential left-sided gaze ENT: Dry mucus membranes Cardiovascular: Regular rate normal peripheral perfusion Respiratory: No respiratory distress no accessory muscle use no obvious audible wheezing Chest Wall: no deformity Musculoskeletal: No deformity no swelling GI: Soft no obvious distention. No rebound or rigidity. No guarding. No tenderness. Neurological: awake, mainly nonverbal, but did state ouch, ok and hi but nothing afterwards. inattentive. forced leftward gaze deviation. unable to assess visual arvizu. ? facial droop. Does have right hemiparesis. sensation intact. NIH 19. Lab Results WBC: 7.9 E9/L (09/12/24 07:47:00) RBC: 4.5 E12/L (09/12/24 07:47:00) HGB: 13.7 gm/dL (09/12/24 07:47:00) Hct: 40.3 % (09/12/24 07:47:00) MCV: 89.1 fL (09/12/24 07:47:00) MCH: 30.4 pg (09/12/24 07:47:00) MCHC: 34.1 gm/dL (09/12/24 07:47:00) RDW: 14.2 % (09/12/24 07:47:00) Platelet: 284 E9/L (09/12/24 07:47:00) MPV: 6.8 fL (09/12/24 07:47:00) Neutro Auto: 72.5 % (09/12/24 07:47:00) Lymph Auto: 17.1 % (09/12/24 07:47:00) Vermillion Auto: 7.5 % (09/12/24 07:47:00) Eos Auto: 2.2 % (09/12/24 07:47:00) Basophil Auto: 0.7 % (09/12/24 07:47:00) Neutro Absolute: 5.7 E9/L (09/12/24 07:47:00) Lymph Absolute: 1.3 E9/L (09/12/24 07:47:00) Vermillion Absolute: 0.6 E9/L (09/12/24 07:47:00) Eos Absolute: 0.2 E9/L (09/12/24 07:47:00) Basophil Absolute: 0.1 E9/L (09/12/24 07:47:00) PT: 12.1 second(s) (09/12/24 07:47:00) INR: 1.08 (09/12/24 07:47:00) PTT: 27.8 second(s) (09/12/24 07:47:00) Glucose Lvl: 102 mg/dL (09/12/24 08:07:00) BUN: 11 mg/dL (09/12/24 08:07:00) Creatinine: 0.7 mg/dL (09/12/24 08:07:00) eGFR: 93 mL/min/1.73 m2 (09/12/24 08:07:00) BUN/Creat Ratio: 16 (09/12/24 08:07:00) Sodium Lvl: 134 mmol/L Low (09/12/24 08:07:00) Potassium Lvl: 3.9 mmol/L (09/12/24 08:07:00) Chloride: 96 mmol/L Low (09/12/24 08:07:00) CO2: 32 mmol/L High (09/12/24 08:07:00) AGAP: 10 mEq/L (09/12/24 08:07:00) Calcium Lvl: 9.5 mg/dL (09/12/24 08:07:00) Troponin HS: 4.1 pg/mL Low (09/12/24 07:47:00) UA Spec Desc: Clean Catch (09/12/24 07:47:00) UA Color: Light-Yellow (09/12/24 07:47:00) UA Clarity: Clear (09/12/24 07:47:00) UA Spec Grav: 1.019 (09/12/24 07:47:00) UA pH: 5.5 (09/12/24 07:47:00) UA Protein: Negat (09/12/24 07:47:00) UA Glucose: Negat (09/12/24 07:47:00) UA Ketones: Negat (09/12/24 07:47:00) UA Bili: Negat (09/12/24 07:47:00) UA Blood: Negat (09/12/24 07:47:00) UA Nitrite: Negat (09/12/24 07:47:00) UA Urobilinogen: Negat (07 (more content not included)...[facility] SystemComment on above:Result Comment: Electronically Signed By: Mazin Sy III, DO\Date and Time Signed: 09/12/24 19:03 [id number] Note Echocardiology Procedure Exam Date/Time Accession # Ordering Dr. Willingham Transthoracic w/ 09/12/2024 12:41 EDT [id number] Charlie Harrington DO CPT code 17037 C8929 Reason for Exam (Echo Transthoracic w/ Contrast) CVA Potential for LV thrombus;CVA Report [facility] [address] [place] [address] Adult Echocardiogram Report Name: LACI CARDOZA Cynthia Study Date: 09/12/2024 11:53 AM BP: 125/107 mmHg Patient Location: 2N [id number] [id number] HR: 90 : 1955 Gender: Female Height: 65 in Age: 69 yrs Ethnicity: T Weight: 148 lb Reason For Study: CVA Potential for LV thrombus;CVA BSA: 1.7 m2 History: CVA, Seizures, No cardiac history per family Ordering Physician: Charlie Harrington Performed By: Batsheva Morley GIBRAN Interpretation Summary The left ventricle is normal in size. There is normal left ventricular wall thickness. Injection of contrast documented no interatrial shunt. Suboptimal study due to poor endocardial definition. Left ventricular ejection fraction seems to be around 50 to 55%. Apical hypokinesis . No evidence of thrombus seen on this study. Procedure A complete two-dimensional transthoracic echocardiogram was performed using contrast (2D, M-mode, spectral and color flow Doppler). Definity contrast was administered. Agitated saline bubble study was performed. Left Ventricle The left ventricle is normal in size. There is normal left ventricular wall thickness. Suboptimal study due to poor endocardial definition. Left ventricular ejection fraction seems to be around 50 to 55%. Apical hypokinesis . Grade I diastolic dysfunction, (abnormal relaxation pattern). No evidence of thrombus seen on this study. Left Atrium The left atrial size is normal. Injection of contrast documented no interatrial shunt. Echocardiology Report Right Atrium Right atrial size is normal. Right Ventricle The right ventricular systolic function is normal. The right ventricle is normal size. Aortic Valve There is mild aortic valve thickening. No aortic regurgitation. There is no aortic stenosis. Mitral Valve Mild thickening of the mitral valve leaflets. There is Trace mitral regurgitation. Tricuspid Valve The tricuspid valve is grossly normal. There is trace tricuspid regurgitation. Right ventricular systolic pressure is normal. Pulmonic Valve not well seen. Arteries The aortic root is normal in size. Venous The inferior vena cava was not visualized during the exam. Effusion There is no pericardial effusion. MMode/2D Measurements & Calculations RVDd: 2.2 cm LVIDd: 4.1 cm FS: 44.8 % Ao root diam: 2.6 cm IVSd: 0.73 cm LVIDs: 2.3 cm EDV(Teich): 74.7 ml LVPWd: 0.86 cm ESV(Teich): 17.5 ml Ao root area: 5.3 cm2 EF(Teich): 76.6 % LA dimension: 4.0 cm asc Aorta Diam: 3.1 cm LVLd ap4: 7.0 cm EDV(MOD-sp2): 22.8 ml SV(MOD-sp4): 31.1 ml EDV(MOD-sp4): 56.4 ml ESV(MOD-sp2): 12.1 ml LVLs ap4: 6.1 cm EF(MOD-sp2): 46.9 % ESV(MOD-sp4): 25.3 ml EF(MOD-sp4): 55.1 % TAPSE: 2.4 cm Ao Sinus of Valsalva: 2.8 cm Ao Sinotubular Junction: 2.3 cm IVC Diam: 2.3 cm RVIDd/LVIDd: 0.54 EF (MOD-bp): 52.0 % LA Vol Index: 20.8 ml/m2 Doppler Measurements & Calculations MV E max arsenio: 109.5 cm/sec MV dec time: 0.18 sec Ao V2 max: 136.8 cm/sec LV V1 max P.6 mmHg MV A max arsenio: 131.0 cm/sec Ao max P.5 mmHg LV V1 max: 62.6 cm/sec MV E/A: 0.84 Lat Peak E' Arsenio: 10.6 cm/sec E/E' Lat: 10.4 Med Peak E' Arsenio: 5.3 cm/sec Echocardiology Report E/E' Med: 20.5 TR max arsenio: 222.6 cm/sec RAP systole: 5.0 mmHg AV VR: 0.46 TR max P.8 mmHg RVSP(TR): 24.8 mmHg FINAL REPORT Dictated: 09/12/2024 11:53 am Trang Campbell MD Signed (Electronic Signature): 09/12/2024 1:55 pm Signed by: Trang Campbell MD Transcribed by: BHARATI Technologist: [facility]07-26-2025 Note Consultation Note Chief Complaint per ems pt nonverbal, right sided weakness since unknown time last night. hx cva and seizures. not pt's norm per ems/ on scene. pt able to answer this RN and moving both sides on arrival. [email or web address]@ [email or web address] Reason for Consultation AMS CVAvs. Seizure History of Present Illness 69-year-old woman. Her most confident last known well would have been last evening. Her thinks he heard her get up and go use the bathroom around 3 AM. She ambulates with a walker. Then around 6 AM she was up again with a walker, but this time she fell. found her on the ground, nonverbal, she was too weak to get up, he was unable to get her up off the floor, they called her friendand then were brought here for evaluation. Based on CT pictures, she looks to have a chronic right occipital ischemic stroke. Her sayshanti has all sorts of vision issues, is essentially almost blind. Also with hearing issues. But she sees an high school art teacher regularly. Her asked to apply lots of eyedrops. Her sclera typically appear irritated. She has glaucoma. Her also said that there is history of multiple of her first-degree relatives that had amyloid problems, presumably systemic or cardiac amyloidosis. Her says that she had a seizure approximately 10 years ago. He does not know the details and did not witness it. But she has been maintained on levetiracetam 500 mg twice daily. He says she is somewhat private about taking her pills and he is not sure if he she is taking everything but he did bring a bag of medications and aspirin 81 mg is in there, the levetiracetam is in there, and atorvastatin 40 mg daily was in there. We went to see her shortly after I was consulted, and evaluated her at 9:55 AM. Review of Systems GEN: No fevers or chills. CV/PULM: No chest pain. No shortness of breath. No palpitations. NEURO: No headaches. No loss of vision. No double vision. No dysphagia. No speech changes. No focalweakness. No sensory loss. Physical Exam Vitals & Measurements T: 36.6 ???C(Axillary) HR: 95(Monitored) RR: 16 BP: 125/107 SpO2: 95% HT: 165.1 cm WT: 67.4 kg Appears somewhat restless. Normal work of breathing, maintaining airway. Visualized skin shows age-related findings. She appears awake, is inattentive. Nonverbal, no speech, severe aphasia. Forced leftward gaze deviation. Pupils appear roughly equal but nonreactive. Bilateral scleral irritation. Could not participate with visual field testing. Hard to say if there is any facial droop, looks grossly okay. Muscle bulk is normal and muscle tone seems normal. Severe right hemiparesis. I could not get the right arm to move. The right leg is moving spontaneously and with noxious stimuli. No Jossue signs. Sensation to noxious stimuli seems intact. Date/Time: 09/12/2024 @0955 Level of Consciousness: Arouses with minimal stim = 1 Current month and age: Both incorrect = 2 Open and close eyes/certified medicine aide release hand: Both incorrect = 2 Best gaze: Forced deviation = 2 Visual field testing: No visual field loss = 0 Facial paresis: Normal symmetric movement = 0 Motor function left arm: Normal = 0 Motor function right arm: No movement = 4 Motor function left leg: Normal = 0 Motor function right leg: No effort against gravity = 3 Limb ataxia: No ataxia = 0 Sensory: Normal = 0 Best language: Mute = 3 Dysarthria: Near unintelligible/unable to speak = 2 Extinction and inattention: Normal = 0 Total Score (severe deficit >22): 19 Notes: Assessment/Plan ASSESSMENT: Concern for a large acute ischemic stroke involving the left cerebral hemisphere (left MCA distribution). She has exam findings that are concerning for large vessel occlusion, including leftward gazedeviation, right hemiparesis, severe aphasia. That being said, the left MCA appears mildly stenoticbut appears widely patent, as does the carotid artery system on the left (personally reviewed). CTA studies read as being unremarkable for concerning acute findings. EKG looks to be sinus. She appears to have history of a right occipital ischemic stroke, remote. She has severe vision issues which are mostly ocular but this might also be contributory. I could not do any sort of formal visual field testing. PLAN: 1. MRI brain without contrast, stat 2. I would like to confirm the absence of cerebral amyloid angiopathy and petechial hemorrhage intowhat I assume was going to be a sizable ischemic stroke, but tentatively I would plan on maintaining her on aspirin with consideration for dual antiplatelet therapy 3. Transthoracic echocardiogram with bubbles 4. Lipid panel and A1c 5. Speech therapy evaluation, physical therapy, Occupational Therapy 1. Encephalopathy, (G93.40: Encephalopathy, unspecified)Encephalopathy 2. Stroke (I63.9: Cerebral infarction, unspecified) 3. History of seizure (Z87.898: Personal history of other specified conditions) Acute focal neurological (more content not included)...[facility] CenterComment on above:Result Comment: Electronically Signed By: Charlie Harrington DO\.br\Date and Time Signed: 09/12/24 10:26 EDT\.br\Electronically Co-Signed By: Steve GAMBINO, Prachi [id number] NoteConsultation Note Chief Complaint per ems pt nonverbal, right sided weakness since unknown time last night. hx cva and seizures. not pt's norm per ems/ on scene. pt able to answer this RN and moving both sides on arrival. [email or web address]@ [id number] Reason for Consultation AMS CVAvs. Seizure History of Present Illness 69-year-old woman. Her most confident last known well would have been last evening. Her thinks he heard her get up and go use the bathroom around 3 AM. She ambulates with a walker. Then around 6 AM she was up again with a walker, but this time she fell. found her on the ground, nonverbal, she was too weak to get up, he was unable to get her up off the floor, they called her friendand then were brought here for evaluation. Based on CT pictures, she looks to have a chronic right occipital ischemic stroke. Her sayshanti has all sorts of vision issues, is essentially almost blind. Also with hearing issues. But she sees an high school art teacher regularly. Her asked to apply lots of eyedrops. Her sclera typically appear irritated. She has glaucoma. Her also said that there is history of multiple of her first-degree relatives that had amyloid problems, presumably systemic or cardiac amyloidosis. Her says that she had a seizure approximately 10 years ago. He does not know the details and did not witness it. But she has been maintained on levetiracetam 500 mg twice daily. He says she is somewhat private about taking her pills and he is not sure if he she is taking everything but he did bring a bag of medications and aspirin 81 mg is in there, the levetiracetam is in there, and atorvastatin 40 mg daily was in there. We went to see her shortly after I was consulted, and evaluated her at 9:55 AM. Review of Systems GEN: No fevers or chills. CV/PULM: No chest pain. No shortness of breath. No palpitations. NEURO: No headaches. No loss of vision. No double vision. No dysphagia. No speech changes. No focalweakness. No sensory loss. Physical Exam Vitals & Measurements T: 36.6 ???C(Axillary) HR: 95(Monitored) RR: 16 BP: 125/107 SpO2: 95% HT: 165.1 cm WT: 67.4 kg Appears somewhat restless. Normal work of breathing, maintaining airway. Visualized skin shows age-related findings. She appears awake, is inattentive. Nonverbal, no speech, severe aphasia. Forced leftward gaze deviation. Pupils appear roughly equal but nonreactive. Bilateral scleral irritation. Could not participate with visual field testing. Hard to say if there is any facial droop, looks grossly okay. Muscle bulk is normal and muscle tone seems normal. Severe right hemiparesis. I could not get the right arm to move. The right leg is moving spontaneously and with noxious stimuli. No Jossue signs. Sensation to noxious stimuli seems intact. Date/Time: 09/12/2024 @0955 Level of Consciousness: Arouses with minimal stim = 1 Current month and age: Both incorrect = 2 Open and close eyes/certified medicine aide release hand: Both incorrect = 2 Best gaze: Forced deviation = 2 Visual field testing: No visual field loss = 0 Facial paresis: Normal symmetric movement = 0 Motor function left arm: Normal = 0 Motor function right arm: No movement = 4 Motor function left leg: Normal = 0 Motor function right leg: No effort against gravity = 3 Limb ataxia: No ataxia = 0 Sensory: Normal = 0 Best language: Mute = 3 Dysarthria: Near unintelligible/unable to speak = 2 Extinction and inattention: Normal = 0 Total Score (severe deficit >22): 19 Notes: Assessment/Plan ASSESSMENT: Concern for a large acute ischemic stroke involving the left cerebral hemisphere (left MCA distribution). She has exam findings that are concerning for large vessel occlusion, including leftward gazedeviation, right hemiparesis, severe aphasia. That being said, the left MCA appears mildly stenoticbut appears widely patent, as does the carotid artery system on the left (personally reviewed). CTA studies read as being unremarkable for concerning acute findings. EKG looks to be sinus. She appears to have history of a right occipital ischemic stroke, remote. She has severe vision issues which are mostly ocular but this might also be contributory. I could not do any sort of formal visual field testing. PLAN: 1. MRI brain without contrast, stat 2. I would like to confirm the absence of cerebral amyloid angiopathy and petechial hemorrhage intowhat I assume was going to be a sizable ischemic stroke, but tentatively I would plan on maintaining her on aspirin with consideration for dual antiplatelet therapy 3. Transthoracic echocardiogram with bubbles 4. Lipid panel and A1c 5. Speech therapy evaluation, physical therapy, Occupational Therapy 1. Encephalopathy, (G93.40: Encephalopathy, unspecified)Encephalopathy 2. Stroke (I63.9: Cerebral infarction, unspecified) 3. History of seizure (Z87.898: Personal history of other specified conditions) Acute focal neurological (more content not included)...[facility] SystemComment on above:Result Comment: Electronically Signed By: Prachi Wilson RN\.br\Date and Time Signed: 09/12/24 09:46EDT\.br\Electronically Co-Signed By: Charlie Harrington DO\.br\Date and Time Co-Signed: 09/12/24 10:25 E DT\.br\Electronically Co-Signed By: Charlie Harrington DO\.br\Date and Time Co- Signed: 09/12/24 10:26 EDTEvaluation + Plan note No data available for this section [facility] Evaluation noteNo assessment information available [facility] Work Phone: Evaluation note* Diagnosis Onset Date Resolution Status Stenosis of left subclavian artery acute [facility] Work Phone: Hospital Discharge instructions No data available for this section [facility] Progress note No data available for this section [facility] Advance Directives No Advanced Directives Records FoundDocuments on File TypeDate RecordedPatient RepresentativeExplanationAdvance Directives and Living WillPower of AttorneyCode StatusDate ActivatedDate InactivatedCommentsFull Code 03/20/2015 10:18 03/23/2015 7:41 PMTypeDate RecordedPatient Research Associate Molecular Biology ExplanationAdvance Directives and Living WillPower of AttorneyCode StatusDate ActivatedDate InactivatedCommentsFull Code03/20/2015 10:18 PM2 7:41 PM Advance Directive Response Recorded Date/ Time Advance Directives No August 20 5:27pm Summary Purpose Family History No Family History Records Found Relationship Condition Age at Onset Recorded Date/T karlos father Unknown family memberDeceasedUnknownNot SpecifiedDeceasedUnknown Relationship Condition Age at Onset Recorded Date/T karlos father Unknown family memberDeceasedUnknownmotherDeceasedUnknown Reason for Referral StatusReasonSpecialtyDiagnoses / ProceduresReferred By ContactReferred To ContactOpenRadiology Diagnoses Osteopenia, unspecified location Procedures DEXA BONE DENSITY 2 SITES Boy Torres APRN - [employer] [address] [place] [address] StatusReasonSpecialtyDiagnoses / ProceduresReferred By ContactReferred To ContactPending ReviewRadiology Diagnoses Breast cancer screening by mammogram Procedures PRISCA DIGITAL SCREEN W OR WO CAD BILATERAL Boy Torres APRN - [employer] [address] [place] [address] Assessments Diagnosis Osteopenia, unspecified location Diagnosis Breast cancer screening by mammogram Chief Complaint and Reason for Visit Chief Complaint weakness Chief Complaint R29.810 Z86.69 Chief Complaint R29.810 Z86.69 Referred for left subclavian steelReason for VisitStenosis of left subclavian artery Additional Source Comments INFORMATION SOURCE (unrecogn ized section and content) DATE CREATED AUTHOR 09/24/2019 [facility] DATE CREATED AUTHOR AUTHOR'S ORGANIZ ATION 01/02/2021 [facility] DATE CREATED AUTHOR AUTHOR'S ORGANIZ ATION 01/10/2022 [facility] [employer] DATE CREATED AUTHOR AUTHOR'S ORGANIZ ATION 06/26/2023 [facility] DATE CREATED AUTHOR AUTHOR'S ORGANIZ ATION 08/21/2023 [facility] DATE CREATED AUTHOR AUTHOR'S ORGANIZ ATION 09/11/2024 [facility] DATE CREATED AUTHOR AUTHOR'S ORGANIZ ATION 09/13/2024 [facility] DATE CREATED AUTHOR AUTHOR'S ORGANIZ ATION 09/14/2024 [facility] DATE CREATED AUTHOR AUTHOR'S ORGANIZ ATION 09/15/2024 [facility] DATE CREATED AUTHOR AUTHOR'S ORGANIZ ATION 09/16/2024 [facility] DATE CREATED AUTHOR AUTHOR'S ORGANIZ ATION 09/17/2024 [facility] DATE CREATED AUTHOR AUTHOR'S ORGANIZ ATION 09/19/2024 [facility] DATE CREATED AUTHOR AUTHOR'S ORGANIZ ATION 10/11/2024 [facility] DATE CREATED AUTHOR AUTHOR'S ORGANIZ ATION 11/13/2024 [facility] Reason for Visit (unrecogniz ed section and content) StatusReasonSpecialtyDiagnoses / ProceduresReferred By ContactReferred To ContactOpenRadiology Diagnoses Osteopenia, unspecified location Procedures DEXA BONE DENSITY 2 SITES Boy Torres APRN - CNP [address] [place] [id number] StatusReasonSpecialtyDiagnoses / ProceduresReferred By ContactReferred To ContactClosedRadiology Diagnoses Age-related osteoporosis without current pathological fracture Encounter for screening for osteoporosis Asymptomatic menopausal state Procedures HC DEXA AXIAL SKELETON Robbin Ortiz [address] [place] [address] [facility] [place] [id number] Care Teams (unrecognized sec tion and content) Team Status: Active Member Role Status Amaris Ortiz MD Primary Care Provider Active Team Status: Inactive Member Role Status Dates Robbin Ortiz MD Primary Care Provider Active Abel Griffith ProviderActive Team Status: Inactive Member Role Status Dates Robbin Ortiz MD Primary Care Provider Active St art: June 13, 2023 End: June 12Baljinder Castillo ProviderActiveStart: June 13, 2023 End: June 13, 2023 Team Status: Inactive Member Role Status Amaris Ortiz MD Primary Care Provide r, Referring Provider Active Start: September 02, 2023 End: September 02, 2023Yoly Junior ProviderActiveStart: September 02, 2023 End: September 02, 2023 Goals (unrecognized section and content) Goals may be documented in a n alternate sectionGoals may be documented in an alternate sectionGoals may be documented in an alternate section No data available for this section No data available for this section FOR RECORDS PERTAINING TO PATIENTS WHO [...] BE BASED ON THE PRIMARY CLINICAL RECORDS. [facility] MD-IT [facility]. provides no warranty or guarantee of the accuracy or completeness of information in this document.
--- NOTE | 2024-12-09 13:15 | ED_ITS ---
HPI HPI - General Adult General Chief complaint: Altered Mental Status Stated complaint: POSSIBLE SEIZURE Time Seen by Provider: 12/09/24 12:56 Source: patient Mode of arrival: ambulance Limitations: altered mental status History of Present Illness HPI narrative: 69-year-old female presents to the emergency department after a syncopal episode. She was apparently sitting in her wheelchair and there was no injury. She was transported here by paramedics who recognized that her blood pressure was low. No recent vomiting or diarrhea and she denies any recent blood in her stool. She does not have any pain, no headache or chest pain or abdominal pain. This occurred immediately before coming into the emergency department. Related Data Home Medications ?Medication ?Instructions ?Recorded ?Confirmed atorvastatin 40 mg tablet 40 mg PO DAILY 08/20/2211/19 levetiracetam 500 mg tablet 1,000 mg PO Q12H 08/20/22 12/09/24 omeprazole 40 mg capsule,delayed 40 mg PO DAILY 12/09/24 release acetaminophen 325 mg tablet 650 mg PO Q6H PRN fever or pain 12/09/24 12/09/24 (Tylenol) dorzolamide 22.3 mg-timolol 6.8 1 drp ophthalmic (eye) Q12H 12/09/24 12/09/24 mg/mL eye drops fluoxetine 10 mg capsule 10 mg PO DAILY 12/09/2411/19 hard/soft/gas permeable prods 12/09/24 12/09/24 (Systane Contacts eye drops) magnesium hydroxide 400 mg/5 mL 30 ml PO BID PRN const ipation 12/09/24 12/09/24 oral suspension (Milk of Magnesia) megestrol 40 mg tablet 40 mg PO DAILY 12/09/2411/19 netarsudil 0.02 %-latanoprost 1 drp ophthalmic (eye) D AILY 12/09/24 12/09/24 0.005 % eye drops (Rocklatan) olopatadine 0.2 % eye drops 1 drp ophthalmic (eye) Q24 H 12/09/24 12/09/24 (Pataday Once Daily Relief) ondansetron 4 mg disintegrating 4 mg PO Q4H PRN nausea and vomiting 12/09/24 12/09/24 tablet tizanidine 4 mg capsule (Zanaflex) 4 mg PO BID PRN mus nile spasticity 12/09/24 12/09/24 Allergies Allergy/AdvReac Type Severity Reaction Status Date / Time morphine Allergy Unknown Verified 08/20/22 02:57 Penicillins Allergy Unknown Verified 08/20/22 02:57 Opioid HPI Opioid Management Most Recent Opioid Data: 2 Last Pain Scale 8 08/21/22, 17:32 Last ORT Total Score 1 05/07/23, 22:54 Last ORT Risk Category Low Risk 05/07/23, 22:54 Review of Systems ROS Narrative A ten point review of systems is negative except as noted above. [facility] Medical History (Updated 12/09/24 @ 17:01 by Jonas Mcgraw MD) Hyperlipemia ?E78.5 - Hyperlipidemia, unspecified (ICD-10) TIA (transient ischemic attack) ?G45.9 - Transient cerebral ischemic attack, unspecified (ICD-10) Glaucoma ?H40.9 - Unspecified glaucoma (ICD-10) Depression ?F32.A - Depression, unspecified (ICD-10) GERD (gastroesophageal reflux disease) ?K21.9 - Gastro-esophageal reflux disease without esophagitis (ICD-10) Hypokalemia ?E87.6 - Hypokalemia (ICD-10) Stricture of artery ?I77.1 - Stricture of artery (ICD-10) Encephalopathy ?G93.40 - Encephalopathy, unspecified (ICD-10) Dyslipidemia ?E78.5 - Hyperlipidemia, unspecified (ICD-10) Cerebrovascular disease ?I67.9 - Cerebrovascular disease, unspecified (ICD-10) Benign essential hypertension ?I10 - Essential (primary) hypertension (ICD-10) Heart failure with improved ejection fraction (HFimpEF) ?I50.32 - Chronic diastolic (congestive) heart failure (ICD-10) Takotsubo cardiomyopathy ?I51.81 - Takotsubo syndrome (ICD-10) Nonobstructive atherosclerosis of coronary artery ?I25.10 - Atherosclerotic heart disease of [place] coronary artery without angina pectoris (ICD-10) Headache ?R51.9 - Headache, unspecified (ICD-10) Elevated troponin ?R77.8 - Other specified abnormalities of plasma proteins (ICD-10) Asthma ?J45.909 - Unspecified asthma, uncomplicated (ICD-10) Seizure ?R56.9 - Unspecified convulsions (ICD-10) Stroke ?I63.9 - Cerebral infarction, unspecified (ICD-10) Surgical History (Updated 05/08/23 @ 00:19 by Sarah Peterson RN) H/O wrist surgery ?Z98.890 - Other specified postprocedural states (ICD-10) History of bilateral knee replacement ?Z96.653 - Presence of artificial knee joint, bilateral (ICD-10) Family History (Updated 05/08/23 @ 00:24 by Sarah Peterson RN) Mother Family history of CHF (congestive heart failure) Family history of myocardial infarction Father Family history of myocardial infarction Social History Smoking status: Never smoker Highest level of school completed/degree received: high school graduate Exam Narrative Exam Narrative: Nurses note and vital signs reviewed General:The patient appears pale and weak. Skin:Warm, dry, pallor noted.There is no rash noted. Head:Normocephalic, atraumatic Eye: Normal conjunctiva, no drainage Ears, Nose, Mouth, and Throat: oral mucosa is somewhat dry. Nares patent. Cardiovascular:Regular Rate and Rhythm, mildly tachycardic Respiratory:Patient is in no distress, no accessory muscle use, lungs are clear to auscultation, no wheezing, rales or rhonchi GI: Soft and nontender Musculoskeletal: All joints have good range of motion Neurological:A&O x4, normal speech Psychiatric:Cooperative Constitutional Vital Signs, click to edit/add: Last Vital Signs Pulse 115 H 12/09/24 16:31 Resp 20 12/09/24 16:31 BP 91/60 12/09/24 16:31 Pulse Ox 100 12/09/24 16:31 O2 Del Method Room Air 12/09/24 12:55 O2 Flow Rate 2 12/09/24 15:41 Course Vital Signs Vital signs: Vital Signs Pulse Rate 107 H 12/09/24 12:52 Respiratory Rate 29 H 12/09/24 12:52 Blood Pressure 65/40 L 12/09/24 12:52 Pulse Oximetry 92 L 12/09/24 12:52 Oxygen Delivery Method Room Air 12/09/24 12:52 Pulse Rate 115 H 12/09/24 16:31 Respiratory Rate 20 12/09/24 16:31 Blood Pressure 91/60 12/09/24 16:31 Pulse Oximetry 100 12/09/24 16:31 Oxygen Delivery Method Room Air 12/09/24 12:55 Oxygen Delivery Flow Rate 2 12/09/24 15:41 Medical Decision Making MDM Narrative Medical decision making narrative: Troponin came back at 112. She was also hypotensive and tachycardiac and CTA of the chest was performed which shows submassive pulmonary embolism with right heart strain. Case was discussed with Dr. Sarah who recommends heparin and transfer to [facility]. The patient remained hypotensive and was started on IV Levophed and pressure has come up. Findings are discussed thoroughly with the patient and her boyfriend. The following procedure was performed by me. Right femoral triple-lumen catheter was placed. The right groin area was locally anesthetized with 1% lidocaine without epinephrine. The area was prepped thoroughly and draped sterilely. Using usual Seldinger technique ultimately triple-lumen catheter was passed into the femoral vein. Initially the femoral artery was punctured and pressure was held with no large hematoma developing. Good blood return and flushed x 3. I have spoken to Dr. Sarah and Dr. Weiss at [facility] and they accept the patient in transfer. She is agreeable and stable for transfer. Differential Diagnosis Differential Diagnosis: OK, hypovolemia, anemia, acute kidney injury, pulmonary embolism Lab Data Lab results reviewed: Yes I reviewed the patient's lab results Labs: Lab Results 12/09/24 12/09/24 12/09/24 Range/Units 12:56 13:11 13:37 WBC 13.9 H (4.0-11.0) 10^3/uL RBC 4.88 (4.20-5.40) 10^6/uL Hgb 14.7 (12.0-16.0) g/dL Hct 45.6 (36.0-48.0) % MCV 93.4 (81.0-99.0) fL MCH 30.1 (26.7-34.0) pg MCHC 32.2 (29.9-35.2) g/dL RDW 14.5 (11.0-15.0) % Plt Count 305 (150-450) 10^3/uL MPV 8.7 L (9.5-13.5) fL Neut % (Auto) 80.1 H (43.0-75.0) % Lymph % (Auto) 10.8 L (20.5-60.0) % [place] % (Auto) 6.9 (1.7-12.0) % Eos % (Auto) 1.3 (0.9-7.0) % Baso % (Auto) 0.4 (0.2-2.0) % Neut # (Auto) 11.1 H (1.4-6.5) 10^3/uL Lymph # (Auto) 1.5 (1.2-3.8) 10^3/uL [place] # (Auto) 1.0 H (0.3-0.8) 10^3/uL Eos # (Auto) 0.2 (0.0-0.7) 10^3/uL Baso # (Auto) 0.1 (0.0-0.1) 10^3/uL Abs Immat Gran (auto) 0.07 H (0.00-0.03) 10^3/uL Imm/Tot Granulo (auto) 0.5 (0.0-0.5) % PT 13.3 H (9.0-11.6) sec INR 1.29 APTT 28.8 (22.3-36.2) sec Sodium 136 (136-145) mmol/L Potassium 3.2 L (3.5-5.1) mmol/L Chloride 100 (98-107) mmol/L Carbon Dioxide 28.8 (21.0-32.0) mmol/L Anion Gap 10.4 BUN 11.0 (7.0-18.0) mg/dL Creatinine 0.72 (0.55-1.02) mg/dL Est GFR ( Amer) >60 (>=60 mL/min/1.73m^2) Est GFR (Non-Af Amer) >60 (>=60 mL/min/1.73m^2) BUN/Creatinine Ratio 15.3 Glucose 112 H (74-106) mg/dL Lactate 2.4 H* (0.4-2.0) mmol/L Calcium 8.7 (8.5-10.1) mg/dL Total Bilirubin 0.9 (0.2-1.0) mg/dL Direct Bilirubin 0.3 H (0.0-0.2) mg/dL AST 31 (15-37) U/L ALT 21 (14-59) U/L Alkaline Phosphatase 187 H (46-116) U/L Troponin I High Sens 112.3 H* (4.0-51.3) pg/mL Total Protein 6.9 (6.4-8.2) g/dL Albumin 2.8 L (3.4-5.0) g/dL Globulin 4.1 g/dL Albumin/Globulin Ratio 0.7 Urine Color (YELLOW) Urine Clarity (CLEAR) Urine pH (5.0-9.0) Ur Specific [place] (1.005-1.025) Urine Protein (NEG/TRACE) mg/dL Urine Glucose (UA) (NEGATIVE) mg/dL Urine Ketones (NEGATIVE) mg/dL Urine Occult Blood (NEGATIVE) Urine Nitrite (NEGATIVE) Urine Bilirubin (NEGATIVE) Urine Urobilinogen (0.2-1.0) EU/dL Ur Leukocyte Esterase (NEGATIVE) Urine RBC (0-2) #/HPF Urine WBC (NONE SEEN) #/HPF Ur Squamous Epith Cells (NONE/RARE) #/LPF Urine Crystals (None Seen) #/HPF Calcium Oxalate Crystal Urine Bacteria (NONE SEEN) #/HPF Urine Casts (NONE SEEN) #/LPF Hyaline Casts Urine Mucus (NONE SEEN) Stool Occult Blood Negative POC Glucose 90 (74-106) mg/dL 12/09/24 12/09/24 Range/Units 13:39 16:28 WBC (4.0-11.0) 10^3/uL RBC (4.20-5.40) 10^6/uL Hgb (12.0-16.0) g/dL Hct (36.0-48.0) % MCV (81.0-99.0) fL MCH (26.7-34.0) pg MCHC (29.9-35.2) g/dL RDW (11.0-15.0) % Plt Count (150-450) 10^3/uL MPV (9.5-13.5) fL Neut % (Auto) (43.0-75.0) % Lymph % (Auto) (20.5-60.0) % [place] % (Auto) (1.7-12.0) % Eos % (Auto) (0.9-7.0) % Baso % (Auto) (0.2-2.0) % Neut # (Auto) (1.4-6.5) 10^3/uL Lymph # (Auto) (1.2-3.8) 10^3/uL [place] # (Auto) (0.3-0.8) 10^3/uL Eos # (Auto) (0.0-0.7) 10^3/uL Baso # (Auto) (0.0-0.1) 10^3/uL Abs Immat Gran (auto) (0.00-0.03) 10^3/uL Imm/Tot Granulo (auto) (0.0-0.5) % PT (9.0-11.6) sec INR APTT (22.3-36.2) sec Sodium (136-145) mmol/L Potassium (3.5-5.1) mmol/L Chloride (98-107) mmol/L Carbon Dioxide (21.0-32.0) mmol/L Anion Gap BUN (7.0-18.0) mg/dL Creatinine (0.55-1.02) mg/dL Est GFR ( Amer) (>=60 mL/min/1.73m^2) Est GFR (Non-Af Amer) (>=60 mL/min/1.73m^2) BUN/Creatinine Ratio Glucose (74-106) mg/dL Lactate 1.6 (0.4-2.0) mmol/L Calcium (8.5-10.1) mg/dL Total Bilirubin (0.2-1.0) mg/dL Direct Bilirubin (0.0-0.2) mg/dL AST (15-37) U/L ALT (14-59) U/L Alkaline Phosphatase (46-116) U/L Troponin I High Sens 574.9 H* (4.0-51.3) pg/mL Total Protein (6.4-8.2) g/dL Albumin (3.4-5.0) g/dL Globulin g/dL Albumin/Globulin Ratio Urine Color Dk. yellow (YELLOW) Urine Clarity Clear (CLEAR) Urine pH 6.0 (5.0-9.0) Ur Specific [place] 1.020 (1.005-1.025) Urine Protein Negative (NEG/TRACE) mg/dL Urine Glucose (UA) 100 A (NEGATIVE) mg/dL Urine Ketones Negative (NEGATIVE) mg/dL Urine Occult Blood Negative (NEGATIVE) Urine Nitrite Negative (NEGATIVE) Urine Bilirubin Small A (NEGATIVE) Urine Urobilinogen 1.0 (0.2-1.0) EU/dL Ur Leukocyte Esterase Trace A (NEGATIVE) Urine RBC 0-2 (0-2) #/HPF Urine WBC 0-2 A (NONE SEEN) #/HPF Ur Squamous Epith Cells Many A (NONE/RARE) #/LPF Urine Crystals Seen A (None Seen) #/HPF Calcium Oxalate Crystal Rare Urine Bacteria Trace A (NONE SEEN) #/HPF Urine Casts Seen A (NONE SEEN) #/LPF Hyaline Casts Rare Urine Mucus Small A (NONE SEEN) Stool Occult Blood POC Glucose (74-106) mg/dL Imaging Data Chest x-ray: Radiologist's impression: ITS Impressions Chest X-Ray 12/09/24 13:48 IMPRESSION: No acute process. Impression dictated by: Prashanth Joseph M.D. 12/09/2024 1:53 PM Dictation Location: [employer] Electronically authenticated by: [id number] Y Date: 12/09/2024 13:53 Chest CTA 12/09/24 16:03 IMPRESSION: Submassive saddle pulmonary embolism with right heart strain. Right basilar opacities may represent atelectasis versus areas of developing infarct. Critical findings were discussed with the physician senior underwriting assistant over telephone at approximately 1615 hours 09/08/2024 Impression dictated by: Jerome Le M.D. 12/09/2024 4:18 PM Dictation Location: [employer] Electronically authenticated by: [id number] Y Date: 12/09/2024 16:18 ECG Data Attestation: I personally reviewed and interpreted this ECG as follows: (EKG on my interpretation shows sinus tachycardia with a rate of 117.) Critical Care Time Critical Care Time Critical Care Time: Yes Total Critical Care Time: 110 Attestation: Due to the high probability of sudden and clinically significant deterioration in the patient's condition he/she required the highest level of my preparedness to intervene urgently I provided critical care time including documentation time, medication orders and management, reevaluation, vital sign assessment, ordering and reviewing of lab tests, ordering and reviewing of x-ray studies, and admission orders. Aggregate critical care time is 110 minutes including only time during which I was engaged in work directly related to his/her care and did not include time spent treating other patients simultaneously. Discharge Plan Discharge Chief Complaint: Altered Mental Status Clinical Impression: Acute saddle pulmonary embolism Patient Disposition: [facility] Time of Disposition Decision: 17:00 Discharge Location: [facility] Condition: Critical Mode of Transportation: EMS
[2024-12-09] MEDS: 0.9 % SODIUM CHLORIDE 1,000 ML 1000 ML IV ×2 (13:22→14:16)
[2024-12-09 13:25] LABS: Hematocrit 45.6 % (36.0-48.0); Hemoglobin 14.7 g/dL (12.0-16.0); Immature Granulocytes Abs Auto 0.07 10^3/uL (0.00-0.03); Immature Granulocytes Pct Auto 0.5 % (0.0-0.5); Lymphocytes Absolute Auto 1.5 10^3/uL (1.2-3.8); Mean Corpuscular HGB Conc 32.2 g/dL (29.9-35.2); Mean Corpuscular Hemoglobin 30.1 pg (26.7-34.0); Mean Corpuscular Volume 93.4 fL (81.0-99.0); Platelet Count 305 10^3/uL (150-450); Red Blood Count 4.88 10^6/uL (4.20-5.40); White Blood Count 13.9 10^3/uL (4.0-11.0)
[2024-12-09 13:43] LABS: Alanine Aminotransferase 21 U/L (14-59); Albumin Globulin Ratio 0.7; Albumin Level 2.8 g/dL (3.4-5.0); Alkaline Phosphatase 187 U/L (46-116); Anion Gap 10.4; Aspartate Amino Transferase 31 U/L (15-37); Blood Urea Nitrogen 11.0 mg/dL (7.0-18.0); Calcium 8.7 mg/dL (8.5-10.1); Carbon Dioxide 28.8 mmol/L (21.0-32.0); Chloride 100 mmol/L (98-107); Estimated GFR (African America >60 (>=60 mL/min/1.73m^2); Estimated GFR (Non-African Ame >60 (>=60 mL/min/1.73m^2); Globulin 4.1 g/dL; Glucose 112 mg/dL (74-106); Potassium 3.2 mmol/L (3.5-5.1); Sodium 136 mmol/L (136-145); Total Protein 6.9 g/dL (6.4-8.2)
--- NOTE | 2024-12-09 13:48 | XR_ITS ---
The [address] [address] Patient Name: LACI VALADEZ MRN: [id number] date: 1955 Sex: F Assigned Patient Location: ER Current Patient Location: ER Accession/Order Number: [id number] Exam Date: 12/09/2024 13:43 Report Date: 12/09/2024 13:53 At the request of: NEHEMIAS CALDERON MD Procedure: XR chest 1V Plain film chest Single view HISTORY: Hypotension COMPARISON: 05/07/2023 FINDINGS: SUPPORT DEVICES: None POSTSURGICAL CHANGES: None HEART: Within normal limits PULMONARY WILL: Within normal limits MEDIASTINUM: Unremarkable LUNGS AND PLEURA: No acute lung process, pleural effusion or pneumothorax identified. BONY STRUCTURES: Intact ADDITIONAL FINDINGS None XR/XR chest 1V IMPRESSION: No acute process. Impression dictated by: Prashanth Joseph M.D. 12/09/2024 1:53 PM Dictation Location: [place] [address] Electronically authenticated by: [id number] Y Date: 12/09/2024 13:53
[2024-12-09 13:54] LABS: Glucose Urine UA 100 mg/dL (NEGATIVE)
[2024-12-09 14:02] LABS: Cast Seen? SEEN #/LPF (NONE SEEN); Crystals Seen? Seen #/HPF (None Seen)
[2024-12-09 14:11] LABS: Lactate/Lactic Acid 2.4 mmol/L (0.4-2.0)
[2024-12-09] MEDS: ASPIRIN 81 MG TAB.CHEW 324 MG PO (14:21)
[2024-12-09 14:25] LABS: INR 1.29; Partial Thromboplastin Time 28.8 sec (22.3-36.2); Prothrombin Time 13.3 sec (9.0-11.6)
[2024-12-09] MEDS: LIDOCAINE HCL 1% 100 MG/10 ML MDV INJ (15:01)
--- NOTE | 2024-12-09 16:03 | CT_ITS ---
The [address] [address] Patient Name: LACI VALADEZ MRN: [id number] date: 1955 Sex: F Assigned Patient Location: ED.MAIN Current Patient Location: ED.MAIN Accession/Order Number: [id number] Exam Date: 12/09/2024 15:55 Report Date: 12/09/2024 16:18 At the request of: NEHEMIAS CALDERON MD Procedure: CT angio chest CT ANGIOGRAM OF THE CHEST, PULMONARY EMBOLISM PROTOCOL: CLINICAL INFORMATION: Elevated troponin, hypotension TECHNIQUE: Following intravenous injection of contrast CT scans of the chest were obtained using pulmonary embolism protocol. Coronal and sagittal reconstructed images, as well as volume rendered CT pulmonary angiographic images were also submitted.The CT exam was performed using one or more of the following dose reduction techniques: Automated exposure control, adjustment of the MA and/or Kv according to patient size, or use of the iterative reconstruction technique. FINDINGS: Pulmonary Vasculature: Submassive saddle pulmonary embolism involving both main pulmonary emboli. Heart strain noted. Coronary artery disease. Mediastinum : Cardiomegaly. Heart strain. No effusion. Lungs: Right basilar opacity is possible atelectasis or airspace disease versus less likely areas of developing infarct. Upper abdomen: Mildly distended gallbladder. Soft tissue/bones: Multilevel degenerative changes thoracic spine. Punctate densities identified within the canal noted unclear if this represents epidural or subarachnoid calcifications CT/CT angio chest IMPRESSION: Submassive saddle pulmonary embolism with right heart strain. Right basilar opacities may represent atelectasis versus areas of developing infarct. Critical findings were discussed with the physician marketing assistant manager over telephone at approximately 1615 hours 09/08/2024 Impression dictated by: Jerome Le M.D. 12/09/2024 4:18 PM Dictation Location: [employer] Electronically authenticated by: [id number] Y Date: 12/09/2024 16:18
[2024-12-09] MEDS: NOREPINEPHRINE BITARTRATE/D5W 4 MG/250 ML PREMIX 30 MG IV (16:24)
[2024-12-09 16:58] LABS: Lactate/Lactic Acid 1.6 mmol/L (0.4-2.0)
[2024-12-09] MEDS: HEPARIN SODIUM (PORCINE) 5,000 UNIT/ML VIAL 4300 UNIT IV (17:01)
[2024-12-09] MEDS: HEPARIN SODIUM,PORCINE/D5W 25,000 UNIT/500 ML IV.SOLN 19 UNIT IV (17:01)
== END 2024-12-09 21:00 | disposition short-term general hospital (02) ==
PROVIDERS: Emergency Provider Emergency Medicine; PCP Internal Medicine
DX: I26.92 Saddle embolus of pulmonary artery without acute cor pulmonale (principal); I95.9 Hypotension, unspecified
CPT/HCPCS: 36415; 36556; 51702; 71045; 71275; 80048; 80076; 81001; 83605; 84484; 85025; 85610; 85730; 87040; 93005; 96361; 96365; 96366; 96368; 96375; 96376; 99285; G0328; J1644; J2405; Q9967